=== PATIENT | female | born 1990 | race Two or more races ===

== ENCOUNTER 2018-10-18 18:36 | Emergency (ER) | payer OTHER ==
[~2018-10-18] VITALS: Ht 154.9 cm; Wt 113.4 kg
[~2018-10-18 18:36] MED LIST: ACEBUTCAFT PO; ALBU90OI INH; ALPR1; AMOX500 PO; ANTOXYBENA OT; AZIT250 PO; BCPS; BUPR1 PO; CLOM50A; CRUTCH4 USE; CYCL10 PO; DEPAKOTE; DILT120; DIPH50; ETOD500; HYDACE5; HYDACE5 PO; HYDHCL25 PO; HYDPAM50; IBUP600 PO; IBUP800 PO; IBUPROFEN PRN; LORA1; LORA1 PO; METPRE4DP PO; MIRENA; MULVITMINE PO; NAPR500EC PO; OXYACE5T PO; PENVK500 PO; PROM25 PO; PROP10; PSEU30 PO; QUET100; QUET25; RISP.5; RXLORA1 PO; RXPROM12.S PR; RXTRAM50 PO; SERT50; SULTRIDS PO; TOPI25; TRAZ100; TRAZ50; Veetids 500500 MG PO; ZOLP10; [UNRECOGNIZED DRUG - OTHER]; [UNRECOGNIZED DRUG - OTHER]
[2018-10-18 20:07] LABS: BASOPHILS ABSOLUTE AUTO 0.04 K/mm3 (0.00-0.23); BASOPHILS PERCENT AUTO 1 % (0-2); EOSINOPHILS ABSOLUTE AUTO 0.07 K/mm3 (0.00-0.68); EOSINOPHILS PERCENT AUTO 1 % (0-6); Hematocrit 49.1 % (33.0-51.0); Hemoglobin 16.9 g/dL (11.5-16.0); IMMATURE GRAN ABSOLUTE AUTO 0.01 K/mm3 (0.00-0.10); IMMATURE GRAN PERCENT AUTO 0 % (0-1); LYMPHOCYTES PERCENT AUTO 23 % (21-46); MONOCYTES PERCENT AUTO 7 % (4-13); Mean Corpuscular HGB 31.7 pg (26.0-34.0); Mean Corpuscular HGB Conc 34.4 g/dL (31.5-36.5); Mean Corpuscular Volume 92 fL (80-100); NEUTROPHILS ABSOLUTE AUTO 5.28 K/mm3 (1.96-9.15); NEUTROPHILS PERCENT AUTO 69 % (41-73); Platelet Count 286 K/mm3 (150-400); RDW Coefficient Variation 12.2 % (11.7-14.2); RDW Standard Deviation 41.7 fL (35.1-46.3); Red Blood Cell Count 5.33 M/mm3 (3.80-5.20)
[2018-10-18 20:30] LABS: Alanine Aminotransfer (ALT/SGP 146 U/L (12-78); Albumin, Blood 4.2 g/dL (3.4-5.0); Albumin/Globulin Ratio 0.9 (0.8-1.8); Alk Phos 64 U/L (50-136); Anion Gap 10 mmol/L (6-16); Aspartate Aminotrans (AST/SGOT 119 U/L (12-37); Bilirubin, Total 0.5 mg/dL (0.1-1.0); Blood Urea Nitrogen 5 mg/dL (8-24); Bun/Creatinine Ratio 8.1 (12.0-20.0); CO2, Blood 24 mmol/L (21-32); Chloride, Blood 103 mmol/L (98-108); Creatinine, Blood 0.62 mg/dL (0.40-1.00); Globulin, Blood 4.5 g/dL (2.2-4.0); Glomerular Filtration Rate >60 (60-); Glucose, Blood 98 mg/dL (70-99); Potassium, Blood 3.7 mmol/L (3.5-5.5); Sodium, Blood 137 mmol/L (136-145); Total Protein, Blood 8.7 g/dL (6.4-8.2)
[2018-10-18] MEDS ORDERED: Protonix40 MG PO (21:39)
[2018-10-18] MEDS ORDERED: ONDA4ODT MM (21:39)
[2018-10-18 21:58] LABS: Source, Urine Clean Catch
[2018-10-18 21:59] LABS: Appearance, Urine Cloudy (Clear); Bilirubin, Urine Neg (Neg); Blood, Urine 5+ (Neg); Color, Urine Yellow (P-Yellow); Glucose Qualitative, Urine Neg (Neg); Ketones, Urine Neg (Neg); Leukocyte Esterase, Urine 2+ (Neg); Nitrite, Urine Neg (Neg); Protein, Urine Neg (Neg); Urobilinogen, Urine NORM (Normal)
[2018-10-18 22:17] LABS: Bacteria Many /hpf; Squamous Epithelial Cells Few /hpf (Few)
== END 2018-10-18 22:31 | disposition home or self-care (01) ==
LOC: ER 18:36
PROVIDERS: Emergency Medicine
DX: R10.12 Left upper quadrant pain (principal); Z88.8 Allergy status to other drugs, medicaments and biological substances; Z79.899 Other long term (current) drug therapy; Z79.52 Long term (current) use of systemic steroids; Z72.0 Tobacco use
CPT/HCPCS: 36415; 74177; 80053; 81001; 81025; 83690; 84703; 85025; 87077; 87086; 87186; 96361; 96374; 96375; 99284-25; J2405; J7030; Q9967

== ENCOUNTER 2019-09-12 14:55 | Emergency (ER) | payer OTHER ==
[~2019-09-12] VITALS: Ht 160 cm; Wt 104.3 kg
[~2019-09-12 14:55] MED LIST changes: +ONDA4ODT MM; +Protonix40 MG PO
[2019-09-12 15:32] LABS: BASOPHILS ABSOLUTE AUTO 0.04 K/mm3 (0.00-0.23); BASOPHILS PERCENT AUTO 0 % (0-2); EOSINOPHILS ABSOLUTE AUTO 0.03 K/mm3 (0.00-0.68); EOSINOPHILS PERCENT AUTO 0 % (0-6); Hematocrit 47.4 % (33.0-51.0); Hemoglobin 16.3 g/dL (11.5-16.0); IMMATURE GRAN ABSOLUTE AUTO 0.02 K/mm3 (0.00-0.10); IMMATURE GRAN PERCENT AUTO 0 % (0-1); LYMPHOCYTES ABSOLUTE AUTO 2.29 K/mm3 (0.84-5.20); LYMPHOCYTES PERCENT AUTO 26 % (21-46); MONOCYTES PERCENT AUTO 9 % (4-13); Mean Corpuscular HGB 31.7 pg (26.0-34.0); Mean Corpuscular HGB Conc 34.4 g/dL (31.5-36.5); Mean Corpuscular Volume 92 fL (80-100); Mean Platelet Volume 9.2 fL (9.1-12.4); NEUTROPHILS ABSOLUTE AUTO 5.77 K/mm3 (1.96-9.15); NEUTROPHILS PERCENT AUTO 65 % (41-73); Platelet Count 224 K/mm3 (150-400); RDW Coefficient Variation 12.1 % (11.7-14.2); RDW Standard Deviation 41.3 fL (35.1-46.3); Red Blood Cell Count 5.14 M/mm3 (3.80-5.20); White Blood Cell Count 8.95 K/mm3 (4.00-11.30)
[2019-09-12 15:46] LABS: Alanine Aminotransfer (ALT/SGP 311 U/L (12-78); Albumin, Blood 4.4 g/dL (3.4-5.0); Alk Phos 69 U/L (50-136); Anion Gap 11 mmol/L (6-16); Aspartate Aminotrans (AST/SGOT 263 U/L (12-37); Bilirubin, Total 0.8 mg/dL (0.1-1.0); Blood Urea Nitrogen 7 mg/dL (8-24); Bun/Creatinine Ratio 11.6 (12.0-20.0); CO2, Blood 25 mmol/L (21-32); Calcium, Blood 9.7 mg/dL (8.5-10.1); Chloride, Blood 102 mmol/L (98-108); Creatinine, Blood 0.61 mg/dL (0.40-1.00); Globulin, Blood 4.6 g/dL (2.2-4.0); Glomerular Filtration Rate >60 (60-); Glucose, Blood 131 mg/dL (70-99); Potassium, Blood 3.9 mmol/L (3.5-5.5); Sodium, Blood 138 mmol/L (136-145)
[2019-09-12 16:05] LABS: Source, Urine Clean Catch
[2019-09-12 16:22] LABS: Bilirubin, Urine Neg (Neg); Blood, Urine 4+ (Neg); Color, Urine Yellow (P-Yellow); Glucose Qualitative, Urine Neg (Neg); Ketones, Urine Neg (Neg); Leukocyte Esterase, Urine 1+ (Neg); Nitrite, Urine Neg (Neg); Protein, Urine 1+ (Neg); Specific Gravity, Urine 1.005 (1.003-1.022); Urobilinogen, Urine NORM (Normal)
[2019-09-12 16:37] LABS: Appearance, Urine Hazy (Clear)
[2019-09-12 16:39] LABS: Bacteria Mod /hpf; Red Blood Cells, Urine 0-2 /hpf (0-2); Squamous Epithelial Cells Mod /hpf (Few)
[2019-09-12] MEDS ORDERED: IBUP400 (17:00)
[2019-09-12] MEDS ORDERED: SUBUTEX (17:01)
[2019-09-12] MEDS ORDERED: Protonix40 MG PO (17:29)
[2019-09-12] MEDS ORDERED: Carafate1 GM/10 ML PO (17:29)
[2019-09-12] MEDS ORDERED: ONDA4ODT MM (17:29)
== END 2019-09-12 17:42 | disposition home or self-care (01) ==
LOC: ER 14:55
PROVIDERS: Physician Assistant
DX: K29.71 Gastritis, unspecified, with bleeding (principal); F17.200 Nicotine dependence, unspecified, uncomplicated; Z88.8 Allergy status to other drugs, medicaments and biological substances; Z79.899 Other long term (current) drug therapy
CPT/HCPCS: 36415; 80053; 81001; 83690; 84703; 85025; 86850; 86900; 86901; 99283

== ENCOUNTER 2020-10-16 18:40 | Emergency (ER) | payer OTHER ==
[~2020-10-16] VITALS: Ht 154.9 cm; Wt 133.6 kg
[~2020-10-16 18:40] MED LIST changes: +Carafate1 GM/10 ML PO; +IBUP400; +SUBUTEX
[2020-10-16 20:08] LABS: BASOPHILS ABSOLUTE AUTO 0.09 K/mm3 (0.00-0.23); BASOPHILS PERCENT AUTO 1 % (0-2); EOSINOPHILS ABSOLUTE AUTO 0.03 K/mm3 (0.00-0.68); EOSINOPHILS PERCENT AUTO 0 % (0-6); Hematocrit 39.5 % (33.0-51.0); Hemoglobin 13.9 g/dL (11.5-16.0); IMMATURE GRAN ABSOLUTE AUTO 0.07 K/mm3 (0.00-0.10); IMMATURE GRAN PERCENT AUTO 1 % (0-1); LYMPHOCYTES ABSOLUTE AUTO 2.31 K/mm3 (0.84-5.20); LYMPHOCYTES PERCENT AUTO 19 % (21-46); MONOCYTES ABSOLUTE AUTO 0.87 K/mm3 (0.16-1.47); MONOCYTES PERCENT AUTO 7 % (4-13); Mean Corpuscular HGB 35.9 pg (26.0-34.0); Mean Corpuscular HGB Conc 35.2 g/dL (31.5-36.5); Mean Corpuscular Volume 102 fL (80-100); Mean Platelet Volume 9.5 fL (9.1-12.4); NEUTROPHILS PERCENT AUTO 72 % (41-73); Platelet Count 264 K/mm3 (150-400); RDW Coefficient Variation 16.8 % (11.7-14.2); RDW Standard Deviation 62.9 fL (35.1-46.3); Red Blood Cell Count 3.87 M/mm3 (3.80-5.20); White Blood Cell Count 11.97 K/mm3 (4.00-11.30)
[2020-10-16 20:31] LABS: Alanine Aminotransfer (ALT/SGP 113 U/L (12-78); Albumin, Blood 2.7 g/dL (3.4-5.0); Albumin/Globulin Ratio 0.6 (0.8-1.8); Alk Phos 182 U/L (50-136); Anion Gap 13 mmol/L (6-16); Aspartate Aminotrans (AST/SGOT 354 U/L (12-37); Bilirubin, Total 12.4 mg/dL (0.1-1.0); Blood Urea Nitrogen 5 mg/dL (8-24); Bun/Creatinine Ratio 12.7 (12.0-20.0); CO2, Blood 24 mmol/L (21-32); Calcium, Blood 8.5 mg/dL (8.5-10.1); Chloride, Blood 92 mmol/L (98-108); Globulin, Blood 4.7 g/dL (2.2-4.0); Glomerular Filtration Rate >60 (60-); Glucose, Blood 135 mg/dL (70-99); Sodium, Blood 129 mmol/L (136-145); Total Protein, Blood 7.4 g/dL (6.4-8.2)
[2020-10-16] MEDS ORDERED: BUPRENORPHINE HC2 M1 SL (20:40)
[2020-10-16] MEDS ORDERED: Phenergan25 M1 PO (20:40)
[2020-10-16 21:07] LABS: Beta HCG, Quantitative, Serum <1 mIU/mL (0-3); Troponin I <0.015 ng/mL (0.000-0.040)
[2020-10-16] MEDS ORDERED: K-Dur10 MEQ PO (22:36)
[2020-10-18 09:09] LABS: HBSAG SCREEN Negative (Negative); HEP A AB, IGM Negative (Negative); HEP B CORE AB, IGM Negative (Negative); HEP C VIRUS AB <0.1 (0.0-0.9)
== END 2020-10-16 22:56 | disposition home or self-care (01) ==
LOC: ER 18:40
PROVIDERS: Emergency Medicine; Physician Assistant
DX: B17.9 Acute viral hepatitis, unspecified (principal); F17.200 Nicotine dependence, unspecified, uncomplicated; Z88.8 Allergy status to other drugs, medicaments and biological substances; Z79.899 Other long term (current) drug therapy
CPT/HCPCS: 36415; 71045; 74176; 80053; 80074; 82140; 83690; 83880; 84484; 84702; 85025; 93005; 93010; 96374; 99284-25; A9270; J2405; J7120

== ENCOUNTER 2020-11-06 15:40 | Inpatient (IN) | payer OTHER ==
[~2020-11-06] VITALS: Ht 154.9 cm; Wt 132.5 kg
[~2020-11-06 15:40] MED LIST changes: +BUPRENORPHINE HC2 M1 SL; +K-Dur10 MEQ PO; +Phenergan25 M1 PO
[2020-11-06 16:32] LABS: BASOPHILS ABSOLUTE AUTO 0.03 K/mm3 (0.00-0.23); BASOPHILS PERCENT AUTO 0 % (0-2); EOSINOPHILS PERCENT AUTO 0 % (0-6); IMMATURE GRAN ABSOLUTE AUTO 0.13 K/mm3 (0.00-0.10); IMMATURE GRAN PERCENT AUTO 1 % (0-1); LYMPHOCYTES ABSOLUTE AUTO 1.58 K/mm3 (0.84-5.20); LYMPHOCYTES PERCENT AUTO 9 % (21-46); MONOCYTES ABSOLUTE AUTO 0.66 K/mm3 (0.16-1.47); MONOCYTES PERCENT AUTO 4 % (4-13); Mean Corpuscular HGB 36.1 pg (26.0-34.0); Mean Corpuscular HGB Conc 34.5 g/dL (31.5-36.5); Mean Corpuscular Volume 105 fL (80-100); NEUTROPHILS PERCENT AUTO 87 % (41-73); Platelet Count 265 K/mm3 (150-400); RDW Coefficient Variation 16.9 % (11.7-14.2); RDW Standard Deviation 64.9 fL (35.1-46.3); Red Blood Cell Count 2.77 M/mm3 (3.80-5.20)
[2020-11-06 16:47] LABS: International Normalized Ratio 1.33
[2020-11-06 16:54] LABS: Albumin, Blood 2.1 g/dL (3.4-5.0); Albumin/Globulin Ratio 0.5 (0.8-1.8); Bun/Creatinine Ratio 16.7 (12.0-20.0); Calcium, Blood 8.7 mg/dL (8.5-10.1); Creatinine, Blood 1.2 mg/dL (0.40-1.00); Globulin, Blood 4.3 g/dL (2.2-4.0); Total Protein, Blood 6.4 g/dL (6.4-8.2)
[2020-11-06 16:57] LABS: Bilirubin, Total 22.7 mg/dL (0.1-1.0)
[2020-11-06 18:48] LABS: Ethanol (Alcohol), Blood, Med 9 mg/dL; Magnesium, Blood 1.9 mg/dL (1.6-2.4); Troponin I <0.015 ng/mL (0.000-0.040)
[2020-11-06] MEDS ORDERED: BUPRENORPHINE HC8 MG SL (21:11)
[2020-11-06] MEDS ORDERED: BUPRENORPHINE HC2 M1 SL (21:12)
[2020-11-06 21:58] LABS: Hematocrit 27.4 % (33.0-51.0); Hemoglobin 9.6 g/dL (11.5-16.0)
[2020-11-07 04:35] LABS: BASOPHILS ABSOLUTE AUTO 0.02 K/mm3 (0.00-0.23); BASOPHILS PERCENT AUTO 0 % (0-2); EOSINOPHILS ABSOLUTE AUTO 0.02 K/mm3 (0.00-0.68); EOSINOPHILS PERCENT AUTO 0 % (0-6); Hematocrit 24.3 % (33.0-51.0); Hemoglobin 8.3 g/dL (11.5-16.0); IMMATURE GRAN ABSOLUTE AUTO 0.13 K/mm3 (0.00-0.10); IMMATURE GRAN PERCENT AUTO 1 % (0-1); LYMPHOCYTES ABSOLUTE AUTO 2.29 K/mm3 (0.84-5.20); LYMPHOCYTES PERCENT AUTO 14 % (21-46); MONOCYTES PERCENT AUTO 5 % (4-13); Mean Corpuscular HGB 36.6 pg (26.0-34.0); Mean Corpuscular HGB Conc 34.2 g/dL (31.5-36.5); Mean Corpuscular Volume 107 fL (80-100); Mean Platelet Volume 9.7 fL (9.1-12.4); NEUTROPHILS ABSOLUTE AUTO 13.22 K/mm3 (1.96-9.15); NEUTROPHILS PERCENT AUTO 80 % (41-73); Platelet Count 227 K/mm3 (150-400); RDW Coefficient Variation 17.4 % (11.7-14.2); RDW Standard Deviation 67.8 fL (35.1-46.3); Red Blood Cell Count 2.27 M/mm3 (3.80-5.20); White Blood Cell Count 16.58 K/mm3 (4.00-11.30)
[2020-11-07 05:02] LABS: Albumin, Blood 2.2 g/dL (3.4-5.0); Albumin/Globulin Ratio 0.6 (0.8-1.8); Bilirubin, Total 24.5 mg/dL (0.1-1.0); Bun/Creatinine Ratio 12.1 (12.0-20.0); Creatinine, Blood 2.07 mg/dL (0.40-1.00); Globulin, Blood 3.4 g/dL (2.2-4.0); Total Protein, Blood 5.6 g/dL (6.4-8.2)
[2020-11-07 10:46] LABS: Hematocrit 23.9 % (33.0-51.0); Hemoglobin 8.1 g/dL (11.5-16.0)
[2020-11-07 14:48] LABS: Source, Urine Clean Catch
[2020-11-07 15:11] LABS: Appearance, Urine Cloudy (Clear); Blood, Urine 5+ (Neg); Color, Urine Brown (P-Yellow); Glucose Qualitative, Urine Neg (Neg); Ketones, Urine 1+ (Neg); Leukocyte Esterase, Urine 2+ (Neg); Nitrite, Urine Pos (Neg); Protein, Urine 2+ (Neg); Specific Gravity, Urine 1.015 (1.003-1.022); Urobilinogen, Urine 3+ (Normal)
--- NOTE | 2020-11-07 15:25 | NUR ---
PT ARRIVED IN THE UNIT VIA STRETCHER FROM [facility], REPORT RECEIVED FROM MIR COREY. PT WAS TRANSFERRED TO BED VIA SLIDER SHEET, PT IS LETHARGIC FALLS ASLEEP EASILY BUT IS ABLE TO STATE NAME , KNOWS WHERE SHE'S AT, MILDLY CONFUSED. VERY JAUNDICED IN APPEARANCE, FATHER AT BEDSIDE WAS ABLE TO HELP ANSWER QUESTIONS ABOUT PT'S HX. PT NO IV INFUSING UPON ARRIVAL WAS RESTARTED ON OCREOTIDE AND PROTONIX GTT, GI CONSULT NOTIFIED, FOLLOW UP H&H LABS PENDING. PT IS CURRENTLY NPO AT THIS TIME. [place] CATHETER ORDERED AND INSERTED PT RETAINING >400MLS OF URINE PER BLADDER SCAN, URINE SAMPLE SENT TO LAB. VITALS HRR ST 120'S, BP SYSTOLIC 130'S, SATS ABOVE 93% ON RA, AFEBRILE. PT ON CONTINUOUS CAMERA MONITORING DUE TO HIGH FALL RISK, BED ALARM ON FOR SAFETY. CIWA PER PROTOCOL. PT CURRENTLY IN BED RESTING, CALL LIGHTS IN REACH, WILL MONITOR UNTIL END OF SHIFT
[2020-11-07 15:37] LABS: Bilirubin, Urine 3+ (Neg)
[2020-11-07 15:40] LABS: Amorphous Light (0-Heavy); Bacteria Many /hpf; Squamous Epithelial Cells Rare /hpf (Few)
[2020-11-07 15:51] LABS: Hematocrit 25.9 % (33.0-51.0); Hemoglobin 8.8 g/dL (11.5-16.0)
--- NOTE | 2020-11-07 18:52 | NUR ---
PT SUMMARY: SEE PREVIOUS NOTE. NO OTHER ISSUES ENCOUNTERED SINCE TRANSFER, PT HAS BEEN SLEEPING FOR THE REST OF THE SHIFT, WILL RESPOND TO VERBAL STIMULI BUT FALLS BACK TO SLEEP QUICK, KEEPS ASKING FOR ICE CHIPS, MOUTH SWABS AND MOISTURIZER OFFERED, AWAITING FOR DR DANIELS TO SEE PT, PT REMAINS NPO AT THIS TIME. NS RESTARTED AT 75MLS/HR. CIWA AT 4 PT IS NOT ATTEMPTING TO GET OUT OF BED AT THIS TIME REMAINS ON CAMERA MONITORING, BED ALARM ON FOR SAFETY. OCREOTIDE AND PROTONIX GTT INFUSING WELL. WILL MONITOR UNTIL END OF SHIFT
[2020-11-08 04:46] LABS: Albumin/Globulin Ratio 0.6 (0.8-1.8); Bilirubin, Total 25.4 mg/dL (0.1-1.0); Bun/Creatinine Ratio 12.1 (12.0-20.0); Calcium, Blood 8.1 mg/dL (8.5-10.1); Creatinine, Blood 3.31 mg/dL (0.40-1.00); Globulin, Blood 3.4 g/dL (2.2-4.0); Potassium, Blood 3.7 mmol/L (3.5-5.5); Total Protein, Blood 5.4 g/dL (6.4-8.2)
--- NOTE | 2020-11-08 06:00 | NUR ---
SHIFT SUMMARY PT HAS BEEN LETHARGIC AND MUMBLES IN LOW VOICE, SHE IS ORIENTED TO SELF, MONTH AND PLACE. FOLLOWS DIRECTIONS. PT FALLS ASLEEP EASILY. CIWA FROM 4-8. ATIVAN GIVEN ONCE COVID TEST COMPLETE. VERY JAUNDICED. CATHETER IN PLACE WITH DARK BROWN URINE WITH LOW OUTPUT. NA LOW, CREAT AND GFR ARE HIGH, TOTAL BILI IS HIGH OF 25.4, PHOS HIGH, AST HIGH, H/H LOW. HAS BEEN SINUS TACHY. 4 IV ATTEMPTS WITH ULTRASOUND THAT WE UNSUCCESSFUL. CAMERA FOR MONITORING DUE TO HIGH FALL RISK, BED ALARM ON FOR SAFETY. PT BEDREST AND DID NOT ATTEMPT TO GET UP.
[2020-11-08 06:59] LABS: Influenza A, PCR NEGATIVE (NEGATIVE); Influenza B, PCR NEGATIVE (NEGATIVE); Resp Syncytial Virus, PCR NEGATIVE (NEGATIVE)
[2020-11-08 07:37] LABS: SARS-Cov-2 (COVID-19) PCR, MMC POSITIVE (NEGATIVE)
[2020-11-08 09:08] LABS: Hematocrit 25.6 % (33.0-51.0); Hemoglobin 8.5 g/dL (11.5-16.0)
--- NOTE | 2020-11-08 18:09 | NUR ---
PT SUMMARY: PT COVID TEST CAME BACK POSITIVE, ISO PRECAUTION INITIATED, PT ALSO STARTED ON 2L OF O2 PT SATS THIS AM RANGING 87-89% ON RA, PT IS NOW AT 95% ON 2L. VITALS HRR SR/ST 90-100'S, BP SYSTOLIC 120'S, AFEBRILE. BROTHER AND FAMILY MADE AWARE ABOUT VISITING POLICY FOR COVID PT AND UPDATE ABOUT PT'S CONDITION. NO INTERVENTION FOR NOW PER DR DANIELS HGB STABLE ABOVE 8, PT REMAINS ON PROTONIX AND OCREOTIDE GTT, TO MONITOR FOR ANY SIGNS OF BLEEDING. 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 DR BEVERLY CONSULTED WELL DUE TO RENAL FAILURE ONE TIME DOSE 20MG LASIX GIVEN NS DECREASED TO 50MLS/HR, ALBUMIN ORDERED WELL, PT ONLY HAD 150MLS OUTPUT FOR THE SHIFT URINE TEA COLORED. CIWA HAS BEEN 8-9 PT WITH MILD CONFUSION AND HALLUCINATION ATIVAN GIVEN X2 FOR THE SHIFT. PT REMAINS IN BED ALL THROUGHOUT THE SHIFT ON CAMERA MONITORING, BED ALARM ON FOR SAFETY, CALL LIGHTS IN REACH. PT SAT ON THE SIDE OF THE BED ONCE AND IS SUPERVISED. NO OTHER ISSUES ENCOUNTERED, WILL MONITOR UNTIL END OF SHIFT
[2020-11-08 18:29] LABS: Potassium, Blood 3.5 mmol/L (3.5-5.5)
--- NOTE | 2020-11-08 19:15 | NUR ---
ASSUMED CARE RECEIVED REPORT FROM KRISTINARN; PT LETHARGIC AND SLEEPING CURRENTLY; CAMERA ON FOR SAFETY; VSS; SINUS TACH ON TELE; O2 SATS >93 ON 2L NC; CALL LIGHT IN REACH; BED IN LOWEST POSITION.
[2020-11-08 20:47] LABS: Potassium, Blood 3.6 mmol/L (3.5-5.5)
--- NOTE | 2020-11-08 22:00 | NUR ---
UPDATE CALLED TO NOTIFY OF SODIUM AND LOW URINE OUTPUT; NEW ORDER GIVEN FOR BUMEX AND TO CALL FAMILY; FAMILY NOTIFIED AND MOTHER CALLED TO DISCUSS POTENTIAL DIALYSIS; MOTHER AND FATHER CONSENT AND AGREE W/'S RECOMMENDATIONS; CALL LIGHT IN REACH; BED IN LOWEST POSITION.
[2020-11-09 05:12] LABS: Hemoglobin 7.6 g/dL (11.5-16.0)
--- NOTE | 2020-11-09 06:01 | NUR ---
SHIFT SUMMARY PT A&O X 2-3; VSS; DENIES CHEST PAIN; O2 SATS >93 ON 2L NC; SPOKE TO FAMILY COUPLE X THIS SHIFT; ON CASE; PROTONIX GTT, OCTREOTIDE GTT, INFUSING; NS @ 50 ML/HR; ATIVAN & LIBRIUM ADMINISTERED PER EMAR FOR CIWA PROTOCOL; [place] PATENT & DRAINING DK TEA COLORED URINE, LOW OUTPUT NOTED; BLE 3+ PITTING EDEMA; CONFIRMED W/ MONITORING OF CAMERA ON IN ROOM; BED ALARM ON FOR SAFETY; PT DOES USE CALL LIGHT APPROPRIATELY; CALL LIGHT IN REACH; BED IN LOWEST POSITION; WILL CONITNUE TO MONITOR CLOSELY UNTIL HAND OFF TO DAY SHIFT RN.
[2020-11-09 06:06] LABS: Albumin, Blood 2.6 g/dL (3.4-5.0); Anion Gap 13 mmol/L (6-16); Blood Urea Nitrogen 47 mg/dL (8-24); Bun/Creatinine Ratio 11.6 (12.0-20.0); CO2, Blood 24 mmol/L (21-32); Chloride, Blood 87 mmol/L (98-108); Creatinine, Blood 4.06 mg/dL (0.40-1.00); Glomerular Filtration Rate 14 (60-); Glucose, Blood 94 mg/dL (70-99); Magnesium, Blood 2.6 mg/dL (1.6-2.4); Phosphorus, Blood 3.4 mg/dL (2.5-4.9); Potassium, Blood 3.4 mmol/L (3.5-5.5); Sodium, Blood 124 mmol/L (136-145); Thyroid Stimulating Hormone 0.142 uIU/mL (0.360-4.800); Uric Acid, Blood 8.6 mg/dL (2.6-6.0)
--- NOTE | 2020-11-09 07:35 | NUR ---
DR. BEVERLY AT BEDSIDE. DISCUSSED POC. ORDERS RECEIVED FOR PROVIDER CONSULT - DR. GEORGE TO PLACE PERMACATH FOR DIALYSIS.
[2020-11-09 08:19] LABS: Osmolality, Serum 281 mos/KG (275-300)
[2020-11-09 09:29] LABS: International Normalized Ratio 1.34; Prothrombin Time Results 14.1 Sec (9.7-11.5)
[2020-11-09 10:02] LABS: Albumin, Blood 2.4 g/dL (3.4-5.0); Albumin/Globulin Ratio 0.8 (0.8-1.8); Bilirubin, Direct 23.5 mg/dL (0.0-0.3); Bilirubin, Indirect 2.6 mg/dL (0.1-0.7); Bilirubin, Total 26.1 mg/dL (0.1-1.0); Globulin, Blood 3.2 g/dL (2.2-4.0); Total Protein, Blood 5.6 g/dL (6.4-8.2)
--- NOTE | 2020-11-09 11:20 | NUR ---
ZEYAD TAY FROM DR. MASTERS'S OFFICE HERE TO DISCUSS PERMACATH PLACEMENT WITH PATIENT. THIS RN WENT INTO PATIENT'S ROOM AND HAD MAGGI CALL IN TO ROOM TO DISCUSS PLAN WITH PATIENT. PATIENT DROWSY AND SLOW TO RESPOND, DISORIENTED TO MONTH, UNABLE TO CONSENT FOR HERSELF. MAGGI CALLED PATIENT'S MOTHER WITH ASHLIE VELASQUEZ RN AND RECEIVED CONSENT FOR PROCEDURE. MAGIG AWARE PATIENT ATE BREAKFAST. PLAN IS FOR NPO UNTIL PROCEDURE THIS AFTERNOON.
--- NOTE | 2020-11-09 12:50 | NUR ---
SPOKE WITH DR. ESCOBAR AND DR. DANIELS REGARDING PATIENT AND POC. NOTIFIED THEM PLAN IS FOR PERMACATH PLACEMENT THIS AFTERNOON. DR. DANIELS STATED HE WAS GOING TO PUT IN ORDERS TO DC ALBUMIN.
--- NOTE | 2020-11-09 18:25 | NUR ---
FAVIOLA RICH STATES THAT VIANEY MUSA SHOWED XRAY TO DR. GEORGE WHO REVIEWED IT AND SAID CATHETER WAS OK TO USE, DANIKA AUGUSTIN RN AND FAVIOLA RICH RN HEARD THIS ORDER AND STATED CATHETER WAS OK TO USE. WILL CALL BRANDI HOBSON RN.
--- NOTE | 2020-11-09 18:30 | NUR ---
CALLED [facility] LIAISON AND NOTIFIED HER THAT PATIENT HAD TEMPORARY DIALYSIS CATHETER PLACED. SHE STATED SHE WOULD CALL DR. BEVERLY. PLAN IS FOR DIALYSIS THIS EVENING.
--- NOTE | 2020-11-09 19:25 | NUR ---
ASSUMED CARE RECEIVED REPORT FROM MAURIRN; PT LETHARGIC; VSS; NSR NOTED ON TELE; O2 SATS >93 ON 2L NC; SPOKE W/ SEAN AND PT IS TO RECEIVE DIALYSIS TONIGHT; PROTONIX, OCTREOTIDE, AND ACETYLCYSTEINE INFUSING; [place] PATENT & DRAINING; SCD'S IN PLACE; CALL LIGHT IN REACH; BED IN LOWEST POSITION; BED ALARM AND CAMERA ON FOR SAFETY; REMOTE BIOX OUTSIDE ROOM; CALL LIGHT IN REACH; BED IN LOWEST POSITION.
--- NOTE | 2020-11-09 19:44 | NUR ---
SHIFT SUMMARY: PATIENT A/OX2, DISORIENTED TO MONTH/YEAR. CIWA RANGED FROM 3-7. LIBRIUM GIVEN X1. HAS DENIED PAIN. ON 2L O2 VIA NC. SPO2 DOES DROP TO 87% WHEN ON ROOM AIR. TEMPORARY DIALYSIS CATHETER PLACED TO R NECK BY [facility], ME TO USE PER DR. GEORGE, FIRE EQUIPMENT INSPECTOR HELPER NOTIFIED, POSSIBLE DIALYSIS THIS EVENING. ALLEVYN DRESSING PLACED TO PATIENT'S COCCYX. REPORT GIVEN TO ONCOMING RN.
--- NOTE | 2020-11-09 23:00 | NUR ---
UPDATE DIALYSIS COMPLETE; 2.5 L REMOVED; PT ALERT ASKING FOR A DRINK; ICE WATER AND ICE CHIPS BROUGHT TO PT; PT UNABLE TO DRINK HERSELF, ASSISTANCE PROVIDED W/ PO FLUIDS AND ICE CHIPS; SHOWED PT PERSONAL BELONGINGS DROPPED OFF BY HER MOTHER AND READ HER CARD TO HER, PT FELL ASLEEP MIDWAY; PT SLOW TO RESPOND AND ROM IS QUITE DELAYED; VSS; 200 ML FROM [place] DRAINED; CALL LIGHT IN REACH; BED IN LOWEST POSITION
[2020-11-10 06:28] LABS: Hematocrit 22.6 % (33.0-51.0); Hemoglobin 7.5 g/dL (11.5-16.0)
[2020-11-10 06:44] LABS: Albumin, Blood 2.5 g/dL (3.4-5.0); Anion Gap 15 mmol/L (6-16); Blood Urea Nitrogen 36 mg/dL (8-24); Bun/Creatinine Ratio 10.7 (12.0-20.0); CO2, Blood 24 mmol/L (21-32); Calcium, Blood 8.2 mg/dL (8.5-10.1); Chloride, Blood 90 mmol/L (98-108); Creatinine, Blood 3.37 mg/dL (0.40-1.00); Glomerular Filtration Rate 17 (60-); Glucose, Blood 178 mg/dL (70-99); Magnesium, Blood 2.3 mg/dL (1.6-2.4); Phosphorus, Blood 3.1 mg/dL (2.5-4.9); Potassium, Blood 3.6 mmol/L (3.5-5.5); Sodium, Blood 129 mmol/L (136-145); Thyroxine (T4) 6.6 ug/dL (4.8-13.9)
--- NOTE | 2020-11-10 06:48 | NUR ---
SHIFT SUMMARY PT LETHARGIC AT TIMES THIS SHIFT; ABLE TO ANSWER SOME QUESTIONS, HOWEVER VERY SLOW TO RESPOND; PT ASKS FREQUENTLY ABOUT HER BROTHER COMING TO SEE HER, AND HAS STARTED ASKING ABOUT MEDICATIONS AND SHOWING INTEREST IN HER CARE; ATIVAN ADMINISTERED 1 X THIS SHIFT BEFORE DIALYSIS TO SETTLE PT; NO LIBRIUM THIS SHIFT; VSS; DENIES CHEST PAIN; O2 SATS >93 ON 2L NC, NO DESATURATIONS NOTED THIS SHIFT; TOLERATED DIALYSIS WELL; [place] PATENT & DRAINING TEA COLORED URINE; GIANCARLO POWERGLIDE DRAWS WELL; PROTONIX, OCTREOTIDE AND ACETYLCYSTEINE CONTINUE TO INFUSE; PT THIRSTY, REQUESTS ICE WATER AND ICE CHIPS FREQUENTLY; ASSISTANCE NEEDED TO GET PO FLUIDS TO MOUTH; CALL LIGHT IN REACH; BED IN LOWEST POSITION; BED ALARM ON; WILL CONTINUE TO MONITOR CLOSELY UNTIL HAND OFF TO DAY SHIFT RN.
--- NOTE | 2020-11-10 06:57 | NUR ---
UPDATE MAKING ROUNDS THIS AM AND ASSESS PT
[2020-11-10 08:09] LABS: HBSAG SCREEN Negative (Negative); HEP A AB, IGM Negative (Negative); HEP B CORE AB, IGM Negative (Negative); HEP C VIRUS AB <0.1 (0.0-0.9)
--- NOTE | 2020-11-10 18:37 | NUR ---
SHIFT SUMMARY: PT ALERT TO SELF, PLACE, FAMILY AND SITUATION. UNABLE TO STATE DATE. LETHARGIC AND SLEEPY THROUGHOUT THE SHIFT. ABLE TO ANSWER CARE QUESTIONS AND HAVE CONVERSATION. SLOW TO RESPOND AND SOME GARBLED SPEECH. ON 2 L O2 SATING ABOVE 92%. TELE SHOWING NSR WITH HR 80-90'S. DENIES ANY CHEST PAIN. SOME BACK PAIN RELIVED WITH REPOSITIONING. CIWA SCORES RANGED FROM 4-6. NO SIGNS OF ETOH WITHDRAWL. SKIN AND SCLERA JAUNDICED THROUGHOUT. CURRENTLY RECIEVING DIALYSIS IN ROOM. PT ABLE TO SIT UP IN BED AND EAT WITH ASSISTANCE. NOT USING CALL LIGHT. PT EDUCATED LIFT TRUCK MECHANIC LIGHT AND FALL PREVENTION. EDEMA BILATERAL LOWER EXTREMITIES. [place] CATH IN PLACE DRAINING DARK MEGAN URINE TO GRAVITY. IV'S SALINE LOCKED AND FLUSHING WELL. VITAL SIGNS STABLE. NO ACUTE CHANGES. WILL CONTINUE TO MONITOR AND REPORT OFF.
--- NOTE | 2020-11-11 04:48 | NUR ---
SHIFT SUMMARY NO ACUTE CHANGES THIS SHIFT. VSS. LETHARGIC BUT HAVING APPROPRIATE BUT SLOW CONVERSATIONS. PT REMAINS VERY JAUNDICED, STAINING SHEETS. URINE DARK IN [place]. PT IN SR. 2-3LNC, SPO2 >94% WHEN PT KEPS NC IN, BUT OFTEN PT TAKES IT OUT AND SITS AROUND 88-90%. EDEMA REMAINS GENERALIZED AND ORBITAL. PT FINISHED DIALYSIS WITH TECH AT AROUNF 2000, 2L OFF PER TECH. PERMACATH INTACT AND SECURE. CIWAS REMAIN NEGATIVE. REMAINS IN ISOLATION FOR COVID. FL DIET. CAMERA ON FOR SAFETY. BED ALARM IN PLACE. WILL CONTINUE TO MONITOR UNTIL SHIUFT CHANGE.
[2020-11-11 13:09] LABS: CMV QUANT DNA PCR (PLASMA) Negative (Negative)
--- NOTE | 2020-11-11 17:55 | NUR ---
SHIFT SUMMARY: PT ALERT TO SELF, FAMILY, SITUATION AND STAFF. UNABLE TO TELLING ME EXACTLY WHATS HAPPENING AND DATE/TIME. ON 1 L 02 SATING ABOVE 92%. TELE SHOWING SINUS RHYTHM WITH HR 80-90'S. DENIES CHEST PAIN. VITAL SIGNS STABLE. NO ACUTE CHANGES. DIALYSIS THIS AM WITH 2.5 L OFF. CIWA 5-6. IV'S SALINE LOCKED AND FLUSHING WELL. PT LETHARGIC AND SLEEPING MOST OF THE DAY. ASSISTING WITH MEALS PAITNET GETS SLEEPY. ORAL CARE AND HYGEINE CARES THROUGHOUT THE DAY. PT STATES SHE "FEELS ALOT BETTER". [place] CATH IN PLACE DRAINING DARK MEGAN URINE TO GRAVITY. SKIN AND EYE SCLERA JAUNDICED. ABLE TO HOLD CONVERSATION BUT QUITE SLEEPY. SCD'S IN PLACE. CALL LIGHT IN REACH AND BED REMAINIED IN LOW LOCKED POSITION. WILL CONTINUE TO MONITOR AND REPORT OFF.
[2020-11-11 21:09] LABS: HCV LOG10 2.398 (.); HEPATITIS C QUANTITATION 250 IU/mL (.)
[2020-11-12 04:54] LABS: Hematocrit 23.7 % (33.0-51.0); Hemoglobin 7.8 g/dL (11.5-16.0)
[2020-11-12 05:13] LABS: Albumin, Blood 2.4 g/dL (3.4-5.0); Anion Gap 10 mmol/L (6-16); Blood Urea Nitrogen 32 mg/dL (8-24); Bun/Creatinine Ratio 9.4 (12.0-20.0); CO2, Blood 28 mmol/L (21-32); Calcium, Blood 8.8 mg/dL (8.5-10.1); Chloride, Blood 99 mmol/L (98-108); Glomerular Filtration Rate 17 (60-); Glucose, Blood 119 mg/dL (70-99); Magnesium, Blood 2.3 mg/dL (1.6-2.4); Phosphorus, Blood 2.7 mg/dL (2.5-4.9); Potassium, Blood 3.8 mmol/L (3.5-5.5); Sodium, Blood 137 mmol/L (136-145)
--- NOTE | 2020-11-12 05:18 | NUR ---
SHIFT SUMMARY NO ACUTE CHANGES THIS SHIFT. VSS. PT REMAINS AXO, ON 1-2LNC, LETHARGIC BUT INCREASINGLY ALERT. IN SR WITH STABLE BP. PT REMAINS VERY JAUNDICED. EDEMA NOTED TO BE QUITE A BIT LESS THAN PREVIOUS SHIFTS. PT ROLLING IN BED WITH SOME ASSISTANCE. PT HAD ONE INSTANCE OF NAUSEA, RELIEVED BY ZOFRAN. POWERGLIDE REMAINS PATENT, DRAWS BLOOD. CAMERA REMAINS ON FOR SAFETY WHILE IN ISOLATION AND LETHARGIC. NO INSTANCES OF IMPULSIVITY THIS SHIFT. WILL CONTINUE TO MONITOR UNTIL SHIFT CHANGE.
[2020-11-12 08:08] LABS: HBV IU/ML HBV DNA not detected IU/mL (.)
--- NOTE | 2020-11-12 12:14 | NUR ---
UPDATE: PT VERY SLEEPY. DID NOT WANT TO EAT BREAKFAST. ABLE TO EAT A FEW BITES OF LUNCH AND HALF A ENSURE. PT FALLING ASLEEP WHILE EATING WITH ASSISTANCE FROM GREASE WORKER. PT STATES "NOTHING TASTE GOOD". WILL CONTINUE TO MONITOR AND OFFER FOOD/DRINKS.
--- NOTE | 2020-11-12 18:04 | NUR ---
SHIFT SUMMARY: PT ALERT AND ORIENTED TO SELF, FAMILY, PLACE AND SITAUTION. ABLE TO TELL ME ABOUT HERSELF, AND HER FAMILY. ASKING ABOUT DIALYSIS AND HER MEDICATIONS. ON 0-1 L 02 SATING ABOVE 92%. AT TIMES WHEN SLEEPING WILL FALL DOWN TO 88-89% WHEN 02 IS OFF. TELE SHOWING SR/ST WITH HR 90-110'S. DENIES CHEST PAIN. SOME BACK PAIN RELIEVED WITH REPOSITIONING AND PILLOW PLACEMENT. SOME NAUSEA THIS AM RELIEVED WITH ZOFRAN. NOT EATING BUT A FEW BITES WITH MEALS. DRINKING WATER AND ASKING FOR ICE CHIPS OFTEN. PT STATES "NOTHING TASTES OR SOUNDS GOOD TO EAT". SKIN AND SCLERA JAUNDICED. PATIENT ONLY ABLE TO TOLERATE SCD'S EVERY OTHER HOUR. ABLE TO TURN SELF TO SIDE IN BED AND ASSISTING WITH BOOSTS. PT SLOW TO MOVE AND SLOW TO VERBALLY RESPOND. VITAL SIGNS STABLE. NO ACUTE CHANGES. NO DIALYSIS TODAY, PLAN FOR TOMORROW. BED ALARM AND CAMERA ON FOR SAFETY. PT EDUCATED ON SAFETY. BED REMAINED IN LOW LOCKED POSITION. CALL LIGHT IN REACH. POWERGLIDE DRESSING CHANGED PER PROTOCOL. WILL CONTINUE TO MONITOR AND REPORT OFF.
[2020-11-13 04:21] LABS: Hematocrit 25.5 % (33.0-51.0); Hemoglobin 8.4 g/dL (11.5-16.0)
[2020-11-13 04:39] LABS: Albumin, Blood 2.5 g/dL (3.4-5.0); Anion Gap 10 mmol/L (6-16); Blood Urea Nitrogen 51 mg/dL (8-24); CO2, Blood 25 mmol/L (21-32); Calcium, Blood 9.2 mg/dL (8.5-10.1); Chloride, Blood 99 mmol/L (98-108); Creatinine, Blood 4.62 mg/dL (0.40-1.00); Glomerular Filtration Rate 12 (60-); Glucose, Blood 96 mg/dL (70-99); Magnesium, Blood 2.4 mg/dL (1.6-2.4); Phosphorus, Blood 3.3 mg/dL (2.5-4.9); Potassium, Blood 3.5 mmol/L (3.5-5.5); Sodium, Blood 134 mmol/L (136-145)
--- NOTE | 2020-11-13 05:21 | NUR ---
HD PORT SELF REMOVAL BED ALARM SOUNDING W/ PT FOUND SITTING UP AT EDGE OF BED W/ BLOOD NOTED ON GOWN & BED. R IJ HD PORT NOTED TO BE ON THE FLOOR ACROSS THE RM. PRESSURE HELD TO SITE W/ NO FURTHER BLEEDING. SUPERVISOR SCOURING PADS NOTIFIED & CAME TO TO ASSESS PT. HD PORT NOTED TO BE COMPLETELY IN TACT OUT OF PT. SITE CLEANSED & REDRESSED. PT DOES NOT VERBALIZE WHY PORT WAS SELF REMOVED. EXPLAINED TO PT THE SEVERITY OF PORT REMOVAL. RE ADDRESSED PT CODE STATUS & TREATMENT PLAN W/ PT & PT REPORTS STILL WANTING DIALYSIS & FULL CODE STATUS.
--- NOTE | 2020-11-13 06:47 | NUR ---
SHIFT SUMMARY PT DROWSY, WAKES TO VERBAL STIMULI. VSS. SPO2 > 92% ON RA-2L NC THIS SHIFT. PT REMOVING NC INTERMITTENTLY T/O SHIFT, TOLERATING RA. MONITOR SHOWS SR-ST, HR 90's-110's. PT JAUNDICED T/O W/ EYES NOTED TO BE YELLOW WELL. PT W/ R IJ HD CATH IN WHICH PT SELF REMOVED THIS SHIFT, SEE PREVIOUS NOTES. PT STATES "I DON'T KNOW" WHEN ASKED WHY SHE REMOVED DIALYSIS CATH. PT BED ALARM ON & PT BEING MONITORED BY CENTRAL MONITORING STAFF WELL. WILL CONTINUE TO MONITOR & PROVIDE CARE UNTIL REPORT OFF TO DAY SHIFT RN.
--- NOTE | 2020-11-13 10:06 | NUR ---
ASSUMED CARE FROM NOC RN, MORNING UPDATE NOC SHIFT REPORTED THAT PT PULLED OUT HER HEMODIALYSIS PORT THIS MORNING AND DR. GEORGE HAS BEEN CONSULTED TO PUT IN A REPLACEMENT. PT IS ON ISO FOR COVID AND HAS BEEN BORDERLINE CONFUSED SHE CONTINUES TO GET OUT OF BED AND SHE IS WEAK AND LETHARGIC AND SOB; SHE NOW HAS A 1:1 SITTER WITH HER, A FISCAL OFFICER. PT WAS VERY SLEEPY THIS MORNING WHILE TAKING MORNING MEDICATIONS; SHE WAS ABLE TO SAFELY TAKE EVERYTHING EXCEPT FOR THE ZINC WHICH SHE WOULD NOT STAY AWAKE LONG ENOUGH TO FINISH. PT IS NOW RESTING IN BED
--- NOTE | 2020-11-13 18:31 | NUR ---
SHIFT SUMMARY PT HAS BEEN SLEEPING MOST OF THE DAY. PT WAS CONFUSED AT THE BEGINNING OF SHIFT AND CONTINUED TO TRY TO GET UP OUT OF BED AFTER SELF REMOVING HER HEMODYALSIS PORT THIS MORNING; PT WAS SETTING THE BED ALARM OFF APPROXIMATELY EVERY 10-15 MINUTES; SHE WAS THEN GIVEN A 1:1 SITTER TO ENSURE HER SAFETY. PT HAS CONTINUED TO REST. PT HAS DENIED ALL MEALS TODAY
[2020-11-14 05:10] LABS: HSV-1 DNA Negative (Negative); HSV-2 DNA Negative (Negative)
--- NOTE | 2020-11-14 05:23 | NUR ---
SHIFT SUMMARY PATIENT RESPONDS TO VERBAL STIMULI BUT IS LETHARGIC. ANSWERS QUESTIONS SOMETIMES, ORIENTED TO PERSON, PLACE, SELF. REPOSITIONS SELF IN BED, 1 PERSON ASSIST WITH FWW TO CHAIR. PATIENT WAKES UP AND STARTS PULLING AT IV LINES AND CORDS, WHEN ASKED TO STOP PATIENT SAYS "IM NOT PULLING ON IT" SHE PULLS. SITTER IN ROOM, PATIENT ON CAMERA. VSS, NO ACUTE CHANGES. 02 SATS >95% ON 1L VIA NC. CALL LIGHT IN REACH.
[2020-11-14 05:34] LABS: Hematocrit 27.3 % (33.0-51.0); Hemoglobin 8.8 g/dL (11.5-16.0); Mean Corpuscular HGB 36.7 pg (26.0-34.0); Mean Corpuscular HGB Conc 32.2 g/dL (31.5-36.5); Mean Corpuscular Volume 114 fL (80-100); Mean Platelet Volume 9.1 fL (9.1-12.4); NRBC ABSOLUTE 0.15 K/mm3 (0.00-0.02); NRBC Auto 0.8 /100 WBC (0.0-0.2); Platelet Count 292 K/mm3 (150-400); RDW Coefficient Variation 18.6 % (11.7-14.2); RDW Standard Deviation 76.5 fL (35.1-46.3); White Blood Cell Count 18.56 K/mm3 (4.00-11.30)
[2020-11-14 06:01] LABS: Albumin, Blood 2.3 g/dL (3.4-5.0); Albumin/Globulin Ratio 0.7 (0.8-1.8); Bilirubin, Total 24.6 mg/dL (0.1-1.0); Bun/Creatinine Ratio 12.4 (12.0-20.0); Calcium, Blood 8.9 mg/dL (8.5-10.1); Creatinine, Blood 5.73 mg/dL (0.40-1.00); Globulin, Blood 3.3 g/dL (2.2-4.0); Magnesium, Blood 2.4 mg/dL (1.6-2.4); Phosphorus, Blood 5.4 mg/dL (2.5-4.9); Total Protein, Blood 5.6 g/dL (6.4-8.2)
--- NOTE | 2020-11-14 10:50 | NUR ---
ASSUMED CARE FROM NOC RN, MORNING UPDATE PT WAS SLEEPING DURING SHIFT REPORT. PT WOKE FOR MORNING MEDICATIONS AND TO AMBULATE TO THE BATHROOM. PT MAINTAINED SATURATION ABOVE 94% ON RA SO THE O2 THERAPY WAS PUT ON STANDBY SHE WAS ONLY ON 1L NC. PT DID HAVE AN ELEVATED HR WHILE UP WITH ACTIVITY, 120s BUT SOON RECOVERED TO 90s-100s WITH REST. PT STILL HAS SLURRED SPEECH AND IS WEAK. PT IS STILL CONFUSED AND LETHARGIC. PT HAS A 1:1 SITTING TO ENSURE HER SAFETY. PT IS SCHEDULED TO HAVE A NEW HD PORT PLACED TODAY WITH DR. GEORGE AND IS NPO AT THIS TIME
--- NOTE | 2020-11-14 13:20 | NUR ---
Not allowewd to go in , offered prayers for pt. from the door
--- NOTE | 2020-11-14 18:48 | NUR ---
SHIFT SUMMARY PT HAS BEEN RESTING MOST OF THE DAY, WITH A 1:1 SITTER TO ENSURE HER SAFETY SHE PREVIOUSLY PULLED HER HD PORT OUT. PT HAD BILATERAL SOFT WRIST RESTRAINTS PLACED THIS AFTERNOON SHE HAD A NEW TEMPORARY HD PORT PLACED BY DR. GEORGE THIS EVENING. PT HAS TOLERATED RESTRAINTS WELL, CAMERA IS ON AND WATCHING THE PT WELL. PT HAD ASSISTANCE WITH DINNER AND PO FLUIDS AND RESTRAINT CHARTING HAS BEEN COMPLETED PER PROTOCOL. VS STABLE, PT ON RA.
--- NOTE | 2020-11-14 20:00 | NUR ---
ASSUMED CARE OF PATIENT AT APPROXIMATELY 1910 FROM LULÚ Chirinos RN. PATIENT SLEEPING DURING BEDSIDE REPORT; BILATERAL WRIST RESTRAINTS IN PLACE. PATIENT CONFUSED; OPENS EYES TO VERBAL STIMULUS; CONFUSED; REPORTEDLY PULLS AT LINES/TUBES. CAMERA ON FOR MONITORING. SR/ST ON TELE; OXYGEN SATURATION ABOVE 90% ON ROOM AIR. ROSA PARKER.
--- NOTE | 2020-11-14 20:20 | NUR ---
PATIENT HAD DRIED BLOOD ON GOWN, SHEET AND PILLOW. COATER CARBON PAPER REPORTS DAYSHIFT UNABLE TO CHANGE BEDDING AFTER DOCTOR PUT NEW PORT IN ROOM. NO SIGNS OF ACTIVE BLEEDING NOTED.
--- NOTE | 2020-11-14 20:30 | NUR ---
PCT WALKER WALKS UP TO THIS RN AND REPORTS THE MONITOR ROOM CALLED AND REPORTED SHE WAS PULLING ON HER PORT; THIS RN GOES INTO ROOM AND PATIENT HAD ALMOST GOTTEN OUT OF RIGHT WRIST RESTRAINT AND SLID DOWN IN BED; COTTON WEIGHER GENESIS NOTIIFED THAT STAFF HAVE TO BEEN GOING INTO THE ROOM CONSTANTLY AND MAY NEED 1:1 SITTER BACK; NO SITTERS AVAILABLE.
--- NOTE | 2020-11-14 21:10 | NUR ---
CALLED MOTOR SCOOTER MECHANIC SHOSHANA TO REPORT PATIENT MOVING AROUND IN BED; STAFF MEMBER IN ROOM EVERY FEW MINTUES DUE TO PATIENT SLIDING DOWN IN BED AND ATTEMPTING TO PULL AT NEW PERMCATH; PATIENT CONFUSED. PATIENT IN SOFT BILATERAL WRIST RESTRAINTS. MOTOR SCOOTER MECHANIC WALKING IN UNIT AND SEEN PATIENT THRASHING AROUND IN BED; ORDERS FOR IV 2MG ATIVA NOW.
--- NOTE | 2020-11-15 00:22 | NUR ---
PATIENT MOVING AROUND AGAIN IN BED; MONITOR ROOM CALLED REGISTERED NURSE BEHAVIORAL HEALTH TO REPORT THAT PATIENT WAS PULLING ON TUBE AGAIN. PATIENT REPOSISTION; THIS RN STAYING IN ROOM WITH PATIENT LAYS ON RIGHT SIDE W/O RESTRAINTS. PATIENT HAS ALREADY ATTEMPTED TO PULL AT [facility] SITE 3 TIMES IN LAST 20 MINUTES.
--- NOTE | 2020-11-15 01:15 | NUR ---
PATIENT BECOMING MORE AGITATED AGAIN; MOVING AROUND IN BED; PULLING ON RESTRAINTS; MONITOR ROOM CALLED TO REPORT THAT PATIENT WAS PULLING ON LINES AGAIN. PATIENT IN DROPLET ISOLATION FOR COVID; CALLED DR. WARE; ORDERS RECIEVED FOR PRN ATIVAN.
--- NOTE | 2020-11-15 03:15 | NUR ---
PATIENT MORE AGITATED; PULLING ON LEFT WRIST RESTRAINT AND ALMOST PULLED ARM LOOSE BEFORE STAFF COULD GOWN UP AND ENTER ROOM. PATIENT'S RESTAINTS REMOVED TO BOOST IN BED AND PATIENT WAS ATTEMPTING TO GET OUT OF BED; CONFUSED; VERY UNSTEADY; FALL RISK; ABLE TO REDIRECT BACK INTO BED AND MEDICATED PER EMAR FOR AGITATED. VSS.
[2020-11-15 03:36] LABS: Hematocrit 26.5 % (33.0-51.0); Hemoglobin 8.8 g/dL (11.5-16.0)
[2020-11-15 03:56] LABS: Albumin, Blood 2.2 g/dL (3.4-5.0); Anion Gap 15 mmol/L (6-16); Blood Urea Nitrogen 90 mg/dL (8-24); Bun/Creatinine Ratio 14.2 (12.0-20.0); CO2, Blood 24 mmol/L (21-32); Calcium, Blood 8.3 mg/dL (8.5-10.1); Chloride, Blood 97 mmol/L (98-108); Creatinine, Blood 6.36 mg/dL (0.40-1.00); Glomerular Filtration Rate 8 (60-); Glucose, Blood 108 mg/dL (70-99); Magnesium, Blood 2.4 mg/dL (1.6-2.4); Phosphorus, Blood 6.1 mg/dL (2.5-4.9); Potassium, Blood 3.7 mmol/L (3.5-5.5); Sodium, Blood 136 mmol/L (136-145)
--- NOTE | 2020-11-15 06:20 | NUR ---
PATIENT SLEPT ABOUT SIX HOURS OFF AND ON. PATIENT CONFUSED ALL NIGHT. SLOW TO RESPOND. IMPULSIVE AT TIMES. VSS. ON ROOM AIR ALL NIGHT.
--- NOTE | 2020-11-15 18:02 | NUR ---
SHIFT SUMMARY; ASSUMED CARE AT 0700, A/A/OX3 DURING SHIFT. REMAINS IN SOFT RESTRAINTS DUE TO PULLING AT LINES AND UNABLE TO REDIRECT. LINEN CHANGE TODAY WITH PERICARE AND GOWN CHANGE. MINIMAL CONVERSATION, FOLLOWS DIRECTION, SLOW TO RESPOND. VSS, NO ACUTE MEDICAL CHANGES DURING SHIFT. WILL CONTINUE TO MONITOR AND TREAT UNTIL CHANE OF SHIFT.
[2020-11-16 03:25] LABS: Hematocrit 27.1 % (33.0-51.0); Hemoglobin 8.9 g/dL (11.5-16.0)
[2020-11-16 03:39] LABS: Albumin, Blood 2.2 g/dL (3.4-5.0); Anion Gap 14 mmol/L (6-16); Blood Urea Nitrogen 66 mg/dL (8-24); Bun/Creatinine Ratio 12.6 (12.0-20.0); CO2, Blood 26 mmol/L (21-32); Calcium, Blood 8.4 mg/dL (8.5-10.1); Chloride, Blood 98 mmol/L (98-108); Creatinine, Blood 5.23 mg/dL (0.40-1.00); Glomerular Filtration Rate 10 (60-); Glucose, Blood 95 mg/dL (70-99); Magnesium, Blood 2.3 mg/dL (1.6-2.4); Potassium, Blood 3.6 mmol/L (3.5-5.5); Sodium, Blood 138 mmol/L (136-145)
--- NOTE | 2020-11-16 05:38 | NUR ---
SHIFT SUMMARY PT RESTELSS THROUGHOUT NIGHT. ALERT AND ORIENTED X1-2. PT DISORIENTED AND NOT ABLE TO COMMUNICATE NEEDS. SATS >90% ON ROOM AIR. TELE - NSR/SINUS TACH. NO BM. [place] IN PLACE - DRAINED 300ML, DARK YELLOWISH URINE. AM LABS NOT GREAT, BUT IMPROVED FROM DAY BEFORE. RESTRAINTS IN PLACE ALL NIGHT - SEE RESTRAINT DOCS FLOWCHART. PT ATTEMPTING TO GET OUT OF WRIST RESTRAINTS OFTEN - REDIRECTION GIVEN NEEDED. PT STILL VERY JAUNDICED. ATIVAN X1 PATIENT SEEMED TO BE AGITATED EARLY THIS MORNING. VSS. CALL LIGHT WITHIN REACH, BED IN LOWEST POSITION. BED ALARM ON. CAMERAS WATCHING PATIENT. WILL CONTINUE TO MONITOR.
--- NOTE | 2020-11-16 18:23 | NUR ---
SHIFT SUMMARY; ASSUMED CARE AT 0700. A/A/OX3 WITH INTERMITANT CONFUSION AND FORGETFULNESS. REMAINS IN BILATERAL WRIST RESTRAINTS TO PROTECT LINES. MEDICATED THROUGHOUT SHIFT FOR AGITATION NEEDED. REPOSITIONED Q2 HOURS. MEPILEX TO COCCYX FOR PREVENTATIVE. [place] IN PLACE DRAINING MEGAN URINE. PLAN FOR DIAYLISIS TOMORROW, WILL CONTINUE TO MONITOR AND TREAT UNTIL CHANGE OF SHIFT.
--- NOTE | 2020-11-16 19:50 | NUR ---
ASSUMED CARE PT WAS SLEEPING. BROTHER IN ROOM. V/S STABLE, SPO2 >92%. [place] CATHETER IS IN PLACE AND DRAINING. WILL CONTINUE TO MONITOR.
[2020-11-17 04:09] LABS: Hematocrit 25.1 % (33.0-51.0); Hemoglobin 8.1 g/dL (11.5-16.0)
[2020-11-17 04:26] LABS: Anion Gap 13 mmol/L (6-16); Blood Urea Nitrogen 83 mg/dL (8-24); Bun/Creatinine Ratio 13.2 (12.0-20.0); CO2, Blood 26 mmol/L (21-32); Calcium, Blood 8.4 mg/dL (8.5-10.1); Chloride, Blood 99 mmol/L (98-108); Creatinine, Blood 6.28 mg/dL (0.40-1.00); Glomerular Filtration Rate 8 (60-); Glucose, Blood 89 mg/dL (70-99); Magnesium, Blood 2.4 mg/dL (1.6-2.4); Phosphorus, Blood 5.8 mg/dL (2.5-4.9); Potassium, Blood 3.5 mmol/L (3.5-5.5); Sodium, Blood 138 mmol/L (136-145)
--- NOTE | 2020-11-17 06:34 | NUR ---
SHIFT SUMMARY PATIENT HAS BEEN CONDUSED AND WITHDRAWN IN ROOM. HAS BEEN PULLING ON RESTRAINTS. VITALS SIGNS HAVE BEEN STABLE WITH O2 OF >92%. CATHETER IS IN PLACE AND DRAINING. TELE IN PLACE WITH READINGS OF SINUS TACH IN 110'S. SHE IS A MODERATE ASSIST BUT CAN REPOSITION SELF. MEPILEX PLACED ON HEELS DUE TO REDNESS. NO ACUTE CHANGES FOR PT.
--- NOTE | 2020-11-17 17:23 | NUR ---
SHIFT SUMMARY PT ALERT AND ORIENTED TO SELF. MOANS OR NODS HEAD IN RESPONSE TO QUESTIONS. SOFT WR IN PLACE. SEE DOCUMENTATION. PT ABLE TO ASSIST IN TURNS NEEDED. MEPLEX ON L HEEL FOR PROTECTION. HR STABLE. BP STABLE. OXYGEN SATURATION MAINTAINED ABOVE 92% ON RA. PT HAD HEMODIALYSIS IN ROOM TODAY AT 1300. MEDS HELD PER ORDERS, SEE EMAR. WILL CONTINUE TO MONITOR UNTIL REPORT GIVEN TO NIGHTSHIFT RN.
--- NOTE | 2020-11-18 04:29 | NUR ---
SHIFT SUMMARY PATIENT IS LETHARGIC AND WOULD NOT ANSWER MY QUESTIONS AT THE BEGINNING OF THE SHIFT. PATIENT EVENTUALLY BECAME MORE ALERT KICKING HER BLANKETS OFF AND PULLING AT HER WRIST RESTRAINTS. PATIENT WOULD ANSWER QUESTIONS VERBALLY AND TOLD ME ABOUT HER FAMILY. MEDICATED PATIENT ONCE FOR AGITATION, SEE EMAR. PROVIDED BRIEF BREAKS FROM WRIST RESTRAINTS THROUGHOUT THE NIGHT, OFFERED WATER AND ICE CHIPS, AND REPOSITIONED PATIENT. WHEN OUT OF RESTRAINTS PATIENT WOULD START PULLING AT CORDS. 02 SATS >90% ON RA. VSS, NO ACUTE CHANGES. CALL LIGHT IN REACH, PATIENT ON CAMERA, BED IN LOW POSITION, BED ALARM ON.
[2020-11-18 05:38] LABS: Hematocrit 26.4 % (33.0-51.0); Hemoglobin 8.7 g/dL (11.5-16.0)
[2020-11-18 06:04] LABS: Anion Gap 12 mmol/L (6-16); Blood Urea Nitrogen 57 mg/dL (8-24); Bun/Creatinine Ratio 11.2 (12.0-20.0); CO2, Blood 28 mmol/L (21-32); Calcium, Blood 8.5 mg/dL (8.5-10.1); Chloride, Blood 98 mmol/L (98-108); Creatinine, Blood 5.07 mg/dL (0.40-1.00); Glomerular Filtration Rate 11 (60-); Glucose, Blood 96 mg/dL (70-99); Magnesium, Blood 2.1 mg/dL (1.6-2.4); Phosphorus, Blood 4.4 mg/dL (2.5-4.9); Potassium, Blood 3.7 mmol/L (3.5-5.5); Sodium, Blood 138 mmol/L (136-145)
--- NOTE | 2020-11-18 08:30 | NUR ---
RESTRAINT ORDER PHYSICIAN ORDERED TO D/C RESTRAINTS AT THIS TIME. WILL CONTINUE TO MONITOR. BED ALARM IN PLACE AND PT ON CAMERA. PT VERBALIZED SHE WILL NOT PULL AT PERMACATH.
--- NOTE | 2020-11-18 14:27 | NUR ---
PHYSICIAN CALLED PHYSICIAN NOTIFIED OF [facility]. PHYSICIAN INSTRUCTED TO PUT IN NEW SOFT WRIST RESTRAINT ORDER. PHYSICIAN ALSO INFORMED THAT PT HAS NOT HAD A BM SINCE 11/09. ORDERS FOR BOWEL PREP PUT IN. WILL GIVE MIRILAX ONCE VERIFIED BY PHARMACY.
--- NOTE | 2020-11-18 17:48 | NUR ---
SHIFT SUMMARY PT ALERT AND ORIENTED TO SELF, LOCATION AND FAMILY. CONFUSED AT TIMES. LETHARGIC. RESTRAINTS REMOVED PER PHYSICIAN AT 0800. AT 1400 PT BEGAN TO PULL AT DRESSING FOR PERMACATH. PHYSICIAN NOTIFIED AND RESTRAINT ORDER RESUMED PER PHYSICIAN. PT'S MOM AT BEDSIDE WITH PT T/O SHIFT. PT TURNED T/O SHIFT. PT ABLE TO TURN SELF AND PULL SELF UP IN BED. HR STABLE. BP STABLE. OXYGEN SATURATION MAINTAINED ABOVE 93% ON RA. NO CP OR PRESSURE REPORTED. WILL CONTINUE TO MONITOR UNTIL REPORT GIVEN TO NIGHTSHIFT RN.
--- NOTE | 2020-11-18 21:05 | NUR ---
CARE ASSUMPTION UPON ASSUMING CARE THE PT WAS GIVEN A BREAK FROM THE RESTRAINTS FOR APPR 15 MIN TO DO ROM AND TO BOOST IN BED. PT DID ATTEMPT TO REACH FOR THE PERMACATH AND WAS REDIRECTED. PT WAS AGAIN PLACE IN RESTRAINTS AND I EXPLAINED WHY THEY WERE BEING USED SO THAT SHE DID NOT PULL OUT THE PERMACATH, PT NODDED THOUGH SHE UNDERSTOOD. I HELD 2100 MEDS PT IS TOO LETHARGIC TO SWALLOW SAFELY. HUMZA PARKER.
[2020-11-19 04:28] LABS: Hematocrit 27.3 % (33.0-51.0); Hemoglobin 8.8 g/dL (11.5-16.0)
--- NOTE | 2020-11-19 04:35 | NUR ---
CASE CHECKER SUMMARY THE PT HAS BEEN LETHARGIC ALL SHIFT WAKING ONLY BREIFLY WHEN GIVEN BREAKS FROM THE RESTRAINTS. THE PT ATTEMPTED TO GRAB HER PERMACATH SEVERAL TIMES WHILE OUT OF THE RESTRAINT AND WAS REDIRECTED TO NOT TOUCH IT. PT WAS TURNED Q2H AND HEEL BORDERS APPLIED SHE WOULD NOT KEEP A PILLOW UNDER HER LEGS. O2 SATS HAVE REMAINED >92% ON RM AIR. VSS, WCTM.
[2020-11-19 04:44] LABS: Anion Gap 12 mmol/L (6-16); Blood Urea Nitrogen 71 mg/dL (8-24); Bun/Creatinine Ratio 11.5 (12.0-20.0); CO2, Blood 27 mmol/L (21-32); Calcium, Blood 8.7 mg/dL (8.5-10.1); Chloride, Blood 97 mmol/L (98-108); Creatinine, Blood 6.17 mg/dL (0.40-1.00); Glomerular Filtration Rate 9 (60-); Glucose, Blood 95 mg/dL (70-99); Magnesium, Blood 2.3 mg/dL (1.6-2.4); Phosphorus, Blood 5.2 mg/dL (2.5-4.9); Potassium, Blood 3.6 mmol/L (3.5-5.5); Sodium, Blood 136 mmol/L (136-145)
--- NOTE | 2020-11-19 16:31 | NUR ---
PHYSICIAN NOTIFIED PHYSICIAN NOTIFIED PT HAS NOT HAD A BM SINCE . MEDICATION ORDERED AND WILL BE GIVEN PER EMAR. PHYSICAN ALSO NOTIFIED OF SWELLING/RASH AT PERMACATH INSERTION SITE. RASH GOES DOWN INTO NECK AND UP TO EAR. WAS NOTICED BY DIALYSIS NURSE DURING DIALYSIS. PT HAS NEW SORE FROM DIALYSIS TUBING. PHYSICIAN TO SEE PT THIS AFTERNOON. PERMACATH DRESSED IN GAUZE AND SURGICAL TAPE AT THIS TIME.
--- NOTE | 2020-11-19 17:33 | NUR ---
UPDATE PHYSICIAN EXAMINED PT'S PERMACATH. PICTURES TAKEN. INSTRUCTED TO MONITOR FOR NOW. PHYSICIAN INFORMED OF PT'S AMMONIA LEVEL AND THAT PT HAS HAD POOR ORAL INTAKE FOR 2 DAYS. NO ORDERS AT THIS TIME.
--- NOTE | 2020-11-19 17:41 | NUR ---
SHIFT SUMMARY PT ALERT TO SELF, FAMILY AND LOCATION AT TIMES. SLOW TO RESPOND AND LETHARGIC. PO MEDICATIONS HELD D/T LETHARGY, PHYSICIAN INFORMED. PHYSICIAN INFORMED OF POOR ORAL INTAKE. HR STABLE. BP STABLE. OXYGEN SATURATION MAINTAINED ABOVE 95% ON RA. PT HAD DIALYSIS TODAY THIS AFTERNOON. SEE NOTES REGARDING [facility]ACAT SITE. PICTURES IN CHART. PT RECIEVED SUPPOSITORY FOR NO BM SINCE 11/09. PT ABLE TO ASSIST IN REPOSITIONS T/O SHIFT. DE [place] VEGA PATENT TO GRAVITY DRAIN. WRIST RESTRAINTS IN PLACE. WILL CONTINUE TO MONITOR UNTIL REPORT GIVEN TO NIGHTSHIFT RN.
--- NOTE | 2020-11-20 04:20 | NUR ---
PEDICURIST SUMMARY PT WAS ABLE TO PULLS HER HANDS FREE FROM THE SOFT WRIST RESTRAINTS MULTIPLE TIMES SO AN ORDER FOR TAT RESTRAINTS WAS OBTAINED AND APPLIED. THE PT ATTEMPT TO PULL AT PERMACATH WHEN GIVEN BREAKS FROM THE RESTRAINTS DESPITE CONTINUOUS REDIRECTING. O2 SATS REMAIN >94% ON RM AIR. THE PT IS VERY LETHARGIC AND REPORTS FEELING VERY TIRED THROUGHOUT THE SHIFT. THE PT HAS BEEN ABLE TO USE THE CALL LIGHT APPROPRIATELY THROUGH OUT THE SHIFT TO MAKE HER NEEDS KNOWN. VSS, WCTM UNTIL REPORT GIVEN TO DAYSHIFT RN.
[2020-11-20 04:57] LABS: Albumin/Globulin Ratio 0.6 (0.8-1.8); Bilirubin, Direct 22.3 mg/dL (0.0-0.3); Bilirubin, Indirect 2.7 mg/dL (0.1-0.7); Globulin, Blood 3.4 g/dL (2.2-4.0); Total Protein, Blood 5.4 g/dL (6.4-8.2)
--- NOTE | 2020-11-20 14:09 | NUR ---
No visit ,door closed, prayed for the pt.
--- NOTE | 2020-11-20 17:51 | NUR ---
SHIFT SUMMARY; ASSUMED CARE AT 0700. AWAKES TO VERBAL STIMULI THROUGHOUT DAY BUT REMAINS SOMMULENT. MOVES ALL FOUR EXTREMETIES AND ASSISTS WITH CARE WHEN PROMPTED. BILATERAL WRIST RESTRAINTS REMAIN IN PLACE DUE TO INTERMITANT CONFUSION AND PULLING AT LINES. Q2 TURNS THROUGHOUT SIFT AND ORAL CARE Q4. EVALUATED BY SPEECH TODAY, CHANGED TO NPO WITH ICE CHIPS OR WATER WITH A SPOON. CT COMPLETED TODAY DUE TO CONTINUED LETHRAGY. PO MEDS HELD PER PROVIDER, POSSIBLE NG TO BE ORDERED. REVAL TOMORROW BY SPEECH. VSS, NO ACUTE MEDICAL CHANGES. WILL CONTINUE MONITOR AND TREAT UNTIL CHANGE OF SHIFT.
[2020-11-21 04:33] LABS: Hematocrit 28.2 % (33.0-51.0); Mean Corpuscular HGB 36.3 pg (26.0-34.0); Mean Corpuscular HGB Conc 31.9 g/dL (31.5-36.5); Mean Corpuscular Volume 114 fL (80-100); Mean Platelet Volume 9.2 fL (9.1-12.4); Platelet Count 281 K/mm3 (150-400); RDW Coefficient Variation 18.2 % (11.7-14.2); RDW Standard Deviation 75.6 fL (35.1-46.3); Red Blood Cell Count 2.48 M/mm3 (3.80-5.20); White Blood Cell Count 16.22 K/mm3 (4.00-11.30)
[2020-11-21 04:47] LABS: International Normalized Ratio 1.49; Prothrombin Time Results 15.6 Sec (9.7-11.5)
[2020-11-21 04:56] LABS: Anion Gap 12 mmol/L (6-16); Blood Urea Nitrogen 63 mg/dL (8-24); Bun/Creatinine Ratio 10.1 (12.0-20.0); CO2, Blood 27 mmol/L (21-32); Calcium, Blood 8.6 mg/dL (8.5-10.1); Chloride, Blood 104 mmol/L (98-108); Creatinine, Blood 6.21 mg/dL (0.40-1.00); Glomerular Filtration Rate 8 (60-); Glucose, Blood 102 mg/dL (70-99); Magnesium, Blood 2.3 mg/dL (1.6-2.4); Phosphorus, Blood 4.7 mg/dL (2.5-4.9); Potassium, Blood 3.6 mmol/L (3.5-5.5); Sodium, Blood 143 mmol/L (136-145)
--- NOTE | 2020-11-21 05:32 | NUR ---
BAKER HEAD SUMMARY THE PT HAS REMAINED LETHARGIC THIS SHIFT AND APPEARS LESS ACTICE PHYSICALLY THAN PREVIOUS NIGHT. THE PT IS AXO X1. ORAL CARE PROVIDED Q4H AND ICE CHIPS AND WATER VIA SPOON OFFERED WITH BREAKS FROM RESTRAINTS Q2H. O2 SATS >94% ON RM AIR. GAVE PT ZOFRAN FOR NAUSEA ONCE THIS SHIFT. LOW URINE OUTPUT THIS SHIFT, URINE STILL VERY DARK MEGAN. VSS, WCTM.
--- NOTE | 2020-11-21 14:50 | NUR ---
PT BACK FROM PROCEDURE, UNABLE TO COMPLETED LUMBAR PUNCTURE; NOTIFIED DR KURTZ. WILL CONTINUE TO MONITOR.
--- NOTE | 2020-11-21 18:11 | NUR ---
SHIFT SUMMARY PT ALERT, ORIENTED TO SELF. AT TIMES USES 1-3 WORD SENTENCES, GARBLED SPEECH. OTHERWISE CONFUSED. PT IN BILATERAL WRIST RESTRAINTS, PT PULLING AT RESTRAINTS AND WHEN GIVEN BREAKS OFF THE RESTRAINTS PT PULLING AT GOWN, LINES AND CATHETER. PT DENIES PAIN, CHEST PAIN, SOB, NAUSEA AND DIZZINESS. PT WAS UNABLE TO HAVE LUMBAR PUNCTURE THIS AFTERNOONS, PT UNABLE TO TOLERATE PRONE FOR PROCEDURE. VSS. NO OTHER ACUTE CHANGES NOTED DURING SHIFT. WILL CONTINUE TO MONITOR UNITL REPORT GIVEN TO ONCOMING RN.
[2020-11-22 06:01] LABS: Anion Gap 11 mmol/L (6-16); Blood Urea Nitrogen 44 mg/dL (8-24); Bun/Creatinine Ratio 8.6 (12.0-20.0); CO2, Blood 29 mmol/L (21-32); Calcium, Blood 8.6 mg/dL (8.5-10.1); Chloride, Blood 103 mmol/L (98-108); Creatinine, Blood 5.14 mg/dL (0.40-1.00); Glomerular Filtration Rate 11 (60-); Glucose, Blood 93 mg/dL (70-99); Magnesium, Blood 2.1 mg/dL (1.6-2.4); Phosphorus, Blood 4.1 mg/dL (2.5-4.9); Potassium, Blood 3.6 mmol/L (3.5-5.5); Sodium, Blood 143 mmol/L (136-145)
[2020-11-22 06:02] LABS: Hematocrit 27.9 % (33.0-51.0); Hemoglobin 8.7 g/dL (11.5-16.0)
--- NOTE | 2020-11-22 06:15 | NUR ---
SHIFT SUMMARY PT WAS LETHARGIC AND SLOW TO RESPOND T/O THE NIGHT. SHE WAS ORIENTED TO SELF AND SURROUNDINGS, ABLE TO IDENTIFY SHE WAS AT THE HOSPITAL. PT WAS STILL MOSTLY CONFUSED, TRYING TO PULL AT LINES AND GET OUT OF BED TO GO HOME. PT WAS IN WRIST RESTRAINTS T/O THE NIGHT WITH BREAKS WHEN NURSE IN THE ROOM TO OBSERVE PT. PT ABLE TO DRINK SMALL AMOUNT OF PO FLUIDS. PT HAD 75ML URINE OUTPUT T/O THE SHIFT, DARK YELLOW. VITALS STABLE 120-130'S SYSTOLIC. HR TACHY IN THE LOW 100'S. O2 SATS >90% ON ROOM AIR.
--- NOTE | 2020-11-22 12:47 | NUR ---
HD PORT WAS REDRESSED THIS AFTERNOON. IT WAS CLEANED WITH SALINE AND CHLORIHEXADINE AND ADHESIVE REMOVER WAS USED ON THE OLD TEGADERM. A NEW TEGADERM WAS PUT INTO PLACE OVER THE PORT. POWERGLIDE WAS ALSO REDRESSED. THE OLD TEGADERM WAS REMOVED WITH SALINE, ADHESIVE REMOVER. THE SITE WAS CLEANED WITH CHG AND REDRESSED WITH A NEW TEGADERM AND STAT LOCK. THE LINE WAS FLUSHED WITH 10ML AND WAS RN NICOLE WAS ABLE TO ASPIRATE BLOOD BACK INTO THE SYRINGE
--- NOTE | 2020-11-22 14:30 | NUR ---
RECEIVED REPORT FROM SABA ESCOBEDO RN PCU. PT ADMITTED FOR JAUNDICE, WEAKNESS, HEMETEMESIS, AND ETOH. PT IS POSITIVE FOR COVID ON 11/08- NO RESPIRATORY SYMPTOMS AT THIS TIME AND ON RA. DENIES SOB. PT IS VERY JAUNDICE RIGHT NOW AND VERY LETHARGIC. ACCORDING TO RN, THIS PT PULLED A PORT FOR DIALYSIS LAST WEEK, THEREFORE THIS PT IS NOW ON TOUGH CUFF LOCKED RESTRAINTS ON 2X UPPER EXTREMETIES. PT IS ALSO ON CAMERA AND BED ALARM. PT HAS A POWERGLIDE ON MARGARETTE AND R IJ PORT FOR HEMODIALYSIS. PT IS 1P ASSIST FWW. PT HAS DE [place] VE[place] AND VERY MINIMA OUTPUT; DARK URINE COLOR. PT WILL RESPOND TO VERBAL STIMULI. PT ETOH IMPROVED AND PASSESED WITHDRAWAL PER GREGG COREY. PT NOT A CANDIDATE FOR REMDESIVIR DUE TO RENAL PROBLEMS. VSS. BED IS IN THE LOWEST POSITION AND RESTRAINT MANAGEMENT PER POLICY. REORIENTED THE PT IN THE ROOM AND CALL LIGHT WITHIN REACH. TRIED TO CALL THE FAMILY/BROTHER; BUT NO ONE ANSWERED THE PHONE. PT HAS MEPELEX IN THE BUTTOCKS FOR PROTECTION.
--- NOTE | 2020-11-22 14:42 | NUR ---
TRANSFER PT TRANSFERRED TO MEDICAL FLOOR AT APPROXIMATELY 1355. VS STABLE, PT ON RA. MORNING CARE HAD BEEN COMPLETED PRIOR TO HER LEAVING. PT WAS ABLE TO AMBULATE TO THE BATHROOM FOR A BM PRIOR TO LEAVING FOR MEDICAL FLOOR. PARLIAMENTARY LIBRARIAN GAVE REPORT TO MEDICAL FLOOR RN. PROPERTY APPRAISER MOVED PT TO MEDICAL FLOOR VIA WHEELCHAIR WITH ALL PERSONAL BELONGINGS.
[2020-11-23 05:35] LABS: Hematocrit 26.5 % (33.0-51.0); Hemoglobin 8.4 g/dL (11.5-16.0)
--- NOTE | 2020-11-23 05:45 | NUR ---
PT IS CONFUSED IN WRIST RESTRAINTS DUE TO PULLING OF LINES PREVIOUSLY, JAUNDICED AND EDEMETOUS HEMODIALYSIS ACCESS IN RIGHT NECK. DE LA VEGA CATH WITH DARK BROWN URINE. HX OF ETOH, ESBL AND MRSA; COVID POSITIVE AT THIS TIME. PT PULLS OFF COVERS OFTEN.
[2020-11-23 06:14] LABS: Albumin, Blood 1.8 g/dL (3.4-5.0); Anion Gap 14 mmol/L (6-16); Blood Urea Nitrogen 59 mg/dL (8-24); CO2, Blood 25 mmol/L (21-32); Calcium, Blood 8.7 mg/dL (8.5-10.1); Chloride, Blood 102 mmol/L (98-108); Creatinine, Blood 6.54 mg/dL (0.40-1.00); Glomerular Filtration Rate 8 (60-); Glucose, Blood 87 mg/dL (70-99); Magnesium, Blood 2.2 mg/dL (1.6-2.4); Phosphorus, Blood 5.1 mg/dL (2.5-4.9); Potassium, Blood 3.8 mmol/L (3.5-5.5); Sodium, Blood 141 mmol/L (136-145)
[2020-11-23 08:10] LABS: HEPATITIS C QUANTITATION HCV Not Detected IU/mL (.)
--- NOTE | 2020-11-23 11:49 | NUR ---
PT IS NOW HAVING A CT SCAN. CALLED DR ALEGRE AND RECEIVED AN ORDER FOR MORPHIN 2MG. EDUCATED THE PT ABOUT NOT TO PULL ON HER LINES DURIN HER CT SCAN
--- NOTE | 2020-11-23 13:11 | NUR ---
PT IS IN THE ROOM RECEIVING DIALYSIS
--- NOTE | 2020-11-23 16:29 | NUR ---
CALLED DR KURTZ ABOUT THE WOUND CLOSER TO THE DIALYSIS PORT. ACCORDING TO THE OPERATIONS TEAM LEADER, IT LOOKS WORSE THAT HOW IT LOOKS LIKE ON THE 7TH- SEE PIC ON THE CHART. PORT IS COVERED WITH GAUZE AND TAPE.
--- NOTE | 2020-11-23 16:51 | NUR ---
SHIFT SUMMARY PT CONFUSED, WEAK AND VERY SLOW TO RESPOND. PT IS NOW ON FULL LIQUID DIET AND TOLERATED FOR LUNCH. PT HAD A CT SCAN OF ABD THIS AM; MEDICATED WITH MORPHINE ONE TIME ORDER; AND PT HAD DIALYSIS WELL. PT IS STILL ON RESTRAINTS DUE TO PULLING THE PORT. PT HAS A WOUND CLOSER TO HER DIALYSIS PORT ON HER RIGHT NECK . SEE PIC ON CHART AND DISCUSSED WITH DR KURTZ TODAY. RESTRAINT MANAGEMENT PER POLICY AND CALL LIGHT WITHIN REACH
--- NOTE | 2020-11-23 21:08 | NUR ---
11/23/202049 CONTINOUS VIDEO CONSTRUCTION AND MAINTENANCE INSPECTOR CALL THAT PT WAS PULLING AT DE [place] VEGA CATH. RN AND TREE TRIMMER HELPER CAME IN ROOM AND REMINDED HER NOT TO TOUCH CATH. PT DENIES DOING IT. ORIENTED TO SELF ONLY THIS EVENING. GETACHEW. WRIST RESTRAINTS ON AND SECURE. REPOSITIONED IN BED. MEPILEX DRESSING INTACT TO COCCYX. BACK RUBBED. ANKLES UP ON PILLOW BUT PT PUSHED THEM OFF. DECLINED LAYING ON SIDE FOR NOW. SIPS OF WATER GIVEN AND PT WATCHING TV. NO COMPLAINTS OF PAIN OR S/S. DE [place] VEGA IN PLACE WITH DARK BRWON URINE.
--- NOTE | 2020-11-24 02:44 | NUR ---
11/24/20 0215 REQUESTED TO USE BSC FOR "POOP". ASSISTED UP WITH 2 STAFF TO BSC BUT NO FLATUS OR BM. PRIOR USE EARLIER JUST HAD FLATUS. BACK TO BED AND GETACHEW.WRIST RESTRAINTS REAPPLIED. BED ALARM ON AND CONT. VIDEO MONITORING IN PROCESS. DE [place] VEGA PATENT .
[2020-11-24 06:08] LABS: Hematocrit 26.6 % (33.0-51.0); Hemoglobin 8.5 g/dL (11.5-16.0); Mean Corpuscular HGB 36.2 pg (26.0-34.0); Mean Corpuscular Volume 113 fL (80-100); Mean Platelet Volume 9.6 fL (9.1-12.4); Platelet Count 265 K/mm3 (150-400); RDW Coefficient Variation 17.9 % (11.7-14.2); RDW Standard Deviation 73.9 fL (35.1-46.3); Red Blood Cell Count 2.35 M/mm3 (3.80-5.20); White Blood Cell Count 18.64 K/mm3 (4.00-11.30)
--- NOTE | 2020-11-24 06:29 | NUR ---
11/24/20 0615 AWAKE NOW. SHE ONLY SLEPT ABOUT 2 HOURS THIS SHIFT. VITALS STABLE. DENIES ANY DISCOMFORT. STAFF X 2 HELPED HER TO BSC THREE TIMES THIS SHIFT WITH ONLY FLATUS EXPELLED DE LA VEGA WITH ONLY 80 ML THIS SHIFT. ALERT TO SELF ONLY. MOVES SLOWLY IN BED AND TO BSC WITH WALKER. PT STILL REQUIRES WRIST RESTRAINTS SHE WILL PULL ON CATH AND TAPE ON IV/PERMACATH.
[2020-11-24 06:32] LABS: Percent Saturation 66.1 % (15.0-50.0)
[2020-11-24 06:38] LABS: Albumin, Blood 2.1 g/dL (3.4-5.0); Albumin/Globulin Ratio 0.6 (0.8-1.8); Bun/Creatinine Ratio 7.4 (12.0-20.0); Calcium, Blood 8.5 mg/dL (8.5-10.1); Creatinine, Blood 5.28 mg/dL (0.40-1.00); Globulin, Blood 3.3 g/dL (2.2-4.0); Potassium, Blood 3.9 mmol/L (3.5-5.5); Total Protein, Blood 5.4 g/dL (6.4-8.2)
--- NOTE | 2020-11-24 13:00 | NUR ---
PT QUIET, WITHDRAWN, CONCRETE. DENIES PAIN AT THIS TIME. ABLE TO TELL ME YEAR AND THOUGHT WAS DECEMBER. ABLE TO TELL ME , AGE, 1 10 YR OLD SON, HERE R/T "DUMB DECISION", KNOWS IN HOSP, AND WHY. DISCUSSED RESTRAINTS. SHE STATES WOULD LIKE THEM OFF. UNDERSTANDS REASON FOR BEING RESTRAINED TO PROTECT HER FROM PULLING IJ LINE RECENTLY. SHE AGREES NOT TO PULL IJ, IV, AND F/CATH LINES. DISCUSSED WITH DR KURTZ. OKAYED WE D/C. IS ON BED ALARM AND VIDEO MONITOR. CALLED MONITOR AND THEY TO CALL ME DINORA IF PT APPEARS TO TOUCH LINES. H/R REG, NO MURMER NOTED. NO TELE. LUNGS CLEAR, RESP EASY, UNLABORED. ON R.A. BT HYPO LAST BM NOT KNOWN BY PT. ABD GALLERY DIRECTOR. SCANT DARK BROWN FLUID DRAINING IN F/CATH BAG. IJ/PERMACATH IN RT NECK TAPED IN PLACE. CDI. PT HAS NOTICABLY JAUNDICED SKIN AND EYES. RESTRAINTS D/C'D. BED IN LOW POSITION, CALLL LITE IN REACH, BED ALARM ON FOR SAFETY. CAMERA MONITOR ON AND NOTIFIED OF SITUATION.
--- NOTE | 2020-11-24 14:48 | NUR ---
PT RESTING, AWAKENS TO SPEACH. REMINDING TO KEEP HANDS AWAY FROM IV AND IJ/ PERMACATH. PT AFIRMS AND AGREES.
--- NOTE | 2020-11-24 15:32 | NUR ---
SPOKE TO PT AGAIN. STATES FEELS LIKE NEEDS TO URINATE. EXPLAINED F/CATH. WILL SPEAK TO DR WHEN SEE AND SEE IF CAN REMOVE.
--- NOTE | 2020-11-24 15:58 | NUR ---
PT STATES REALLY WANTS YOLETTE MORENO D.C. CALLED DR KURTZ. SHE OKAYED. DONE.
--- NOTE | 2020-11-24 17:12 | NUR ---
PT PLEASANT TODAY. TALKED ABOUT HER 10 Y/O SON, SHE IS HOPEFUL TO COME HOME TO SEE HIM. DISCUSSED HER NEED TO KEEP IJ/PERMACATH IN PLACE AND NOT PULL. SHE AGREES THIS IS IMPORTANT AND WILL KEEP FROM DOING SO. WITH THIS IMPROVEMENT IN CONGNITION AND COOPERATION, I WAS ABLE TO TAKE THE RESTRAINTS OFF TODAY, ALSO, FURTHER DISCUSSION AND STRENGTH TO USE THE COMMODE, WE WERE ABLE TO D/C DE LA VEGA. PT SEEMS MUCH MORE COMFORTABLE. EXPLAINED THE IMPORTANCE OF LEAVING IV INTACT. PT SEEMS TO APPRECIATE. PT EATING SOME FOR LUNCH. NO OTHER CONCERNS NOTED TODAY . BED IN LOW POSITION, CALL LITE IN REACH, BED ALARM ON FOR SAFETY. CAMERA MONITOR ON FOR SAFETY
--- NOTE | 2020-11-24 18:24 | NUR ---
PT AMBULATED SELF WITH FWW WITH 1 ASST TO BATHROOM. HAD SMALL SOFT BM. PT SHOWED NO SIGNS SOB OR DISTRESS. PT AMBULATED BACK TO BED WITH FWW. DID PRETTY WELL. BED IN LOW POSITION, CALL LITE IN REACH, BED ALARM ON FOR SAFETY. CAMERA ALSO
--- NOTE | 2020-11-25 05:41 | NUR ---
pATIENT AWAKE MOST OF NIGHT. iNITIALLY, GETTING TO SIDE OF BED THEN STANDING WITHOUT CALLING STAFF. PATIENT WAS VERY UNSTEADY ON FEET, AND CONTINUED TO DO SAME. OVER COARSE OF NIGHT, ANDRÉS VEST, THEN BILAT SOFT WRIST RESTRAINTS REAPPLIED (WHEN PATIENT STARTED PICKING AT IJ PERM CATH.) ARIADNA WAS TOLD REPEATEDLY TO USE CALL LIGHT,(DEMONSTRATED) AND THAT STAFF WAS ALL WORKING VERY HARD WITH HER TO GET HER STRONG AND SAFE SO THAT SHE COULD SEE HER SON SOON. PATIENT WOULD GET BREIF GLIMPSE OF RECOGNITION IN HER EYES, THEN SHE WOULD JUST FADE BACK INTO HERSELF AGAIN. UP SEVERAL TIMES TO URINATE (UNSUCCESSFULLY) SHE DID HAVE ONE MEDIUM SOFT STOOL IN THE COMMODE
[2020-11-25 06:52] LABS: BASOPHILS ABSOLUTE AUTO 0.06 K/mm3 (0.00-0.23); BASOPHILS PERCENT AUTO 0 % (0-2); EOSINOPHILS ABSOLUTE AUTO 0.18 K/mm3 (0.00-0.68); EOSINOPHILS PERCENT AUTO 1 % (0-6); Hematocrit 26.5 % (33.0-51.0); Hemoglobin 8.6 g/dL (11.5-16.0); IMMATURE GRAN ABSOLUTE AUTO 0.24 K/mm3 (0.00-0.10); IMMATURE GRAN PERCENT AUTO 1 % (0-1); LYMPHOCYTES ABSOLUTE AUTO 2.12 K/mm3 (0.84-5.20); LYMPHOCYTES PERCENT AUTO 13 % (21-46); MONOCYTES PERCENT AUTO 7 % (4-13); Mean Corpuscular HGB 36.8 pg (26.0-34.0); Mean Corpuscular HGB Conc 32.5 g/dL (31.5-36.5); Mean Corpuscular Volume 113 fL (80-100); Mean Platelet Volume 9.9 fL (9.1-12.4); NEUTROPHILS ABSOLUTE AUTO 13.03 K/mm3 (1.96-9.15); NEUTROPHILS PERCENT AUTO 77 % (41-73); NRBC ABSOLUTE 0.03 K/mm3 (0.00-0.02); NRBC Auto 0.2 /100 WBC (0.0-0.2); Platelet Count 277 K/mm3 (150-400); RDW Coefficient Variation 17.6 % (11.7-14.2); RDW Standard Deviation 72.6 fL (35.1-46.3); Red Blood Cell Count 2.34 M/mm3 (3.80-5.20); White Blood Cell Count 16.83 K/mm3 (4.00-11.30)
[2020-11-25 07:20] LABS: Albumin/Globulin Ratio 0.6 (0.8-1.8); Calcium, Blood 8.7 mg/dL (8.5-10.1); Creatinine, Blood 6.9 mg/dL (0.40-1.00); Globulin, Blood 3.1 g/dL (2.2-4.0); Magnesium, Blood 2.2 mg/dL (1.6-2.4); Phosphorus, Blood 3.9 mg/dL (2.5-4.9); Total Protein, Blood 5.1 g/dL (6.4-8.2)
[2020-11-25 07:28] LABS: Bilirubin, Total 25.3 mg/dL (0.1-1.0)
--- NOTE | 2020-11-25 16:59 | NUR ---
SHIFT SUMMARY- PT A/O TO PERSON AND PLACE, PT VERY FLAT AND WITHDRAWN. PT SLOW TO RESPOND AND SLOW MOVEMENTS NOTED. 1 ASSIST WITH FWW. PT REMAINS IN ANDRÉS AND SOFT WRIST RESTRAINTS. ATTEMPTED TO TAKE PT OUT OF WRIST RESTRAINTS AND SHE IMMEDIATELY BEGAN PICKING AT RIGHT IJ DRESSING. LS CLEAR, ON RA. PT TACHY IN THE 100-110'S. EDEMATOUS TO BUE AND BLE. JAUNDICED T/O AND TO EYES. PT WITH POOR ORAL INTAKE, NEEDS ENCOURAGEMENT TO EAT. VERY DRY FEET, LOTION APPLIED. OLIGIA, PT WITH HD TODAY. NO OTHER ACUTE CHANGES THIS SHIFT.
--- NOTE | 2020-11-26 04:39 | NUR ---
Patient was very active last night. Swinging feet over bed and twice removing soft wrist restraints. Shortly after midnight,the night hospitalist was called to request tough wrist restraints (locking)and renew aravind vest and 4 rail order. One 25mg dose of Seroquel was tried without success to help calm the patient, as well as 12.5 of IV Benedryl twice without much effect. Prior to placing patient in locked wrists, each time she would get out of the soft wrists, her hands would quickly gravitate to her neck. There didn't seem to be any comprehension when staff would try to talk with the patient. Patient has been anuric overnight, and has had 1 sm/med soft stool.
[2020-11-26 07:54] LABS: Hematocrit 28.6 % (33.0-51.0); Hemoglobin 9.1 g/dL (11.5-16.0)
[2020-11-26 08:05] LABS: Anion Gap 13 mmol/L (6-16); Blood Urea Nitrogen 37 mg/dL (8-24); Bun/Creatinine Ratio 6.7 (12.0-20.0); CO2, Blood 27 mmol/L (21-32); Calcium, Blood 8.7 mg/dL (8.5-10.1); Chloride, Blood 100 mmol/L (98-108); Creatinine, Blood 5.54 mg/dL (0.40-1.00); Glomerular Filtration Rate 10 (60-); Glucose, Blood 115 mg/dL (70-99); Magnesium, Blood 2.2 mg/dL (1.6-2.4); Phosphorus, Blood 3.5 mg/dL (2.5-4.9); Sodium, Blood 140 mmol/L (136-145)
--- NOTE | 2020-11-26 16:50 | NUR ---
SHIFT SUMMARY- PT A/O TO PERSON, PLACE AND THOUGHT IT WAS 2001. PT FLAT AND WITHDRAWN. PT SLOW TO RESOND, PT CAN ANSWER QUESTIONS APROPRIATELY AT TIMES, OTHER TIMES DOES NOT EVEN RESPOND TO QUESTIONS. PT DOES NOT FOLLOW DIRECTIONS APROPRIATELY, PT HAS BEEN UP TO RECLINDER WITH 2 ASSIST, PT ABLE TO WALK YESTERDAY TO BATHROOM WITH 1 ASSIST BUT TODAY PT IS PLACING HER FEET OUT IN FROM OF HER CAUSING HER TO SLIDE. PT IRRITABLE AT TIMES AND PULLING ON RESTRAINTS, ATTEMPTED TO REMOVE WRIST RESTRAINTS BUT PT IMMEDIATELY STARTS PICKING AT DRESSING TO PERMACATH, ATTEMPTED TO COVER SITE BUT PT CONTINUOUSLY GOES FOR IT. PT WAS TAKEN OUT OF TOUGH CUFFS AND PLACED IN SOFT WRIST RESTRAINTS. LS CLEAR, ON RA. PT JAUNDICED T/O. ABD TENDER. PT CONTINUES TO NOT TOLERATE MUCH OF THE FULL LIQUID DIET, PT WILL DRINK JUICES BUT STATES SHE DOESNT WANT THE REST, PT DID REPORT SHE ONLY LIKES STRAWBERRY ENSURE AND REPAIR DEPARTMENT MANAGER NOTIFIED TO SEND ON TRAYS. 3+ BLE EDEMA AND WITH GENERALIZED EDEMA. REDNESS TO ABD FOLDS WITH SMALL OPEN AREA TO LEFT AND RIGHT ABD. STARTED ON MEROPENEM FOR ESBL URINE. NO OTHER ACUTE CHANGES THIS SHIFT.
--- NOTE | 2020-11-27 05:08 | NUR ---
INFORMATION MANAGEMENT SPECIALIST SUMMARY Tea was awake all night again. Unable to recall frequent commands and information given to her, she would call every few minutes and ask to get oob to bathroom. As her weakness at night seems to be getting worse, We would offer bedpan which she would always refuse except one time when she had a small soft stool before midnight. Patient did manage to get out of soft wrist restraints several times. Each time, remote monitors would call right away, and each time, patient had her hands up near her right neck
[2020-11-27 05:15] LABS: Hematocrit 28.6 % (33.0-51.0); Hemoglobin 9.1 g/dL (11.5-16.0)
[2020-11-27 05:55] LABS: Albumin, Blood 1.9 g/dL (3.4-5.0); Anion Gap 14 mmol/L (6-16); Blood Urea Nitrogen 50 mg/dL (8-24); Bun/Creatinine Ratio 7.2 (12.0-20.0); CO2, Blood 25 mmol/L (21-32); Calcium, Blood 8.6 mg/dL (8.5-10.1); Chloride, Blood 98 mmol/L (98-108); Creatinine, Blood 6.92 mg/dL (0.40-1.00); Glomerular Filtration Rate 7 (60-); Glucose, Blood 106 mg/dL (70-99); Magnesium, Blood 2.3 mg/dL (1.6-2.4); Sodium, Blood 137 mmol/L (136-145)
--- NOTE | 2020-11-27 17:33 | NUR ---
HD Treatment slightly delayed due to pt was on the commode and due to small room size, we were not able to squeeze in, therefore waiting for the pt and TOOL LIAISON to be done.
--- NOTE | 2020-11-28 03:30 | NUR ---
FAMILY REUNIFICATION SPECIALIST SUMMARY A/O TO SELF AND SURROUNDINGS. USE OF WRIST RESTRAINTS TO PREVENT PT PULLING ON LINES. UP TO BSC SEVERAL TIMES WITH LOOSE WATERY STOOLS. DENIES PAIN OR SOB. CURRENTLY ON RA WITH SATS GREATER THAN 92. ENHANCED PRECAUTIONS MAINTAINED T/O SHIFT. NO ACUTE CHANGES AT THIS TIME. BED IN LOWEST POSITION WITH CALL LIGHT IN REACH. WILL CONTINUE TO MONITOR AND REPORT TO ONCOMING RN.
[2020-11-28 05:49] LABS: Hematocrit 29.1 % (33.0-51.0); Hemoglobin 9.1 g/dL (11.5-16.0)
[2020-11-28 06:04] LABS: Albumin, Blood 1.8 g/dL (3.4-5.0); Anion Gap 11 mmol/L (6-16); Blood Urea Nitrogen 37 mg/dL (8-24); CO2, Blood 29 mmol/L (21-32); Calcium, Blood 8.4 mg/dL (8.5-10.1); Chloride, Blood 99 mmol/L (98-108); Creatinine, Blood 5.31 mg/dL (0.40-1.00); Glomerular Filtration Rate 10 (60-); Glucose, Blood 110 mg/dL (70-99); Magnesium, Blood 2.2 mg/dL (1.6-2.4); Phosphorus, Blood 4.1 mg/dL (2.5-4.9); Sodium, Blood 139 mmol/L (136-145)
--- NOTE | 2020-11-29 03:44 | NUR ---
REPLANTING MACHINE CREW SUMMARY A/O TO SELF AND SURROUNDINGS. CONTINUES TO BE WITHDRAWN AND IMPULSIVE, ATTEMPTING TO GET OUT OF BED AND TAKE ANDRÉS RESTRAINT OFF. DIFFICULTY WITH FOLLOWING DIRECTIONS. UP TO BSC SEVERAL TIMES WITH LOOSE STOOLS. NPO SINCE MIDNIGHT FOR PERMACATH PLACEMENT TODAY. NO ACUTE CHANGES AT THIS TIME. BED IN LOWEST POSITION WITH CALL LIGHT IN REACH. WILL CONTINUE TO MONITOR AND REPORT TO ONCOMING RN.
[2020-11-29 06:04] LABS: Hematocrit 26.6 % (33.0-51.0); Hemoglobin 8.5 g/dL (11.5-16.0)
[2020-11-29 06:21] LABS: Albumin, Blood 1.6 g/dL (3.4-5.0); Anion Gap 13 mmol/L (6-16); Blood Urea Nitrogen 52 mg/dL (8-24); Bun/Creatinine Ratio 7.6 (12.0-20.0); CO2, Blood 25 mmol/L (21-32); Calcium, Blood 8.3 mg/dL (8.5-10.1); Chloride, Blood 97 mmol/L (98-108); Creatinine, Blood 6.85 mg/dL (0.40-1.00); Glomerular Filtration Rate 8 (60-); Glucose, Blood 102 mg/dL (70-99); Magnesium, Blood 2.2 mg/dL (1.6-2.4); Phosphorus, Blood 4.8 mg/dL (2.5-4.9); Potassium, Blood 4.1 mmol/L (3.5-5.5); Sodium, Blood 135 mmol/L (136-145)
--- NOTE | 2020-11-29 10:30 | NUR ---
PT OUT FOR PERMCATH PLACEMENT. LEFT ABOUT 4932.
--- NOTE | 2020-11-29 18:17 | NUR ---
SHIFT SUMMARY PT BACK FROM PERMCATH PLACEMENT THIS MORNING AND VS COMPLETED. WAS GROGGY AND SPEECH WASN'T CLEAR WHEN RETURNED AND KEPT ANDRÉS VEST ON TIL APPROX 1230 WHEN SPEECH WAS MORE CLEAR AND APPEARED MOST OF SEDATIVE CLEARED. DIALYSIS STARTED APPROX 1430 WITH HYPOTENSION. FLUID BOLUS GIVEN AFTER SPEAKING WITH MD. PT ATEMPTING TO CALL FAMILY DURING HYOPTENSIVE EPISODE. SLEPT THROUGH MOST OF DIALYSIS. REPORTING HEADACHE AND R CHEST PAIN DUE TO PERMCATH BEING PLACED. TYLENOL GIVEN.
--- NOTE | 2020-11-30 03:52 | NUR ---
ASSISTANT EDITOR SUMMARY A/O TO 2-3. INTERMITTENT CONFUSION NOTED. SLOW TO RESPOND. 1 ASSIST TO BATHROOM. CONTINUES TO HAVE FREQUENT LOOSE STOOLS. PERMCATH IN PLACE TO RCW. NO ACUTE CHANGES AT THIS TIME. BED IN LOWEST POSITION WITH CALL LIGHT IN REACH. WILL CONTINUE TO MONITOR AND REPORT TO ONCOMING RN.
[2020-11-30 05:09] LABS: Hematocrit 26.8 % (33.0-51.0); Hemoglobin 8.7 g/dL (11.5-16.0)
[2020-11-30 05:33] LABS: Albumin, Blood 1.6 g/dL (3.4-5.0); Anion Gap 10 mmol/L (6-16); Blood Urea Nitrogen 31 mg/dL (8-24); Bun/Creatinine Ratio 6.4 (12.0-20.0); CO2, Blood 28 mmol/L (21-32); Calcium, Blood 8.2 mg/dL (8.5-10.1); Chloride, Blood 95 mmol/L (98-108); Creatinine, Blood 4.87 mg/dL (0.40-1.00); Glomerular Filtration Rate 11 (60-); Glucose, Blood 116 mg/dL (70-99); Phosphorus, Blood 3.8 mg/dL (2.5-4.9); Sodium, Blood 133 mmol/L (136-145)
--- NOTE | 2020-11-30 18:02 | NUR ---
SHIFT SUMMARY PT UP IN CHAIR FOR LUNCH AND DINNER. AMBULATED IN HALLWAY WITH P.T. USING FWW. P.T. REPORTS SHE HAS A WALKER AT HOME TO USE. CALLED MOTHER THIS MORNING AND LEFT HER A MESSAGE STATING PT IS TRYING TO GET A HOLD OF HER. PTS SPEECH MORE CLEAR AND RESPONDING MORE QUICKLY THAN YESTERDAY. DOES REPORT FEELING DIZZY WHEN ASKED. ENCOURAGED TO USE CALL BUTTON FOR ASSISTANCE FREQUENTLY. OUTREACH MANAGER REPORTS LEAVING MESSAGES FOR SEVERAL FAMILY MEMBERS THAT PT IS READY TO BE DISCHARGED. PT UPSET NO ONE HAS CALLED BACK YET TODAY OR BEING ABLE TO LEAVE. REPORTS FEET ARE NUMB.
--- NOTE | 2020-11-30 21:35 | NUR ---
PROVIDER CONTACT NOTIFIED SOFTWARE DEVELOPER MID LEVEL PROVIDER OF RECENT HYPOTENSIVE EPISODES WITH C/O OF BEING LIGHTHEADED. NEW ORDER FOR 500ML BOLUS, WILL CONTINUE TO MONITOR
--- NOTE | 2020-12-01 03:49 | NUR ---
CENTER AISLE CASHIER SUMMARY A/O 2-3 T/O SHIFT. LETHARGIC AT TIMES AND SLOW TO RESPOND. SKIN AND SCLERA APPEAR JAUNDICED. HYPOTENSIVE DURING BEGINNING OF SHIFT, GIVEN 500ML BOLUS X2. PERMCATH IN PLACE TO RCW, DRESSING REMAINS C/D/I. UP TO BSC/BATHROOM WITH 1 ASSIST, SMALL LOOSE BM'S. MED SURG RN AWAITING CALL FROM FAMILY TO DISCUSS D/C. BED IN LOWEST POSITION, ALARM ON, CALL LIGHT IN REACH. WILL CONTINUE TO MONITOR AND REPROT TO ONCOMING RN.
[2020-12-01 06:38] LABS: Albumin, Blood 1.5 g/dL (3.4-5.0); Anion Gap 13 mmol/L (6-16); Blood Urea Nitrogen 45 mg/dL (8-24); CO2, Blood 24 mmol/L (21-32); Calcium, Blood 7.9 mg/dL (8.5-10.1); Chloride, Blood 94 mmol/L (98-108); Creatinine, Blood 6.39 mg/dL (0.40-1.00); Glomerular Filtration Rate 8 (60-); Glucose, Blood 109 mg/dL (70-99); Phosphorus, Blood 4.6 mg/dL (2.5-4.9); Potassium, Blood 3.7 mmol/L (3.5-5.5); Sodium, Blood 131 mmol/L (136-145)
--- NOTE | 2020-12-01 18:32 | NUR ---
PT WAS DISCHARGED VIA WHEELCHAIR TO FAMILY WAITING WITH CAR. PT BELONGINGS WERE AT HER SIDE ALONG WITH DISCHARGE PAPERWORK. PT AND FAM WERE EDUCATED ON FOLLOW UP APPOINTMENTS NEEDED WITH DR. BEVERLY AND HER LEAH APPOINTMENT ON MONDAY 12/04. PT WAS ABLE TO VERBALIZE AND TEACH BACK. IV LINE WAS DC'D AND WNL. PT COMPLAINS OF MILD DIZZINESS AND WAS RECEPTIVE TO EDUCATION ON SIT/STAND SLOWLY INSTRUCTIONS AND HYDRATION RECOMENDATIONS. AT PT WAS BEING WHEELED OUT THIS ELECTROMECHANICAL ASSEMBLER NOTICED THAT THE PT HAD A SEVERE CASE ON [facility]. UPON ARRIVING BACK TO THE UNIT THE THERMITE BOMB LOADER WAS NOTIFIED AND SWEAT BAND SEPARATOR WAS CALLED. THIS ELECTROMECHANICAL ASSEMBLER HAS ATTEMPTED TO CALL THE PT'S FAMILY WITH NO ANSWER. A MESSAGE WAS LEFT FOR THE DELPHI DEVELOPER [facility].
== END 2020-12-01 17:48 | disposition home health service (06) | DRG 432 ==
LOC: ER 15:40 → MEDS 21:13 → PCU 21:13 → ERHOLD 21:13 → PCU 11-07 13:16 → MEDS 11-22 14:20 → ENPENDDIS 12-01 13:56 → MEDS 12-01 17:48
PROVIDERS: Emergency Medicine; Internal Medicine; Internal Medicine Nephrology; Physician Assistant; Student in an Organized Health Care Education/Training Program; ADMIT Internal Medicine
PROC: 05HM33Z Insertion of Infusion Device into Right Internal Jugular Vein, Percutaneous Approach (ICD-10-PCS; principal; 2020-11-09)
PROC: 5A1D70Z Performance of Urinary Filtration, Intermittent, Less than 6 Hours Per Day (ICD-10-PCS; 2020-11-09)
PROC: 5A1D70Z Performance of Urinary Filtration, Intermittent, Less than 6 Hours Per Day (ICD-10-PCS; 2020-11-10)
PROC: 5A1D70Z Performance of Urinary Filtration, Intermittent, Less than 6 Hours Per Day (ICD-10-PCS; 2020-11-11)
PROC: 05HM33Z Insertion of Infusion Device into Right Internal Jugular Vein, Percutaneous Approach (ICD-10-PCS; 2020-11-14)
PROC: 5A1D70Z Performance of Urinary Filtration, Intermittent, Less than 6 Hours Per Day (ICD-10-PCS; 2020-11-15)
PROC: 5A1D70Z Performance of Urinary Filtration, Intermittent, Less than 6 Hours Per Day (ICD-10-PCS; 2020-11-17)
PROC: 5A1D70Z Performance of Urinary Filtration, Intermittent, Less than 6 Hours Per Day (ICD-10-PCS; 2020-11-19)
PROC: 5A1D70Z Performance of Urinary Filtration, Intermittent, Less than 6 Hours Per Day (ICD-10-PCS; 2020-11-21)
PROC: 5A1D70Z Performance of Urinary Filtration, Intermittent, Less than 6 Hours Per Day (ICD-10-PCS; 2020-11-23)
PROC: 5A1D70Z Performance of Urinary Filtration, Intermittent, Less than 6 Hours Per Day (ICD-10-PCS; 2020-11-25)
PROC: 5A1D70Z Performance of Urinary Filtration, Intermittent, Less than 6 Hours Per Day (ICD-10-PCS; 2020-11-29)
PROC: 0JH63XZ Insertion of Tunneled Vascular Access Device into Chest Subcutaneous Tissue and Fascia, Percutaneous Approach (ICD-10-PCS; 2020-11-29)
PROC: 5A1D70Z Performance of Urinary Filtration, Intermittent, Less than 6 Hours Per Day (ICD-10-PCS; 2020-12-01)
DX: K70.11 Alcoholic hepatitis with ascites (principal); U07.1 COVID-19; R65.11 Systemic inflammatory response syndrome (SIRS) of non-infectious origin with acute organ dysfunction; J96.01 Acute respiratory failure with hypoxia; N17.0 Acute kidney failure with tubular necrosis; J12.82 Pneumonia due to coronavirus disease 2019; G92 Toxic encephalopathy; K85.90 Acute pancreatitis without necrosis or infection, unspecified; N18.6 End stage renal disease; E87.1 Hypo-osmolality and hyponatremia; F10.239 Alcohol dependence with withdrawal, unspecified; Z68.43 Body mass index [BMI] 50.0-59.9, adult; D62 Acute posthemorrhagic anemia; N17.9 Acute kidney failure, unspecified; K92.0 Hematemesis; N39.0 Urinary tract infection, site not specified; G43.709 Chronic migraine without aura, not intractable, without status migrainosus; E87.70 Fluid overload, unspecified; F17.210 Nicotine dependence, cigarettes, uncomplicated; E87.6 Hypokalemia; E66.01 Morbid (severe) obesity due to excess calories; Y90.0 Blood alcohol level of less than 20 mg/100 ml; E83.39 Other disorders of phosphorus metabolism; B96.20 Unspecified Escherichia coli [E. coli] as the cause of diseases classified elsewhere; Z78.1 Physical restraint status; K72.90 Hepatic failure, unspecified without coma; Z99.2 Dependence on renal dialysis
CPT/HCPCS: 0241U; 36415; 36556; 36581; 51702; 70450; 71045; 71046; 71260; 74176; 74177; 76705; 76770; 76937; 80053; 80069; 80074; 80076; 81001; 82140; 82272; 82533; 82728; 82947; 83540; 83550; 83605; 83690; 83735; 83930; 84100; 84132; 84295; 84300; 84436; 84443; 84484; 84550; 85014; 85018; 85025; 85027; 85379; 85610; 85651; 85730; 86317; 87077; 87086; 87186; 87497; 87517; 87522; 87529; 87798; 92526; 92610; 94760; 94762; 96365-59; 96366; 96368; 96372; 96375; 96375-59; 96376; 97116; 97162; 97165; 97530; 97535; 99152; 99153; 99285-25; A9270; C1750; C1751; C1769; C9113; G0480; J0132; J0692; J0696; J0881; J1100; J1200; J1644; J1940; J2060; J2185; J2250; J2270; J2354; J2405; J3010; J3411; J3475; J3480; J7030; J7040; J7050; J7060; J7070; J7120; P9046; Q9967

== ENCOUNTER 2020-12-12 15:13 | Inpatient (IN) | payer OTHER ==
[~2020-12-12] VITALS: Ht 154.9 cm; Wt 127.5 kg
[~2020-12-12 15:13] MED LIST changes: +BUPRENORPHINE HC8 MG SL
[2020-12-12 16:23] LABS: BASOPHILS ABSOLUTE AUTO 0.17 K/mm3 (0.00-0.23); BASOPHILS PERCENT AUTO 1 % (0-2); EOSINOPHILS ABSOLUTE AUTO 0.34 K/mm3 (0.00-0.68); EOSINOPHILS PERCENT AUTO 1 % (0-6); Hematocrit 28.4 % (33.0-51.0); Hemoglobin 9.1 g/dL (11.5-16.0); Mean Corpuscular HGB 35.1 pg (26.0-34.0); Mean Corpuscular Volume 110 fL (80-100); Mean Platelet Volume 10.2 fL (9.1-12.4); Platelet Count 201 K/mm3 (150-400); RDW Coefficient Variation 15.6 % (11.7-14.2); RDW Standard Deviation 62.1 fL (35.1-46.3); Red Blood Cell Count 2.59 M/mm3 (3.80-5.20); White Blood Cell Count 30.43 K/mm3 (4.00-11.30)
[2020-12-12 16:26] LABS: IMMATURE GRAN ABSOLUTE AUTO 0.42 K/mm3 (0.00-0.10); IMMATURE GRAN PERCENT AUTO 1 % (0-1); LYMPHOCYTES ABSOLUTE AUTO 4.05 K/mm3 (0.84-5.20); LYMPHOCYTES PERCENT AUTO 13 % (21-46); MONOCYTES ABSOLUTE AUTO 2.41 K/mm3 (0.16-1.47); MONOCYTES PERCENT AUTO 8 % (4-13); NEUTROPHILS ABSOLUTE AUTO 23.04 K/mm3 (1.96-9.15); NEUTROPHILS PERCENT AUTO 76 % (41-73)
[2020-12-12 16:49] LABS: Albumin, Blood 1.5 g/dL (3.4-5.0); Albumin/Globulin Ratio 0.5 (0.8-1.8); Bilirubin, Total 21.2 mg/dL (0.1-1.0); Bun/Creatinine Ratio 4.7 (12.0-20.0); Creatinine, Blood 5.55 mg/dL (0.40-1.00); Potassium, Blood 3.3 mmol/L (3.5-5.5); Total Protein, Blood 4.5 g/dL (6.4-8.2)
[2020-12-12 16:58] LABS: BASOPHILS PERCENT MAN 1 % (0-2); EOSINOPHILS PERCENT MAN 0 % (0-6); LYMPHOCYTES ABSOLUTE MAN 3.04 K/mm3 (0.84-5.20); LYMPHOCYTES PERCENT MAN 10 % (21-46); MONOCYTES ABSOLUTE MAN 1.21 K/mm3 (0.16-1.47); MONOCYTES PERCENT MAN 4 % (4-13); NEUTROPHILS ABSOLUTE MAN 25.86 K/mm3 (1.96-9.15); SEG NEUTROPHILS PERCENT MAN 85 % (41-73); TOTAL CELLS COUNTED 100
--- NOTE | 2020-12-12 17:12 | NUR ---
Received referral from Dr. Yoder for this pt; a 30 year old female with alcoholism, fairly new to dialysis. She came in with her brother, stated Dialysis team asked pt to come to ED last evening. She did not come, instead waited and came in today instead at the insistence of the dialysis clinic. Pt's skin appears pale and lightly jauniced, with bright yellow sclera. She appears lethargic, and flat affect. Dr. Yoder requested I help find a better way to get to and from dialysis. However, upon speaking with pt and her brother, they idendify no deficit with her brother driving. They simply requeset "someone fix her swollen, aching tummy". Pt does not appear to understand her diagnosis is likely at end stage, neither does her brother at this time. ; If pt to get admitted, will continue to offer support as needed.
[2020-12-12] MEDS ORDERED: MIDO5 PO (18:13)
--- NOTE | 2020-12-12 20:53 | NUR ---
ADMIT ARRIVED TO 358 @2036 VIA STRETCHER. PT 1 ASSIST TO NEW BED. ORIENTED TO & CALL LIGHT SYSTEM. WILL MONITOR.
[2020-12-13 06:00] LABS: BASOPHILS ABSOLUTE AUTO 0.17 K/mm3 (0.00-0.23); BASOPHILS PERCENT AUTO 1 % (0-2); EOSINOPHILS ABSOLUTE AUTO 0.43 K/mm3 (0.00-0.68); EOSINOPHILS PERCENT AUTO 2 % (0-6); Hematocrit 27.6 % (33.0-51.0); Hemoglobin 8.7 g/dL (11.5-16.0); IMMATURE GRAN ABSOLUTE AUTO 0.25 K/mm3 (0.00-0.10); IMMATURE GRAN PERCENT AUTO 1 % (0-1); LYMPHOCYTES ABSOLUTE AUTO 3.86 K/mm3 (0.84-5.20); LYMPHOCYTES PERCENT AUTO 16 % (21-46); MONOCYTES ABSOLUTE AUTO 1.83 K/mm3 (0.16-1.47); MONOCYTES PERCENT AUTO 8 % (4-13); Mean Corpuscular HGB 34.7 pg (26.0-34.0); Mean Corpuscular HGB Conc 31.5 g/dL (31.5-36.5); Mean Corpuscular Volume 110 fL (80-100); Mean Platelet Volume 10.2 fL (9.1-12.4); NEUTROPHILS PERCENT AUTO 73 % (41-73); Platelet Count 200 K/mm3 (150-400); RDW Coefficient Variation 15.8 % (11.7-14.2); RDW Standard Deviation 63.4 fL (35.1-46.3); Red Blood Cell Count 2.51 M/mm3 (3.80-5.20); White Blood Cell Count 24.14 K/mm3 (4.00-11.30)
[2020-12-13 06:38] LABS: Albumin, Blood 1.3 g/dL (3.4-5.0); Albumin/Globulin Ratio 0.4 (0.8-1.8); Bilirubin, Total 19.2 mg/dL (0.1-1.0); Calcium, Blood 7.9 mg/dL (8.5-10.1); Creatinine, Blood 6.2 mg/dL (0.40-1.00); Potassium, Blood 3.5 mmol/L (3.5-5.5); Total Protein, Blood 4.3 g/dL (6.4-8.2)
--- NOTE | 2020-12-13 06:46 | NUR ---
SHIFT SUMMARY AOX4. ADMITTED FOR ABD PAIN. DROWSY, WEAK. FOLLOWS DIRECTIONS & ANSWERS QUESTIONS CORRECTLY. LA @4.9 IN ER NO IV FLUIDS GIVEN. REPEAT LA @4.4 CRITICAL, INFORMED DR WARE & HE ORDERED 1L NS @75ML/HR & REPEAT LA- @2.0. ABD MOD DISTENDED VERY TENDER TO PALPATION, PT REPORTS "NUMBNESS" TO LUQ ABD & ALLOVER 6/10 TIGHT PRESSURE, DENIES NEED FOR PAIN MEDICATION. REPORTS PASSING GAS, HAD SM SOFT BROWN YELLOWISH BM. CURRENTLY NPO. PLAN TO HAVE HIDA SCAN TODAY. HAS +3 PITTING EDEMA BLE. SKIN VERY JAUNDICED, INCLUDING SCLERA. DIALYSIS PT, CARMEL THOMAS. BP 75/56 THIS AM, RECHECKED c NEW CUFF & BP 81/34. PT REPORTING FEELING COLD, DIZZY & SOB. INFORMED DR GREEN & SHE ASKED FOR A MANUAL BP-IT WAS 86/32, THEREFORE SHE ORDERED A 250ML BOLUS NS. BP RECHECKED & @ 93/41, WILL INFORM ONCOMING NURSE. CALL LIGHT IN REACH.
--- NOTE | 2020-12-13 16:44 | NUR ---
PT IS A/OX3, COOPERATIVE, THE PT IS UP WITH MINIMAL ASSIST, THE PT APPEARS TO BE BREATHING EASILY ON RA AT THIS TIME, THE PT REPORTED SOME MILD LOWER ABD PAIN TODAY, PT WAS MEDICATED FOR NAUSEA X1 TODAY, PT WAS ABLE TO TOLERATE A REGULAR DIET WITHOUT EMISIS AND PAIN, PER DIALSIS RN THE PT WILL NOT HAVE DIALYSIS TODAY, CALL MACIE IN REACH WILL CONTINUE TO MONITOR AND ASSESS FOR CHANGES
--- NOTE | 2020-12-14 04:40 | NUR ---
SHIFT SUMMARY ASSUMED CARE OF PT AT 1900. PT IS A/OX4. HEART SOUNDS REGULAR. LUNG SOUNDS DIMINISHED. PT C/O DIARRHEA. WANS INCONTINENT OF URINE ONCE. PT IS VERY EDEMADOUS ALL OVER HER BODY. PT C/O PAIN IN HER LEGS AND L ARM DUE TO IV. MEDICATED PER EMAR. PT IS A 1P ASSIST TO BATHROOM. ABD IS VERY TENDER, AND DISTENDED, PT STATES THIS IS NOT NORMAL FOR HER. PT SKIN IS JAUNDICED, PT HAD STITCHES IN HER R NECK, AFTER SHOWER THEY HAD PUS LEAKING OUT, STICHES REMOVED AND TRIPLE ABX APPLIED. NO ACUTE EVENTS, CALL LIGHT IN REACH, BED IN LOWEST POSITION.
[2020-12-14 04:42] LABS: Hematocrit 24.8 % (33.0-51.0); Hemoglobin 7.8 g/dL (11.5-16.0); Mean Corpuscular HGB 33.9 pg (26.0-34.0); Mean Corpuscular HGB Conc 31.5 g/dL (31.5-36.5); Mean Corpuscular Volume 108 fL (80-100); Mean Platelet Volume 10.3 fL (9.1-12.4); Platelet Count 205 K/mm3 (150-400); RDW Coefficient Variation 15.8 % (11.7-14.2); White Blood Cell Count 23.71 K/mm3 (4.00-11.30)
[2020-12-14 05:16] LABS: Albumin, Blood 1.3 g/dL (3.4-5.0); Albumin/Globulin Ratio 0.4 (0.8-1.8); Bilirubin, Total 18.1 mg/dL (0.1-1.0); Bun/Creatinine Ratio 5.2 (12.0-20.0); Calcium, Blood 7.8 mg/dL (8.5-10.1); Creatinine, Blood 7.06 mg/dL (0.40-1.00); Globulin, Blood 2.9 g/dL (2.2-4.0); Phosphorus, Blood 4.1 mg/dL (2.5-4.9); Potassium, Blood 3.8 mmol/L (3.5-5.5); Total Protein, Blood 4.2 g/dL (6.4-8.2)
[2020-12-14 05:55] LABS: BAND PERCENT MAN 5 % (0-8); BASOPHILS PERCENT MAN 0 % (0-2); EOSINOPHILS PERCENT MAN 0 % (0-6); LYMPHOCYTES PERCENT MAN 19 % (21-46); MONOCYTES ABSOLUTE MAN 1.18 K/mm3 (0.16-1.47); MONOCYTES PERCENT MAN 5 % (4-13); NEUTROPHILS ABSOLUTE MAN 18.01 K/mm3 (1.96-9.15); SEG NEUTROPHILS PERCENT MAN 71 % (41-73); TOTAL CELLS COUNTED 100
--- NOTE | 2020-12-14 17:51 | NUR ---
SHIFT SUMMARY PT A&OX4, ABLE TO MAKE NEEDS KNOWN, PLEASANT AND COOPERATIVE TO CARE. PT RECEIVED DIALYSIS TX TODAY. NO C/O PAIN THIS SHIFT. PT MEDICATED FOR NAUSEA PER EMAR. NO C/O SOB, RESPS E/U IN RA. PT ON IV ABX, NO ASE NOTED. PT CALM AND RESTED IN BED AT THIS TIME. BED AT LOWEST POSITION. CALL LIGHT WITHIN REACH.
--- NOTE | 2020-12-14 18:25 | NUR ---
Visit made to pt today; she continued to lie flat for the visit, and did not attempt to turn her head toward me while we spoke. She stated she had 1 child, and said he's an 11 year old boy, but she did not volunteer more information. I asked open ended questions, but the visit was not productive today. She stated her abdomen remains tight and bothersome, but denied any need for pain medication or other medication at this time. She did state it would be ok if someone stopped to visit again tomorrow from palliative, and she states "it sure would".
[2020-12-15 04:00] LABS: Hematocrit 26.6 % (33.0-51.0); Hemoglobin 8.7 g/dL (11.5-16.0)
[2020-12-15 04:15] LABS: Albumin, Blood 1.4 g/dL (3.4-5.0); Anion Gap 9 mmol/L (6-16); Blood Urea Nitrogen 24 mg/dL (8-24); Bun/Creatinine Ratio 4.5 (12.0-20.0); CO2, Blood 27 mmol/L (21-32); Chloride, Blood 97 mmol/L (98-108); Creatinine, Blood 5.33 mg/dL (0.40-1.00); Glomerular Filtration Rate 10 (60-); Glucose, Blood 108 mg/dL (70-99); Phosphorus, Blood 3.4 mg/dL (2.5-4.9); Sodium, Blood 133 mmol/L (136-145)
--- NOTE | 2020-12-15 05:44 | NUR ---
ARIADNA HAD NO COMPLAINTS OF DISCOMFORT OVERNIGHT. SHE DID HAVE A MEDIUM GREEN STOOL AND MULTIPLE SMALL GREEN STOOLS. POWER GLIDE IV DRAWING WITHOUT DIFFICULTY..SHE STATES SHE THINKS SHE IS HAVING SMALL AMTS OF URINE EACH TIME, BUT IT DOES NOT APPEAR THAT SHE IS.
[2020-12-15 08:41] LABS: Hematocrit 26.9 % (33.0-51.0); Hemoglobin 8.5 g/dL (11.5-16.0); Mean Corpuscular HGB 34.6 pg (26.0-34.0); Mean Corpuscular HGB Conc 31.6 g/dL (31.5-36.5); Mean Corpuscular Volume 109 fL (80-100); Mean Platelet Volume 10.2 fL (9.1-12.4); Platelet Count 241 K/mm3 (150-400); RDW Coefficient Variation 15.6 % (11.7-14.2); RDW Standard Deviation 62.7 fL (35.1-46.3); Red Blood Cell Count 2.46 M/mm3 (3.80-5.20); White Blood Cell Count 25.04 K/mm3 (4.00-11.30)
[2020-12-15 09:02] LABS: BASOPHILS ABSOLUTE MAN 0.25 K/mm3 (0.00-0.23); BASOPHILS PERCENT MAN 1 % (0-2); EOSINOPHILS ABSOLUTE MAN 0.25 K/mm3 (0.00-0.68); EOSINOPHILS PERCENT MAN 1 % (0-6); LYMPHOCYTES PERCENT MAN 16 % (21-46); MONOCYTES PERCENT MAN 4 % (4-13); NEUTROPHILS ABSOLUTE MAN 19.53 K/mm3 (1.96-9.15); SEG NEUTROPHILS PERCENT MAN 78 % (41-73); TOTAL CELLS COUNTED 100
--- NOTE | 2020-12-15 19:21 | NUR ---
SHIFT SUMMARY PATIENT ALERT AND ORIENTED THIS SHIFT. PATIENT IS A SBA TO THE CHAIR AND BATHROOM. PATIENT UP IN THE CHAIR FOR MEALS. PATIENT DOWN TO DIALYSIS THIS AM. PATIENT RESTING IN BED THROUGHOUT MOST OF THIS SHIFT. PATIENT REMAINS ON IV ANTIBIOTICS. PATIENT MEDICATED FOR NAUSEA 2X THIS SHIFT. PATIENT CURRENTLY LAYING IN BED WATCHING TELEVISION.
--- NOTE | 2020-12-16 05:57 | NUR ---
SHIFT SUMMARY PATIENT ALERT AND ORIENTED. HAD NO COMPLAINTS OF PAIN OR SHORTNESS OF BREATH. PATIENT SLEPT WELL OVERNIGHT AND HAD MINIMAL NEEDS. POWERGLIDE PATENT AND FLUSHED. BED IN LOWEST POSITION WITH WHEELS LOCKED AND ALARM ON. CALL LIGHT WITHIN REACH. REPORT GIVEN TO ONCOMING RN.
--- NOTE | 2020-12-16 09:20 | NUR ---
TO DIALYSIS. ANTIBIOTIC HELD.
[2020-12-16 09:49] LABS: Hematocrit 22.9 % (33.0-51.0); Hemoglobin 7.4 g/dL (11.5-16.0)
[2020-12-16 10:05] LABS: Albumin, Blood 1.3 g/dL (3.4-5.0); Anion Gap 6 mmol/L (6-16); Blood Urea Nitrogen 19 mg/dL (8-24); CO2, Blood 31 mmol/L (21-32); Calcium, Blood 7.8 mg/dL (8.5-10.1); Chloride, Blood 97 mmol/L (98-108); Creatinine, Blood 4.77 mg/dL (0.40-1.00); Glomerular Filtration Rate 12 (60-); Glucose, Blood 114 mg/dL (70-99); Phosphorus, Blood 2.9 mg/dL (2.5-4.9); Potassium, Blood 3.4 mmol/L (3.5-5.5); Sodium, Blood 134 mmol/L (136-145)
[2020-12-16 10:57] LABS: BASOPHILS ABSOLUTE AUTO 0.15 K/mm3 (0.00-0.23); BASOPHILS PERCENT AUTO 1 % (0-2); EOSINOPHILS ABSOLUTE AUTO 0.52 K/mm3 (0.00-0.68); EOSINOPHILS PERCENT AUTO 3 % (0-6); Hemoglobin 7.4 g/dL (11.5-16.0); IMMATURE GRAN ABSOLUTE AUTO 0.23 K/mm3 (0.00-0.10); IMMATURE GRAN PERCENT AUTO 1 % (0-1); LYMPHOCYTES ABSOLUTE AUTO 3.56 K/mm3 (0.84-5.20); LYMPHOCYTES PERCENT AUTO 18 % (21-46); MONOCYTES ABSOLUTE AUTO 1.77 K/mm3 (0.16-1.47); MONOCYTES PERCENT AUTO 9 % (4-13); Mean Corpuscular HGB 34.9 pg (26.0-34.0); Mean Corpuscular HGB Conc 32.2 g/dL (31.5-36.5); Mean Corpuscular Volume 109 fL (80-100); NEUTROPHILS ABSOLUTE AUTO 13.43 K/mm3 (1.96-9.15); NEUTROPHILS PERCENT AUTO 68 % (41-73); Platelet Count 230 K/mm3 (150-400); RDW Coefficient Variation 15.6 % (11.7-14.2); RDW Standard Deviation 61.6 fL (35.1-46.3); Red Blood Cell Count 2.12 M/mm3 (3.80-5.20); White Blood Cell Count 19.66 K/mm3 (4.00-11.30)
--- NOTE | 2020-12-16 12:23 | NUR ---
BACK FROM DIALYSIS
[2020-12-16] MEDS ORDERED: ACET325 PO (16:13)
[2020-12-16] MEDS ORDERED: SENN187 PO (16:22)
--- NOTE | 2020-12-16 17:03 | NUR ---
REVIEWED D'C. AWARE HH WILL CONTINUE. AWARE IF WORSENING TO GO TO E.R. AWARE NEEDS TO TAKE IT EASY AT HOME HAS NOT BEEN AMBULATING MUCH WHILE HERE. TYLENOL AND STOOL SOFTENER AT PHARMACY.AWARE NEEDS TO CALL PCP ON FRIDAY AND MAKE F/U APPT FOR WITHIN ONE WEEK. ANSWER ALL QUESTIONS. VERBALIZES UNDERSTANDING OF D'C. IN W/C TO POV WITH SIGN HANGER IN ATTENDANCE.
== END 2020-12-16 16:56 | disposition home health service (06) | DRG 438 ==
LOC: ER 15:13 → MEDS 17:56
PROVIDERS: Internal Medicine; Internal Medicine Nephrology; Physician Assistant; ADMIT Internal Medicine
DX: K86.3 Pseudocyst of pancreas (principal); J96.91 Respiratory failure, unspecified with hypoxia; N18.6 End stage renal disease; N25.81 Secondary hyperparathyroidism of renal origin; E87.1 Hypo-osmolality and hyponatremia; E87.2 Acidosis; K86.1 Other chronic pancreatitis; F17.210 Nicotine dependence, cigarettes, uncomplicated; E88.09 Other disorders of plasma-protein metabolism, not elsewhere classified; G43.709 Chronic migraine without aura, not intractable, without status migrainosus; D63.1 Anemia in chronic kidney disease; K70.11 Alcoholic hepatitis with ascites; K72.10 Chronic hepatic failure without coma; Z86.14 Personal history of Methicillin resistant Staphylococcus aureus infection; Z98.891 History of uterine scar from previous surgery; Z88.8 Allergy status to other drugs, medicaments and biological substances; Z99.2 Dependence on renal dialysis; Z86.16 Personal history of COVID-19; Z87.440 Personal history of urinary (tract) infections
CPT/HCPCS: 36415; 71045; 74177; 76705; 80053; 80069; 83605; 83690; 83735; 83880; 84100; 85014; 85018; 85025; 87040; 94762; 96365-59; 99285-25; A9270; J0881; J2405; J2543; J7030; J7050; Q9967

== ENCOUNTER 2021-03-02 16:17 | Inpatient (IN) | payer OTHER ==
[~2021-03-02] VITALS: Ht 154.9 cm; Wt 94.4 kg
[~2021-03-02 16:17] MED LIST changes: +ACET325 PO; +MIDO5 PO; +SENN187 PO
[2021-03-02 17:24] LABS: BASOPHILS ABSOLUTE AUTO 0.06 K/mm3 (0.00-0.23); BASOPHILS PERCENT AUTO 0 % (0-2); Hematocrit 25.3 % (33.0-51.0); Hemoglobin 8.2 g/dL (11.5-16.0); Mean Corpuscular HGB 34.5 pg (26.0-34.0); Mean Corpuscular HGB Conc 32.4 g/dL (31.5-36.5); Mean Corpuscular Volume 106 fL (80-100); Mean Platelet Volume 10.1 fL (9.1-12.4); NRBC ABSOLUTE 0.07 K/mm3 (0.00-0.02); NRBC Auto 0.3 /100 WBC (0.0-0.2); Platelet Count 87 K/mm3 (150-400); RDW Coefficient Variation 20.7 % (11.7-14.2); RDW Standard Deviation 74.6 fL (35.1-46.3); Red Blood Cell Count 2.38 M/mm3 (3.80-5.20); White Blood Cell Count 20.91 K/mm3 (4.00-11.30)
[2021-03-02 17:25] LABS: EOSINOPHILS ABSOLUTE AUTO 0.07 K/mm3 (0.00-0.68); EOSINOPHILS PERCENT AUTO 0 % (0-6); IMMATURE GRAN PERCENT AUTO 1 % (0-1); LYMPHOCYTES ABSOLUTE AUTO 6.92 K/mm3 (0.84-5.20); LYMPHOCYTES PERCENT AUTO 33 % (21-46); MONOCYTES ABSOLUTE AUTO 1.28 K/mm3 (0.16-1.47); MONOCYTES PERCENT AUTO 6 % (4-13); NEUTROPHILS ABSOLUTE AUTO 12.28 K/mm3 (1.96-9.15); NEUTROPHILS PERCENT AUTO 59 % (41-73)
[2021-03-02 17:43] LABS: Magnesium, Blood 1.7 mg/dL (1.6-2.4)
[2021-03-02 17:44] LABS: Albumin, Blood 1.3 g/dL (3.4-5.0); Albumin/Globulin Ratio 0.3 (0.8-1.8); Bilirubin, Total 6.3 mg/dL (0.1-1.0); Bun/Creatinine Ratio 3.3 (12.0-20.0); Calcium, Blood 8.1 mg/dL (8.5-10.1); Creatinine, Blood 3.63 mg/dL (0.40-1.00); Globulin, Blood 4.3 g/dL (2.2-4.0); Phosphorus, Blood 2.7 mg/dL (2.5-4.9); Total Protein, Blood 5.6 g/dL (6.4-8.2)
[2021-03-02 17:47] LABS: Thyroid Stimulating Hormone 2.54 uIU/mL (0.360-4.800)
[2021-03-02 17:48] LABS: International Normalized Ratio 1.99; Prothrombin Time Results 20.7 Sec (9.7-11.5)
[2021-03-02 17:53] LABS: BAND PERCENT MAN 3 % (0-8); BASOPHILS PERCENT MAN 0 % (0-2); EOSINOPHILS PERCENT MAN 0 % (0-6); LYMPHOCYTES % ATYPICAL MANUAL 2 % (0-0); LYMPHOCYTES ABSOLUTE MAN 5.43 K/mm3 (0.84-5.20); LYMPHOCYTES PERCENT MAN 24 % (21-46); MONOCYTES ABSOLUTE MAN 0.62 K/mm3 (0.16-1.47); MONOCYTES PERCENT MAN 3 % (4-13); NEUTROPHILS ABSOLUTE MAN 14.84 K/mm3 (1.96-9.15); SEG NEUTROPHILS PERCENT MAN 68 % (41-73); TOTAL CELLS COUNTED 100
[2021-03-02] MEDS ORDERED: ONDA4ODT MM (18:32)
[2021-03-02] MEDS ORDERED: PROM25 PO (18:32)
[2021-03-02] MEDS ORDERED: SERT50 PO (18:33)
[2021-03-02] MEDS ORDERED: GABA100 PO (18:35)
[2021-03-02] MEDS ORDERED: HYDPAM50 PO (18:36)
[2021-03-02] MEDS ORDERED: BUPRENORPHIN-N1 EAC5 SL (23:00)
--- NOTE | 2021-03-02 23:00 | NUR ---
ADMISSION: PT ARRIVES AN ADMIT FROM THE ED. PER RN REPORT, PT HAD BEEN FEELING FEVERISH, LETHARGIC, & UNABLE TO WALK x1wk. TODAY WHEN SHE WAS LEAVING THE HOUSE FOR DIAYLSIS, SHE HAD A GLF W/ NO INJURY OR LOC. UPON ARRIVAL TO THE ED, IMAGING SHOWED A LLL PNEUMONIA. PT ADMITTED FOR SEPSIS PNEUMONIA. UPON ARRIVAL TO ICU, PT IS SOMNOLENT HOWEVER ABLE TO AWAKE & ANSWER ASSESSMENT QUESTIONS. PT IS NOTABLY JAUNICED W/ YELLOWED SCLERA. SEE INITIAL ASSESSMENT FOR FULL PT ASSESSMENT. JEANIE CALLED & UPDATED ON PT's DOWNWARD TRENDING MAPs, HE WILL COME TO ICU SHORTLY TO ASSESS PT's NEED FOR CENTRAL LINE.
[2021-03-02] MEDS ORDERED: BUPRENORPHN-NA1 EAC2 SL (23:01)
--- NOTE | 2021-03-02 23:19 | NUR ---
UPDATE: HYPOTENSION CALLED & SPOKE W/ DR BEVERLY RE: PT's PERSISTENT HYPOTENSION & PT's SOMNOLENT PRESENTATION. ORDERS GIVEN FOR PO MIDODRINE NOW & 60mcg SC ARANESP TO BE GIVEN EVERY OTHER WEEK. ORDERS PLACED.
[2021-03-02 23:42] LABS: Troponin I 0.103 ng/mL (0.000-0.040)
--- NOTE | 2021-03-03 00:15 | NUR ---
UPDATE: HYPOTENSION & LACTIC CALLED & SPOKE W/ JEANIE RE: PT's UPWARD TRENDING LACTIC & PERSISTENT HYPOTENSION DESPITE PO MIDODRINE. ORDERS RECEIVED FOR 250 NS BOLUS, LOW DOSE LEVOPHED TO BE GIVEN PERIPHERALLY, & IF REQUIREMENTS INCREASE, TO USE PT's DIALYSIS CATH FOR MEDS PENDING DR BEVERLY's OK. CUSTODIAL ENGINEER UPDATED & AT BEDSIDE FOR POWERGLIDE PLACEMENT.
[2021-03-03 01:24] LABS: Troponin I 0.101 ng/mL (0.000-0.040)
--- NOTE | 2021-03-03 05:40 | NUR ---
UPDATE: CENTRAL LINE PT CONTINUES TO BE HYPOTENSIVE W/ MAPs 50s-60. LEVOPHED GTT @ 10mcg/min. 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 JEANIE @ BEDSIDE FOR PT ASSESSMENT. PT IS VERY ANXIOUS, CONFUSED, & DIFFICULT TO CONSOLE DURING CENTRAL LINE PLACEMENT. ONCE PROCEDURE IS COMPLETE, PT IS ALLOWED TO SIT UP & TAKE SM SIPS OF WATER & SUBSEQUENTLY MUCH MORE CALM & COOPERATIVE. PT APOLOGIZES FOR "YELLING AND PANICKING" & AGREES TO NOT TOUCH THE CENTRAL LINE, VERBALIZES UNDERSTANDING ABOUT THE RISKS OF TUGGING/PULLING THE LINE. AWAITING IMAGING CONFIRMATION.
--- NOTE | 2021-03-03 06:57 | NUR ---
SHIFT SUMMARY: PT CONTINUES TO BE SOMNOLENT, CONFUSED @ TIMES W/ WHERE SHE IS. PAIN OUT OF PROPORTION, PT MOANS & CRIES OUT "OUCH!" W/ ANY TOUCH OR SHIFT IN THE LINENS. SLOW TO RESPOND BUT IS ABLE TO STATE SHE HURTS "EVERYWHERE". ABLE TO FOLLOW SOME COMMANDS. PT REMAINS TACHYPNEIC & TACHYCARDIC, HOWEVER PT DOES APPEAR MUCH MORE COMFORTABLE AFTER CENTRAL LINE PLACEMENT & ABLE TO REST. LEVOPHED @ 14mcg/min, & NS @ 75ml/hr. MAP 60. PLAN FOR ECHO TODAY. JEANIE TO DISCUSS DELAYING DIALYSIS ANOTHER DAY W/ DR BEVERLY. WILL CONTINUE TO MONITOR UNTIL REPORT OFF TO ONCOMING RN.
--- NOTE | 2021-03-03 08:09 | NUR ---
ASSESSMENT- PT WITH EYES CLOSED, AWAKENS EASILY TO NAME, ABLE TO ANSWER QUESTIONS BRIEFLY, ORIENTED, COOPERATIVE. MOANS WITH BREATHING. SINUS TACH, SBP 90'S WITH LEVOPHED AT 14 MCG/MIN-DECREASED TO 12 MCG/MIN. LIJ CENTRAL LINE DI. NS AT 75 CC/HR. RIGHT ARM POWER GLIDE WITH NS TKO INTACT. LEFT AC DI. RIGHT CHEST DIALYSIS CATH TAPED OFF, DI. LUNGS CLEAR BUT DIMINISHED THROUGHOUT. CONTINUOUS SATURATIONS MONITORED. NO N/V. DENIES HUNGER. NO URINE-END STAGE RENAL DISEASE-STATES DOES NOT URINATE. REPOSITIONED.
[2021-03-03 09:03] LABS: SARS-Cov-2 (COVID-19) PCR, MMC NEGATIVE (NEGATIVE)
[2021-03-03 09:15] LABS: Hematocrit 21.6 % (33.0-51.0); Hemoglobin 7.2 g/dL (11.5-16.0); Mean Corpuscular HGB 34.6 pg (26.0-34.0); Mean Corpuscular HGB Conc 33.3 g/dL (31.5-36.5); Mean Corpuscular Volume 104 fL (80-100); Mean Platelet Volume 10.5 fL (9.1-12.4); NRBC ABSOLUTE 0.04 K/mm3 (0.00-0.02); NRBC Auto 0.2 /100 WBC (0.0-0.2); Platelet Count 82 K/mm3 (150-400); RDW Coefficient Variation 20.8 % (11.7-14.2); RDW Standard Deviation 74.1 fL (35.1-46.3); Red Blood Cell Count 2.08 M/mm3 (3.80-5.20); White Blood Cell Count 22.03 K/mm3 (4.00-11.30)
[2021-03-03 09:33] LABS: Albumin, Blood 1.6 g/dL (3.4-5.0); Albumin/Globulin Ratio 0.4 (0.8-1.8); Bilirubin, Total 6.9 mg/dL (0.1-1.0); Bun/Creatinine Ratio 3.6 (12.0-20.0); Calcium, Blood 7.7 mg/dL (8.5-10.1); Creatinine, Blood 3.88 mg/dL (0.40-1.00); Globulin, Blood 3.8 g/dL (2.2-4.0); Potassium, Blood 3.9 mmol/L (3.5-5.5); Total Protein, Blood 5.4 g/dL (6.4-8.2)
[2021-03-03 09:39] LABS: BAND PERCENT MAN 1 % (0-8); BASOPHILS PERCENT MAN 0 % (0-2); EOSINOPHILS PERCENT MAN 0 % (0-6); LYMPHOCYTES ABSOLUTE MAN 9.03 K/mm3 (0.84-5.20); LYMPHOCYTES PERCENT MAN 41 % (21-46); MONOCYTES PERCENT MAN 5 % (4-13); NEUTROPHILS ABSOLUTE MAN 11.89 K/mm3 (1.96-9.15); SEG NEUTROPHILS PERCENT MAN 53 % (41-73); TOTAL CELLS COUNTED 100
--- NOTE | 2021-03-03 09:55 | NUR ---
BATH DONE. SLEEPING WHEN UNDISTURBED, ABLE TO FOLLOW SOME DIRECTIONS. TOOK SIPS WATER. DOES C/O ABDOMINAL DISCOMFORT WITH MOVEMENT, DENIES N/V. RX FOR PAIN
--- NOTE | 2021-03-03 11:47 | NUR ---
SLEEPING WHEN UNDISTURBED. AWAKENS EASILY, IRRITABLE. EXPLAINED PLAN OF CARE. REPOSITIONED. LESS MOANING AFTER PAIN RX. SBP 90'S WITH LEVOPHED AT 12 MCG/MIN, UNABLE TO DECREASE
--- NOTE | 2021-03-03 11:57 | NUR ---
echocardiogram complete
--- NOTE | 2021-03-03 12:41 | NUR ---
DR. QURESHI HERE-UPDATED WITH LABS, VS. OK FOR SIPS WATER.
[2021-03-03 13:47] LABS: Hematocrit 21.5 % (33.0-51.0); Hemoglobin 7.2 g/dL (11.5-16.0)
--- NOTE | 2021-03-03 14:21 | NUR ---
REPOSITIONED, ATTEMPT BEDPAN BUT NO VOID. SMEAR STOOL. REPOSITIONED TO LEFT SIDE. HYPOTENSIVE, INCREASING LEVOPHED
--- NOTE | 2021-03-03 16:10 | NUR ---
BP IMPROVED AFTER INCREASING LEVOPHED TO 20 MCG/MIN AND REPOSITIONING TO BACK INSTEAD OF LEFT SIDE. MORE AWAKE, FORGETFUL, MOANS WITH MOVEMENT. SINUS TACH.
[2021-03-03 16:54] LABS: Source, Urine Catheter
[2021-03-03 17:11] LABS: Appearance, Urine Turbid (Clear); Bilirubin, Urine Neg (Neg); Blood, Urine 5+ (Neg); Color, Urine Yellow (P-Yellow); Glucose Qualitative, Urine Neg (Neg); Ketones, Urine Neg (Neg); Leukocyte Esterase, Urine 3+ (Neg); Nitrite, Urine Pos (Neg); Protein, Urine 4+ (Neg); Specific Gravity, Urine 1.015 (1.003-1.022); Urobilinogen, Urine NORM (Normal)
[2021-03-03 17:19] LABS: White Blood Cells, Urine TNTC /hpf (0-5)
[2021-03-03 17:21] LABS: Bacteria Many /hpf; Squamous Epithelial Cells Mod /hpf (Few)
--- NOTE | 2021-03-03 17:36 | NUR ---
PT C/O NEED TO USE BATHROOM. IS MORE AWAKE, MOVES VERY WEAKLY BUT BETTER THAN THIS MORNING. TOO WEAK TO SIT UP IN BED. BEDPAN, NO RESULTS. BLADDER SCAN SHOWS FLUID-CATH PLACED BUT ONLY 5 CC CLOUDY THICK YELLOW URINE-SPECIMEN SENT AND CATH D/C-STATES DOES NOT VOID MUCH AT BASELINE-ESRD. BP REMAINS LOW-LEVOPHED AT 18 MCG/MIN. ABLE TO TAKE PO, CAN HOLD WATER NOW. PT'S BROTHER HERE VISITING
--- NOTE | 2021-03-03 19:45 | NUR ---
ASSUMING PT CARE: PT LAYING IN BED, RESTING W/ EYES CLOSED. AWAKES WHEN STAFF ENTER ROOM. ONCE AWAKE PT BEGINS TO MOAN & ASKS FOR HELP, PT UNABLE TO VERBALIZE HER NEEDS. APPEARS VERY EMOTIONAL & ANXIOUS. INITIALLY REFUSES TO REPOSITION. AFTER REPOSITION PT QUICKLY RETURNS TO SLEEP. TACHYPNEIC. SPO2 low 90s ON 3L/min NC. DISCUSSED VASOPRESSIN ADJUNCT D/T PERSISTENT HYPOTENSION. ORDER PLACED & AWAITING MED FROM PHARMACY. SEE INITIAL PT ASSESSMENT. WILL CONTINUE TO MONITOR & REPORT APPROPRIATE.
[2021-03-03 20:47] LABS: Hematocrit 20.4 % (33.0-51.0); Hemoglobin 6.7 g/dL (11.5-16.0)
--- NOTE | 2021-03-03 23:24 | NUR ---
PT ROUNDING: PT SLEEPS SOUNDLY WHEN UNDISTURBED. WHEN AWAKENED, PT BECOMES VERY ANXIOUS, TACHYPNEIC, MOANING, & CRIES OUT "OUCH!" WHEN TOUCHED. W/ REPOSITIONING PT BEGINS TO PANIC, GRASPING @ SHEETS & STS SHE HAS TO HAVE A BM & REFUSES TO REPOSITION. PT PLACED ON BEDPAN SEVERAL TIMES, NO BM. PT FREQUENTLY REPEATS HERSELF, STATING SHE WANTS TO "GET UP TO GO TO THE BATHROOM". AT THIS TIME PT IS UNABLE TO HOLD HER WATER CUP INDEPENDENTLY, SHE WAS REMINDED OF HER WEAK STATE & PT DID NOT APPEAR RECEPTIVE. WILL CONTINUE TO REINFORCE IMPORTANCE OF REPOSITIONING.
--- NOTE | 2021-03-04 03:00 | NUR ---
UPDATE: INCREASED CONFUSION PT CALLING FROM HER BED FOR HELP & MOANING LOUDLY. PT APPEARS FRANTIC, GRASPING @ VS EQUIPMENT & TUBING STATING "I FEEL LIKE I'M CHOKING & I NEED TO SIT UP". HOB RAISED TO APPROX 90 DEGREES & PT's ANXIETY & PAIN BEGAN TO WORSEN. SHE BECOMES MORE TACHYPNEIC & HYPOXIC THE MORE ANXIOUS SHE BECOMES. SHE IS UNABLE TO DESCRIBE HER NEEDS & CRIES OUT "IT HURTS" WHEN STAFF TOUCHES HER. PT ASSISTED ON TO BEDPAN & HAD A LIQUID SM BM. SUBSEQUENTLY PT WAS MUCH LESS ANXIOUS THOUGH STILL MOANING LOUDLY AND SHE ALLOWED RN & SENIOR SOUS CHEF TO REPOSITION HER & BOOST HER IN BED. SHE QUICKLY RETURNED TO SLEEPING. SATS & BP IMPROVING, LEVO GTT & O2 TITRATED DOWN TO 10mcg/min & 2L/min RESPECTIVELY.
[2021-03-04 03:53] LABS: BASOPHILS ABSOLUTE AUTO 0.03 K/mm3 (0.00-0.23); BASOPHILS PERCENT AUTO 0 % (0-2); EOSINOPHILS ABSOLUTE AUTO 0.16 K/mm3 (0.00-0.68); EOSINOPHILS PERCENT AUTO 1 % (0-6); Hematocrit 21.7 % (33.0-51.0); Hemoglobin 7.3 g/dL (11.5-16.0); Mean Corpuscular HGB 34.1 pg (26.0-34.0); Mean Corpuscular HGB Conc 33.6 g/dL (31.5-36.5); Mean Corpuscular Volume 101 fL (80-100); Mean Platelet Volume 10.7 fL (9.1-12.4); NRBC ABSOLUTE 0.07 K/mm3 (0.00-0.02); NRBC Auto 0.3 /100 WBC (0.0-0.2); Platelet Count 74 K/mm3 (150-400); RDW Coefficient Variation 21.2 % (11.7-14.2); RDW Standard Deviation 70.1 fL (35.1-46.3); Red Blood Cell Count 2.14 M/mm3 (3.80-5.20); White Blood Cell Count 24.06 K/mm3 (4.00-11.30)
[2021-03-04 04:01] LABS: IMMATURE GRAN ABSOLUTE AUTO 0.21 K/mm3 (0.00-0.10); IMMATURE GRAN PERCENT AUTO 1 % (0-1); LYMPHOCYTES ABSOLUTE AUTO 9.21 K/mm3 (0.84-5.20); LYMPHOCYTES PERCENT AUTO 38 % (21-46); MONOCYTES ABSOLUTE AUTO 3.55 K/mm3 (0.16-1.47); MONOCYTES PERCENT AUTO 15 % (4-13); NEUTROPHILS PERCENT AUTO 45 % (41-73)
[2021-03-04 04:06] LABS: International Normalized Ratio 2.41; Prothrombin Time Results 24.8 Sec (9.7-11.5)
[2021-03-04 04:13] LABS: Albumin, Blood 1.8 g/dL (3.4-5.0); Albumin/Globulin Ratio 0.5 (0.8-1.8); Bilirubin, Total 6.8 mg/dL (0.1-1.0); Bun/Creatinine Ratio 4.3 (12.0-20.0); Calcium, Blood 7.9 mg/dL (8.5-10.1); Creatinine, Blood 4.2 mg/dL (0.40-1.00); Globulin, Blood 3.7 g/dL (2.2-4.0); Phosphorus, Blood 2.6 mg/dL (2.5-4.9); Potassium, Blood 3.6 mmol/L (3.5-5.5); Total Protein, Blood 5.5 g/dL (6.4-8.2)
--- NOTE | 2021-03-04 05:17 | NUR ---
SHIFT SUMMARY: PT HAD A RESTLESS NIGHT. OFTEN AWAKING & CALLING OUT FOR HELP, BUT UNABLE TO DESCRIBE HER NEEDS. @ TIMES PT BECAME MORE CONFUSED & BEGAN TO TUG @ CENTRAL LINE DRESSING. LINES CONCEALED & PT REPEATEDLY EDUCATED ON THE IMPORTANCE OF NOT TOUCHING THE LINE. PT REMAINS VERY WEAK, UNABLE TO HOLD A WATER CUP TO HER MOUTH & OFTEN HOLDING THE WATER IN HER MOUTH FOR SEVERAL MOMENTS BEFORE SWALLOWING. NO COUGHING, CHOKING, OR ASPIRATION BEHAVIORS OBSERVED. BP IMPROVED T/O THE NIGHT. @ THIS TIME VASO IS @ 0.04u/min, LEVOPHED 8mcg/min. PT RECEIVED 1u PRBCs & IS NOW RESTING SOUNDLY. WILL CONTINUE TO MONITOR & REPORT APPROPRIATE.
--- NOTE | 2021-03-04 11:01 | NUR ---
PT IS VERBAL AND CAN RESPOND TO SOME QUESTIONS BUT UNSURE IF IT IS CONFUSION OR IGNORING THE QUESTIONS WHEN SPOKEN TO. PT IS QUITE UNWILLING TO MOVE AND WILL CALL OUT TO STOP OR QUIT. PT LEGS QUITE SWOLLEN ARE FEET WITH H.D. SCHEDULED TODAY. PT REMAINS ON LEVOPHED GTT, VASOPRESSIN GTT, CLINIMIX .
[2021-03-04 13:14] LABS: Hematocrit 23.2 % (33.0-51.0); Hemoglobin 7.8 g/dL (11.5-16.0)
--- NOTE | 2021-03-04 15:55 | NUR ---
PT HAS BEEN RESTING AND SOMEWHAT MORE AWAKE THIS AFTERNOON. H.D. STARTED AT AT 1435 AND LEVOPHED GTT REMAINS ON AT 4MCG FOR NOW WITH VASOPRESSIN AND WILL FOLLOW.
--- NOTE | 2021-03-04 18:22 | NUR ---
PT FAMILY MEMBER HAS BEEN IN TO SEE PT WHO HAS BEEN MORE VERBAL AND ALERT BUT LETHARGIC THIS PM. PT ONLY ATE SIPS OF SUPPER BUT TOOK PO WELL FOR MEDS. H.D. WENT WELL AND HAVE NOT TITRATED LEVPHED GTT FROM 4 MCG. PT HAS HAD SEVERAL SMALL SMEAR STOOLINGS BUT NO REAL VOLUME OF YET. VSS NOTED. I/O NOTED.
--- NOTE | 2021-03-04 22:02 | NUR ---
ASSUMING PT CARE: PT IS VERY SOMNOLENT. AROUSES TO VERBAL STIMULI HOWEVER PT HAS DIFFICULTY STAYING AWAKE. RESPONDS APPROPRIATELY BUT ONLY OCCASSIONALLY & IN ONE WORD SENTENCES. PT HAD DIFFICULTY TAKING PO MEDs D/T DYSPNEA. NO COUGHING OR CHOKING OBSERVED, REMAINING PO MEDS HELD @ THIS TIME. REPOSITIONING REFUSED. PT DENIES ANY NEEDS. WILL CONTINUE TO MONITOR & REPORT APPROPRIATE.
--- NOTE | 2021-03-05 01:00 | NUR ---
UPDATE: HYPOXIA & CPAP PT O2 SATURATIONS HAVE BEEN STEADILY DECLINING. O2 TITRATED UP TO 8L/min & PT CONTINUES TO BE HYPOXIC @ 75% & IS NOW VERY ANXIOUS & UNABLE TO FOLLOW DIRECTION IN BREATHING IN THROUGH THE NOSE & OUT THE MOUTH. RT CALLED TO BEDSIDE & PT PLACED ON CPAP @ 12 & 80%. PT IS TOLERATING CPAP WELL & SATS IMPROVING, NOW 93%. DESPITE IMPROVEMENTS PT CONTINUES TO BE SOMNOLENT & SLOW TO RESPOND. READY TO WEAR DEPARTMENT MANAGER AWARE. WILL CONTINUE MONITOR & REPORT APPROPRIATE.
[2021-03-05 03:37] LABS: BASOPHILS ABSOLUTE AUTO 0.04 K/mm3 (0.00-0.23); BASOPHILS PERCENT AUTO 0 % (0-2); Hematocrit 23.1 % (33.0-51.0); Hemoglobin 7.8 g/dL (11.5-16.0); Mean Corpuscular HGB 33.6 pg (26.0-34.0); Mean Corpuscular HGB Conc 33.8 g/dL (31.5-36.5); Mean Corpuscular Volume 100 fL (80-100); Mean Platelet Volume 10.4 fL (9.1-12.4); NRBC ABSOLUTE 0.06 K/mm3 (0.00-0.02); NRBC Auto 0.3 /100 WBC (0.0-0.2); Platelet Count 65 K/mm3 (150-400); RDW Coefficient Variation 22.6 % (11.7-14.2); RDW Standard Deviation 75.3 fL (35.1-46.3); Red Blood Cell Count 2.32 M/mm3 (3.80-5.20); White Blood Cell Count 22.14 K/mm3 (4.00-11.30)
[2021-03-05 03:44] LABS: EOSINOPHILS ABSOLUTE AUTO 0.06 K/mm3 (0.00-0.68); EOSINOPHILS PERCENT AUTO 0 % (0-6); IMMATURE GRAN ABSOLUTE AUTO 0.29 K/mm3 (0.00-0.10); IMMATURE GRAN PERCENT AUTO 1 % (0-1); LYMPHOCYTES ABSOLUTE AUTO 5.69 K/mm3 (0.84-5.20); LYMPHOCYTES PERCENT AUTO 26 % (21-46); MONOCYTES ABSOLUTE AUTO 1.54 K/mm3 (0.16-1.47); MONOCYTES PERCENT AUTO 7 % (4-13); NEUTROPHILS ABSOLUTE AUTO 14.52 K/mm3 (1.96-9.15); NEUTROPHILS PERCENT AUTO 66 % (41-73)
[2021-03-05 03:55] LABS: Albumin, Blood 2.1 g/dL (3.4-5.0); Albumin/Globulin Ratio 0.6 (0.8-1.8); Bilirubin, Total 7.5 mg/dL (0.1-1.0); Bun/Creatinine Ratio 4.9 (12.0-20.0); Calcium, Blood 8.3 mg/dL (8.5-10.1); Creatinine, Blood 3.26 mg/dL (0.40-1.00); Globulin, Blood 3.7 g/dL (2.2-4.0); Magnesium, Blood 1.9 mg/dL (1.6-2.4); Phosphorus, Blood 2.5 mg/dL (2.5-4.9); Potassium, Blood 3.6 mmol/L (3.5-5.5); Total Protein, Blood 5.8 g/dL (6.4-8.2)
--- NOTE | 2021-03-05 04:11 | NUR ---
UPDATE: CPAP TOLERANCE PT CONTINUES TO TOLERATE CPAP WELL WHEN RESTING. FiO2 TITRATED DOWN FROM 80% TO 60% & SATS ARE MAINTAINING >94%. HR NOW IN THE LOW 100s. WHEN DISTURBED PT AWAKES & BECOMES VERY ANXIOUS & ATTEMPTS TO PULL OFF MASK. W/ ORAL CARE PT's CONFUSION & ANXIETY BECAME VERY PRONOUNCED W/ PT GRABBING AT THE ORAL CARE TOOL & UNABLE TO PARTICIPATE OR FOLLOW DIRECTIONS. CPAP WAS OFF FOR APPROX 3mins & SATS DEC TO 80%. PT RECOVERED WELL AFTER MASK WAS REPLACED.
--- NOTE | 2021-03-05 05:52 | NUR ---
UPDATE: LABS & PT PROGRESSION JEANIE CALLED & UPDATED. DISCUSSED PT's DECOMPENSATING RESP STATUS LEADING TO CPAP, PT's PERSISTENT TACHYPNEA, AMS, & ELEVATED BNP. NEW ORDER GIVEN FOR 40mg IV LASIX NOW. DE [place] CATH WILL NOT BE PLACED @ THIS TIME PT DOES NOT PRODUCE URINE @ BASELINE. A [place] WAS PLACED EARLY IN HER ADMISSION BUT WAS SUBSEQUENTLY REMOVED FOR INFECTION PREVENTION. NAIL MAKING MACHINE TENDER AWARE. WILL FOLLOW CLOSELY & MONITOR FOR INCONTINENCE.
--- NOTE | 2021-03-05 08:50 | NUR ---
ASSUMED CARE OF PT, REPORT RCV'D FROM LEORA GARNETT. PT LAYING ON LEFT SIDE WEARING CPAP, 12/50%. PT OPENS EYES TO VERBAL STIMULATION, APPEARS VERY DROWSY, RESPONDS TO QUESTIONS OCCASIONALLY WITH SLOW MUMBLED RESPONSES. TOOK BIPAP OFF TO PERFORM ORAL CARE, PT TOLERATES POORLY. SATS DROP TO MID 80% BUT RECOVER QUICKLY. LEVOPHED @7 MCG/MIN TO MAINTAIN MAP>65. CLINIMIX INFUSING AT 75 ML/HR. WILL MAKE PT NPO UNTIL MENTATION IMPROVES AND PT IS ABLE TO SAFELY SWALLOW PILLS. SEE FULL SHIFT ASSESSMENT.
--- NOTE | 2021-03-05 16:01 | NUR ---
PT CONTINUES TO BE SOMULENT AND LETHARGIC. PT ON BIPAP 13/8, 35%. PT TOLERATES TAKING BIPAP OFF FOR ORAL CARE AND REPOSITIIONING. DR. BEVERLY AT BEDSIDE, ORDER FOR DIALYSIS AND ALBUMIN 25 X2. SPOKE WITH JAZLYN, DIALYSIS NURSE. WILL COME TO ICU 7 WHEN AVAILABLE FOR DIALYSIS.
--- NOTE | 2021-03-05 16:38 | NUR ---
PT VOMITED INTO BIPAP MASK. SMALL AMOUNT OF VOMIT NOTICED IN MASK ITSELF AND DOWN PTS CHIN ONTO GOWN. MOUTH CLEANED AND SUCTIONED. LUNG SOUNDS REMAIN UNCHANGED. RT NOTIFIED AND PT PLACED ON 6L NC TO MAINTAIN SATS>90%. PT THEN HAD VERY LARGE GREEN WATERY BOWEL MOVEMENT THAT FLOODED THE BED. PT CLEANED UP, BEDDING CHANGED AND RECTAL TUBE INSERTED. PT MOANING AND ASKING NURSING STAFF TO "STOP" IT "HURT" TO BE REPOSITIONED.
--- NOTE | 2021-03-05 17:37 | NUR ---
SHIFT SUMMARY PT REMAINS ON 6L NC WITH SATS>90%. PT SLIGHTLY MORE ALERT AND BETTER ABLE TO COMMUNICATE THIS AFTERNOON BUT CONTINUES TO BE LETHARGIC AND UNABLE TO ASSIST WITH CARE. LEVOPHED INFUSING AT 7 MCG/MIN. RECTAL TUBE DRAINING WATERY STOOL TO GRAVITY. PT REMAINS SINUS TACH. SEE PREVIOUS NOTES FROM THIS SHIFT.
--- NOTE | 2021-03-05 19:30 | NUR ---
ASSUMING PT CARE: PT LAYING IN BED. SOMNOLENT, DOES NOT OPEN EYES TO NAME. ABLE TO FOLLOW SIMPLE COMMANDS. IT IS UNCLEAR WHETHER PT IS TRULY SLOW TO RESPOND & VERY SOMNLOENT OR IF PT IS APATHETIC TO CARE. NONETHELESS, PT PRESENTATION IS CONSISTENT W/ HAS BEEN RECORDERED AND OBSERVED OVER THE PAST FEW DAYS. DIALYSIS IS @ BEDSIDE PREPARING TO BEGIN. VS STABLE. LEVOPHED gtt @a 7mcg/min, MAP >60. WILL CONTINUE TO MONITOR & REPORT APPROPRIATE.
--- NOTE | 2021-03-05 22:00 | NUR ---
UPDATE: DIALYSIS COMPLETE. DIALYSIS COMPLETE W/ 3L REMOVED. LEVOPHED REMAINED @ 7mcg/min T/O. MID WAY THROUGH HD, PT BECAME PROGRESSIVELY HYPOXIC @ 65% @ THE LOWEST. PT ALSO BECAME VERY CONFUSED, AGITATED & BEGAN TO PULL @ LINES & TUBES. RT CALLED & PT INITIALLY PLACED ON HIGHFLOW NC & IMPROVED ONLY FOR A SHORT TIME. BiPAP PLACED @ 13/8 70% & PT QUICKLY IMPROVED. SHE CONTINUES ON CPAP & REMAINS STABLE.
[2021-03-06 03:58] LABS: BASOPHILS ABSOLUTE AUTO 0.03 K/mm3 (0.00-0.23); BASOPHILS PERCENT AUTO 0 % (0-2); Hematocrit 20.8 % (33.0-51.0); Hemoglobin 6.9 g/dL (11.5-16.0); Mean Corpuscular HGB 33.5 pg (26.0-34.0); Mean Corpuscular HGB Conc 33.2 g/dL (31.5-36.5); Mean Corpuscular Volume 101 fL (80-100); Mean Platelet Volume 10.7 fL (9.1-12.4); NRBC ABSOLUTE 0.04 K/mm3 (0.00-0.02); NRBC Auto 0.2 /100 WBC (0.0-0.2); Platelet Count 51 K/mm3 (150-400); RDW Coefficient Variation 22.5 % (11.7-14.2); Red Blood Cell Count 2.06 M/mm3 (3.80-5.20); White Blood Cell Count 17.88 K/mm3 (4.00-11.30)
[2021-03-06 04:04] LABS: EOSINOPHILS ABSOLUTE AUTO 0.22 K/mm3 (0.00-0.68); EOSINOPHILS PERCENT AUTO 1 % (0-6); IMMATURE GRAN ABSOLUTE AUTO 0.27 K/mm3 (0.00-0.10); IMMATURE GRAN PERCENT AUTO 2 % (0-1); LYMPHOCYTES ABSOLUTE AUTO 4.21 K/mm3 (0.84-5.20); LYMPHOCYTES PERCENT AUTO 24 % (21-46); MONOCYTES ABSOLUTE AUTO 2.16 K/mm3 (0.16-1.47); MONOCYTES PERCENT AUTO 12 % (4-13); NEUTROPHILS ABSOLUTE AUTO 10.99 K/mm3 (1.96-9.15); NEUTROPHILS PERCENT AUTO 62 % (41-73)
[2021-03-06 04:22] LABS: Alanine Aminotransfer (ALT/SGP 39 U/L (12-78); Albumin, Blood 3.1 g/dL (3.4-5.0); Alk Phos 112 U/L (50-136); Anion Gap 10 mmol/L (6-16); Aspartate Aminotrans (AST/SGOT 87 U/L (12-37); Bilirubin, Total 7.4 mg/dL (0.1-1.0); Blood Urea Nitrogen 16 mg/dL (8-24); Bun/Creatinine Ratio 6.5 (12.0-20.0); CO2, Blood 27 mmol/L (21-32); Calcium, Blood 8.3 mg/dL (8.5-10.1); Chloride, Blood 93 mmol/L (98-108); Creatinine, Blood 2.45 mg/dL (0.40-1.00); Glomerular Filtration Rate 25 (60-); Glucose, Blood 117 mg/dL (70-99); Phosphorus, Blood 1.8 mg/dL (2.5-4.9); Potassium, Blood 3.3 mmol/L (3.5-5.5); Sodium, Blood 130 mmol/L (136-145); Total Protein, Blood 6.1 g/dL (6.4-8.2); Vancomycin, Random 20.5 ug/mL
--- NOTE | 2021-03-06 06:50 | NUR ---
SHIFT SUMMARY: PT HAD A VERY RESTFUL NIGHT. SHE REMAINED ON BiPAP ALL NIGHT, TOLERATING ONLY 2min BREAKS FOR ORAL CARE BEFORE SATS DEC TO LOW 80s. PT RECOVERED WELL & FiO2 WAS ABLE TO BE TITRATED DOWN T/O THE NIGHT. VS REMAINED STABLE & LEVOPHED REMAINS @ 7mcg/min. NO ACUTE NEG CHANGES THIS SHIFT.
--- NOTE | 2021-03-06 09:43 | NUR ---
ASSUMED CARE OF PT, REPORT RCV'D FROM LEORA GARNETT. PT ON BIPAP 27/04, 50% WITH SATS>90%. PT'S SATS DROP TO LOW 80'S WHEN BIPAP REMOVED. PLACE ON 6L NC WHILE PERFORMING ORAL CARE. PT CONTINUES TO BE LETHARGIC, SEEMS A SLIGHTLY MORE ALERT THIS MORNING. LEVOPHED INFUSING @ 7 MCG/MIN TO MAINTAIN MAP>65. RECTAL TUBE PATENT AND DRAINING WATERY BROWN STOOL. CLINIMIX @ 75 ML/HR. PLAN FOR DIALYSIS THIS AFTERNOON. SEE SHIFT ASSESSMENT.
[2021-03-06 10:34] LABS: PCO2 Arterial 37.9 mmHg (35-45); PO2 Arterial 64.3 mmHg (80-100); pH Blood Arterial 7.46 (7.35-7.45)
--- NOTE | 2021-03-06 12:21 | NUR ---
PT'S MENTATION LABILE. OCCASIONALLY MENTATION CLEAR AND PT ABLE TO EXPRESS NEEDS AND PARTICIPATE IN CARE. DURING CLARITY PT ASKS FOR SIPS OF WATER, WHILE BIPAP ON STANDBY PT PLACED ON 6-7 L NC. SATS INITIALLY DROP TO MID 80'S AND STABILIZE AROUND 90% ON NC. DR. MEJIA AT BEDSIDE. ORDER FOR CHEST XRAY TO RULE OUT ASPIRATION. DR. MEJIA REQUESTS TO SWITCH PT FROM SUBLINGUAL SUBOXONE TO EQUIVALENT IV MEDICATION. SPOKE WITH PHARMACIST VEENA WHO CALCULATE, CALLED DR. MEJIA TO CONFIRM DOSE AND ORDERED 7 MG MORPHINE Q6. PT CONTINUES TO BE TACHYPNEIC WITH RR IN THE 40'S. LEVOPHED @6 MCG/MIN.
--- NOTE | 2021-03-06 13:42 | NUR ---
Pt. is in bed breathing machine james guerrier pt.
[2021-03-06 17:30] LABS: Vancomycin, Random 18.7 ug/mL
--- NOTE | 2021-03-06 19:00 | NUR ---
ASSUMED CARE ASSUMED CARE OF PATIENT. ROUSES TO VERBAL STIMULI. MINIMAL VERBAL RESPONSE AND RESPONSE IS SLOW. REMAINS ON BIPAP 13/8, BUR 16, FIO2 45%. RR 45-50s. MONITOR SHOWS ST, RATE 100-105. LEVOPHED INFUSING AT 5MCG/MIN TO MAINTAIN BP. PT IS ANURIC. RECTAL TUBE IN PLACE- DRAINING LIQUID GREENISH-BROWN STOOL. CLINIMIX INFUSING AT 75CC/HR PER ORDER. LIPIDS INFUSING AT 25CC/HR PER ORDER. SEE SHIFT ASSESSMENT FOR FULL ASSESSMENT.
[2021-03-07 04:15] LABS: BASOPHILS ABSOLUTE AUTO 0.03 K/mm3 (0.00-0.23); BASOPHILS PERCENT AUTO 0 % (0-2); Hematocrit 20.3 % (33.0-51.0); Hemoglobin 6.8 g/dL (11.5-16.0); Mean Corpuscular HGB 34.2 pg (26.0-34.0); Mean Corpuscular HGB Conc 33.5 g/dL (31.5-36.5); Mean Corpuscular Volume 102 fL (80-100); Mean Platelet Volume 11.1 fL (9.1-12.4); NRBC ABSOLUTE 0.07 K/mm3 (0.00-0.02); NRBC Auto 0.4 /100 WBC (0.0-0.2); Platelet Count 65 K/mm3 (150-400); RDW Coefficient Variation 22.1 % (11.7-14.2); RDW Standard Deviation 74.3 fL (35.1-46.3); Red Blood Cell Count 1.99 M/mm3 (3.80-5.20); White Blood Cell Count 18.22 K/mm3 (4.00-11.30)
[2021-03-07 04:19] LABS: EOSINOPHILS PERCENT AUTO 2 % (0-6); IMMATURE GRAN ABSOLUTE AUTO 0.29 K/mm3 (0.00-0.10); IMMATURE GRAN PERCENT AUTO 2 % (0-1); LYMPHOCYTES ABSOLUTE AUTO 5.89 K/mm3 (0.84-5.20); LYMPHOCYTES PERCENT AUTO 32 % (21-46); MONOCYTES PERCENT AUTO 7 % (4-13); NEUTROPHILS ABSOLUTE AUTO 10.41 K/mm3 (1.96-9.15); NEUTROPHILS PERCENT AUTO 57 % (41-73)
[2021-03-07 04:31] LABS: Albumin, Blood 3.2 g/dL (3.4-5.0); Bilirubin, Total 7.7 mg/dL (0.1-1.0); Bun/Creatinine Ratio 7.5 (12.0-20.0); Calcium, Blood 8.5 mg/dL (8.5-10.1); Creatinine, Blood 3.19 mg/dL (0.40-1.00); Globulin, Blood 3.2 g/dL (2.2-4.0); Phosphorus, Blood 2.4 mg/dL (2.5-4.9); Total Protein, Blood 6.4 g/dL (6.4-8.2)
--- NOTE | 2021-03-07 06:11 | NUR ---
SHIFT SUMMARY NO ACUTE CHANGES. REMAINED ON BIPAP /, BUR 16, FIO2 45% T/O NOC. ONLY TOLERATED VERY SHORT BREAKS FOR ORAL CARE- APPROXIMATELY 30-45 SECONDS. RR CONTINUES TO BE MID-30s TO 50s. COUGHING NOTED AFTER ATTEMPTING TO DRINK WATER- NPO T/O REST OF NIGHT. ROUSES TO VERBAL STIMULI. OCCASIONALLY WILL CONVERSE WITH RN, BUT IS MOSTLY NONVERBAL. OCCASIONALLY MOANS. MEDICATED WITH MS PER ORDER. LEVOPHED INFUSED BETWEEN 4-5MCG/MIN TO MAINTAIN MAP >65. NOW INFUSING AT 4MCG/MIN. CLINIMIX AT 75CC/HR PER ORDER. PT IS ANURIC. RECTAL TUBE WITH 300 LIQUID STOOL. LIJ CL PATENT. DIALYSIS CATHETER NOTED TO RIGHT UPPER CHEST. WILL REPORT TO ONCOMING RN WHEN AVAILABLE.
--- NOTE | 2021-03-07 09:09 | NUR ---
PT RESTING ON BIPAP. MOANS AT TIMES. LETHARGIC. SHORT ANSWERS FOR VERBAL RESPONSES. PT IS TACHYPNEIC ON BIPAP. DESATS QUICKLY WHEN OFF BIPAP. WILL BE GETTING DIALYSIS TODAY AND PRBC'S WITH DIAYLYSIS. LEVOPHED GTT ON.
[2021-03-07 13:53] LABS: Hematocrit 25.8 % (33.0-51.0); Hemoglobin 8.8 g/dL (11.5-16.0); Mean Corpuscular HGB 33.2 pg (26.0-34.0); Mean Corpuscular HGB Conc 34.1 g/dL (31.5-36.5); NRBC ABSOLUTE 0.03 K/mm3 (0.00-0.02); NRBC Auto 0.2 /100 WBC (0.0-0.2); Platelet Count 62 K/mm3 (150-400); RDW Coefficient Variation 20.1 % (11.7-14.2); RDW Standard Deviation 62.1 fL (35.1-46.3); Red Blood Cell Count 2.65 M/mm3 (3.80-5.20); White Blood Cell Count 15.26 K/mm3 (4.00-11.30)
[2021-03-07 14:10] LABS: Mean Corpuscular Volume 97 fL (80-100)
[2021-03-07 16:36] LABS: SARS-Cov-2 (COVID-19) PCR, MMC POSITIVE (NEGATIVE)
--- NOTE | 2021-03-07 18:48 | NUR ---
SUMMARY PT HAS BEEN BIPAP DEPENDENT ALL DAY. GETS SOB WITH ANY EXERTION. A/O TO PERSON AND PLACE. DR. MYERS WAS CONSULTED AND INCREASED BIPAP TO 14/10. CT CHEST AND ABD COMPLETE. AFTER CT RESULTS DR. MYERS ORDERED ANOTHER COVID TEST THAT CAME BACK POSITIVE. DR. MYERS AND DR. MEJIA MADE AWARE OF RESULTS. PT UNABLE TO RECEIVE REMDESIVIR DUE TO DIALYSIS. PT GOT DIALYSIS TODAY WITH 2600ML TAKEN OFF. ALSO RECEIVED 2 UNITS PRBC'S WITH DIALYSIS. LEVOPHED WAS TITRATED OFF AND BP HAS BEEN STABLE. CLINIMIX STOPPED AND CPN STARTED. KEEPING PT NPO DUE TO INCREASED RESP RATE AND RISK OF ASPIRATION. FREQUENT PO CARE. PT WILL BE MOVING TO ICU ROOM 9 FOR NEGATIVE PRESSURE ROOM. REPORTING OFF TO NIGHT RN.
--- NOTE | 2021-03-07 20:51 | NUR ---
SHIFT ASSESSMENT ASSUMED CARE OF PT @ 1900. REPORT RECEIVED FROM LEORA RODAS. PT JUST MOVED TO ICU 9 FOR NEGATIVE PRESSURE ROOM DUE TO POSITIVE DIAGNOSIS OF COVID. PT ALERT AND ORIENTED, RESPONDS WITH 1-2 WORD PHRASES DUE TO DYSPNEA. CURRENTLY ON BIPAP-28/06 @65% c O2 SATS AROUND 89-91%, RR VARYING FROM 30-45 BPM. PT GIVEN SHORT BREAKS FROM BIPAP FOR ORAL CARE, DESATS QUICKLY TO THE MID TO LOW 80'S. PT IS ANURIC. RECTAL TUBE IN PLACE, DRAINING SMALL AMOUNT OF GREEN/BROWN LIQUID STOOL. TPN INFUSING @ 55MLS/HR. FAN PROVIDED FOR PT REQUEST, CALL LIGHT WITHIN REACH, WILL CONTINUE TO MONITOR.
[2021-03-08 04:17] LABS: BASOPHILS ABSOLUTE AUTO 0.02 K/mm3 (0.00-0.23); BASOPHILS PERCENT AUTO 0 % (0-2); Hematocrit 25.5 % (33.0-51.0); Hemoglobin 8.6 g/dL (11.5-16.0); LYMPHOCYTES ABSOLUTE AUTO 2.29 K/mm3 (0.84-5.20); LYMPHOCYTES PERCENT AUTO 17 % (21-46); MONOCYTES ABSOLUTE AUTO 0.59 K/mm3 (0.16-1.47); MONOCYTES PERCENT AUTO 5 % (4-13); Mean Corpuscular HGB 33.1 pg (26.0-34.0); Mean Corpuscular HGB Conc 33.7 g/dL (31.5-36.5); Mean Corpuscular Volume 98 fL (80-100); NRBC ABSOLUTE 0.08 K/mm3 (0.00-0.02); NRBC Auto 0.6 /100 WBC (0.0-0.2); Platelet Count 63 K/mm3 (150-400); RDW Coefficient Variation 21.5 % (11.7-14.2); RDW Standard Deviation 68.4 fL (35.1-46.3); White Blood Cell Count 13.18 K/mm3 (4.00-11.30)
[2021-03-08 04:21] LABS: EOSINOPHILS ABSOLUTE AUTO 0.01 K/mm3 (0.00-0.68); EOSINOPHILS PERCENT AUTO 0 % (0-6); IMMATURE GRAN PERCENT AUTO 2 % (0-1); NEUTROPHILS ABSOLUTE AUTO 9.97 K/mm3 (1.96-9.15); NEUTROPHILS PERCENT AUTO 76 % (41-73)
[2021-03-08 04:48] LABS: Albumin, Blood 2.7 g/dL (3.4-5.0); Albumin/Globulin Ratio 0.8 (0.8-1.8); Bilirubin, Total 8.3 mg/dL (0.1-1.0); Bun/Creatinine Ratio 9.4 (12.0-20.0); Creatinine, Blood 2.98 mg/dL (0.40-1.00); Globulin, Blood 3.6 g/dL (2.2-4.0); Magnesium, Blood 2.1 mg/dL (1.6-2.4); Potassium, Blood 4.2 mmol/L (3.5-5.5); Total Protein, Blood 6.3 g/dL (6.4-8.2)
--- NOTE | 2021-03-08 06:18 | NUR ---
SHIFT SUMMARY PT REMAINS ALERT AND ORIENTED, RESPONDING WITH ONE TO TWO WORDS DUE TO DYSPNEA. PT EXTREMELY WEAK, UNABLE TO ASSIST WITH TURNS. REMAINS ON BIPAP, FIO2 TITRATED UP TO 75% TO MAINTAIN O2 SATS >90%. ORAL CARE PROVIDED FREQUENTLY BUT PT DOES NOT TOLERATE BREAKS FROM BIPAP. ATTEMPTED TO USE FACE MASK WITH ORAL CARE OPENING, PTS O2 SATS QUICKLY DECREASED TO THE MID 80'S WITH RR INCREASING TO UPPER 40'S c O2 @ 15LPM. RECTAL TUBE REMAINS IN PLACE, HAD APPROXIMATELY 50ML THIS SHIFT. NO OTHER ACUTE CHANGES IN PT CONDITION, WILL CONTINUE TO MONITOR CLOSELY.
--- NOTE | 2021-03-08 06:24 | NUR ---
ASSUMPTION OF CARE/ SUMMARY PT ARRIVED TO ICU VIA GURNEY FROM THE ER. TRANSFERRED TO ICU BED VIA SLIDER SHEET. PT ALERT AND ORIENTED UPON ARRIVAL. PT SLOW TO RESPOND, BUT VERY HARD OF HEARING EVEN WITH HEARING AIDS IN BOTH EARS. PT DENIES ANY NAUSEA AT THIS TIME, MAINLY COMPLAINING OF MODERATE TO SEVERE PAIN IN BLL EXTREMITIES. UNNA BOOTS IN PLACE TO BOTH LOWER LEGS, REMOVED FOR WOUND ASSESSMENT-SEE PICS IN CHART. WOUNDS CLEANED AND DRESSED WITH NON-ADHERENT PADS AND KERLEX. MEDICATED WITH ONE DOSE OF PRN FENTANYL PRIOR TO DRESSING WOUNDS. PTS DAUGHTER (NUBIA) AT BEDSIDE DURING ASSESSMENT, STATED PT HAS BEEN RECEIVING TREATMENT AT THE MA FOR WOUNDS ON LEGS. INITIALLY PT ON 5LPM O2 VIA NC c O2 SATS OCCASIONALLY READING IN THE LOW 80'S-90'S, DR FREIRE NOTIFIED AND ORDERS PLACED FOR BIPAP/ CPAP AT NIGHT. PT NOW ON CPAP 10/60% c O2 SATS >95%, TOLERATING WELL. PT WITH CL PLATELETS, POSSIBLE DX OF TTP (SEE PROVIDER NOTE). AWAITING AM LAB RESULTS FOR POSSIBLE PLATELET REPLACEMENT. VSS AT THIS TIME. PT RESTING COMFORTABLY IN BED, NO COMPLAINTS AT THIS TIME, WILL CONTINUE TO MONITOR CLOSELY.
--- NOTE | 2021-03-08 08:00 | NUR ---
PT SOMULENT. AWAKENS TO VOICE AND IS ALERT AND ORIENTED X 4. PT VERY DECONDITIONED AND GENERALLY WEAK. PT NODS "NO" WHEN ASKED IF IN PAIN. PT VERY DYSPNEIC AND TACHYPNEIC-RR 32-46. LUNGS DIMINISHED THROUGH OUT. BIPAP 14/10-FIO2 75%. PT GIVEN VERY BRIEF BREAK FROM BIPAP FOR ORAL CARE AND PLACED ON 15 LITERS VIA POM MASK. SATS DROPPED TO 75%. REPLACED BIPAP AND TITRATED FIO2 UP TO 100% X 5 MINUTES UNTIL SATS>90% ONCE SATS RETURNED TO >90%-TITRATED FIO2 BACK DOWN TO 75%. PT NPO. PT ASKING FOR WATER. DISCUSSED WITH PT THE CONCERN FOR RESPIRATORY DISTRESS AND THE NEED FOR POSSIBLE INTUBATION SHOULD RESPIRATORY DISTRESS CONTINUE. PT NODS "YES" IN AGREEMENT THAT SHE UNDERSTANDS THE NEED TO REMAIN NPO AND AGREES TO BE INTUBATED IF NECESSARY. PT ABDOMEN IS DISTENDED-RECTAL TUBE WITH SMALL AMOUNT OF BROWN,LIQUID STOOL. PT HAS GENERALIZED EDEMA. SHE IS ANURIC. ANTICIPATE DIALYSIS TODAY. SCATTERED ECCHYMOSIS NOTED-SKIN AND ORAL MUCOSA VERY DRY. PT IS AFEBRILE. ECG SHOWS SR TO ST WITH RATE 90-110'S. SBP TRENDING 90-110'S.
--- NOTE | 2021-03-08 09:22 | NUR ---
DR. MYERS PRESENT. UPDATED REGARDING PT CURRENT VS AND STATUS. MD AWARE THAT PT IS BIPAP DEPENDENT AND CONTINUES TO LABOR TO BREATH. DR. MYERS TO CONTACT PT MOTHER AND DISCUSS POSSIBLE INTUBATION LATER THIS AM.
[2021-03-08 12:01] LABS: PCO2 Arterial 51.9 mmHg (35-45); PO2 Arterial 88.1 mmHg (80-100); pH Blood Arterial 7.35 (7.35-7.45)
--- NOTE | 2021-03-08 12:08 | NUR ---
SUMMARY OF RSI/BRONCH: SBP TRENDING 90'S. LEVOPHED DRIP INITIATED @2 MCG/MIN.PT MED WITH PROPOFOL 100 MG IVP X 1 @ [address] MYERS FOR RSI. RT AT BEDSIDE BAGGING PT. 1043- PT MED WITH NIMBEX 12 MG IVPX 1. 1045-PT MED WITH ADDITIONAL 100 MG PROPOF[address] IVP BY DR. MYERS-8.0 ETT PLACED/25 @ TEETH. PROPOFOL DRIP INITIATED @ 25 MCG/KG/MIN @ 1048. PT DIFFICULT TO VENTILATE-PROPOFOL TITRATED UP TO 35 MCG/KG/MIN @ 1051. [address] MYERS. BAL SPECIMEN WITH GREEN BILIOUS APPEARANCE-SPECIMEN SENT TO LAB. ETT TO VENT POST BRONCH:VC+ RATE 20, TV 300, I TIME 0.75, PEEP 10, FIO2 100%. PT MAINTAINS SATS>90% ORAL CARE PRODUCTIVE OF LARGE AMOUNT OF BLOODY SECRETIONS. IT APPEARS THAT PT BIT HER BOTTOM LIP. LUNGS VERY COARSE TO UPPER LOBES AND DIMINISHED IN THE BASES. ETT SUCTION PRODUCTIVE OF MODERATE AMOUNG OF THICK, WHITE/GREEN TINGED SECRETIONS. OGT PLACED TO LIS-PRODUTIVE OF 300 CC GREEN BILIOUS LIQUID DRAINAGE. 1100 PROPOFOL DRIP TITRATED UP TO 50 MCG/KG/MIN. 1118 SOFT WRIST RESTRAINTS PLACED TO PREVENT ACCIDENTAL EXTUBATION/PULLING ON LINES AND TUBES.
--- NOTE | 2021-03-08 13:00 | NUR ---
PT RESTING QUIETLY ON VENT WITH PROPOFOL @ 50 MCG/KG/MIN. HEMODIALYSIS IN PROGRESS.
--- NOTE | 2021-03-08 16:00 | NUR ---
PT REMAINS INTUBATED, SEDATED, AND RESTRAINED. RESTS QUIETLY ON VENT WITH PROPOFOL @ 40 MCG/KG/MIN. HEMODIALYSIS COMPLETE. OVER 3 LITERS REMOVED-SEE I&O. SBP TRENDING 90'S ON LEVOPHED @ 2MCG/MIN. LUNGS DIMINISHED IN THE BASES. FIO2 TITRATED DOWN TO 70% AND PT MAINTAINS SATS>90% MINIMAL ETT SECRETIONS, BUT STILL LARGE AMOUNT OF BLOODY ORAL SECRETIONS. OGT CONTINUES TO PUT OUT MODERATE AMOUNT OF BRIGHT GREEN LIQUID DRAINAGE. PT GIVEN BED BATH, SHAMPOO DONE, AND LINEN CHANGE COMPLETED-TOLERATED WELL. POSITIONED TO COMFORT ON RIGHT SIDE.
--- NOTE | 2021-03-08 17:00 | NUR ---
CODEY RN @ BEDSIDE ATTEMPTING TO PLACE PICC LINE PER DR. MYERS REQUEST.
--- NOTE | 2021-03-08 18:00 | NUR ---
PT RESTING QUIETLY ON VENT WITH PROPOFOL @ 40MCG/KG/MIN. SBP TRENDING 90-100'S WITH LEVOPHED @ 2 MCG/MIN. MAINTAINS SATS>90% ON FIO2 50% NO OTHER VENT CHANGES. NO NOTED DISTRESS AT THIS TIME.
--- NOTE | 2021-03-08 18:28 | NUR ---
MULTIPLE ATTEMPTS AT PICC LINE INSERTION TO [facility]. ABLE TO ACCESS BRACHIAL VEIN, CEPHALIC VEIN, AND BASILIC VEIN WITH NEEDLE, HOWEVER UNABLE TO THREAD GUIDEWIRE TO ANY OF THEM.
--- NOTE | 2021-03-08 21:28 | NUR ---
SHIFT ASSESSMENT ASSUMED CARE OF PT @ 1900. REPORT RECEIVED FROM LEORA MUÑOZ. PT INTUBATED AND SEDATED, RESTING QUIETLY. VENT SETTINGS-20/300/50%/PEEP 10 c O2 SATS >89%. PROPOFOL GTT INFUSING @ 55MCG/KG/MIN. NOREPINEPHRINE GTT @ 2MCG/MIN. PT RECEIVING PRN ATIVAN WELL FOR SEDATION. OG TUBE TO LIS BETWEEN MEDICATION ADMIN, WILL ATTEMPT TO TRANSTION TO TF TOMORROW. OG SUCTION STILL PRODUCING MODERATE AMOUNTS OF BILE. RECTAL TUBE IN PLACE, DRAINING MINISCULE AMOUNTS OF LOOSE/ GREEN STOOL. BL SOFT WRIST RESTRAINTS IN PLACE TO PROTECT LINES/ CORDS/ ET TUBE. WILL CONTINUE TO MONITOR CLOSELY.
--- NOTE | 2021-03-09 02:41 | NUR ---
UPDATE PTS O2 SATURATIONS DECREASING ALONG WITH PT STACKING BREATHS. FIO2 TITRATED UP AND PT MEDICATED MULTIPLE TIMES WITH ATIVAN c LITTLE TO NO RESPONSE. PT STARTED ON PRECEDEX @ 0.2MCG/KG/HR. RT NOTIFIED, IN ROOM ADJUSTING VENTILATOR SETTINGS. WILL CONTINUE TO MONITOR CLOSELY.
[2021-03-09 04:01] LABS: Hematocrit 26.8 % (33.0-51.0); Mean Corpuscular HGB 32.8 pg (26.0-34.0); Mean Corpuscular HGB Conc 33.6 g/dL (31.5-36.5); Mean Corpuscular Volume 98 fL (80-100); Mean Platelet Volume 10.8 fL (9.1-12.4); NRBC ABSOLUTE 0.18 K/mm3 (0.00-0.02); NRBC Auto 1.2 /100 WBC (0.0-0.2); Platelet Count 86 K/mm3 (150-400); RDW Coefficient Variation 21.5 % (11.7-14.2); RDW Standard Deviation 69.2 fL (35.1-46.3); Red Blood Cell Count 2.74 M/mm3 (3.80-5.20); White Blood Cell Count 15.32 K/mm3 (4.00-11.30)
[2021-03-09 04:25] LABS: Albumin, Blood 2.8 g/dL (3.4-5.0); Albumin/Globulin Ratio 0.7 (0.8-1.8); Bilirubin, Direct 5.9 mg/dL (0.0-0.3); Bilirubin, Indirect 1.7 mg/dL (0.1-0.7); Bilirubin, Total 7.6 mg/dL (0.1-1.0); Bun/Creatinine Ratio 12.8 (12.0-20.0); Calcium, Blood 8.7 mg/dL (8.5-10.1); Creatinine, Blood 2.65 mg/dL (0.40-1.00); Phosphorus, Blood 2.3 mg/dL (2.5-4.9); Potassium, Blood 3.7 mmol/L (3.5-5.5); Total Protein, Blood 6.8 g/dL (6.4-8.2)
[2021-03-09 04:39] LABS: BAND PERCENT MAN 6 % (0-8); BASOPHILS PERCENT MAN 0 % (0-2); EOSINOPHILS PERCENT MAN 0 % (0-6); LYMPHOCYTES ABSOLUTE MAN 1.53 K/mm3 (0.84-5.20); LYMPHOCYTES PERCENT MAN 10 % (21-46); METAMYELOCYTE PERCENT MAN 2 % (0-0); MONOCYTES ABSOLUTE MAN 1.37 K/mm3 (0.16-1.47); MONOCYTES PERCENT MAN 9 % (4-13); SEG NEUTROPHILS PERCENT MAN 73 % (41-73); TOTAL CELLS COUNTED 100
[2021-03-09 05:14] LABS: pH Blood Arterial 7.39 (7.35-7.45)
[2021-03-09 05:15] LABS: PCO2 Arterial 49.2 mmHg (35-45); PO2 Arterial 60.1 mmHg (80-100)
--- NOTE | 2021-03-09 06:09 | NUR ---
SHIFT SUMMARY PT REMAINS INTUBATED AND SEDATED. VENT SETTINGS CURRENTLY-AC/VC-20/300/65%/PEEP-10 c O2 SATS >90%. SMALL AMOUNTS OF GREENISH FLUID SUCTIONED VIA ET TUBE. PT GIVEN ONE HOUR SEDATION VACATION, PROPOFOL AND PRECEDEX ON SB DURING THAT TIME. PT OPENS EYES, WEAKLY SQUEEZES HANDS. PROPOFOL RESTARTED AT 40MCG/KG/MIN, PRECEDEX CONTINUES TO BE ON SB. LEVOPHED GTT @ 4MCG/MIN. AM LABS SHOWING LOW PHOSPORUS, SODIUM PHOSPORUS INFUSING AT THIS TIME. RECTAL TUBE REMAINS IN PLACE, DRAINING SMALL AMOUNT OF LIQUID STOOL. OG ON LIS c GREEN DRAINAGE. PT RESTING QUIETLY, WILL CONTINUE TO MONITOR CLOSELY.
--- NOTE | 2021-03-09 09:00 | NUR ---
DESATURATION O2 SATS DECREASED TO 80%. PT DOUBLE STACKING c INCREASED WOB. MEDICATED c ATIVAN 2 MG IVP AND PRECEDEX RESTARTED AT 0.2 MCG/KG/HR. WILL HOLD SEDATION VACATION AT THIS TIME UNTIL DEPUTY EDITOR IN CHIEF ROUNDS. PT COMPLIANT c VENT AFTER MEDS. VENT SETTINGS CHANGED TO 20/300/10/80%. O2 SATS MID 90'S.
--- NOTE | 2021-03-09 17:09 | NUR ---
SHIFT SUMMARY PT REMAINS INTUBATED AND SEDATED. VENT SETTINGS AC 20/300/14/60%. PROPOFOL AND PRECEDEX GTT FOR SEDATION. PT OCCASIONALLY DOUBLE STACKS ON VENT. LUNGS CLEAR c OCCASIONAL EXP WHEEZE ON RIGHT SIDE. SMALL AMOUNT OF THIN YELLOW SECRETIONS THROUGH ETT. CONTINUES TO HAVE BLOODY ORAL SECRETIONS. COUGH/GAG/SWALLOW REFLEX PRESENT. DIALYSIS COMPLETE THIS SHIFT, 3 L OFF. LEVOPHED INCREASED DURING DIALYSIS, CURRENTLY INFUSING AT 5 MCG/MIN. HR ALSO INCREASED TO 110'S p DIALYSIS. TPN D/C'D THIS SHIFT, TUBE FEEDS STARTED AT 10 ML/HR c 30 ML FLUSHES q4 HR. SCANT AMOUNT OUT THROUGH RECTAL TUBE. WILL CONTINUE TO MONITOR UNTIL REPORT TO ONCOMING NURSE.
[2021-03-10 04:54] LABS: Hematocrit 25.2 % (33.0-51.0); Hemoglobin 8.4 g/dL (11.5-16.0); Mean Corpuscular HGB 32.8 pg (26.0-34.0); Mean Corpuscular HGB Conc 33.3 g/dL (31.5-36.5); Mean Corpuscular Volume 98 fL (80-100); NRBC Auto 1.3 /100 WBC (0.0-0.2); Platelet Count 91 K/mm3 (150-400); RDW Coefficient Variation 21.1 % (11.7-14.2); RDW Standard Deviation 66.7 fL (35.1-46.3); Red Blood Cell Count 2.56 M/mm3 (3.80-5.20); White Blood Cell Count 15.26 K/mm3 (4.00-11.30)
[2021-03-10 05:14] LABS: Albumin, Blood 2.7 g/dL (3.4-5.0); Albumin/Globulin Ratio 0.7 (0.8-1.8); Bilirubin, Direct 5.4 mg/dL (0.0-0.3); Bilirubin, Indirect 1.3 mg/dL (0.1-0.7); Bilirubin, Total 6.7 mg/dL (0.1-1.0); Bun/Creatinine Ratio 14.1 (12.0-20.0); Calcium, Blood 8.5 mg/dL (8.5-10.1); Creatinine, Blood 2.63 mg/dL (0.40-1.00); Globulin, Blood 4.1 g/dL (2.2-4.0); Magnesium, Blood 2.2 mg/dL (1.6-2.4); Phosphorus, Blood 3.7 mg/dL (2.5-4.9); Potassium, Blood 3.6 mmol/L (3.5-5.5); Total Protein, Blood 6.8 g/dL (6.4-8.2)
[2021-03-10 05:28] LABS: BAND PERCENT MAN 5 % (0-8); BASOPHILS PERCENT MAN 0 % (0-2); EOSINOPHILS PERCENT MAN 0 % (0-6); LYMPHOCYTES ABSOLUTE MAN 1.67 K/mm3 (0.84-5.20); LYMPHOCYTES PERCENT MAN 11 % (21-46); MONOCYTES ABSOLUTE MAN 1.37 K/mm3 (0.16-1.47); MONOCYTES PERCENT MAN 9 % (4-13); SEG NEUTROPHILS PERCENT MAN 75 % (41-73); TOTAL CELLS COUNTED 100
--- NOTE | 2021-03-10 05:40 | NUR ---
SHIFT SUMMARY PATIENT SLEPT WELL THRU NIGHT. THIS AM ATTEMPTED SEDATION VACATION, TURNING PROPOFOL DOWN TO 10 MCG/KG/MIN, MAINTAINED PRECEDEX DRIP @ 0.7 MCG/KG/HR. PT WAS NOT FOLLOWING DIRECTIONS, HOWEVER DID COUGH AROUND VENTILATOR, DOUBLE-STACKING BREATHS, TURNED PROPOFOL BACK UP TO 30 MCG WHERE IT REMAINS. MINIMAL DESATURATION, LOW OF 87% OBSERVED. THE NIGHT HAS PROGRESSED HAVE BEEN ABLE TO TURN FIO2 DOWN TO CURRENT SETTING OF 30%, MAINTAINING SPO2 > 97%, LEVOPHED TURNED DOWN TO CURRENT SETTING OF 1 MCG/MIN. ATTEMPTED TURNING LEVOPHED OFF, HOWEVER BLOOD PRESSURES LOWERED QUICKLY, LOW MAP OBSERVED OF 69, DECIDED TO TURN BACK ON LOW DOSE. CONTINUES TO BE ANURIC. ASSESSMENT IS CHARTED. VSS. WILL CONTINUE TO MONITOR.
--- NOTE | 2021-03-10 07:50 | NUR ---
ASSUMED CARE REPORT FROM YANI COREY. PT INTUBATED AND SEDATED. VENT SETTINGS AT SHIFT CHANGE AC 20/300/14/35%, WILL DISCUSS TITRATE OF PEEP c RT. PROPOFOL AND PRECEDEX FOR SEDATION. PLACED PROPOFOL ON STANDBY FOR SEDATION VACATION. PT c NO COUGH/GAG/SWALLOW REFLEX. SLIGHT GRIMACE c ORAL CARE. LUNGS DIMINISHED IN BASES. SMALL AMOUNT OF THIN CLEAR SECRETIONS FROM ETT. BLOODY ORAL SECRETIONS. ABD DISTENDED. HYPOACTIVE BT. TUBE FEEDS AT GOAL OF 25 ML/HR, RESIDUALS 90 ML THIS AM. ANASARCA, 3+ EDEMA IN EXTREMITIES. RECTAL TUBE BAG CHANGED TO ASSESS OUTPUT. CVC TO LIJ, DRESSING C/D/I, PERICATH TO RIGHT CHEST WALL, POWERGLIDE TO RUE. LEVO GTT FOR MAP>65, INFUSING AT 1 MCG/MIN. WILL CONTINUE TO MONITOR.
--- NOTE | 2021-03-10 17:21 | NUR ---
SHIFT SUMMARY PT REMAINS INTUBATED AND SEDATED. PROPOFOL PLACED ON STANDBY THIS AM, PRECEDEX DECREASED TO 0.3 MCG/KG/MIN. PT GRIMACES c CARE, EYES CLOSE TO TOUCH. DOES NOT FOLLOW DIRECTIONS. NO COUGH/GAG/SWALLOW REFLEX. SMALL AMOUNT OF SECRETIONS THROUGH ETT. LUNGS DIM IN BASES. ABD DISTENDED, HYPOACTIVE BT. TUBE FEEDS CONTINUE AT GOAL, 25 ML/HR. MODERATE RESIDUALS THIS SHIFT, 90-180 ML. RECTAL TUBE LEFT IN PLACE, SMALL IMMEASUREABLE AMOUNT IN BAG. ANASCARSA. VSS, LEVO GTT ON STANDBY MOST OF SHIFT, ON FOR SHORT PERIOD OF TIME DURING DIALYSIS. 3L OFF DURING DIALYSIS. WILL CONTINUE TO MONITOR UNTIL REPORT TO ONCOMING NURSE.
--- NOTE | 2021-03-10 19:09 | NUR ---
ASSUMPTION OF CARE RECEIVED REPORT FROM [place] COREY AT 1850. ASSUMED CARE OF PATIENT. PATIENT SEDATED ON 0.3MCG/KG/HR OF PRECEDEX. INTUBATED WITH VENT SETTINGS AC20/300/10/30% WITH 02 SATS OF 96%. BP STABLE WITH MAP ABOVE 65 OFF LEVOPHED. PATIENT DOES NOT RESPOND TO VERBAL OR PHYSICAL STIMULI. NO SPONTANOUES OR PURPOSEFUL MOVEMENTS. TF INFUSING VIA OG AT 25ML/HR. RECTAL TUBE WITH SCANT DARK GREEN LIQUID DRAINAGE. EDEMATOUS T/O WITH 4+ PITTING EDEMA TO BLE, SCLERAL EDEMA NOTED WELL. WILL REVIEW ORDERS AND TREAT PRESCRIBED.
[2021-03-11 04:28] LABS: Hematocrit 23.7 % (33.0-51.0); Hemoglobin 8.1 g/dL (11.5-16.0); Mean Corpuscular HGB 33.8 pg (26.0-34.0); Mean Corpuscular HGB Conc 34.2 g/dL (31.5-36.5); Mean Corpuscular Volume 99 fL (80-100); Mean Platelet Volume 10.4 fL (9.1-12.4); NRBC ABSOLUTE 0.31 K/mm3 (0.00-0.02); NRBC Auto 2.2 /100 WBC (0.0-0.2); Platelet Count 82 K/mm3 (150-400); RDW Coefficient Variation 21.2 % (11.7-14.2); White Blood Cell Count 13.91 K/mm3 (4.00-11.30)
[2021-03-11 04:54] LABS: Albumin, Blood 2.6 g/dL (3.4-5.0); Anion Gap 9 mmol/L (6-16); Blood Urea Nitrogen 47 mg/dL (8-24); Bun/Creatinine Ratio 17.7 (12.0-20.0); CO2, Blood 29 mmol/L (21-32); Calcium, Blood 8.6 mg/dL (8.5-10.1); Chloride, Blood 101 mmol/L (98-108); Creatinine, Blood 2.66 mg/dL (0.40-1.00); Glomerular Filtration Rate 23 (60-); Glucose, Blood 176 mg/dL (70-99); Magnesium, Blood 2.2 mg/dL (1.6-2.4); Potassium, Blood 3.2 mmol/L (3.5-5.5); Sodium, Blood 139 mmol/L (136-145)
[2021-03-11 05:12] LABS: BAND PERCENT MAN 8 % (0-8); BASOPHILS PERCENT MAN 0 % (0-2); EOSINOPHILS PERCENT MAN 0 % (0-6); LYMPHOCYTES ABSOLUTE MAN 1.66 K/mm3 (0.84-5.20); LYMPHOCYTES PERCENT MAN 12 % (21-46); MONOCYTES ABSOLUTE MAN 0.83 K/mm3 (0.16-1.47); MONOCYTES PERCENT MAN 6 % (4-13); MYELOCYTE ABSOLUTE MAN 0.41 K/mm3 (0.00-0.00); MYELOCYTE PERCENT MAN 3 % (0-0); NEUTROPHILS ABSOLUTE MAN 10.98 K/mm3 (1.96-9.15); SEG NEUTROPHILS PERCENT MAN 71 % (41-73); TOTAL CELLS COUNTED 100
--- NOTE | 2021-03-11 06:53 | NUR ---
SHIFT SUMMARY PATIENT INTUBATED AND SEDATED ON 0.3MCG/KG OF PRECEDEX TITRATED TO 0.2MCG/KG CHARTED. PATIENT REMAINS WITH NO PURPOSEFUL MOVEMENTS, NO GAG OR COUGH. SUCTIONED SCANT, RED SECRETIONS ORALLY. VENT SETTINGS REMAIN AC 20/300/10/30% WITH SATS ABOVE 95%. OG WITH TF AT 25ML/HR WITH RESIDUALS CHARTED. RECTAL TUBE WITH DARK BROWN, LIQUID OUTPUT. DR. BEVERLY ORDERED POTASSIUM REPLACEMENT FOR THIS AM. REPORT TO ONCOMING RN.
--- NOTE | 2021-03-11 08:03 | NUR ---
ASSUMED CARE REPORT FROM ESTVEAN COREY AT 0700. PT INTUBATED AND SEDATED. VENT SETTINGS AC 20/300/10/30%. LUNGS CLEAR. SCANT THIN SECRETIONS THROUGH ETT. WEAK COUGH REFLEX. NO GAG/SWALLOW. BLOODY ORAL SECRETIONS. PRECEDEX GTT 0.2 MCG/KG/MIN. PT UNRESPONSIVE TO PAINFUL STIMULI. OCCASIONALLY GRIMACES. CLOSES EYES TO PRESSURE. JAUNDICE SCLERA, EDEMA. ABD ROUND, DISTENDED. HYPOACTIVE BT. TUBE FEEDS AT GOAL OF 25 ML/HR. RESIDUALS 180 ML THIS AM. RECTAL TUBE IN PLACE. YELLOW/BROWN LIQUID STOOL OUT. ANASCARCA. 4+ EDEMA TO BLE, 2+ BUE. VSS. POWERGLIDE TO RUE, PICC PLACED TO RUE, PENDING XRAY. CVC TO BE REMOVED THIS SHIFT. PLAN FOR DIALYSIS TODAY. WILL CONTINUE TO MONITOR.
--- NOTE | 2021-03-11 17:25 | NUR ---
SHIFT SUMMARY PT REMAINS INTUBATED AND SEDATED. VENT SETTINGS UNCHANGED, AC 20/300/10/30%. PRECEDEX GTT INFUSING AT 0.5 MCG/KG/HR. PT WOKE DURING SEDATION VACATION, SQUEEZED HANDS BILATERALLY AND WIGGLED TOES. LUNGS DIM IN BASES. SCANT SECRETIONS THROUGH ETT. COUGH/GAG/SWALLOW REFLEX. ABD DISTENDED, BT X 4. RECTAL TUBE IN PLACE, LIQUID BROWN STOOL OUT. LEAKING INTERMITTANTLY, REPOSITIONED. DIALYSIS COMPLETE THIS SHIFT, 3L OFF. LEVOPHED GTT DURING DIALYSIS. PICC PLACED THIS SHIFT, PRESSURE DRESSING D/T BLEEDING. POWERGLIDE AND CVC REMOVED. WILL CONTINUE TO MONITOR UNTIL REPORT TO ONCOMING NURSE.
--- NOTE | 2021-03-11 19:14 | NUR ---
ASSUMPTION OF CARE RECEIVED REPORT AT 1850 FROM MON[place] COREY, ASSUMED CARE OF PATIEN. PATIENT INTUBATED AND SEDATED WITH PRECEDEX AT 0.5MCG/KG/HR, AWAKENS TO VOICE AND FOLLOWS COMMANDS. WEAKNESS NOTED. TOLERATING VENT SETTINGS CURRENTLY AC20/300/10/30% WITH SATS 99%. LUNGS CLEAR WITH SCANT CLEAR SECRETIONS SUCTIONED. OG WITH CONTINUOUS FEEDS AT 25ML/HR ORDERED. RECTAL TUBE WITH DARK BROWN, LIQUID OUTPUT. VITALS STABLE. WILL REVIEW ORDERS AND TREAT PRESCRIBED.
[2021-03-12 04:22] LABS: Hematocrit 25.1 % (33.0-51.0); Hemoglobin 8.4 g/dL (11.5-16.0); Mean Corpuscular HGB 32.9 pg (26.0-34.0); Mean Corpuscular HGB Conc 33.5 g/dL (31.5-36.5); Mean Corpuscular Volume 98 fL (80-100); Mean Platelet Volume 10.7 fL (9.1-12.4); NRBC ABSOLUTE 0.53 K/mm3 (0.00-0.02); NRBC Auto 2.6 /100 WBC (0.0-0.2); Platelet Count 109 K/mm3 (150-400); RDW Coefficient Variation 21.1 % (11.7-14.2); RDW Standard Deviation 64.3 fL (35.1-46.3); Red Blood Cell Count 2.55 M/mm3 (3.80-5.20); White Blood Cell Count 20.06 K/mm3 (4.00-11.30)
[2021-03-12 04:36] LABS: International Normalized Ratio 1.28; Prothrombin Time Results 13.6 Sec (9.7-11.5)
[2021-03-12 04:42] LABS: BAND PERCENT MAN 6 % (0-8); BASOPHILS PERCENT MAN 0 % (0-2); EOSINOPHILS PERCENT MAN 0 % (0-6); LYMPHOCYTES PERCENT MAN 15 % (21-46); METAMYELOCYTE PERCENT MAN 1 % (0-0); MONOCYTES PERCENT MAN 6 % (4-13); MYELOCYTE PERCENT MAN 1 % (0-0); NEUTROPHILS ABSOLUTE MAN 15.44 K/mm3 (1.96-9.15); SEG NEUTROPHILS PERCENT MAN 71 % (41-73); TOTAL CELLS COUNTED 100
[2021-03-12 04:55] LABS: Albumin, Blood 2.6 g/dL (3.4-5.0); Albumin/Globulin Ratio 0.7 (0.8-1.8); Bilirubin, Total 5.8 mg/dL (0.1-1.0); Bun/Creatinine Ratio 22.3 (12.0-20.0); Calcium, Blood 8.6 mg/dL (8.5-10.1); Creatinine, Blood 2.2 mg/dL (0.40-1.00); Globulin, Blood 3.8 g/dL (2.2-4.0); Magnesium, Blood 2.3 mg/dL (1.6-2.4); Phosphorus, Blood 2.7 mg/dL (2.5-4.9); Potassium, Blood 3.9 mmol/L (3.5-5.5); Total Protein, Blood 6.4 g/dL (6.4-8.2)
--- NOTE | 2021-03-12 06:21 | NUR ---
SHIFT SUMMARY PATIENT STABLE THROUGH SHIFT. VENT SETTINGS UNCHANGED FROM START OF SHIFT WITH STABLE VITALS. PRECEDEX REMAINS AT 0.5MCG/KG/HR, PATIENT OPENS EYES AND COUGHS OCCASIONALY AGAINST ETT. RECTAL TUBE WITH DARK LIQUID OUTPUT. TF REMAIN AT GOAL WITH RESIDUALS CHARTED. DR. BEVERLY TO ROOM THIS AM, LABS REVIEWED. WILL REPORT TO ONCOMING RN.
--- NOTE | 2021-03-12 08:00 | NUR ---
INITIAL ASSESSMENT PATIENT INTUBATED AND ON PRECEDEX AT 0.5 MCG/ KG/ HOUR. PATIENT DOES NOT WAKE TO VERBAL STIMULI. PATIENT WITHDRAWING MOVEMENTS FROM NOXIOUS STIMULI. PATIENT AFEBRILE. NO SIGNS OF PAIN NOTED. VENT SETTINGS OF AC 20, TV 300, PEEP 10, 30% FIO2. LOWER LOBES DIMINISHED. EXPIRATORY WHEEZES NOTED IN RUL, MIRA, RLL. SCANT AMOUNT OF THICK, DARK YELLOW SPUTUM NOTED WITH SUCTIONING. PATIENT IN SR, HR IN THE 90S. SBP IN THE LOW 100S. ABDOMEN MILDLY DISTENDED, SOFT, WITH HYPOACTIVE BOWEL SOUNDS NOTED. RECTAL TUBE IN PLACE DRAINING BROWN, LIQUID STOOL. PATIENT RECEIVING SCHEDULED LACTULOSE. OG IN PLACE. PIVOT 1.5 TF INFUSING AT GOAL RATE OF 25 MLS/ HOUR WITH 30 ML WATER FLUSH Q4H. RESIDUAL OF 180 MLS OBTAINED AND REINSTILLED THIS AM. PATIENT ANURIC. ABCESS NOTED TO L GROIN. ABRASION NOTED TO L HIP. SCATTERED BRUISES T/O BODY. BRUISES AND OOZING NOTED TO ABDOMEN FROM HEPARIN SHOTS. PERMACATH NOTED TO R CHEST WALL. ANASARCA NOTED. NS INFUSING TKO. BED LOW, CALL LIGHT IN REACH. WILL CONTINUE TO MONITOR PATIENT FREQUENTLY THROUGHOUT SHIFT.
--- NOTE | 2021-03-12 09:00 | NUR ---
DR. GALLOWAY UPDATED ON PATIENT STATUS. INFORMED OF INCREASING WBCS OF 20.06 THIS AM. NO ORDERS RECEIVED.
--- NOTE | 2021-03-12 12:00 | NUR ---
PATIENT AFEBRILE. NO SIGNS OF PAIN NOTED. DR. GALLOWAY STATED THAT PATIENT DOES NOT NEED WEAN OR SEDATION VACATION TODAY. PATIENT SATTING 90% AND GREATER ON AC 20, TV 300, PEEP 7 AND 30% FIO2. NO SPUTUM NOTED WITH SUCTIONING. LUNGS CLEAR THROUGHOUT. HR IN THE 90S. SBP LOW 100S TO 1-TEENS. TF INCREASED TO NEW GOAL OF 40 MLS/ HOUR. RESIDUAL OF 40 MLS OBTAINED AND REINSTILLED. BLOOD SUGAR OF 156. NO OTHER ACUTE CHANGES TO NOTE ON AT THIS TIME. WILL CONTINUE TO MONITOR.
--- NOTE | 2021-03-12 13:43 | NUR ---
Met pt. in bed and her nurse in the room attending to her needs offered prayers for thept.and blessed pt.
--- NOTE | 2021-03-12 17:00 | NUR ---
PATIENT HAS TEMP OF 99.4. NO SIGNS OF PAIN NOTED. PATIENT SATTING 90% AND GREATER ON AC 20, TV 300, PEEP 5 AND 30% FIO2. MIDODRINE HELD SBP 130S TO 140S. HR IN THE 90S. RESIDUAL OF 200 MLS OBTAINED AND REINSTILLED. NO OTHER ACUTE CHANGES TO NOTE ON AT THIS TIME. WILL CONTINUE TO MONITOR.
--- NOTE | 2021-03-12 18:49 | NUR ---
SHIFT SUMMARY PATIENT REMAINED RESPONDING TO EITHER VERBAL OR PAINFUL STIMULI. PATIENT WOULD WITHDRAW, VERY WEAKLY, FROM NOXIOUS STIMULI. PATIENT HAD TMAX OF 99.4 DEGREES FAHRENHEIT. PATIENT PEEP DECREASED FROM 10 TO 5 TODAY; ALL OTHER SETTINGS HAVE REMAINED: AC 20, TV 300, 30% FIO2. PATIENT HAS REMAINED SR TO ST, HR 90S TO LOW 100S. SBP LOW 100S TO 140S. PATIENT RECEIVING SCHEDULED LACTULOSE. 650 MLS OF BROWN, LIQUID STOOL OUT FROM RECTAL TUBE. TF INCREASED TO NEW GOAL OF 40 MLS/ HOUR. RESIDUALS 40 MLS TO 200 MLS THIS SHIFT. PATIENT REMAINED ANURIC. NO CHANGE TO SKIN. PATIENT REPOSITIONED Q2H DURING SHIFT. PRECEDEX HAS REMAINED AT 0.5 MCG/ KG/ HOUR. NO DIALYSIS TODAY. PATIENT APPEARS COMFORTABLE AT THIS TIME. BED LOW, CALL LIGHT IN REACH. REPORT WILL BE GIVEN TO ONCOMING TRACK MANAGER NURSE SHORTLY.
--- NOTE | 2021-03-12 19:15 | NUR ---
ASSUMPTION OF CARE RECEIVED REPORT FROM DEANGELO COREY. ASSUMED CARE OF PATIENT. PATIENT INTUBATED VENT SETTINGS AC20/300/5/30% WITH SATS ABOVE 95%. SEDATED WITH PRECEDEX AT 0.5MCG/KG. OPENS EYES TO VOICE, ATTEMPTS TO SQUEEZE HAND WEAKLY. OG WITH CONTINUOUS FEEDS AT GOAL OF 40ML/HR. RECTAL TUBE WITH DARK LIQUID DRAINAGE. VITALS STABLE. WILL REVIEW ORDERS AND TREAT PRESCRIBED.
[2021-03-13 04:21] LABS: Hematocrit 25.1 % (33.0-51.0); Hemoglobin 8.4 g/dL (11.5-16.0); Mean Corpuscular HGB 32.9 pg (26.0-34.0); Mean Corpuscular HGB Conc 33.5 g/dL (31.5-36.5); Mean Corpuscular Volume 98 fL (80-100); Mean Platelet Volume 10.3 fL (9.1-12.4); NRBC ABSOLUTE 0.36 K/mm3 (0.00-0.02); NRBC Auto 1.5 /100 WBC (0.0-0.2); Platelet Count 154 K/mm3 (150-400); RDW Coefficient Variation 21.8 % (11.7-14.2); Red Blood Cell Count 2.55 M/mm3 (3.80-5.20); White Blood Cell Count 23.64 K/mm3 (4.00-11.30)
[2021-03-13 04:44] LABS: Albumin, Blood 2.5 g/dL (3.4-5.0); Albumin/Globulin Ratio 0.6 (0.8-1.8); Bilirubin, Direct 4.6 mg/dL (0.0-0.3); Bilirubin, Indirect 0.7 mg/dL (0.1-0.7); Bilirubin, Total 5.3 mg/dL (0.1-1.0); Bun/Creatinine Ratio 25.5 (12.0-20.0); C-REACTIVE PROTEIN, EXT RANGE 3.34 mg/dL (0.000-0.300); Calcium, Blood 8.1 mg/dL (8.5-10.1); Creatinine, Blood 3.18 mg/dL (0.40-1.00); Globulin, Blood 3.9 g/dL (2.2-4.0); Magnesium, Blood 2.3 mg/dL (1.6-2.4); Phosphorus, Blood 3.5 mg/dL (2.5-4.9); Potassium, Blood 4.2 mmol/L (3.5-5.5); Total Protein, Blood 6.4 g/dL (6.4-8.2)
[2021-03-13 05:02] LABS: BAND PERCENT MAN 8 % (0-8); BASOPHILS PERCENT MAN 0 % (0-2); EOSINOPHILS PERCENT MAN 0 % (0-6); LYMPHOCYTES % ATYPICAL MANUAL 1 % (0-0); LYMPHOCYTES PERCENT MAN 10 % (21-46); MONOCYTES PERCENT MAN 11 % (4-13); MYELOCYTE ABSOLUTE MAN 0.23 K/mm3 (0.00-0.00); MYELOCYTE PERCENT MAN 1 % (0-0); SEG NEUTROPHILS PERCENT MAN 69 % (41-73); TOTAL CELLS COUNTED 100
--- NOTE | 2021-03-13 06:36 | NUR ---
SHIFT SUMMARY PATIENT INTUBATED AND SEDATED, PRECEDEX REMAINS AT 0.5MCG/KG FOR SEDATION. PATIENT AWAKENS, OPENS EYES, FOLLOWS COMMANDS. WILL CONTINUE TO REST WHEN NOT STIMULATED. VENT SETTINGS AC 20/300/5/30%. SUCTIONED SCANT, CLEAR SECRETIONS VIA ETT. PATIENT WITH STRONG COUGH AND GAG. RECTAL TUBE WITH DARK LIQUID STOOL, LACTULOSE GIVEN SCHEDULED. VITALS STABLE. LABS REVIEWED. WILL CONTINUE TO MONITOR AND REPORT TO ONCOMING RN.
--- NOTE | 2021-03-13 08:00 | NUR ---
PT REMAINS INTUBATED, SEDATED, AND RESTRAINED. PRECEDEX @ 0.5 MCG/KG/MIN-PT OPENS EYES TO VERBAL, BUT CURRENTLY NOT FOLLOWING COMMANDS. GENERALLY WEAK AND DECONDITIONED. ECG SHOWS SR WITH RATE 80-90'S. SBP 120'S-130'S. ANTICIPATE DIALYSIS LATER THIS AM. THEREFORE, MIDIDRINE DOSE GIVEN-SEE EMAR. GENERALIZED EDEMA CONTINUES. LUNGS WITH SCATTERED INSPIRATORY WHEEZES. ETT 8.0/21 @ TEETH. VENT ON PS 8, FIO2 35% AND MAINTAINING SATS>90%. RR 22-34. ETT SUCTION PRODUCTIVE OF SCANT AMOUNT OF CLEAR SECRETIONS.ABDOMEN OBESE, WITH SCATTERED BRUISING, SOFT WITH HYPERACTIVE BT'S. OGTF WITH 70 CC RESIDUAL-REFED. PIVOT 1.5 @ GOAL 40 CC/HR. RECTAL TUBE WITH LARGE AMOUNT OF BROWN, LIQUID STOOL. LEFT OUTER THIGH WITH SKIN TEAR AND ECCHYMOSIS NOTED. CLEANSED WITH WOUND CLEANSER, PATTED DRY, AND SMALL FOAM DRESSING PLACED.
--- NOTE | 2021-03-13 08:49 | NUR ---
HEMODIALYSIS IN PROGRESS. RESPIRATORY RATE 30'S, PT STACKING BREATHES-RT JOSHUA PLACED PT BACK ON AC 20, TV 300, PEEP 5, FIO2 35%-SATS>90%
--- NOTE | 2021-03-13 09:30 | NUR ---
PT HYPOTENSIVE WITH DIALYSIS. MAP TRENDING 50'S-LEVOPHED DRIP INITIATED AND TITRATED UP TO 15 MCG/MIN TO MAINTAIN MAP 60-65.
--- NOTE | 2021-03-13 12:00 | NUR ---
HEMODIALYSIS COMPLETE-NET 3.5 LITERS PER SATISH-GRIZZLY WORKER. PRECEDEX DRIP OFF PER DR. GALLOWAY AND PROPOFOL DRIP @ 20 MCG/KG/MIN FOR SEDATION. MIDODRINE GIVEN EARLY-SEE EMAR. LEVOPHED DRIP TITRATED OFF. OGTF WITH 25 CC RESIDUAL-REFED. RATE DECREASED TO 25 CC/HR PER DIETARY. ANTICIPATE CXR LATER THIS AFTERNOON-PER DR. GALLOWAY ORDER.
--- NOTE | 2021-03-13 14:30 | NUR ---
Met pt. lying in bed and in vent offered prayers for the pt.
--- NOTE | 2021-03-13 16:00 | NUR ---
PT RESTING QUIELTY ON VENT WITH PROPOFOL @ 20 MCG/MIN. PT OPENS HER EYES TO VERBAL AND NOXIOUS STIMULI-GROSS MOVEMENT OF UPPER EXTREMITIES WHEN PT UNRESTRAINED. PT MOVES ARMS TOWARDS ETT WHEN ORAL CARE/SUCTIONING DONE AND PT NOT RESTRAINED. MAP 60-65 WITH LEVOPHED DRIP @ 2 MCG/MIN. NO VENT CHANGES. CXR COMPLETED. MAINTAINS SATS>90% ON FIO2 30%. FEW THICK, WHITE ETT SECRETIONS. PT TOLERATING OGTF WELL. CONTINUES TO HAVE LARGE AMOUNT OF LIQUID, BROWN STOOL-SPECIMEN SENT FOR C-DIFF.
--- NOTE | 2021-03-13 18:00 | NUR ---
LINEN CHANGE AND RECTAL TUBE CARE COMPLETED.PT EYES OPEN, GRIMACING AND REACHING TOWARDS ETT WHILE NOT RESTRAINED. TITRATED PROPOFOL UP TO 30 MCG/KG/MIN. REPOSITIONED TO COMFORT ON LEFT SIDE.
--- NOTE | 2021-03-13 19:30 | NUR ---
ASSUMPTION OF CARE RECEIVED REPORT FROM TONI COREY. ASSUMED CARE OF PATIENT. PATIENT INTUBATED AND SEDATED ON PROPOFOL. OPENS EYES, GROSS MOVEMENT TO BUE NOTED. TF AT GOAL OF 25 WITH HIGH RESIDUALS OF 435ML, REFED AND TUBE FEEDS PLACED ON STANDBY. LEVOPHED AT 2MCG, WITH STABLE BP. VENT SETTINGS AC 20/300/5/30 WITH SATS ABOVE 95%. RECTAL TUBE DARK LIQUID OUTPUT. WILL REVIEW ORDERS AND TREAT PRESCRIBED.
[2021-03-13 21:17] LABS: C DIFFICILE DNA NEGATIVE (Negative)
[2021-03-14 04:29] LABS: BASOPHILS ABSOLUTE AUTO 0.05 K/mm3 (0.00-0.23); BASOPHILS PERCENT AUTO 0 % (0-2); EOSINOPHILS PERCENT AUTO 0 % (0-6); Hematocrit 24.4 % (33.0-51.0); IMMATURE GRAN ABSOLUTE AUTO 1.13 K/mm3 (0.00-0.10); IMMATURE GRAN PERCENT AUTO 4 % (0-1); LYMPHOCYTES ABSOLUTE AUTO 4.11 K/mm3 (0.84-5.20); LYMPHOCYTES PERCENT AUTO 15 % (21-46); MONOCYTES ABSOLUTE AUTO 2.11 K/mm3 (0.16-1.47); MONOCYTES PERCENT AUTO 8 % (4-13); Mean Corpuscular HGB 32.8 pg (26.0-34.0); Mean Corpuscular HGB Conc 32.8 g/dL (31.5-36.5); Mean Corpuscular Volume 100 fL (80-100); Mean Platelet Volume 10.3 fL (9.1-12.4); NEUTROPHILS ABSOLUTE AUTO 19.22 K/mm3 (1.96-9.15); NEUTROPHILS PERCENT AUTO 72 % (41-73); NRBC Auto 0.8 /100 WBC (0.0-0.2); Platelet Count 159 K/mm3 (150-400); RDW Coefficient Variation 22.7 % (11.7-14.2); RDW Standard Deviation 72.6 fL (35.1-46.3); Red Blood Cell Count 2.44 M/mm3 (3.80-5.20); White Blood Cell Count 26.62 K/mm3 (4.00-11.30)
[2021-03-14 04:57] LABS: Albumin, Blood 2.5 g/dL (3.4-5.0); Albumin/Globulin Ratio 0.7 (0.8-1.8); Bilirubin, Direct 4.3 mg/dL (0.0-0.3); Bilirubin, Indirect 0.8 mg/dL (0.1-0.7); Bilirubin, Total 5.1 mg/dL (0.1-1.0); Bun/Creatinine Ratio 25.4 (12.0-20.0); C-REACTIVE PROTEIN, EXT RANGE 2.27 mg/dL (0.000-0.300); Creatinine, Blood 2.8 mg/dL (0.40-1.00); Globulin, Blood 3.7 g/dL (2.2-4.0); Magnesium, Blood 2.4 mg/dL (1.6-2.4); Phosphorus, Blood 3.3 mg/dL (2.5-4.9); Potassium, Blood 3.5 mmol/L (3.5-5.5); Total Protein, Blood 6.2 g/dL (6.4-8.2)
--- NOTE | 2021-03-14 06:03 | NUR ---
SHIFT SUMMARY PATIENT SEDATED AND INTUBATED. STARTED SHIFT WITH PROPOFOAL AT 30MCG/KG, TITRATED THROUGH SHIFT DOWN TO 10MCG/KG. PATIENT OPENS EYES SPONTANEOUSLY. GROSS MOVEMENT TO BUE. DOES NOT REMAIN AWAKE WHEN NOT STIMULATED. VENT SETTINGS UNCHANGED FROM AC20/300/5/30, MINIMAL WHITE SECRETIONS SUCTIONED FROM ETT. HIGH RESIDUALS FROM TF INFUSING VIA OG AT 25ML/HR. PLACED ON HOLD FOR 4 HOURS AND RESTARTED AT 0000, CONTINUING TO INFUSE AT 25ML/HR. RECTAL TUBE WITH 400CC BROWN OUTPUT, THICKENING IN CONSISTENCY. VITALS STABLE, LEVOPHED TURNED OFF AT 0000 AND MAPS REMAINED ABOVE 65. SPOKE WITH RT THIS AM REGARDING POSSIBLY WEANING PATIENT. RT STATED DR. GALLOWAY WANTS TO WAIT ON THE WEAN UNTIL HE IS AT BEDSIDE. WILL KEEP SEDATION AT A LOW RATE TO SLOWLY WAKE UP PATIENT IN ANTICIPATION FOR WEAN. CONTINUING TO MONITOR AND WILL REPORT TO ONCOMING RN.
--- NOTE | 2021-03-14 08:00 | NUR ---
PT REMAINS INTUBATED, SEDATED, AND RESTRAINED. PT WIDE AWAKE, GRIMACING, COUGHING, AND PULLING ON RESTRAINTS WITH PROPOFOL @ 10 MCG/KG/MIN. PT NODS "YES" WHEN ASKED IF IN PAIN. PT NODS "YES" WHEN ASKED IF THE PAIN IS IN HER ABDOMEN. TITRATED PROPOFOL UP TO 20 MCG/KG/MIN. ECG CONTINUES SR WITH RATE 80-90'S. AFEBRILE. SBP TRENDING 90-110'S. ANASARCA CONTINUES. ETT TO VENT: AC 20, RR 28-36, TV 300, FIO2 30%, PEEP 5-SATS>90% ETT SUCTION PRODUCTIVE OF A LARGE AMOUNT OF THICK, WHITE SECRETIONS. LUNGS DIMINISHED IN THE BASES L>R. OGTF WITH 60 CC RESIDUAL-REFED. TF PIVOT 1.5 @ GOAL OF 25 CC/HR. RECTAL TUBE WITH LARGE AMOUNT OF LEAKAGE AROUND THE TUBE-AIDAN AND RECTAL TUBE CARE DONE AND DRY FLOW PADS CHANGED. ABDOMEN CONTINUES WITH SCATTERED BRUISES FROM SQ HEPARIN INJECTIONS-SCATTERED OOZING WELL. PT REMAINS ANURIC-NO DIALYSIS SCHEDULED YET FOR TODAY.
--- NOTE | 2021-03-14 11:00 | NUR ---
DR. GALLOWAY UPDATED TO PT CURRENT VS, LABS, AND STATUS. MD AWARE OF PT ABDOMINAL PAIN, INCREASED AGITATION, AND HIGH RESIDUALS FROM TF OVERNIGHT. ORDER PLACED FOR CT SCAN. ALSO, TF DISCONTINUED AND OGT PLACED TO LIS-IMMEDIATELY, 500 CC BROWN LIQUID OUT.
--- NOTE | 2021-03-14 12:20 | NUR ---
[id number]: PT TO CT SCAN OF CHEST AND ABDOMEN WITH CONTRAST. TOLERATED WELL WITH PROPOFOL @ 40 MCG/KG/MIN. DR. GALLOWAY CONTACTED TO SEE WHETHER OR NOT PT WILL REQUIRED DIALYSIS TODAY TO REMOVE CONTRAST-NO DIALYSIS REQUIRED.
[2021-03-14 14:03] LABS: Vancomycin, Random 23.3 ug/mL
--- NOTE | 2021-03-14 16:45 | NUR ---
PT GRIMACING AND NODDING "YES" TO ABDOMINAL PAIN-MED WITH DILAUDID 1 MG IVP X 1-SEE EMAR. OGT WITH 900 OUT THIS SHIFT. MAP TRENDING 60-65 WITH LEVOPHED @ 3 MCG/KG/MIN. MAINTAINS SATS>90% -STILL ON FIO2 30%. MODERATE AMOUNT OF THICK, WHITE SECRETIONS.
--- NOTE | 2021-03-14 18:52 | NUR ---
PT RESTING QUIETLY ON VENT. NOT ACUTE DISTRESS NOTED AT THIS TIME.
--- NOTE | 2021-03-15 01:30 | NUR ---
ASSUMED CARE OF PATIENT FROM LEORA BARRETO. PT HAS BEEN TURNED Q2 AND ORAL CARE DONE Q4H. PT IS ON THE VENT AC/PC 20/300/5/30%. PROPOFOL @ 40MCG/KG/HR, LEVO @ 2MCG/MIN, NS @ TKO, RECTAL TUBE TO GRAVITY DRAINAGE WITH GREEN RETURN. LUNGS CLEAR, BOWEL TONES HYPOACTIVE, PULSES GOOD ALL EXTREMITIES, GENERALIZED EDEMA PRESENT, PT OPENS EYES TO VOICE AND WILL NOD HER HEAD TO QUESTIONS.
[2021-03-15 04:36] LABS: BASOPHILS ABSOLUTE AUTO 0.07 K/mm3 (0.00-0.23); BASOPHILS PERCENT AUTO 0 % (0-2); Mean Corpuscular HGB 33.3 pg (26.0-34.0); Mean Corpuscular HGB Conc 33.3 g/dL (31.5-36.5); Mean Corpuscular Volume 100 fL (80-100); Mean Platelet Volume 9.9 fL (9.1-12.4); NRBC ABSOLUTE 0.21 K/mm3 (0.00-0.02); NRBC Auto 0.6 /100 WBC (0.0-0.2); Platelet Count 207 K/mm3 (150-400); RDW Coefficient Variation 22.9 % (11.7-14.2); RDW Standard Deviation 72.8 fL (35.1-46.3); White Blood Cell Count 32.59 K/mm3 (4.00-11.30)
[2021-03-15 04:37] LABS: EOSINOPHILS ABSOLUTE AUTO 0.03 K/mm3 (0.00-0.68); EOSINOPHILS PERCENT AUTO 0 % (0-6); IMMATURE GRAN PERCENT AUTO 5 % (0-1); LYMPHOCYTES ABSOLUTE AUTO 4.64 K/mm3 (0.84-5.20); LYMPHOCYTES PERCENT AUTO 14 % (21-46); MONOCYTES ABSOLUTE AUTO 2.34 K/mm3 (0.16-1.47); MONOCYTES PERCENT AUTO 7 % (4-13); NEUTROPHILS ABSOLUTE AUTO 23.91 K/mm3 (1.96-9.15); NEUTROPHILS PERCENT AUTO 73 % (41-73)
[2021-03-15 04:52] LABS: Albumin, Blood 2.6 g/dL (3.4-5.0); Anion Gap 11 mmol/L (6-16); Blood Urea Nitrogen 86 mg/dL (8-24); Bun/Creatinine Ratio 23.6 (12.0-20.0); CO2, Blood 27 mmol/L (21-32); Calcium, Blood 8.5 mg/dL (8.5-10.1); Chloride, Blood 103 mmol/L (98-108); Creatinine, Blood 3.65 mg/dL (0.40-1.00); Glomerular Filtration Rate 16 (60-); Glucose, Blood 117 mg/dL (70-99); Magnesium, Blood 2.4 mg/dL (1.6-2.4); Phosphorus, Blood 5.3 mg/dL (2.5-4.9); Potassium, Blood 3.3 mmol/L (3.5-5.5); Sodium, Blood 141 mmol/L (136-145)
--- NOTE | 2021-03-15 05:49 | NUR ---
ARIADNA HAS BEEN RESTING WELL FOR THE MAJORITY OF THE SHIFT, SHE CONTINUES ON AC/VC 20/300/5/30%. SATS MAINTAINING >95%. TOLERATING THE VENT WELL. SUCTION RETURNS THICK YELLOW/CREAM RETURN. ABDOMEN SOFT, NON-TENDER, QUIET BOWEL TONES, RECTAL TUBE TO GRAVITY DRAINAGE WITH GREENISH RETURN. PT CONTINUES ON PROPOFOL @ 40MCG/KG, LEVOPHED @ 2MCG, NS @ 10. NO CHANGES T/O THE NOC.
--- NOTE | 2021-03-15 09:04 | NUR ---
ASSUMED CARE OF PT, REPORT RCV'D FROM LEORA VEGA. PT ALERT TO VERBAL STIMULATION. OPENS EYES SPONTANEOUSLY AND TRACKS MOVEMENT. PT FAILS TO FOLLOW COMMANDS AT THIS TIME, WITHDRAWS FROM PAIN, GROSS MOVEMENT TO ALL EXTREMETIES. PT INTUBATED AND SEDATED. PROPOFOL @ 35 MCG/KG/MIN. VENT SETTINGS AC 20/300/5/30% WITH SATS>95%. PT HAS SMALL AMOUNT OF THICK WHITE SPUTUM FROM ETT. OGT TO LIS, BILE OUTPUT NOTED. RECTAL TUBE PATENT AND DRAINING TO GRAVITY. LEVOPHED @ 2 MCG/MIN TO MAINTAIN MAP>65. DR. BEVERLY AT BEDSIDE, ORDER TO RESTART TPN, HOTEL OR MOTEL RECEPTIONIST TO CALL FOR ELECTROLYTE ORDERS. SEE FULL SHIFT ASSESSMENT.
--- NOTE | 2021-03-15 18:34 | NUR ---
SHIFT SUMMARY NO ACUTE CHANGES THIS SHIFT. PT REMAINS INTUBATED AND SEDATED. VENT SETTINGS REMAIN THE SAME AC 20/300/5/305 WITH SATS 95%. PROPOFOL @ 35 MCG/KG/MIN, PT OPENS EYES TO VERBAL STIMULATION. LEVOPHED INCREASED FROM 2 MCG/MIN TO 6 MCG/MIN DURING DIALYSIS TO MAINTAIN MAP>65. PT HAD 500 ML GREEN WATERY STOOL FROM RECTAL TUBE. 500 ML BILIARY OUTPUT FROM OGT. WILL REPORT TO ONCOMING NURSE.
[2021-03-15 19:05] LABS: Vancomycin, Random 7.1 ug/mL
--- NOTE | 2021-03-15 20:56 | NUR ---
SHIFT ASSESSMENT ASSUMED CARE OF PT @ 1900, REPORT RECEIVED FROM LEORA NIELSEN. PT INTUBATED AND SEDATED, OPENS EYES SPONTANEOUSLY, SHAKES HEAD YES/NO WHEN ASKED ABOUT PAIN. WEAKLY WITHDRAWS ARMS WHEN PAINFUL. PROPOFOL GTT @ 35MCG/KG/MIN, LEVOPHED GTT INITIALLY @ 6MCG, TITRATED TO 4MCG, WILL ATTEMPT TO TITRATE DOWN T/O THE NIGHT. VENT SETTINGS: AC-20/300/5/30% c O2 SATS >95%. OGT TO LIS, ON SB AFTER PO MEDICATION ADMIN. TF ALSO ON SB, AWAITING PROCEDURE IN THE AM. RECTAL TUBE IN PLACE, DRAINING THIN, GREENISH/BROWN STOOL. WILL CONTINUE TO MONITOR CLOSELY.
[2021-03-16 04:38] LABS: Hematocrit 22.7 % (33.0-51.0); Hemoglobin 7.5 g/dL (11.5-16.0); Mean Corpuscular HGB 32.8 pg (26.0-34.0); Mean Corpuscular Volume 99 fL (80-100); Mean Platelet Volume 10.2 fL (9.1-12.4); NRBC ABSOLUTE 0.26 K/mm3 (0.00-0.02); NRBC Auto 0.9 /100 WBC (0.0-0.2); Platelet Count 238 K/mm3 (150-400); RDW Coefficient Variation 23.2 % (11.7-14.2); RDW Standard Deviation 73.8 fL (35.1-46.3); Red Blood Cell Count 2.29 M/mm3 (3.80-5.20); White Blood Cell Count 29.17 K/mm3 (4.00-11.30)
[2021-03-16 05:01] LABS: Alanine Aminotransfer (ALT/SGP 166 U/L (12-78); Albumin, Blood 2.5 g/dL (3.4-5.0); Albumin/Globulin Ratio 0.8 (0.8-1.8); Alk Phos 124 U/L (50-136); Anion Gap 12 mmol/L (6-16); Aspartate Aminotrans (AST/SGOT 103 U/L (12-37); Bilirubin, Total 3.7 mg/dL (0.1-1.0); Blood Urea Nitrogen 52 mg/dL (8-24); CO2, Blood 27 mmol/L (21-32); Chloride, Blood 98 mmol/L (98-108); Creatinine, Blood 2.73 mg/dL (0.40-1.00); Globulin, Blood 3.3 g/dL (2.2-4.0); Glomerular Filtration Rate 22 (60-); Glucose, Blood 95 mg/dL (70-99); Magnesium, Blood 2.1 mg/dL (1.6-2.4); Phosphorus, Blood 4.8 mg/dL (2.5-4.9); Potassium, Blood 3.7 mmol/L (3.5-5.5); Sodium, Blood 137 mmol/L (136-145); Total Protein, Blood 5.8 g/dL (6.4-8.2)
[2021-03-16 06:24] LABS: BAND PERCENT MAN 3 % (0-8); BASOPHILS PERCENT MAN 0 % (0-2); EOSINOPHILS PERCENT MAN 0 % (0-6); LYMPHOCYTES ABSOLUTE MAN 3.79 K/mm3 (0.84-5.20); LYMPHOCYTES PERCENT MAN 13 % (21-46); METAMYELOCYTE ABSOLUTE MAN 0.58 K/mm3 (0.00-0.00); METAMYELOCYTE PERCENT MAN 2 % (0-0); MONOCYTES ABSOLUTE MAN 2.04 K/mm3 (0.16-1.47); MONOCYTES PERCENT MAN 7 % (4-13); MYELOCYTE ABSOLUTE MAN 0.58 K/mm3 (0.00-0.00); MYELOCYTE PERCENT MAN 2 % (0-0); NEUTROPHILS ABSOLUTE MAN 22.16 K/mm3 (1.96-9.15); SEG NEUTROPHILS PERCENT MAN 73 % (41-73); TOTAL CELLS COUNTED 100
--- NOTE | 2021-03-16 06:43 | NUR ---
SHIFT SUMMARY PT REMAINS INTUBATED AND SEDATED. NO CHANGES IN VENT SETTINGS c O2 SATS MAINTAING >95%. PT CONTINUES TO OPEN EYES SPONTANEOUSLY, MOVING ALL EXTREMITIES. LEVOPHED GTT TITRATED TO 2MCG/MIN c MAP >60. MINIMAL OUTPUT FROM RECTAL TUBE, REMAINS IN PLACE. NO OTHER ACUTE CHANGES IN PT CONDITION DURING THE NIGHT. WILL CONTINUE TO MONITOR, REPORT TO ONCOMING NURSE.
--- NOTE | 2021-03-16 09:32 | NUR ---
ASSUMED CARE OF PT, REPORT RCV'D FROM LEORA GARCIA. PT INTUBATED AND LIGHTLY SEDATED. VENT SETTINGS AC 20/300/5/30%. PROPOFOL @35 MCG/KG/MIN. PT OPENS EYES TO VERBAL STIMULUS, NODS HEAD YES/NO IN RESPONSE TO QUESTIONS, FAILS TO FOLLOW COMMAND TO SQUEEZE HANDS. PT TENSE AND WITHDRAWS FROM PAIN WITH ABDOMINAL PALPATION. PT APPEARS MORE TENDER ON RIGHT SIDE VS LEFT SIDE. LEVOPHED INCREASED TO 5 MCG/MIN TO MAINTAIN MAP>65. OGT CLAMPED FOLLOWING MEDICATION ADMINISTRATION. RECTAL TUBE PATENT, SMALL AMOUNT OF LIQUID GREEN STOOL IN TUBE. SEE FULL SHIFT ASSESSMENT.
--- NOTE | 2021-03-16 12:31 | NUR ---
SPOKE WITH DR. GEORGE REGARDING PLANS TO PLACE PANCREATIC DRAIN. DR. TRUJILLO SPOKE WITH DR. OLIVARES AND DECIDED TO CANCEL PLANS FOR PANCREATIC DRAIN AND CONTINUE TO MONITOR. DR. GEORGE UPDATED. WILL RESTART TRICKLE TUBE FEEDING.
--- NOTE | 2021-03-16 13:26 | NUR ---
review of pt with nursing and physician. Wiil follow up once plan is confirmed with interventional radiology. Will see if pt has outpt support with [facility] [place] and review prognsosis and confirm her decision maker.
[2021-03-16 14:56] LABS: Vancomycin, Random 37.1 ug/mL
--- NOTE | 2021-03-16 15:03 | NUR ---
PIVOT 1.5 STARTED AT 10 ML/HR WITH 30 ML Q4 FLUSH. 400 ML BILE FROM OGT.
--- NOTE | 2021-03-16 16:17 | NUR ---
CALLED PT'S MOTHER TO UPDATE ON PT'S STATUS AND PLAN OF CARE. NO ANSWER ON HOME PHONE NUMBER ([phone]) OR CELL PHONE ([phone]), VOICEMAIL NOT AVAILABLE.
--- NOTE | 2021-03-16 17:31 | NUR ---
SHIFT SUMMARY PT REMAINS INTUBATED AND SEDATED. NO CHANGES TO VENT SETTINGS OR SEDATION. PT MEDICATED FOR PAIN NEEDED PER EMAR PT DISPLAYED FACIAL GRIMACING AND WOULD SHAKE LEFT LEG WITH REPOSITIONING AND ABDOMINAL PALPATION . PT ABLE TO APPROPRIATELY NOD HEAD YES/NO TO QUESTIONS, STILL FAILS TO FOLLOW COMMAND TO SQUEEZE HAND. TRACKS MOVEMENT, OPENS EYES SPONTANEOUSLY AND TO VERBAL STIMULATION. LEVOPHED DOSAGE INCREASED FROM 2 MCG/MIN TO 11 MCG/MIN TO MAINTAIN MAP>65. PT CONTINUES TO RECEIVE MIDODRINE PT TID. MINIMAL OUTPUT FROM RECTAL TUBE, LACTULOSE PT GIVEN PER EMAR-PT HAD 500 ML OUT OF OGT PRIOR TO START OF TUBE FEED. PIVOT 1.5 STARTED AT 1500 AT TRICKLE FEED RATE 10 ML/HR WITH 30 ML Q4 FLUSH. SEE PREVIOUS NOTES FROM THIS SHIFT. WILL REPORT TO ONCOMING NURSE.
--- NOTE | 2021-03-16 21:10 | NUR ---
SHIFT ASSESSMENT ASSUMED CARE OF PT @ 1900. REPORT RECEIVED FROM LEORA NIELSEN. PT INTUBATED AND LIGHTLY SEDATED. VENT SETTINGS AC 20/300/30%/5 c O2 SATS >95%. PROPOFOL GTT @ 35MCG/KG/MIN. LEVOPHED GTT @ 11MCG/MIN c MAP >60. ALERT IN ROOM UPON INITIAL ASSESSMENT PT APPEARS PAINFUL, SHAKING LEGS, GRIMACING. WHEN ASKED ABOUT PAIN, SHAKES HEAD YES. ABDOMEN PAINFUL TO TOUCH FROM HEPARIN INJECTIONS. PT MEDICATED c PRN DILAUDID. PROPOFOL TITRATED UP TO 40MCG/KG/MIN. ABLE TO TITRATE LEVOPHED DOWN TO 9MCG/MIN c MAP >60. TF AT TRICKLE. SCANT AMOUNT OF LIQUID STOOL IN RECTAL TUBE. WILL CONTINUE TO MONITOR CLOSELY.
[2021-03-17 04:13] LABS: BASOPHILS ABSOLUTE AUTO 0.04 K/mm3 (0.00-0.23); BASOPHILS PERCENT AUTO 0 % (0-2); Hemoglobin 7.1 g/dL (11.5-16.0); LYMPHOCYTES ABSOLUTE AUTO 4.68 K/mm3 (0.84-5.20); LYMPHOCYTES PERCENT AUTO 15 % (21-46); MONOCYTES ABSOLUTE AUTO 1.93 K/mm3 (0.16-1.47); MONOCYTES PERCENT AUTO 6 % (4-13); Mean Corpuscular HGB 33.5 pg (26.0-34.0); Mean Corpuscular HGB Conc 33.8 g/dL (31.5-36.5); Mean Corpuscular Volume 99 fL (80-100); Mean Platelet Volume 9.8 fL (9.1-12.4); NRBC ABSOLUTE 0.29 K/mm3 (0.00-0.02); NRBC Auto 0.9 /100 WBC (0.0-0.2); Platelet Count 291 K/mm3 (150-400); RDW Coefficient Variation 22.9 % (11.7-14.2); RDW Standard Deviation 70.1 fL (35.1-46.3); Red Blood Cell Count 2.12 M/mm3 (3.80-5.20); White Blood Cell Count 30.65 K/mm3 (4.00-11.30)
[2021-03-17 04:16] LABS: EOSINOPHILS ABSOLUTE AUTO 0.03 K/mm3 (0.00-0.68); EOSINOPHILS PERCENT AUTO 0 % (0-6); IMMATURE GRAN ABSOLUTE AUTO 1.48 K/mm3 (0.00-0.10); IMMATURE GRAN PERCENT AUTO 5 % (0-1); NEUTROPHILS ABSOLUTE AUTO 22.49 K/mm3 (1.96-9.15); NEUTROPHILS PERCENT AUTO 73 % (41-73)
[2021-03-17 04:35] LABS: Albumin, Blood 3.7 g/dL (3.4-5.0); Anion Gap 16 mmol/L (6-16); Blood Urea Nitrogen 60 mg/dL (8-24); Bun/Creatinine Ratio 17.2 (12.0-20.0); CO2, Blood 23 mmol/L (21-32); Calcium, Blood 8.1 mg/dL (8.5-10.1); Chloride, Blood 93 mmol/L (98-108); Creatinine, Blood 3.49 mg/dL (0.40-1.00); Glomerular Filtration Rate 16 (60-); Glucose, Blood 116 mg/dL (70-99); Magnesium, Blood 2.1 mg/dL (1.6-2.4); Potassium, Blood 3.9 mmol/L (3.5-5.5); Sodium, Blood 132 mmol/L (136-145)
[2021-03-17 05:57] LABS: BAND PERCENT MAN 1 % (0-8); BASOPHILS PERCENT MAN 0 % (0-2); EOSINOPHILS PERCENT MAN 0 % (0-6); LYMPHOCYTES ABSOLUTE MAN 3.06 K/mm3 (0.84-5.20); LYMPHOCYTES PERCENT MAN 10 % (21-46); METAMYELOCYTE PERCENT MAN 1 % (0-0); MONOCYTES ABSOLUTE MAN 0.61 K/mm3 (0.16-1.47); MONOCYTES PERCENT MAN 2 % (4-13); MYELOCYTE PERCENT MAN 1 % (0-0); NEUTROPHILS ABSOLUTE MAN 26.35 K/mm3 (1.96-9.15); SEG NEUTROPHILS PERCENT MAN 85 % (41-73); TOTAL CELLS COUNTED 100
--- NOTE | 2021-03-17 06:45 | NUR ---
SHIFT SUMMARY PT REMAINS INTUBATED AND SEDATED ON PROPOFOL. NO CHANGES IN VENT SETTINGS. OPENING EYES SPONTANEOUSLY, SHAKES HEAD YES/NO. TF CONTINUES AT TRICKLE, TOLERATING AT THIS TIME. RECTAL TUBE WITH SCANT AMOUNT OF LOOSE STOOL. NO SIGNIFICANT CHANGES IN PT CONDITION DURING THE NIGHT. WILL CONTINUE TO MONITOR CLOSELY, REPORT TO ONCOMING NURSE.
--- NOTE | 2021-03-17 07:09 | NUR ---
ASSUMED CARE: PT REMAINS INTUBATED WITH SETTINGS AC 20/300/5/30%. PROPOFOL GTT AT 35 MCG/KG, LEVOPHED AT 9 MCG. TF AT TRICKLE RATE. POSSIBLE PLANS FOR DIALYSIS TODAY PER DR BEVERLY. RT AT BEDSIDE. NO ACUTE NEEDS AT THIS TIME.
--- NOTE | 2021-03-17 13:53 | NUR ---
ATTEMPTED BLOOD DRAW FROM PICC LINE. UNABLE TO GET MORE THAN 5CC OUT OF [place]. LAB DRAWING PERIPHERALLY. DISCUSSED WITH PICC NURSE WHO IS PLANNING TO EVALUATE LINE.
--- NOTE | 2021-03-17 17:54 | NUR ---
SHIFT SUMMARY: PT REMAINS INTUBATED WITH SETTINGS AC 20/300/5/35%. PROPOFOL AT 35 MCG/KG. LEVOPHED AT 5MCG/KG. HAD TO RESTART LEVOPHED DURING DIALYSIS. PT CONTINUES TO HAVE TUBE FEEDS AND RECTAL TUBE IN PLACE. PLAN IS FOR EXTUBATION WHEN PT IS MORE ALERT AND NOT REQUIRING PRESSORS. DIALYSIS NURSE AT BEDSIDE AT THIS TIME. NO FURTHER NEEDS OR CONCERNS.
[2021-03-17 18:52] LABS: Vancomycin, Random 18.8 ug/mL
--- NOTE | 2021-03-17 21:31 | NUR ---
SHIFT ASSESSMENT ASSUMED CARE OF PT @ 1900, REPORT RECEIVED FROM LEORA THOMAS. PT INTUBATED AND SEDATED c PROPOFOL. OPENING EYES SPONTANEOUSLY. NODS HEAD YES/NO TO QUESTIONS. GRIMACES WITH MOVEMENT AND ORAL CARE. MEDICATING c PRN PAIN MEDS. VENT SETTINGS: AC-300/20/35%/5 c O2 SATS >90%. LEVOPHED GTT @ 4MCG/MIN, TITRATING DOWN. RECEIVED DIALYSIS TODAY. TF @ TRICKLE. RECTAL TUBE OUTPUT INCREASING, LOOSE, GREENISH/BROWN STOOL. WILL CONTINUE TO MONITOR CLOSELY.
--- NOTE | 2021-03-17 23:45 | NUR ---
UPDATE PT HAD A RUN OF V-TACH DURING BEDBATH. SEEMS TO CORRELATE WITH TURNING ON THE LEFT SIDE, RYTHM CHANGED BACK TO SINUS/SINUS TACH WHEN TURNED TO BACK. PT ALSO HAD SOME COUPLETS SHORTLY AFTER WHEN SHE WAS TURNED TO HER RIGHT. DIALYSIS TODAY, K+, MG, AND P ORDERED AND SENT TO LAB. AWAITING RESULTS AT THIS TIME.
[2021-03-18 00:03] LABS: Magnesium, Blood 2.1 mg/dL (1.6-2.4); Phosphorus, Blood 4.4 mg/dL (2.5-4.9); Potassium, Blood 3.2 mmol/L (3.5-5.5)
[2021-03-18 03:46] LABS: Hematocrit 23.6 % (33.0-51.0)
[2021-03-18 04:03] LABS: Anion Gap 11 mmol/L (6-16); Blood Urea Nitrogen 36 mg/dL (8-24); Bun/Creatinine Ratio 14.7 (12.0-20.0); CO2, Blood 27 mmol/L (21-32); Calcium, Blood 8.6 mg/dL (8.5-10.1); Chloride, Blood 98 mmol/L (98-108); Creatinine, Blood 2.45 mg/dL (0.40-1.00); Glomerular Filtration Rate 25 (60-); Glucose, Blood 133 mg/dL (70-99); Magnesium, Blood 2.1 mg/dL (1.6-2.4); Phosphorus, Blood 4.4 mg/dL (2.5-4.9); Potassium, Blood 3.5 mmol/L (3.5-5.5); Sodium, Blood 136 mmol/L (136-145)
--- NOTE | 2021-03-18 06:34 | NUR ---
SHIFT SUMARY PT REMAINS INTUBATED AND SEDATED. NO CHANGES IN VENT SETTINGS. PROPOFOL CONTINUES @ 35MCG'S. LEVOPHED PLACED ON SB, SEE FLOWSHEET, MAP REMAINS >60. PT c FREQUENT ECTOPY, REPLACING K+. TF CONTINUES AT TRICKLE. RECTAL TUBE c LARGE AMOUNTS OF WATERY, GREEN STOOL. NO OTHER SIGNIFICANT CHANGES IN PT CONDITION, WILL CONTINUE TO MONITOR CLOSELY.
--- NOTE | 2021-03-18 08:00 | NUR ---
Received report from Malik COREY. She is intubated and sedated. She has 8.0 ET and is 20 cm at teeth with vent setting AC 20, TV 300, FiO2 30% and PEEP 5.0 with sats >90%. She is a dialysis patient and is olguric. She has rectal tube in place and has green lactulose stool. She opens eye to verbal stimuli but [id number] minimal commands. She has PICC line to MARGARETTE and dressing intact and site WNL's and is infusing Propofol at 35 mcg/kg/min and NS TKO, Levophed is on standby but systolics soft and may need to restart. She has OG in p[lace and has Pivot 1.5 at 10 ml/hr and 30 mlwater flushes q4. She has bilateral soft wrist restraints in place.
--- NOTE | 2021-03-18 10:00 | NUR ---
Dr damon was in room while repositioning and patient opened eye with minimal response. No changes to vent and or gtt's. Systolics still remain soft and will restart levophed low dose.
--- NOTE | 2021-03-18 11:30 | NUR ---
No significant changes with vent or gtt's. Repositioned and suctioned moderat amounts of oral and ET secretions. She continues to open eyes and withdrawl from pain. Levophed continues at 3 mcg/min and systolics 100's and MAP's >65.
--- NOTE | 2021-03-18 13:30 | NUR ---
Patient continues to rest on sedation, Vent setting continue at AC 20, TV 300, FiO2 30%, PEEP 5.0 and sats 96%. Propofol at 35 mcg/kg/min, Levophed at 3 mcg/min, NS TKO. Rectal tube continue to have liquid green output. No other changes with patient neuros.
--- NOTE | 2021-03-18 17:30 | NUR ---
Patient resting on Propofol at 35 mcg/kg/min, opens eye to painful and verbal stimuli. She follow simple commands. PICC line MARGARETTE and infusing Levophed at 3 mcg/min, Propofol, NS TKO. Rectal tube 500 ml's dark green liquid stool. patient repositioned and linen changed.
--- NOTE | 2021-03-18 20:30 | NUR ---
SHIFT ASSESSMENT ASSUMED CARE OF PT @ 1900. REPORT RECEIVED FROM LEORA JORGENSEN. PT INTUBATED AND SEDATED. OPENING EYES SPONTANEOUSLY, TRACKS NURSE, SHAKES HEAD YES/NO. VENT SETTINGS: AC-20/300/35%/5 c O2 SATS >95%. PROPOFOL GTT @ 35MCG'S, LEVOPHED BEING TITRATED TO MAINTAIN MAP >60, CURRENTLY @ 3MCG/MIN. TF @ TRICKLE. RECTAL TUBE DRAINING LOOSE, GREEN STOOL. PT ANURIC. BL SOFT WRIST RESTRAINT IN PLACE. WILL CONTINUE TO MONITOR CLOSELY.
[2021-03-19 04:13] LABS: BASOPHILS ABSOLUTE AUTO 0.06 K/mm3 (0.00-0.23); BASOPHILS PERCENT AUTO 0 % (0-2); Hematocrit 23.6 % (33.0-51.0); Hemoglobin 7.9 g/dL (11.5-16.0); Mean Corpuscular HGB 32.9 pg (26.0-34.0); Mean Corpuscular HGB Conc 33.5 g/dL (31.5-36.5); Mean Corpuscular Volume 98 fL (80-100); Mean Platelet Volume 9.6 fL (9.1-12.4); NRBC ABSOLUTE 0.26 K/mm3 (0.00-0.02); NRBC Auto 0.7 /100 WBC (0.0-0.2); Platelet Count 279 K/mm3 (150-400); RDW Coefficient Variation 22.9 % (11.7-14.2); RDW Standard Deviation 66.1 fL (35.1-46.3); White Blood Cell Count 34.99 K/mm3 (4.00-11.30)
[2021-03-19 04:22] LABS: EOSINOPHILS ABSOLUTE AUTO 0.23 K/mm3 (0.00-0.68); EOSINOPHILS PERCENT AUTO 1 % (0-6); IMMATURE GRAN PERCENT AUTO 4 % (0-1); LYMPHOCYTES ABSOLUTE AUTO 5.74 K/mm3 (0.84-5.20); LYMPHOCYTES PERCENT AUTO 16 % (21-46); MONOCYTES PERCENT AUTO 6 % (4-13); NEUTROPHILS ABSOLUTE AUTO 25.46 K/mm3 (1.96-9.15); NEUTROPHILS PERCENT AUTO 73 % (41-73)
[2021-03-19 04:32] LABS: Albumin, Blood 3.6 g/dL (3.4-5.0); Anion Gap 13 mmol/L (6-16); Blood Urea Nitrogen 44 mg/dL (8-24); Bun/Creatinine Ratio 13.6 (12.0-20.0); CO2, Blood 24 mmol/L (21-32); Chloride, Blood 98 mmol/L (98-108); Creatinine, Blood 3.23 mg/dL (0.40-1.00); Glomerular Filtration Rate 18 (60-); Glucose, Blood 99 mg/dL (70-99); Phosphorus, Blood 4.9 mg/dL (2.5-4.9); Potassium, Blood 3.3 mmol/L (3.5-5.5); Sodium, Blood 135 mmol/L (136-145)
[2021-03-19 05:24] LABS: BAND PERCENT MAN 2 % (0-8); BASOPHILS PERCENT MAN 0 % (0-2); EOSINOPHILS ABSOLUTE MAN 0.34 K/mm3 (0.00-0.68); EOSINOPHILS PERCENT MAN 1 % (0-6); LYMPHOCYTES ABSOLUTE MAN 6.64 K/mm3 (0.84-5.20); LYMPHOCYTES PERCENT MAN 19 % (21-46); MONOCYTES ABSOLUTE MAN 1.04 K/mm3 (0.16-1.47); MONOCYTES PERCENT MAN 3 % (4-13); MYELOCYTE ABSOLUTE MAN 0.34 K/mm3 (0.00-0.00); MYELOCYTE PERCENT MAN 1 % (0-0); NEUTROPHILS ABSOLUTE MAN 26.59 K/mm3 (1.96-9.15); SEG NEUTROPHILS PERCENT MAN 74 % (41-73); TOTAL CELLS COUNTED 100
--- NOTE | 2021-03-19 06:22 | NUR ---
SHIFT SUMMARY PT REMAINS INTUBATED AND SEDATED. PROPOFOL CONTINUES @ 35MCG'S. FIO2 TITRATED FROM 35% TO 30% c O2 SATS MAINTAINING >90%. PT BECAME MORE HYPOTENSIVE THIS FRONT DESK HOST, LEVOPHED TITRATED TO 6MCG/MIN, SEE FLOWSHEET. TF CONTINUES AT TRICKLE. RECTAL TUBE WITH 500ML OF LIQUID STOOL OUT. K+ CURRENTLY BEING REPLACED. NO OTHER SIGNIFICANT CHANGES, WILL CONTINUE TO MONITOR CLOSELY.
--- NOTE | 2021-03-19 08:00 | NUR ---
ASSUMED PT CARE REPORT AND ROUNDS WITH CLAIR COREY AT 0700. ASSUMED PT CARE. PT INTUBATED AND SEDATED. VENT SETTINGS VCA 20/300/5/30, PT TOLERATING WELL. SATS >90%. LUNG SOUNDS COARSE. ORAL CARE COMPLETE, MODERATE ORAL SECRETIONS AND SMALL AMOUNT OF ETT SECRETIONS SUCTIONED. PT ABD SOFT, DISTENEDED, TENDER TO PALPATION. BS HYPOACTIVE. SKIN BRUISED FROM HEPARIN INJECTIONS. OG TUBE TO MOUTH, SECURED, TRICKLE FEED INF WITHOUT ISSUE. RESIDUAL 225 THIS AM. WRIST RESTRAINTS SECURE. PICC LINE TO MARGARETTE WITH LEVOPHED INF AT 6MCG, NS AT KVO AND PROPOFOL AT 30MCG/KG. PERMACATH TO RIGHT CHEST, SITE WNL. SEE FULL SHIFT ASSESSMENT.
--- NOTE | 2021-03-19 10:45 | NUR ---
DR GALLOWAY TO ROOM FOR EVAL AND ASSESSMENT. DIALYSIS CONTINUES. PLAN FOR POSSIBLE REPEAT CT SCAN.
[2021-03-19 11:53] LABS: Vancomycin, Random 18.1 ug/mL
--- NOTE | 2021-03-19 13:59 | NUR ---
Pt.lying in bed and on vent offered prayers and blessings for the p[t.
--- NOTE | 2021-03-19 14:01 | NUR ---
Pt. is lying in bed and on vent offered prayers and blessing the pt.
--- NOTE | 2021-03-19 18:16 | NUR ---
SHIFT SUMMARY NO SIGNIFICANT CHANGES DURING SHIFT. PT REMAINS INTUBATED AND SEDATED. VENT SETTINGS VCA20/300/5/30, SATS >90%, LUNG SOUNDS THIS EVENING CLEAR. PT HAS OG WITH PIVOT 1.5 INFUSING AT 10ML/HR (GOAL TRICKLE FEED). ABD SOFT, DISTENDED AND TENDER TO PALPATION. PERMACATH TO RIGHT CHEST WALL. SITE WNL. TL PICC TO MARGARETTE, SITE WNL, DRESSING C/D/I. PT HAS NS INF AT KVO, LEVOPHED INF AT 5MCG, PROPOFOL INF AT 30MCG. PT AFEBRILE. SBP WNL, NSR ON MONITOR. SKIN INTACT. RECTAL TUBE TO GRAVITY, LIQUID BROWN STOOL TO BAG. CT TO BE COMPLETED ON HUMAN RESOURCES OFFICE ASSISTANT DUE TO AVAILABILITY OF STAFF, DR GALLOWAY AWARE AND OK WITH THIS. PT RESPONSIVE AND ABLE TO NOD YES/NO TO QUESTIONS. REQUIRED PAIN MEDICATIONS TWICE THIS SHIFT. WILL REPORT TO ONCOMING SHIFT.
--- NOTE | 2021-03-19 20:35 | NUR ---
ASSUMED CARE AT 1900 PT LAYING IN BED INTUBATED WITH VENT SETTINGS AC 20, TV 300, PEEP 5, FIO2 30%; NO SECREATIONS SUCTIONED FROM ETT. PT IS RESPONSIVE TO VERBAL STIMULI, MINIMALLY ANSWERS YES/NO QUESTIONS WITH EHAD NODS; PROPOFOL INFUSING AT 30MCG/KG/MIN. AFEBRILE. HR 80-90'S. SBP 120'S; MAP >65; LEVOPHED INFUSING AT 5MCG/MIN. PIVOT INFUSING VIA OG AT 10ML/HR WITH 30ML WATER FLUSHES Q4HR; 240ML OF BROWN RESIDUALS NOTED. RECTAL TUBE PATENT AND DRAINING TO GRAVITY. PICC TO MARGARETTE DRESSING C/D/I; RT CHEST PERMACATH DRESSING C/D/I. PLAN TO TAKE PT TO CT LATER TONIGHT. SEE SHIFT ASSESSMENT FOR FULL ASSESSMENT.
--- NOTE | 2021-03-19 23:38 | NUR ---
CT-SCAN PT TRANSFERED TO CT WITH THIS RN, PCT, AND RT AT 2235. PT TOLERATED TRANSFER AND CT SCAN WELL. NO ACUTE EVENTS.
[2021-03-20 04:53] LABS: BASOPHILS ABSOLUTE AUTO 0.05 K/mm3 (0.00-0.23); BASOPHILS PERCENT AUTO 0 % (0-2); Hematocrit 24.3 % (33.0-51.0); LYMPHOCYTES ABSOLUTE AUTO 3.79 K/mm3 (0.84-5.20); LYMPHOCYTES PERCENT AUTO 13 % (21-46); MONOCYTES PERCENT AUTO 7 % (4-13); Mean Corpuscular HGB 32.5 pg (26.0-34.0); Mean Corpuscular HGB Conc 32.9 g/dL (31.5-36.5); Mean Corpuscular Volume 99 fL (80-100); Mean Platelet Volume 9.5 fL (9.1-12.4); NRBC ABSOLUTE 0.18 K/mm3 (0.00-0.02); NRBC Auto 0.6 /100 WBC (0.0-0.2); Platelet Count 275 K/mm3 (150-400); RDW Coefficient Variation 23.5 % (11.7-14.2); RDW Standard Deviation 68.3 fL (35.1-46.3); Red Blood Cell Count 2.46 M/mm3 (3.80-5.20); White Blood Cell Count 30.07 K/mm3 (4.00-11.30)
[2021-03-20 05:00] LABS: EOSINOPHILS PERCENT AUTO 0 % (0-6); IMMATURE GRAN ABSOLUTE AUTO 1.21 K/mm3 (0.00-0.10); IMMATURE GRAN PERCENT AUTO 4 % (0-1); NEUTROPHILS ABSOLUTE AUTO 22.92 K/mm3 (1.96-9.15); NEUTROPHILS PERCENT AUTO 76 % (41-73)
[2021-03-20 05:12] LABS: Albumin, Blood 3.2 g/dL (3.4-5.0); Bilirubin, Indirect 0.8 mg/dL (0.1-0.7); Bilirubin, Total 3.8 mg/dL (0.1-1.0); Bun/Creatinine Ratio 11.8 (12.0-20.0); Calcium, Blood 8.5 mg/dL (8.5-10.1); Creatinine, Blood 2.63 mg/dL (0.40-1.00); Globulin, Blood 3.2 g/dL (2.2-4.0); Potassium, Blood 3.1 mmol/L (3.5-5.5); Total Protein, Blood 6.4 g/dL (6.4-8.2)
--- NOTE | 2021-03-20 05:53 | NUR ---
UPDATE DR BEVERLY CALLED ASKING ABOUT PT POTASSIUM LAB THIS AM WHICH WAS 3.1. NEW ORDERS PROVIDED FOR 30MEQ OF KCL.
--- NOTE | 2021-03-20 06:08 | NUR ---
END OF SHIFT SUMMARY NO ACUTE EVENTS OVER NIGHT. PT CONT TO BE INTUBATED WITH VENT SETTINGS AC 20, TV 300, PEEP 5, FIO2 30%; NO SECREATIONS FROM ETT. PT IS REACTIVE TO VERBAL STIMULI AND MINIMALLY RESPONSIVE TO YES/NO QUESTIONS WITH HEAD NOD; PROPOFOL INFUSING AT 30MCG/KG/MIN. AFEBRILE. HR 80-90'S. SBP 130-140'S; MAP >65; TITRATED LEVOPHED DOWN TO SB AT THIS TIME. RECTAL TUBE IN PLACE AND DRAINING TO GRAVITY. PICC TO MARGARETTE PATENT AND DRAWS; DRESSING C/D/I. PERMACATH TO RT CHEST DRESSING C/D/I. WILL REPORT TO AM RN WHEN AVAILABLE.
--- NOTE | 2021-03-20 10:27 | NUR ---
ASSUMPTION OF CARE PT INTUBATED AND SEDATED, VENT SET TO AC 18/300 PEEP 5 FIO2 30%, PT AROUSES TO VERBAL STIMULI, FOLLOWS SOME COMMANDS, VERY WEAK THROUGHOUT, PROPOFOL INFUSING @30mcg/kg/min. MONITOR SHOWS SINUS RHYTHM WITH HR 100-120'S, BP SOFT BUT STABLE WITH MAPS> 60, LEVO GTT ON STANDBY. SKIN VERY FRAGILE, REDDENED AREAS WITH SOME PEELING NOTED THROUGHOUT, REDDENED AREA TO COCCYX- MEPILEX SOILED, REMOVED AND LEFT OPEN TO AIR. REDDNESS NOTED TO AIDAN AREA, NEW ORDER FOR NYSTATIN, BREAKDOWN NOTED AROUND RECTAL TUBE, PLACE TO DC THIS SHIFT, PT CONTINUES TO HAVE SMALL AMOUNT OF LIQUID GREEN STOOL. PT REMAINS ANURIC, DIALYSIS CATH TO R SUBCLAVIAN, MANAGED BY DIALYSIS TEAM. PICC TO MARGARETTE IN PLACE, INFUSING, FLUSHES WELL.
--- NOTE | 2021-03-20 13:46 | NUR ---
Pt. still on vent and no family member in the room prayed for the pt.
--- NOTE | 2021-03-20 19:14 | NUR ---
SHIFT SUMMARY/SKIN ASSESSMENT PT REMAINS INTUBATED, PROPOFOL TITRATED OFF THIS SHIFT, PRECEDEX ORDERED FOR VENT TOLERANCE IF NECESSARY. PT OPENS EYES SPONTANEOUSLY, ANSWERS SOME YES NO QUESTIONS, VERY SLOW TO RESPOND, FOLLOWS SOME COMMANDS. SBT ATTEMPTED THIS SHIFT, FAILED R/T INCREASED RESP RATE AND LOW TIDAL VOLUMES, SEE RT ASSESSMENT. MONITOR SHOWS SINUS RHYTHM, HR 80'S, INCREASES WITH NURSING CARE. BP STABLE, LEVO OFF. OG REMAINS IN PLACE, HIGH RESIDUALS BUT OVERALL DECREASING. RECTAL TUBE DC'D THIS SHIFT, R/T SKIN BREAK DOWN IN THE AIDAN ANAL AREA, ZINC OINTMENT APPLIED FOR SKIN PROTECTION. PT COTNINUES TO HAVE LIQUID GREEN STOOL, ATTENDS CHANGED FREQUENTLY, ABD PADS PLACED FOR ADDITIONAL ABSORPTION. PT PROFOUNDLY WEAK AND UNABLE TO MAKE ANY SIGNIFICANT MOVEMENTS/REPOSTIONING INDEPENDENTLY. SKIN PT WITH INCREASED SKIN ISSUES THIS SHIFT, AIDAN AREA AND BILAT ARMPIT AREAS WITH REDNESS AND EXCORIATIONS, DISCUSSED WITH DR GALLOWAY, NYSTATIN CREAM ORDERED. PT HAS EXTENSIVE BRUISING TO ABDOMINAL AREA AND BILAT BREASTS, SKIN DRY AND FLAKING IN SOME AREAS WITH ADDITIONAL SCATTERED ABRASIONS TO UPPER CHEST AND NECK. SACRAL/COCCYX AREA INTACT, MEPILEX IN PLACE FOR PROTECTION/PREVENTION. DIALYSIS CATHETER PROXIMAL TO INSERTION SITE NOTED TO HAVE SKIN BREAKDOWN, PHOTO TAKEN AND IN CHART, DIALYSIS TEAM NOTIFIED AND TO ROOM TO ASSESS. DR GALLOWAY NOTIFIED AND MESSAGE LEFT WITH DR GEORGE.
[2021-03-21 04:50] LABS: BASOPHILS ABSOLUTE AUTO 0.03 K/mm3 (0.00-0.23); BASOPHILS PERCENT AUTO 0 % (0-2); EOSINOPHILS ABSOLUTE AUTO 0.01 K/mm3 (0.00-0.68); EOSINOPHILS PERCENT AUTO 0 % (0-6); Hematocrit 24.5 % (33.0-51.0); IMMATURE GRAN ABSOLUTE AUTO 0.72 K/mm3 (0.00-0.10); IMMATURE GRAN PERCENT AUTO 3 % (0-1); LYMPHOCYTES PERCENT AUTO 9 % (21-46); MONOCYTES ABSOLUTE AUTO 1.33 K/mm3 (0.16-1.47); MONOCYTES PERCENT AUTO 6 % (4-13); Mean Corpuscular HGB 32.7 pg (26.0-34.0); Mean Corpuscular HGB Conc 32.7 g/dL (31.5-36.5); Mean Corpuscular Volume 100 fL (80-100); Mean Platelet Volume 9.4 fL (9.1-12.4); NEUTROPHILS ABSOLUTE AUTO 17.02 K/mm3 (1.96-9.15); NEUTROPHILS PERCENT AUTO 81 % (41-73); NRBC ABSOLUTE 0.08 K/mm3 (0.00-0.02); NRBC Auto 0.4 /100 WBC (0.0-0.2); Platelet Count 262 K/mm3 (150-400); RDW Coefficient Variation 23.6 % (11.7-14.2); RDW Standard Deviation 76.4 fL (35.1-46.3); Red Blood Cell Count 2.45 M/mm3 (3.80-5.20); White Blood Cell Count 21.01 K/mm3 (4.00-11.30)
[2021-03-21 05:10] LABS: Albumin, Blood 3.2 g/dL (3.4-5.0); Anion Gap 13 mmol/L (6-16); Blood Urea Nitrogen 48 mg/dL (8-24); Bun/Creatinine Ratio 14.4 (12.0-20.0); CO2, Blood 24 mmol/L (21-32); Calcium, Blood 8.5 mg/dL (8.5-10.1); Chloride, Blood 104 mmol/L (98-108); Creatinine, Blood 3.33 mg/dL (0.40-1.00); Glomerular Filtration Rate 17 (60-); Glucose, Blood 111 mg/dL (70-99); Magnesium, Blood 2.2 mg/dL (1.6-2.4); Phosphorus, Blood 5.6 mg/dL (2.5-4.9); Potassium, Blood 3.1 mmol/L (3.5-5.5); Sodium, Blood 141 mmol/L (136-145)
--- NOTE | 2021-03-21 05:15 | NUR ---
SHIFT SUMMARY PATIENT HAS SLEPT WELL THRU NIGHT. NEUROLOGICALLY, PT HAS BEEN EASY TO WAKE TO VERBAL STIMULI, FOLLOWS SOME DIRECTIONS (SQUEEZING FINGERS AND WIGGLING TOES,) BUT DOESN'T ALWAYS SHAKE/NOD HEAD TO YES/NO QUESTIONS. HAD DENIED OR NOT RESPONDED WHEN ASKED IF IN PAIN, DID GIVE DILAUDID ONCE EARLY IN SHIFT TO HELP TOLERATE REPOSITIONING AND CLEAN UP, WAS NOT NECESSARY REST OF NIGHT. INSERTED NEW RECTAL TUBE, EACH TIME (8, 10, 12) TURNS PT HAD SOILED SELF, WAS STOOLING CONTINUOUSLY. TOLERATED INSERTION WELL. MINIMAL OUTPUT, HOWEVER HAVE BEEN ABLE TO KEEP BUTTOCKS CLEAN AND SLATHERED WITH ZINC CREAM. STILL SUCTIONING MODERATE ORAL AND ETT SECRETIONS, THIN WHITE THRU NIGHT. ASSESSMENT IS CHARTED. VSS. WILL CONTINUE TO MONITOR.
--- NOTE | 2021-03-21 07:45 | NUR ---
DR. TRUJILLO UPDATED ON PATIENT STATUS. INFORMED THAT POTASSIUM 3.1 THIS AM AND PATIENT RECEIVING 40 MEQ KCL. INFORMED THAT KIDNEY LABS INCREASING THIS AM. NO ORDER RECEIVED AT THIS TIME.
--- NOTE | 2021-03-21 07:57 | NUR ---
MESSAGE LEFT FOR DR. GEORGE THAT DIALYSIS CATH NEEDS REPLACED COMING UP UNDER SKIN.
--- NOTE | 2021-03-21 08:05 | NUR ---
INITIAL ASSESSMENT PATIENT INTUBATED. PATIENT NOT ON SEDATION. PATIENT OPENS EYES TO VERBAL STIMULI. PATIENT WITHDRAWS FROM NOXIOUS STIMULI IN ALL EXTREMITIES. PATIENT NOT FOLLOWING ANY COMMANDS AT THIS TIME. PATIENT HAS NO SIGNS OF PAIN NOTED AT THIS TIME. PATIENT HAS TEMP OF 95.5 DEGREES FAHRENHEIT. PATIENT ON VENT SETTINGS AC 20, TV 300, PEEP 5 AND 30% FIO2. DR. GALLOWAY DID PLACE PATIENT ON SPONTANEOUS PRESSURE SUPPORT THIS AM AND TOLERATING FOR A WHILE BEFORE APNEA ALARMING AND BACKUP RATE SET IN. PATIENT CHANGED BACK TO AC SETTINGS. LUNGS CLEAR IN UPPER LOBES AND DIMINISHED IN LOWER LOBES. SMALL AMOUNT OF THIN, CLEAR SPUTUM BEING SUCTIONED FROM ETT. PATIENT IN SR, HR IN THE 80S. SBP 1-TEENS TO 120S. PATIENT ON SCHEDULED MIDODRINE. PATIENT HAS PITTING EDEMA TO ABD, THIGHS, BLES. TRACE EDEMA TO BUES. MODERATE DISTENTION NOTED TO ABD. ABD. SOFT WITH HYPOACTIVE BS NOTED. PATIENT RECEIVING SCHEDULED ENULOSE. PATIENT HAVING LIQUID STOOLS PER DRY CELL ASSEMBLY SUPERVISOR REPORT. PATIENT RECEIVING PIVOT 1.5 TF AT GOAL RATE OF 10 MLS/ HOUR WITH 30 ML WATER FLUSH Q4H. RESIDUAL OF 20 MLS REINSTILLED THIS AM. PATIENT ANURIC. PATIENT HAS MUCH BRUISING. ABDOMEN IS ONE LARGE BRUISE. COCCYX REDDENED- MEPILEX IN PLACE. GROIN AND AIDAN AREA REDDENED. PERMACATH TO R CHEST; VISIBLE UNDER SKIN. MESSAGE LEFT FOR DR. GEORGE ABOUT POSSIBLY NEEDING TO REPLACE. NS TKO. PATIENT RECEIVING 40 MEQ KCL FOR POTASSIUM OF 3.1 THIS AM. BED LOW, CALL LIGHT IN REACH. WILL CONTINUE TO MONITOR PATIENT FREQUENTLY THROUGHOUT SHIFT.
--- NOTE | 2021-03-21 10:09 | NUR ---
DR. GALLOWAY ASKED IF HE HAD SEEN PATIENT'S ABDOMEN AND THE LARGE AMOUNT OF BRUISING. DR. GALLOWAY STATED HE ASSESSED THIS AM. NO ORDER RECEIVED.
--- NOTE | 2021-03-21 12:45 | NUR ---
PATIENT AFEBRILE. PATIENT REMAINS SATTING 90% AND GREATER ON SAME VENT SETTINGS. PATIENT SR TO ST, HR 90S TO LOW 100S. SBP 1-TEENS TO 120S. TF RESIDUAL OF 55 MLS REINSTILLED. TF INCREASED TO NEW GOAL RATE OF 25 MLS/ HOUR. NO OTHER ACUTE CHANGES TO NOTE ON AT THIS TIME. WILL CONTINUE TO MONITOR.
--- NOTE | 2021-03-21 15:37 | NUR ---
DR. GEORGE IN TO ASSESS PATIENT'S DIALYSIS CATH. STATED THAT DIALYSIS CATHETER OKAY FOR NOW UNTIL PATIENT MORE STABLE AND THEN COULD BE REASSESSED AT THAT TIME FOR REPLACEMENT. SKIN PULLED TOGETHER OVER CATH VISUALIZED UNDER SKIN AND HELD IN PLACE WITH OPSITE PER DR. GEORGE INSTRUCTION.
--- NOTE | 2021-03-21 16:00 | NUR ---
PATIENT AFEBRILE. PATIENT REMAINS SATTING 90% AND GREATER ON SAME SETTINGS. HR IN THE 70S. SBP 1-TEENS TO 120S. TF RESIDUAL OF 5 MLS OBTAINED AND REINSTILLED. PICC DRESSING CHANGED. NO OTHER ACUTE CHANGES TO NOTE ON AT THIS TIME. WILL CONTINUE TO MONITOR.
--- NOTE | 2021-03-21 18:47 | NUR ---
SHIFT SUMMARY PATIENT REMAINED INTUBATED. PATIENT CONTINUED TO RESPOND TO VERBAL STIMULI AND MOVED EXTREMITIES TO NOXIOUS STIMULI. PATIENT DID APPEAR TO NOD "YES" ONE TIME WHEN ASKED IF IN PAIN. PATIENT GIVEN PRN DILAUDID THAT ONE TIME. PATIENT REMAINED AFEBRILE. PATIENT REMAINED SATTING 90% AND GREATER ON AC 20, TV 300, PEEP 5 AND 30% FIO2. SMALL AMOUNT OF THIN, CLEAR SECRETIONS BEING SUCTIONED FROM ETT DURING SHIFT. PATIENT LUNGS MOSTLY CLEAR. PATIENT REMAINED IN SR/ ST, HR 70S TO LOW 100S. PATIENT REMAINED EDEMATOUS. PATIENT HAD OUT 1100 MLS OF BROWN, LIQUID STOOL FROM RECTAL TUBE. TF INCREASED TO NEW GOAL RATE OF 25 MLS/ HOUR. RESIDUALS 5 TO 55 MLS. PATIENT REMAINED ANURIC. NO CHANGE TO SKIN. PATIENT REPOSITIONED THROUGHOUT SHIFT. SKIN CARE PERFORMED T/O SHIFT. PATIENT HAD PARTIAL BATH. PATIENT RECEIVED 40 MEQ KCL FOR POTASSIUM OF 3.1. DIALYSIS PERFORMED THIS SHIFT AND TOOK [address] GEORGE ASSESSED DIALYSIS CATH THIS SHIFT. PATIENT APPEARS COMFORTABLE AT THIS TIME. BED LOW, CALL LIGHT IN REACH. REPORT WILL BE GIVEN TO ASSUMING UNDRAPED ARTIST MODEL NURSE SHORTLY.
--- NOTE | 2021-03-21 19:00 | NUR ---
ASSUMED CARE ASSUMED CARE OF PATIENT. REMAINS INTUBATED- AC 20, VC 300, PEEP 5, FIO2 30%. RR 25. OPENS EYES SPONTANEOUSLY. MINIMAL SPONTANEOUS MOVEMENT NOTED. MONITOR SHOWS NSR, RATE 80s. BP STABLE. PIVOT 1.5 AT GOAL RATE OF 25CC/HR. REMAINS IN DROPLET/AIRBORNE ISOLATION FOR COVID-19. SEE SHIFT ASSESSMENT FOR FULL ASSESSMENT.
[2021-03-22 04:49] LABS: BASOPHILS ABSOLUTE AUTO 0.03 K/mm3 (0.00-0.23); BASOPHILS PERCENT AUTO 0 % (0-2); EOSINOPHILS ABSOLUTE AUTO 0.33 K/mm3 (0.00-0.68); EOSINOPHILS PERCENT AUTO 2 % (0-6); Hematocrit 23.5 % (33.0-51.0); Hemoglobin 7.7 g/dL (11.5-16.0); Mean Corpuscular HGB 32.9 pg (26.0-34.0); Mean Corpuscular HGB Conc 32.8 g/dL (31.5-36.5); Mean Corpuscular Volume 100 fL (80-100); Mean Platelet Volume 9.4 fL (9.1-12.4); NRBC ABSOLUTE 0.12 K/mm3 (0.00-0.02); NRBC Auto 0.7 /100 WBC (0.0-0.2); Platelet Count 214 K/mm3 (150-400); RDW Coefficient Variation 23.9 % (11.7-14.2); RDW Standard Deviation 78.3 fL (35.1-46.3); Red Blood Cell Count 2.34 M/mm3 (3.80-5.20); White Blood Cell Count 18.05 K/mm3 (4.00-11.30)
[2021-03-22 04:54] LABS: IMMATURE GRAN ABSOLUTE AUTO 0.41 K/mm3 (0.00-0.10); IMMATURE GRAN PERCENT AUTO 2 % (0-1); LYMPHOCYTES PERCENT AUTO 23 % (21-46); MONOCYTES ABSOLUTE AUTO 1.03 K/mm3 (0.16-1.47); MONOCYTES PERCENT AUTO 6 % (4-13); NEUTROPHILS ABSOLUTE AUTO 12.05 K/mm3 (1.96-9.15); NEUTROPHILS PERCENT AUTO 67 % (41-73)
[2021-03-22 05:05] LABS: Calcium, Blood 8.2 mg/dL (8.5-10.1); Creatinine, Blood 2.58 mg/dL (0.40-1.00)
[2021-03-22 05:23] LABS: BASOPHILS PERCENT MAN 0 % (0-2); EOSINOPHILS ABSOLUTE MAN 0.54 K/mm3 (0.00-0.68); EOSINOPHILS PERCENT MAN 3 % (0-6); TOTAL CELLS COUNTED 100
[2021-03-22 05:25] LABS: LYMPHOCYTES ABSOLUTE MAN 3.97 K/mm3 (0.84-5.20); LYMPHOCYTES PERCENT MAN 22 % (21-46); MONOCYTES ABSOLUTE MAN 0.54 K/mm3 (0.16-1.47); MONOCYTES PERCENT MAN 3 % (4-13); MYELOCYTE ABSOLUTE MAN 0.36 K/mm3 (0.00-0.00); MYELOCYTE PERCENT MAN 2 % (0-0); NEUTROPHILS ABSOLUTE MAN 12.63 K/mm3 (1.96-9.15); SEG NEUTROPHILS PERCENT MAN 70 % (41-73)
--- NOTE | 2021-03-22 06:30 | NUR ---
SHIFT SUMMARY REMAINS INTUBATED- VENT SETTINGS UNCHANGED. PT ROUSES TO VERBAL STIMULI. MAKES EYE CONTACT. OCCASIONALLY FOLLOWS SOME SIMPLE COMMANDS TO WIGGLE TOES, BLINK EYES, ETC. MEDICATED WITH DILAUDID 1MG IV X 2 DOSES FOR COMFORT AND VENT TOLERANCE. LEVOPHED STARTED THIS AM TO MAINTAIN MAP >65. MONITOR SHOWS NSR, RATE 80s-90s. AFEBRILE. OG WITH PIVOT 1.5 AT GOAL RATE OF 25CC/HR. MODERATE RESIDUALS AT TIMES- 150-200CC. RECTAL TUBE WITH APPROXIMATELY 500CC LIQUID BROWN STOOL. NO URINE OUTPUT. MARGARETTE PICC AND RIJ DIALYSIS CATH NOTED. KCL 40mEq ORDERED THIS AM FOR POTASSIUM REPLACEMENT. WILL REPORT TO ONCOMING RN WHEN AVAILABLE.
--- NOTE | 2021-03-22 08:15 | NUR ---
INITIAL ASSESSMENT PATIENT INTUBATED. PATIENT RESPONDING TO VERBAL STIMULI. PATIENT FOLLOWING SOME SIMPLE COMMANDS SUCH WIGGLING FINGERS/ TOES AND NODDING/ SHAKING HEAD WHEN ASKED. PATIENT NODDED THAT SHE WAS IN PAIN THIS AM. PRN DILAUDID GIVEN. PATIENT APPEARED MORE COMFORTABLE SHORT TIME AFTER. PATIENT AFEBRILE. PATIENT SATTING 90% AND GREATER ON AC 20, TV 300, PEEP 5 AND 30% FIO2. LUNGS CLEAR IN UPPER LOBES AND DIMINISHED IN LOWER LOBES. SMALL AMOUNT OF THIN, CLEAR/ WHITE SECRETIONS BEING SUCTIONED FROM ETT. PATIENT IN SR, HR 80S TO 90S. SBP 90S TO LOW 100S. LEVOPHED INFUSING AT 2 MCG/ MINUTE. PATIENT RECEIVING SCHEDULED MIDODRINE. PATIENT EDEMATOUS. ABDOMEN MODERATELY DISTENDED WITH TYMPANIC BOWEL SOUNDS NOTED. TF INFUSING AT GOAL RATE OF 25 MLS/ HOUR WITH 30 ML FLUSH Q4H. OG RESIDUAL 200 MLS OF BROWN DRAINAGE THIS AM; REINSTILLED. RECTAL TUBE IN PLACE DRAINING GREEN/ BROWN, LIQUID STOOL. PATIENT ANURIC. PATIENT HAS MACERATIONS/ EXCORATIONS IN AIDAN AREA; NYSTATIN BEING APPLIED TO REDDENED AREAS. NS TKO. PATIENT RECEIVING 40 MEQ KCL THIS AM FOR POTASSIUM OF 3.0. BED LOW, CALL LIGHT IN REACH. WILL CONTINUE TO MONITOR PATIENT FREQUENTLY THROUGHOUT SHIFT.
--- NOTE | 2021-03-22 12:00 | NUR ---
PATIENT AFEBRILE. PATIENT ON SPONTANEOUS PRESSURE SUPPORT 15/5, 30% FIO2. HR 90S TO LOW 100S. SBP LOW 100S TO 120S. LEVOPHED AT 3 MCG/ MINUTE. TF RESIDUAL OF 120 MLS OBTAINED AND REINSTILLED. NO OTHER ACUTE CHANGES TO NOTE ON AT THIS TIME. WILL CONTINUE TO MONITOR.
--- NOTE | 2021-03-22 16:44 | NUR ---
PATIENT AFEBRILE. PATIENT REMAINS SATTING 90% AND GREATER ON SPONTANEOUS PRESSURE SUPPORT 15/5 AT 30% FIO2. RR IS INCREASED INTO THE 30S. HR IN THE 90S. SBP IN THE LOW 100S. LEVOPHED AT 4 MCG/ MINUTE. TF RESIDUAL OF 310 MLS. TF PLACED ON HOLD AND 250 MLS OF RESIDUAL REINSTILLED. NO OTHER ACUTE CHANGES TO NOTE ON AT THIS TIME. WILL CONTINUE TO MONITOR.
--- NOTE | 2021-03-22 18:28 | NUR ---
SHIFT SUMMARY PATIENT REMAINED INTUBATED. PATIENT REMAINED AFEBRILE. PATIENT GIVEN PRN DILAUDID X 2 FOR PAIN. PATIENT CONTINUED TO RESPOND TO VERBAL STIMULI AND FOLLOWING SIMPLE COMMANDS OFF AND ON. PATIENT VERY WEAK. PATIENT ON AC 20, TV 300, PEEP 5 AND 30% FIO2 THIS AM. PATIENT HAS BEEN ON SPONTANEOUS PRESSURE SUPPORT 15/5 AND 30% FIO2 FOR AT LEAST HALF OF THE DAY AND HAS BEEN TOLERATING WELL, ALTHOUGH RR HAS INCREASED TO 30S. LUNGS REMAINED CLEAR IN UPPER LOBES AND DIMINISHED IN LOWER LOBES. SMALL AMOUNT OF THIN, CLEAR/ WHITE SPUTUM FROM ETT. PATIENT REMAINED SR TO ST, HR 80S TO LOW 100S. SBP 90S TO 120S. LEVOPHED RANGED FROM 2 TO 4 MCG/ MINUTE AND CURRENTLY AT 3 MCG/ MINUTE. PATIENT HAD HIGH TF RESIDUALS THIS SHIFT. TF HAS BEEN ON HOLD LAST COUPLE OF HOURS. RECTAL TUBE DRAINED 100 MLS OF BROWN/ GREEN, LIQUID STOOL. PATIENT REMAINED ANURIC. NO CHANGE TO SKIN. PATIENT REPOSITIONED Q2H. PATIENT RECEIVED 40 MEQ KCL THIS AM FOR POTASSIUM OF 3.0. PATIENT HAD COMPLETE BEDBATH. PATIENT APPEARS COMFORTABLE AT THIS TIME. BED LOW, CALL LIGHT IN REACH. REPORT WILL BE GIVEN TO ASSUMING GIFT SHOP MANAGER NURSE SHORTLY.
--- NOTE | 2021-03-22 19:45 | NUR ---
ASSUMED CARE ASSUMED CARE OF PATIENT AT 1900. REMAINS INTUBATED- SPONTANEOUS PS 15, PEEP 5, FIO2 30%. RR 29-30. OPENS EYES TO VERBAL STIMULI. MOVES ALL EXTREMITES WEAKLY. FOLLOWS SOME SIMPLE COMMANDS. NODS HEAD YES/NO SEEMINGLY APPROPRIATELY. MONITOR SHOWS NSR, RATE 90s. MAP >60-65 WITH LEVOPHED AT 4MCG/MIN. AFEBRILE. OG CLAMPED AT THIS TIME- RESIDUALS STILL 300cc. RECTAL TUBE WITH LIQUID BROWNISH-GREEN STOOL. PT IS ANURIC. RIJ HD CATHETER NOTED- LINE IS VISIBLE UNDER THE SKIN, BUT MD IS AWARE. MARGARETTE PICC LINE PATENT WITH DRSG C/D/I. SCATTERED ECCHYMOSES AND EXCORIATIONS NOTED. SEE SHIFT ASSESSMENT FOR FULL ASSESSMENT.
[2021-03-23 04:19] LABS: BASOPHILS ABSOLUTE AUTO 0.03 K/mm3 (0.00-0.23); BASOPHILS PERCENT AUTO 0 % (0-2); EOSINOPHILS ABSOLUTE AUTO 0.49 K/mm3 (0.00-0.68); EOSINOPHILS PERCENT AUTO 2 % (0-6); Hematocrit 24.1 % (33.0-51.0); Hemoglobin 7.9 g/dL (11.5-16.0); IMMATURE GRAN ABSOLUTE AUTO 0.36 K/mm3 (0.00-0.10); IMMATURE GRAN PERCENT AUTO 2 % (0-1); LYMPHOCYTES ABSOLUTE AUTO 4.48 K/mm3 (0.84-5.20); LYMPHOCYTES PERCENT AUTO 21 % (21-46); MONOCYTES ABSOLUTE AUTO 1.16 K/mm3 (0.16-1.47); MONOCYTES PERCENT AUTO 5 % (4-13); Mean Corpuscular HGB 33.2 pg (26.0-34.0); Mean Corpuscular HGB Conc 32.8 g/dL (31.5-36.5); Mean Corpuscular Volume 101 fL (80-100); Mean Platelet Volume 9.6 fL (9.1-12.4); NEUTROPHILS ABSOLUTE AUTO 15.19 K/mm3 (1.96-9.15); NEUTROPHILS PERCENT AUTO 70 % (41-73); NRBC ABSOLUTE 0.07 K/mm3 (0.00-0.02); NRBC Auto 0.3 /100 WBC (0.0-0.2); Platelet Count 222 K/mm3 (150-400); RDW Coefficient Variation 23.7 % (11.7-14.2); RDW Standard Deviation 82.2 fL (35.1-46.3); Red Blood Cell Count 2.38 M/mm3 (3.80-5.20); White Blood Cell Count 21.71 K/mm3 (4.00-11.30)
[2021-03-23 04:38] LABS: Albumin, Blood 2.9 g/dL (3.4-5.0); Albumin/Globulin Ratio 0.9 (0.8-1.8); Bilirubin, Total 4.1 mg/dL (0.1-1.0); Bun/Creatinine Ratio 12.5 (12.0-20.0); Calcium, Blood 8.8 mg/dL (8.5-10.1); Creatinine, Blood 3.51 mg/dL (0.40-1.00); Globulin, Blood 3.4 g/dL (2.2-4.0); Potassium, Blood 3.3 mmol/L (3.5-5.5); Total Protein, Blood 6.3 g/dL (6.4-8.2)
--- NOTE | 2021-03-23 06:36 | NUR ---
SHIFT SUMMARY NO ACUTE CHANGES. REMAINS INTUBATED AND ON PS VENTILATION T/O NOC. RR MID-20s TO 30. MEDICATED WITH DILAUDID 1MG IV X 2 DOSES AND ATIVAN 1MG IV X 1 DOSE FOR COMFORT AND VENT TOLERANCE WITH GOOD RESULTS. LEVOPHED INFUSED BETWEEN 3-4MCG/MIN TO MAINTAIN MAP >65. NOW INFUSING AT 4MCG/MIN. KCL IVPB STARTED PER MD. MONITOR SHOWS NSR, RATE 80s. AFEBRILE. OPENS EYES SPONTANEOUSLY AND TO COMMAND. OCCASIONALLY FOLLOWS SIMPLE COMMANDS. NODS HEAD APPROPRIATELY AT TIMES. OG CLAMPED D/I CONTINUED HIGH RESIDUALS >300. PT IS ANURIC. WILL REPORT TO ONCOMING RN WHEN AVAILABLE.
--- NOTE | 2021-03-23 11:29 | NUR ---
AM NOTE... ASSUMED CARE OF PT AT 0700. PT IS INTUBATED AND SEDATED ON AC:20/300/5/30%, PT IS NOT ON ANY SEDATION AT THIS TIME. PT WAKES TO VERBAL STIMULI AND IS ABLE TO NOD HER HEAD PT WAS ABLE TO NOD HER HEAD TO "YES AND NO" QUESTIONS BUT WHEN SHE WAS ASKED IF WE WERE CURRENTLY IN THE STATE OF [place] THE PT NODDED HER HEAD YES. PT WAS ABLE TO WEAKLY SQUEEZE MY HAND WHEN ASKED. L/S DIM T/O PT HAS A SMALL TO MODERATE AMOUNT OF THICK WHITE/CLEAR SECRETIONS WHEN SUCTIONED. PT HAS MODERATE AMOUNT OF STRINGY CLEAR ORAL SECRETIONS WITH ORAL CARE. BT PRESENT AND VERY HYPOACTIVE, ABD HAS MODERATE DISTENTION AND IS FIRM AND PAINFUL TO PALP. PT HAS 2+ EDEMA TO HER BLE AND GENERALIZED TO HER BUE AND TORSO. PT HAS SMALL AREAS OF BLEEDING TO HER LOWER ABD D/T THE FREQUENT SUB Q HEPARIN INJECTIONS. PT'S RECTAL TUBE IS PATENT AND DRAINING DARK BROWN LIQUID STOOLS TO GRAVITY. PT'S OG TUBE IS PATENT, 200MLS OF CLEAR DARK BROWN GASTRIC FLUID WAS REMOVED AND REINSTILLED PER DR. MYERS. PT'S TUBE FEEDS WERE RESTARTED PER DR. MYERS AT 25MLS/HR WITH 30MLS FLUSHES Q4 OF WATER. PT WAS CHANGED FROM AC TO PRESSURE SUPPORT OF 15/5/30%, PT'S O2 SATS >95% ON THESE NEW SETTINGS. AT APROX 1100 DR. MYERS WAS IN THE ROOM AND CHAGNED THE PT'S PRESSURE SUPPORT FROM 15 TO 10, PT WAS ABLE TO KEEP HER TITAL VOLUMES >200 FOR APROX 10 MINS THEN THEY DROPPED DOWN TO 170'S-190'S, PT WAS ABLE TO BRING THEM BACK UP ABOVE 200 BUT WITHIN A FEW MINS THEY WOULD DROP BACK DOWN, AFTER APROX 15MINS THE PRESSURE SUPPORT WAS INCREASED BACK UP TO 15 AND THE PT'S TV CONTINUE TO BE >200. WILL CONTINUE TO MONITOR.
--- NOTE | 2021-03-23 18:42 | NUR ---
SHIFT SUMMARY.... NO ACUTE NEGATIVE CHANGES NOTED THIS SHIFT. PT WAS TITRATED OFF OF LEVOPHED THIS AM WITH MAPS >65, HOWEVER AFTER THE PT HAD DIALYSIS HER MAPS STARTED TO DROP BELOW 65, AT 1630 LEVOPHED WAS STARTED AGAIN AT 5MCG THIS KEPT THE PT'S MAPS >65, THIS WAS TITRATED BACK OFF AT 1830 TO STAND BY. PT HAS BEEN ON SP W/PRESSURE SUPPORT OF 15/5 SINCE APROX 1000 THIS AM, PT HAS TOLERATED THIS WELL T/O THE SHIFT. PT CONTINUES TO HAVE LIQUID STOOLS, RECTAL TUBE IS IN PLACE, DRESSING CHANGE WAS DONE TO THE MEPILEX ON THE PT'S COCCYX. PT'S TUBE FEEDS WERE RESTARTED THIS AM WELL, THE FORMULA WAS CHANGED TO NEPRO THIS AFTERNOON WITH A NEW RATE OF 30MLS/HR AND A NEW VTBI GOAL OF 720MLS. A NEW ORDER FOR REGALIN IV WAS OBTAINED FOR RESIDUALS >200MLS. CALL LIGHT IN REACH WILL CONTINUE TO MONITOR UNTIL REPORT IS GIVEN TO ONCOMING RN.
--- NOTE | 2021-03-23 22:04 | NUR ---
ASSUMED CARE AT 1900 PT LAYING IN BED INTUBATED WITH VENT SETTINGS SPONT 15/5, FIO2 30%, TV 300-350; MODERATE AMOUNT OF ORAL SECREATIONS SUCTIONED. PT IS REACTIVE TO VERBAL STIMULI AND MINIMALLY ANSWERS Y/N QUESTIONS WITH HEAD NODS; OCCATIONALLY FOLLOWS DIRECTIONS; TRACTS VERBAL STIMULI. AFEBRILE. HR 90-100'S. SBP 100-115; MAP >65; LEVOPHED ON SB. NEPRO INFUSING VIA OG AT 25ML/HR WITH 30ML WATER FLUSHES Q4HR; 80ML RESIDUALS NOTED. RECTAL TUBE IN PLACE AND DRAINING TO GRAVITY. PERMACATH TO RT CHEST DRESSING C/D/I. PICC TO MARGARETTE PATENT. SEE SHIFT ASSESSMENT FOR FULL ASSESSMENT.
[2021-03-24 05:28] LABS: BASOPHILS ABSOLUTE AUTO 0.04 K/mm3 (0.00-0.23); BASOPHILS PERCENT AUTO 0 % (0-2); EOSINOPHILS ABSOLUTE AUTO 0.21 K/mm3 (0.00-0.68); EOSINOPHILS PERCENT AUTO 1 % (0-6); Hematocrit 24.5 % (33.0-51.0); Hemoglobin 7.9 g/dL (11.5-16.0); IMMATURE GRAN ABSOLUTE AUTO 0.31 K/mm3 (0.00-0.10); IMMATURE GRAN PERCENT AUTO 1 % (0-1); LYMPHOCYTES ABSOLUTE AUTO 4.18 K/mm3 (0.84-5.20); LYMPHOCYTES PERCENT AUTO 19 % (21-46); MONOCYTES ABSOLUTE AUTO 1.28 K/mm3 (0.16-1.47); MONOCYTES PERCENT AUTO 6 % (4-13); Mean Corpuscular HGB 32.9 pg (26.0-34.0); Mean Corpuscular HGB Conc 32.2 g/dL (31.5-36.5); Mean Corpuscular Volume 102 fL (80-100); Mean Platelet Volume 9.8 fL (9.1-12.4); NEUTROPHILS ABSOLUTE AUTO 15.77 K/mm3 (1.96-9.15); NEUTROPHILS PERCENT AUTO 72 % (41-73); NRBC ABSOLUTE 0.04 K/mm3 (0.00-0.02); NRBC Auto 0.2 /100 WBC (0.0-0.2); Platelet Count 207 K/mm3 (150-400); RDW Coefficient Variation 24.4 % (11.7-14.2); RDW Standard Deviation 86.2 fL (35.1-46.3); White Blood Cell Count 21.79 K/mm3 (4.00-11.30)
[2021-03-24 05:46] LABS: Bun/Creatinine Ratio 10.8 (12.0-20.0); Creatinine, Blood 2.69 mg/dL (0.40-1.00); Potassium, Blood 3.3 mmol/L (3.5-5.5)
--- NOTE | 2021-03-24 06:43 | NUR ---
END OF SHIFT SUMMARY NO ACUTE EVENTS OVER NIGHT. PT CONT TO BE INTUBATED WITH VENT SETTINGS AC 20, TV 300, PEEP 5, FIO2 30%; SWITCHED FROM SPONT TO AC AROUND 0000 DUE TO LOW TV; LARGE AMOUNT OF ORAL SECREATIONS NOTED, SMALL AMOUNT OF ETT SECREATIONS. PT RESPONSIVE TO VERBAL STIMULI; MINIMALLY ANSWERS Y/N QUESTIONS. AFEBRILE. HR 90-100. SBP 100-120; LEVOPHED ON SB. RECTAL TUBE IN PLACE AND DRAINING TO GRAVITY. NEPRO INFUSING VIA OG AT 30ML/HR (GOAL) WITH 30ML WATER FLUSHES Q4HR; RESIDUALS <100ML. PERMACATH TO RT CHEST DRESSING C/D/I. PICC TO MARGARETTE PATENT AND DRAWING. REPORT GIVEN TO GIA COREY.
--- NOTE | 2021-03-24 09:23 | NUR ---
ASSUMED CARE OF PT, REPORT RCV'D FROM LEORA BARRETO. PT ALERT TO VERBAL STIMULI. PT OPENS EYES AND TRACKS MOVEMENT AND SOUND WITH EYES. FAILS TO FOLLOW COMMANDS TO SQUEEZE HANDS. PT REMAINS INTUBATED AC 20/300/5/30% WITH SATS>95%. PT NOT SEDATED AND THIS TIME, PRN ATIVAN AND DILAUDID. PT HYPOTENSIVE AT START OF SHIFT WITH MAP IN THE 50'S. RESTARTED LEVOPHED AT 0900, RATE OF 5 MCG/MIN. RECTAL TUBE PATENT AND DRAINING GREEN STOOL. PT HAS EXCORIATIONS TO GLUTEAL CLEFT AND LOWER BUTTOCKS (SEE PICTS IN CHART). BARRIER CREAM APPLIED AND MEPILEX REPLACED. SEE FULL SHIFT ASSESSMENT.
--- NOTE | 2021-03-24 11:00 | NUR ---
PT SWITCHED TO SPONTANEOUS 25/01, 30%. SATS 100% AT THIS TIME WITH NO APPARENT DISTRESS.
--- NOTE | 2021-03-24 13:25 | NUR ---
PT SWITCHED BACK TO AC, PREVIOUS SETTINGS D/T LOW TIDAL VOLUMES AND INCREASED RR.
--- NOTE | 2021-03-24 17:30 | NUR ---
SHIFT SUMMARY PT REMAINS INTUBATED, CURRENT VENT SETTINGS UNCHANGED THIS SHIFT. LEVOPHED AT 2 MCG/MIN TO MAINTAIN MAP>65. PT CONTINUES TO TRACK MOVEMENT, FAILS TO FOLLOW COMMANDS, DOES NOT REACH FOR THE TUBE WHEN UNRESTRAINED. PT DISPLAYS FACIAL GRIMACING WITH REPOSITIONING AND RECTAL TUBE CARE. PT'S HAS EXCORIATIONS TO BUTTOCK AREA, MEPILEX CHANGED AND BARRIER CREAM APPLIED. PT REPOSITIONED WITH PILLOWS TO ALLEVIATE PRESSURE ON RECTAL TUBE AND BUTTOCKS. 500 ML WATERY BROWN STOOL FROM RECTAL TUBE. OGT RESIDUALS 90-120. SEE PREVIOUS NOTES FROM THIS SHIFT. WILL REPORT TO ONCOMING NURSE.
--- NOTE | 2021-03-24 21:08 | NUR ---
ASSUMED CARE AT 1900 PT LAYING IN BED INTUBATED WITH VENT SETTINGS AC 20, TV 300, PEEP 5, FIO2 30%; SCANT AMOUNT OF SECREATIONS NOTED. PT ABLE TO MINIMALLY FOLLOW DIRECTIONS AND ANSWER Y/N QUESTIONS WITH HEAD NODS; TRACKS VERBAL STIMULI. AFEBRILE. HR 80'S. SBP 110-120; MAP >65; LEVOPHED NOW ON SB. NEPRO INFUSING AT 30ML/HR (GOAL) WITH 30ML WATER FLUSHES Q4HR; 20ML RESIDUALS NOTED. RECTAL TUBE IN PLACE AND DRAINING TO GRAVITY. PERMACATH TO RT CHEST AND PICC TO MARGARETTE DRESSINGS ARE C/D/I. SEE SHIFT ASSESSMENT FOR FULL ASSESSMENT.
--- NOTE | 2021-03-25 01:29 | NUR ---
UPDATE PT HAD 4 BEAT RUN OF VT THAT WAS SELF RESOLVING; DURING THIS TIME PT ALSO HAVING COUGHING EPISODE, LARGE AMOUNT OF ORAL AND ETT SECREATIONS SUCTIONED ALSO. PRN FENTANYL GIVEN AND NOT HELPFUL. PT REPOSITIONED ONTO HER LEFT SIDE FROM RIGHT SIDE AND HAS NOT HAD ANY COUGHING ISSUES SINCE.
[2021-03-25 04:59] LABS: BASOPHILS ABSOLUTE AUTO 0.03 K/mm3 (0.00-0.23); BASOPHILS PERCENT AUTO 0 % (0-2); EOSINOPHILS ABSOLUTE AUTO 0.54 K/mm3 (0.00-0.68); EOSINOPHILS PERCENT AUTO 3 % (0-6); Hematocrit 23.4 % (33.0-51.0); Hemoglobin 7.6 g/dL (11.5-16.0); IMMATURE GRAN PERCENT AUTO 1 % (0-1); LYMPHOCYTES ABSOLUTE AUTO 3.87 K/mm3 (0.84-5.20); LYMPHOCYTES PERCENT AUTO 22 % (21-46); MONOCYTES ABSOLUTE AUTO 1.58 K/mm3 (0.16-1.47); MONOCYTES PERCENT AUTO 9 % (4-13); Mean Corpuscular HGB 33.2 pg (26.0-34.0); Mean Corpuscular HGB Conc 32.5 g/dL (31.5-36.5); Mean Corpuscular Volume 102 fL (80-100); Mean Platelet Volume 9.9 fL (9.1-12.4); NEUTROPHILS ABSOLUTE AUTO 11.61 K/mm3 (1.96-9.15); NEUTROPHILS PERCENT AUTO 65 % (41-73); NRBC ABSOLUTE 0.02 K/mm3 (0.00-0.02); NRBC Auto 0.1 /100 WBC (0.0-0.2); Platelet Count 181 K/mm3 (150-400); RDW Standard Deviation 84.4 fL (35.1-46.3); Red Blood Cell Count 2.29 M/mm3 (3.80-5.20); White Blood Cell Count 17.83 K/mm3 (4.00-11.30)
[2021-03-25 05:22] LABS: Albumin, Blood 2.8 g/dL (3.4-5.0); Anion Gap 11 mmol/L (6-16); Blood Urea Nitrogen 37 mg/dL (8-24); Bun/Creatinine Ratio 10.4 (12.0-20.0); CO2, Blood 25 mmol/L (21-32); Calcium, Blood 9.1 mg/dL (8.5-10.1); Chloride, Blood 104 mmol/L (98-108); Creatinine, Blood 3.55 mg/dL (0.40-1.00); Glomerular Filtration Rate 15 (60-); Glucose, Blood 116 mg/dL (70-99); Phosphorus, Blood 2.9 mg/dL (2.5-4.9); Potassium, Blood 3.4 mmol/L (3.5-5.5); Sodium, Blood 140 mmol/L (136-145)
--- NOTE | 2021-03-25 06:19 | NUR ---
END OF SHIFT SUMMARY PT CONT TO BE INTUBATED WITH VENT SETTINGS AC 20, TV 300, PEEP 5, FIO2 30%; COPIOUS AMOUNT OF THICK/CLEAR ETT AND ORAL SECREATIONS SUCTIONED. PT MORE REACTIVE TO VERBAL STIMULI; MINIMALLY FOLLOWS DIRECTIONS, ANSWERS Y/N QUESTIONS WITH HEAD NODS, AND IS MINIMALLY MOVING EXTREMITIES MORE OFTEN; PRN FENTANYL GIVEN SEVERAL TIMES FOR PAIN, SEE EMAR. AFEBRILE. HR 80-100. SBP 100-120; LEVOPHED NOW AT 2MCG/MIN; WAS ON SB FOR 6HRS EARLIER. NEPRO INFUSING AT 30ML/HR (GOAL) WITH 30ML WATER FLUSHES Q4HR; RESIDUALS <50ML. RECTAL TUBE PATENT AND DRAINING TO GRAVITY. PICC TO MARGARETTE AND PERMACATH TO RT CHEST DRESSING C/D/I. WILL REPORT TO AM RN WHEN AVAILABLE.
--- NOTE | 2021-03-25 08:58 | NUR ---
ASSUMED CARE OF PT, REPORT RCV'D FROM LEORA BARRETO. PT INTUBATED VENT SETTINGS AC 20/300/5/30%, SWITCHED TO SPONTANEOUS AT 0845 SETTINGS 15/5, 30%. PT'S SATS 98% ON SPONTANEOUS, TOLERATING WELL. LUNG SOUNDS CLEAR, COPIOUS AMOUNTS OF THIN CLEAR ORAL AND ETT SECRETIONS. PT MUCH MORE AWAKE THIS MORNING, CONTINUES TO TRACK MOVEMENT AND FOLLOWS COMMANDS TO SQUEEZE HANDS. MOVES ALL EXTREMETIES WEAKLY. NEPRO TUBE FEEDING RUNNING AT GOAL RATE OF 30 MLS/HR, LOW RESIDUALS NOTED. RECTAL TUBE PATENT AND DRAINING WATERY BROWN STOOL TO GRAVITY. LEVOPHED @ 2 MCG/MIN TO MAINTAIN MAP>65. SEE FULL SHIFT ASSESSMENT.
--- NOTE | 2021-03-25 12:00 | NUR ---
PT CHANGED TO PS 08/19, TOLERATING WELL
--- NOTE | 2021-03-25 18:03 | NUR ---
SHIFT SUMMARY PT REMAINS INTUBATED AND ON SPONTANEOUS FOR MAJORITY OF THE DAY. PT SWITCHED BACK TO AC @1800 D/T LOW TIDAL VOLUMES. LEVOPHED ON STANDBY SINCE 1000 WITH MAP MAINTAINED>65. MODERATE AMOUNT OF THIN CLEAR SECRETIONS FROM ETT. PT REMAINS ALERT AND ABLE TO ANSWER QUESTIONS BY NODDING HEAD YES/NO. 500 ML WATERY BROWN OUTPUT FROM RECTAL TUBE. PT'S FATHER AT BEDSIDE. PT'S MOTHER UPDATED BY DR. MYERS WITH PLAN TO TRACH. DR. MELCHOR CONSULTED. WILL REPORT TO ONCOMING NURSE.
--- NOTE | 2021-03-25 21:18 | NUR ---
ASSUMED CARE AT 1900 PT LAYING IN BED INTUBATED WITH VENT SETTINGS AC 20, TV 200, PEEP 5, FIO2 30%; SMALL-MODERATE AMOUNT OF ORAL AND ETT SECREATIONS SUCTIONED. PT IS MORE ALERT AND MOVES EXTREMITIES MORE FREELY; ANSWERS Y/N QUESTIONS WITH HEAD NOD; TRACKS STIMULI; OCCATIONALLY FOLLOWS DIRECTIONS. AFEBRILE. HR 100-110. SBP 115-120; LEVOPHED OFF. NEPRO INFUSING VIA OG AT 30ML/HR (GOAL) WITH 30ML WATER FLUSHES Q4HR; <50ML RESIDUALS. RECTAL TUBE IN PLACE AND DRAINING TO GRAVIY. PICC TO MARGARETTE AND PERMACATH TO RT CHEST DRESSINGS C/D/I. SEE SHIFT ASSESSMENT FOR FULL ASSESSMENT.
[2021-03-26 04:06] LABS: BASOPHILS ABSOLUTE AUTO 0.05 K/mm3 (0.00-0.23); BASOPHILS PERCENT AUTO 0 % (0-2); EOSINOPHILS ABSOLUTE AUTO 0.39 K/mm3 (0.00-0.68); EOSINOPHILS PERCENT AUTO 2 % (0-6); Hematocrit 23.3 % (33.0-51.0); Hemoglobin 7.5 g/dL (11.5-16.0); IMMATURE GRAN ABSOLUTE AUTO 0.19 K/mm3 (0.00-0.10); IMMATURE GRAN PERCENT AUTO 1 % (0-1); LYMPHOCYTES ABSOLUTE AUTO 4.21 K/mm3 (0.84-5.20); LYMPHOCYTES PERCENT AUTO 26 % (21-46); MONOCYTES ABSOLUTE AUTO 1.73 K/mm3 (0.16-1.47); MONOCYTES PERCENT AUTO 11 % (4-13); Mean Corpuscular HGB 32.8 pg (26.0-34.0); Mean Corpuscular HGB Conc 32.2 g/dL (31.5-36.5); Mean Corpuscular Volume 102 fL (80-100); Mean Platelet Volume 9.5 fL (9.1-12.4); NEUTROPHILS ABSOLUTE AUTO 9.65 K/mm3 (1.96-9.15); NEUTROPHILS PERCENT AUTO 59 % (41-73); NRBC ABSOLUTE 0.03 K/mm3 (0.00-0.02); NRBC Auto 0.2 /100 WBC (0.0-0.2); Platelet Count 175 K/mm3 (150-400); RDW Coefficient Variation 24.6 % (11.7-14.2); RDW Standard Deviation 83.7 fL (35.1-46.3); Red Blood Cell Count 2.29 M/mm3 (3.80-5.20); White Blood Cell Count 16.22 K/mm3 (4.00-11.30)
[2021-03-26 04:27] LABS: Albumin, Blood 2.9 g/dL (3.4-5.0); Anion Gap 9 mmol/L (6-16); Blood Urea Nitrogen 25 mg/dL (8-24); Bun/Creatinine Ratio 9.5 (12.0-20.0); CO2, Blood 28 mmol/L (21-32); Calcium, Blood 9.4 mg/dL (8.5-10.1); Chloride, Blood 105 mmol/L (98-108); Creatinine, Blood 2.62 mg/dL (0.40-1.00); Glomerular Filtration Rate 22 (60-); Glucose, Blood 115 mg/dL (70-99); Magnesium, Blood 2.2 mg/dL (1.6-2.4); Potassium, Blood 3.4 mmol/L (3.5-5.5); Sodium, Blood 142 mmol/L (136-145)
--- NOTE | 2021-03-26 04:47 | NUR ---
UPDATE NOTIFIED DR MYERS REGARDING THIS AM LAB OF PHOS AT 2.0. NEW ORDERS PROVIDED FOR 10MM OF SODIUM PHOS IV PB.
--- NOTE | 2021-03-26 06:07 | NUR ---
END OF SHIFT SUMMARY NO ACUTE EVENTS OVERNIGHT. PT CONT TO BE INTUBATED WITH VENT SETTINGS AC 20, TV 300, PEEP 5, FIO2 30%; SMALL-SCANT AMOUNT OF ORAL AND ETT SECREATIONS. PT MORE ALERT AT THE BEGINING OF SHIFT ALONG WITH INCREASED RESTLESSNESS AND COUGHING EPISODES; PRN ATIVAN GIVEN FOR RESTLESSNESS AND HELPFUL; PT NODDED YES TO PAIN; PRN FENTANYL AVAILABLE, GIVEN, AND HELPFUL; PT MORE SOMNULANT THE REST OF THE SHIFT BUT STILL STIMULATED BY VERBAL STIMULI. AFEBRILE. HR 90-115. SBP 110-130; LEVOPHED OFF ALL SHIFT. NEPRO INGUSING VIA OG AT 30ML/HR (GOAL) WITH 30ML WATER FLUSHES Q4HR; MINIMAL RESIDUALS. RECTAL TUBE PATENT AND DRAINING TO GRAVITY. PERMACATH TO RT CHEST AND PICC TO MARGARETTE DRESSINGS C/D/I. SODIUM PHOS INFUSING; NEW ORDER FOR KCL TO BE GIVEN, ORDERED BY DR BEVERLY. WILL REPORT TO AM RN WHEN AVAILABLE.
--- NOTE | 2021-03-26 08:48 | NUR ---
CARE ASSUMED OF PT AT 0700. PT SLEEPING ON MECH VENT. FENT AND ATIVAN GIVEN LAST NIGHT FOR SEDATION. PT DOES MOVE SPONT AND OPEN EYES SPONT TO NOXIOUS STIMULI BUT DOES NOT FOLLOW COMMANDS THIS AM. PT ONLY OPENS EYES FOR SECONDS BEFORE CLOSING THEM AGAIN. LUNGS SLIGHTLY COURSE TO UPPER LOBES, CLEAR AND DIM TO LOWER LOBES. SATS 98% ON 30% FIO2. 10CC RESIDUAL, DIVYA TUBE FEEDING WELL. LIQUID STOOL TO RECTAL TUBE. 800CC OUTPUT FROM RECTAL TUBE LAST NIGHT. BUTTOCKS EXCORIATED FROM STOOLING, LACTULOSE ORDERED BID, LAST AMMONIA LEVEL<10. DR MELCHOR IN THIS AM TO EXAM PT'S NECK FOR POSSIBLE PERC TRACH AT BEDSIDE TODAY. HEPARIN HELD FOR PROCEDURE PER DR MELCHOR. K+ AND NAPHOS COMPLETED.
--- NOTE | 2021-03-26 10:16 | NUR ---
PER DR MELCHOR, RESUME HEPARIN PT WILL HAVE TO BE SCHEDULED IN OR FOR TRACH PLACEMENT.
--- NOTE | 2021-03-26 10:59 | NUR ---
DR BOLTON IN TO SEE PT. PT PLACED ON PS 16/5. PT TV <300. PT PLACED BACK ON PREVIOUS SETTINGS AFTER JUST 5MIN.
--- NOTE | 2021-03-26 14:39 | NUR ---
Met pt. still on vent, james lopez.
--- NOTE | 2021-03-26 21:05 | NUR ---
PATIENT REMAINS INTUBATED NO CONTINUOUS SEDATION, OPENS EYES SLIGHTLY TO STIMULI FOLLOWING SIMPLE DIRECTIONS BUT NOT CONSISTENT. VENT AC 20, TV 300, PEEP 5, FIO2 30%. OG IN PLACE WITH NEPRO AT GOAL RATE OF 30 CC/HR. RECTAL TUBE DRAINING LIQUID BROWN STOOL.
--- NOTE | 2021-03-27 01:44 | NUR ---
PATIENT AWAKE AND RESTLESS, COUGHING AND REACHING FOR ETT. ATIVAN GIVEN TO HELP HER RELAX.
[2021-03-27 04:46] LABS: BASOPHILS ABSOLUTE AUTO 0.06 K/mm3 (0.00-0.23); BASOPHILS PERCENT AUTO 1 % (0-2); EOSINOPHILS ABSOLUTE AUTO 0.43 K/mm3 (0.00-0.68); EOSINOPHILS PERCENT AUTO 3 % (0-6); Hematocrit 23.8 % (33.0-51.0); Hemoglobin 7.7 g/dL (11.5-16.0); IMMATURE GRAN ABSOLUTE AUTO 0.08 K/mm3 (0.00-0.10); IMMATURE GRAN PERCENT AUTO 1 % (0-1); LYMPHOCYTES PERCENT AUTO 21 % (21-46); MONOCYTES ABSOLUTE AUTO 1.17 K/mm3 (0.16-1.47); MONOCYTES PERCENT AUTO 9 % (4-13); Mean Corpuscular HGB Conc 32.4 g/dL (31.5-36.5); Mean Corpuscular Volume 102 fL (80-100); Mean Platelet Volume 9.4 fL (9.1-12.4); NEUTROPHILS ABSOLUTE AUTO 8.76 K/mm3 (1.96-9.15); NEUTROPHILS PERCENT AUTO 66 % (41-73); Platelet Count 148 K/mm3 (150-400); RDW Coefficient Variation 24.4 % (11.7-14.2); RDW Standard Deviation 85.8 fL (35.1-46.3); Red Blood Cell Count 2.33 M/mm3 (3.80-5.20)
[2021-03-27 05:08] LABS: Albumin, Blood 2.8 g/dL (3.4-5.0); Albumin/Globulin Ratio 0.7 (0.8-1.8); Bilirubin, Total 4.4 mg/dL (0.1-1.0); Bun/Creatinine Ratio 10.6 (12.0-20.0); Calcium, Blood 9.2 mg/dL (8.5-10.1); Creatinine, Blood 3.6 mg/dL (0.40-1.00); Globulin, Blood 3.9 g/dL (2.2-4.0); Potassium, Blood 3.3 mmol/L (3.5-5.5); Total Protein, Blood 6.7 g/dL (6.4-8.2)
--- NOTE | 2021-03-27 06:39 | NUR ---
PATIENT REMAINS INTUBATED, ATIVAN IV GIVEN ONCE DURING THE NIGHT. PATIENT AWAKENS TO VERBAL STIMULI, NODDING YES AND NO TO QUESTIONS. ATTEMPTS TO ASSIST WITH REPOSITIONING, BUT IS EXTREMELY WEAK. VENT REMAINS AC 20, TV 300, PEEP 5, FIO2 30% SUCTIONING SMALL AMT OF CLEAR SPUTUM. OG REMAINS IN PLACE WITH NEPRO AT GOAL RATE OF 30 CC/HR WITH MINIMAL RESIDUALS. RECTAL TUBE DRAINING LIQUID BROWN STOOL.
--- NOTE | 2021-03-27 10:55 | NUR ---
CARE ASSUMED AT 0700. PT REMAINS INTUBATED WITHOUT SEDATION GTT. ATIVAN WAS GIVEN ONCE LAST NIGHT W GOOD EFFECT PER NIGHT RN. PT AWAKENS TO LIGHT TOUCH AND VOICE THIS AM. PT SLIGHTLY MORE AWAKE TODAY COMPARED TO YESTERDAY. PT OCC NODS HEAD YES TO QUESTION BUT NOT CONSISTANTLY. PT DOES NOT FOLLOW OTHER COMMANDS. PT PROFOUNDLY WEAK. HD STARTED TODAY AROUND 0800. OR DOES NOT HAVE PT ON SCHEDULE FOR TRACH OF YET.
--- NOTE | 2021-03-27 12:04 | NUR ---
HD COMPLETE, 2900 REMOVED. LOOSE STOOL CLEANED AROUND RECTAL TUBE. PICTURES TAKEN OF OPEN EXCORIATED SKIN TO BILAT GROIN, INNER THIGHS, PERIANAL AREA, AND COCCYX. NO CHANGE FROM YESTERDAY AM ASSESSMENT. NYSTATIN CREAM CHANGED TO POWER AREA IS TOO WET. PILLOW CASES PLACED TO FOLDS. PT GRIMACED AND RESISTED CARE WHEN CLEANING EXCORIATED SKIN, THEN QUCIKLY FELL BACK TO SLEEP AFTER PT REPOSITIONED. LACTULOSE DC'D PER DR BOLTON, AMMONIA LEVEL <10. STOOL SLIGHTLY THICKER THAN YESTERDAY BUT STILL LIQUID.
--- NOTE | 2021-03-27 14:01 | NUR ---
Pt. in vent and and no visit, prayed for pt. from the door
--- NOTE | 2021-03-27 14:14 | NUR ---
PT PLACED UP IN CHAIR USING LIFT W RT, COAGULATING BATH MIXER, AND PRIMARY RN. PT TOLERATED BEING PLACED IN CHAIR WELL.
--- NOTE | 2021-03-27 14:49 | NUR ---
ISOLATION DC'D PER DR BOLTON WITH [facility] RECOMMENDATIONS. PT IS AFEBRILE AND REMAINS ON VENT DUE TO BEING ENCEPHALOPATHIC, FIO2 AT 30%. INFECTION CONTROL NOTIFIED. WOUND PICTURES SHOWN TO DR BOLTON. WILL KEEP AREA DRY AND CONTINUE TO PLACE CLOTH IN FOLDS.
--- NOTE | 2021-03-27 17:56 | NUR ---
PT TRANSFERED BACK TO BED W 3 ASSIST INCLUDING RT. PT DIVYA WELL. NO LEAKAGE TO RECTAL TUBE WHILE IN CHAIR, BOTH HIPS WHERE ELEVATED ON PILLOWS. AREAS AROUND RECTAL TUBE AND GROIN REMAIN DRY.
--- NOTE | 2021-03-27 21:07 | NUR ---
PATIENT REMAINS INTUBATED, AWAKE FOLLOWING SIMPLE DIRECTIONS. GENERALIZED WEAKNESS, ABLE TO ASSIST SLIGHTLY WITH REPOSITIONING. ATIVAN AND FENTANYL NEEDED. VENT AC 20, TV 300, PEEP 5, FIO2 30% SUCTIONING SMALL AMT OF CLEAR SECRETIONS VIA ETT. OG REMAINS IN PLACE WITH NEPRO AT GOAL RATE OF 30 CC/HR
[2021-03-28 04:54] LABS: Hematocrit 23.6 % (33.0-51.0); Hemoglobin 7.7 g/dL (11.5-16.0)
[2021-03-28 05:17] LABS: Albumin, Blood 2.7 g/dL (3.4-5.0); Anion Gap 9 mmol/L (6-16); Blood Urea Nitrogen 28 mg/dL (8-24); Bun/Creatinine Ratio 10.3 (12.0-20.0); CO2, Blood 29 mmol/L (21-32); Calcium, Blood 9.4 mg/dL (8.5-10.1); Chloride, Blood 101 mmol/L (98-108); Creatinine, Blood 2.72 mg/dL (0.40-1.00); Glomerular Filtration Rate 21 (60-); Glucose, Blood 106 mg/dL (70-99); Phosphorus, Blood 2.2 mg/dL (2.5-4.9); Potassium, Blood 3.6 mmol/L (3.5-5.5); Sodium, Blood 139 mmol/L (136-145)
--- NOTE | 2021-03-28 06:43 | NUR ---
SUMMARY PATIENT REMAINS INTUBATED MEDICATED ONCE DURING THE NIGHT WITH ATIVAN TO HELP HER SLEEP DURING THE NIGHT. PATIENT AWAKENS EASILY FOLLOWING SIMPLE DIRECTIONS, REMAINING CALM T/O NIGHT. VENT AC 20, TV 300, PEEP 5, FIO2 30% SUCTIONING MOD AMT OF CLEAR TO WHITE SECRETIONS VIA ETT. NEPRO CONTINUES AT GOAL RATE OF 30 CC/HR. RECTAL TUBE REMAINS IN PLACE DRAINING LIQUID BROWN STOOL.
--- NOTE | 2021-03-28 08:55 | NUR ---
ASSUMED CARE OF PT, REPORT RCV'D FROM LEORA GANDHI. PT ALERT TO VERBAL STIMULATION, TRACKS MOVEMENT, SQUEEZES HANDS WEAKLY BILATERALLY. MOVES ALL EXTREMETIES WEAKLY. VENT SETTINGS AC 20/300/5/30%. ALL VSS AT THIS TIME. RECTAL TUBE PATENT AND DRAINING. PT REPOSITIONED Q2H TO MAINTAIN SKIN INTEGRITY. SKIN CARE NEEDED. SEE FULL SHIFT ASSESSMENT.
--- NOTE | 2021-03-28 11:37 | NUR ---
SPOKE WITH DR. DANIELS REGARDING PEG TUBE PLACEMENT. PER DOCTOR, INTERVENTIONAL RADIOLOGIST DR. GEORGE TO BE CONSULTED D/T PT'S BMI. DR. GEORGE UNAVAILABLE UNTIL 04/10/21, PHYSICIAN AWARE. NURSE NOTIFY TO CALL IN CONSULT WHEN DR. GEORGE AVAILABLE.
--- NOTE | 2021-03-28 17:43 | NUR ---
NO ACUTE CHANGES THIS SHIFT. PT REMAINS INTUBATED, VENT SETTINGS UNCHANGED. PT ON SPONTANEOUS FROM 1100 TO 1400 WHEN SHE WAS SWITCHED BACK TO AC D/T LOW TIDAL VOLUMES AND INCREASED RR. PT UP TO CHAIR, TOLERATING WELL. VSS T/O SHIFT. LITTLE TO NO RESIDUAL FROM OGT. 100 ML WATERY BROWN STOOL FROM RECTAL TUBE. PT'S MOTHER UPDATED BY DR. MELCHOR REGARDING PLAN FOR TRACHEOSTOMY ON FRIDAY AT 0730, VERBAL CONSENT OBTAINED. WILL REPORT TO ONCOMING NURSE.
--- NOTE | 2021-03-28 22:25 | NUR ---
ASSUMED CARE AT 1900 PT IN RECLINER INTUBATED WITH VENT SETTINGS AC 20, TV 300, PEEP 5, FIO2 30%; MODERATE AMOUNT OF SECREATIONS NOTED. PT REACTIVE TO VERBAL STIMULI; OCCATIONALLY ANSWERS Y/N QUESTIONS WITH HEAD NODS; EYES TRACK. AFEBRILE. HR 100-110. SBP 110-120, MAP >65. NEPRO INFUSING VIA OG AT 30ML/HR (GOAL) WITH 30ML WATER FLUSHES Q4HR; MINIMAL RESIDUALS. NEW RECTAL TUBE PLACED AFTER RETURING PT TO BED AND DURING BED BATH; AIDAN AREA AND BUTTOCKS RED AND EXCORIATED; AREAS CLEANED AND MEPILEX APPLIED. PICC TO MARGARETTE AND PERMACATH TO RT CHEST DRESSING C/D/I. SEE SHIFT ASSESSMENT FOR FULL ASSESSMENT.
[2021-03-29 04:42] LABS: Hematocrit 22.6 % (33.0-51.0); Hemoglobin 7.3 g/dL (11.5-16.0)
[2021-03-29 05:12] LABS: Albumin, Blood 2.7 g/dL (3.4-5.0); Anion Gap 9 mmol/L (6-16); Blood Urea Nitrogen 40 mg/dL (8-24); Bun/Creatinine Ratio 10.3 (12.0-20.0); CO2, Blood 27 mmol/L (21-32); Calcium, Blood 9.2 mg/dL (8.5-10.1); Chloride, Blood 99 mmol/L (98-108); Creatinine, Blood 3.88 mg/dL (0.40-1.00); Glomerular Filtration Rate 14 (60-); Glucose, Blood 112 mg/dL (70-99); Magnesium, Blood 1.8 mg/dL (1.6-2.4); Phosphorus, Blood 3.4 mg/dL (2.5-4.9); Potassium, Blood 3.4 mmol/L (3.5-5.5); Sodium, Blood 135 mmol/L (136-145)
--- NOTE | 2021-03-29 06:02 | NUR ---
END OF SHIFT SUMMARY NO ACUTE EVENTS OVERNIGHT. PT CONT TO BE INTUBATED WITH VENT SETTINGS AC 20, TV 300, PEEP 5, FIO2 30%; SMALL AMOUNT OF SECREATIONS NOTED. PT RESPONSIVE TO VERBAL STIMULI AND OCCATIONALLY ANSWERS Y/N QUESTIONS WITH HEAD NODS; PROFOUND WEAKNESS NOTED. AFEBRILE. HR 100-110. SBP 120. NEPRO INFUSING VIA OG AT 30ML/HR (GOAL) WITH 30ML WATER FLUSHES Q4HR; MINIMAL RESIDUALS. RECTAL TUBE PATENT AND DRAINING TO GRAVITY. DRESSING CHANGED TO MARGARETTE PICC, PERMACATH TO RT CHEST DRESSING C/D/I. NEW ORDERS PROVIDED BY DR BEVERLY FOR 20 MEQ OF KCL; NOW INFUSING. WILL REPORT TO AM RN WHEN AVAILABLE.
--- NOTE | 2021-03-29 09:12 | NUR ---
ASSUMED CARE OF PT, REPORT RCV'D FROM LEORA BARRETO. PT ALERT TO VERBAL STIMULI, OPENS EYES SPONTANEOUSLY AND TRACKS MOVEMENT. PT INCONSISTENT WITH RESPONSES TO QUESTIONS AND FOLLOWING COMMANDS. PT OCCASIONALLY NODS YES/NO, AND WILL OCCASIONALLY SQUEEZE HANDS. PT MOVES ALL EXTREMETIES VERY WEAKLY. REGULAR ROM PERFORMED. LUNG SOUNDS CLEAR T/O, VENT SETTINGS AC 20/300/5/30% WITH SATS>90%. ATTEMPTED TO PLACE PT ON PS 15/5, PT BECAME TACHYPNEIC WITH LOW TIDAL VOLUMES, RESPIRATORY CARE SWITCHED PT BACK TO A/C. RECTAL TUBE PATENT AND DRAINING WATERY BROWN STOOL. BARRIER CREAM APPLIED TO PT'S AIDAN/RECTAL AREA FOR EXCORIATIONS. SEE FULL SHIFT ASSESSMENT.
--- NOTE | 2021-03-29 11:53 | NUR ---
PT PLACED ON SPONTANEOUS 26/01, 30%. PT FOLLOWING COMMANDS AND ABLE TO LIFT HEAD OFF OF CHAIR ON DEMAND. SATS>90% AND TV WITHIN ACCEPTABLE RANGE AT THIS TIME.
--- NOTE | 2021-03-29 18:29 | NUR ---
SHIFT SUMMARY PT REMAINS INTUBATED ON PS 12/5, 30% WITH SAT>90%. PT CALM AND COOPERATIVE FOLLOWING COMMANDS. PT GETTING DIALYSIS AT THIS TIME. PLAN FOR TRACH PLACEMENT AT 0730 TOMORROW. NURSE NOTIFY TO HOLD NOC AND MORNING DOSE OF HEPARIN. SEE PREVIOUS NOTES FROM THIS SHIFT.
--- NOTE | 2021-03-29 21:15 | NUR ---
ASSUMED CARE AT 1900 PT FINISHING DIALYSIS AT THE BEGINING OF SHIFT; 2600ML OFF FROM DIALYSIS. PT UP IN CHAIR INTUBATED WITH VENT SETTINGS SPONT 12/5, FIO2 30%, TV 300-400; MODERATE AMOUNT OF ORAL AND ETT SECREATIONS NOTED. PT MORE ALERT AND MOVING EXTREMITIES MORE FREQUENTLY THAN YESTERDAY; OCCATIONALLY ANSWERS Y/N QUESTIONS WITH HEAD NODS. AFEBRILE. HR 110-115. SBP 120-130. NEPRO INFUSING AT 30ML/HR (GOAL) WITH 30ML WATER FLUSHES Q4HR; MINIMAL RESIDUALS NOTED. RECTAL TUBE PATENT AND DRAINING TO GRAVITY. PICC TO MARGARETTE AND PERMACATH TO RT CHEST DRESSING C/D/I. PLAN TO STOP TF AND HOLD NEXT DOSE OF HEPARIN AT 0000 D/T SURGERY IN THE AM. SEE SHIFT ASSESSMENT FOR FULL ASSESSMENT.
--- NOTE | 2021-03-30 00:07 | NUR ---
UPDATE 0000 HEPARIN HELD AND TF TURNED OFF DUE TO TRACH PLACEMENT IN THE AM.
[2021-03-30 04:20] LABS: BASOPHILS ABSOLUTE AUTO 0.04 K/mm3 (0.00-0.23); BASOPHILS PERCENT AUTO 0 % (0-2); Hematocrit 22.1 % (33.0-51.0); Hemoglobin 7.2 g/dL (11.5-16.0); LYMPHOCYTES ABSOLUTE AUTO 2.38 K/mm3 (0.84-5.20); LYMPHOCYTES PERCENT AUTO 19 % (21-46); MONOCYTES ABSOLUTE AUTO 1.42 K/mm3 (0.16-1.47); MONOCYTES PERCENT AUTO 11 % (4-13); Mean Corpuscular HGB 32.4 pg (26.0-34.0); Mean Corpuscular HGB Conc 32.6 g/dL (31.5-36.5); Mean Corpuscular Volume 100 fL (80-100); Mean Platelet Volume 9.8 fL (9.1-12.4); Platelet Count 137 K/mm3 (150-400); RDW Coefficient Variation 22.7 % (11.7-14.2); RDW Standard Deviation 80.1 fL (35.1-46.3); Red Blood Cell Count 2.22 M/mm3 (3.80-5.20); White Blood Cell Count 12.63 K/mm3 (4.00-11.30)
[2021-03-30 04:24] LABS: EOSINOPHILS PERCENT AUTO 2 % (0-6); IMMATURE GRAN ABSOLUTE AUTO 0.06 K/mm3 (0.00-0.10); IMMATURE GRAN PERCENT AUTO 1 % (0-1); NEUTROPHILS ABSOLUTE AUTO 8.53 K/mm3 (1.96-9.15); NEUTROPHILS PERCENT AUTO 68 % (41-73)
[2021-03-30 04:36] LABS: International Normalized Ratio 1.26; Prothrombin Time Results 13.4 Sec (9.7-11.5)
[2021-03-30 04:39] LABS: Bun/Creatinine Ratio 8.9 (12.0-20.0); Calcium, Blood 9.1 mg/dL (8.5-10.1); Creatinine, Blood 2.71 mg/dL (0.40-1.00); Potassium, Blood 3.6 mmol/L (3.5-5.5)
--- NOTE | 2021-03-30 05:53 | NUR ---
END OF SHIFT SUMMARY NO ACUTE EVENTS OVER NIGHT. PT CONT TO BE INTUBATED WITH VENT SETTINGS SPONT 12/5, FIO2 30%, TV 300-400; MODERATE AMOUNT OF ETT SECREATIONS. PT MORE ALERT WHEN STIMULATED AND OCCATIONALLY FOLLOWS DIRECTIONS AND ANSWERS Y/N QUESTIONS WITH HEAD NODS. AFEBRILE. HR 110-115. BP STABLE. OG CLAMPED D/T TRACH PLACEMENT THIS AM. RECTAL TUBE IN PLACE AND DRAINING TO GRAVITY. BARRIER CREAM APPLIED TO AIDAN AREA AND NEW MEPILEX APPLIED TO COCCYX WITH BED BATH. PICC TO MARGARETTE AND PERMACATH TO RT CHEST DRESSING C/D/I. WILL REPORT TO AM RN WHEN AVAILABLE.
--- NOTE | 2021-03-30 08:00 | NUR ---
INITIAL ASSESSMENT PATIENT INTUBATED; NOT ON SEDATION. PATIENT OPENS EYES TO VOICE AND TRACKS NURSE. PATIENT NOT FOLLOWING COMMANDS AT THIS TIME. PATIENT AFEBRILE. NO SIGNS OF PAIN NOTED AT THIS TIME. LUNGS COARSE IN UPPER LOBES AND CLEAR IN LOWER LOBES. PATIENT ON SPONTANEOUS PRESSURE SUPPORT 12/5, 30% FIO2. PATIENT IN ST, HR LOW 100S TO 1-TEENS. SBP LOW 100S TO 1-TEENS. ABDOMEN MODERATELY DISTENDED, SOFT, WITH HYPOACTIVE BS NOTED. RECTAL TUBE IN PLACE DRAINING BROWN, LIQUID STOOL. OG IN PLACE. TF ON HOLD FOR TRACH PLACEMENT THIS AM. PATIENT ANURIC; DIALYSIS PATIENT. COCCYX REDDENED. SCATTERED BRUISES NOTED. GROIN/ AIDAN AREA REDDENED, WITH MACERATIONS AND EXCORIATIONS. NS INFUSING TKO INTO PICC. BED LOW, CALL LIGHT IN REACH. WILL CONTINUE TO MONITOR PATIENT FREQUENTLY THROUGHOUT SHIFT.
--- NOTE | 2021-03-30 08:08 | NUR ---
PATIENT TAKEN BY OR TEAM FOR TRACH PLACEMENT.
--- NOTE | 2021-03-30 09:51 | NUR ---
03/30/21 0[address] SIZE 8 DCT PAULINE TRACHEOSTOMY TUBE CUFFED USED AND OBTURATOR SENT WITH PATIENT AND TAPED TO HEAD OF BED AND REPORTED OFF TO SCANNING CLERK DEANGELO Roca AND RT.
--- NOTE | 2021-03-30 09:52 | NUR ---
DR. GALLOWAY UPDATED ON PATIENT STATUS. INFORMED OF HEMOGLOBIN OF 7.2. INFORMED THAT TRACH PLACEMENT COMPLETE. ORDER TO PLACE DOBHOFF.
--- NOTE | 2021-03-30 10:30 | NUR ---
DR. GALLOWAY CONFIRMED DOOFF PLACEMENT AND OKAY'D TO START USING.
--- NOTE | 2021-03-30 12:20 | NUR ---
PATIENT AFEBRILE. NO SIGN OF PAIN. PATIENT BEING VENTILATED THROUGH 8.0 DCT SHILEY CUFFED TRACH. PATIENT ON AC 20, TV 300, PEEP 5 AND 30% FIO2. HR 90S TO LOW 100S. SBP 120S TO 130S. DOBHOFF IN PLACE. TF INFUSING AT GOAL. WILL CONTINUE TO MONITOR.
--- NOTE | 2021-03-30 16:15 | NUR ---
PATIENT AFEBRILE. PATIENT REMAINS SATTING 90% AND GREATER ON SAME VENT SETTINGS. HR 90S TO LOW 100S. SBP 1 -TEENS TO 120S. PRN PAIN MEDICATION GIVEN FOR SIGNS OF PAIN. NO OTHER ACUTE CHANGES TO NOTE ON AT THIS TIME. WILL CONTINUE TO MONITOR.
--- NOTE | 2021-03-30 18:34 | NUR ---
SHIFT SUMMARY PATIENT REMAINED ON VENTILATOR. PATIENT DID NOT FOLLOW ANY COMMANDS THIS SHIFT. PATIENT DID TRACK NURSE. PATIENT REMAINED AFEBRILE. PATIENT GIVEN PRN FENTANYL OT FOR SIGNS OF PAIN. PATIENT HAD 8.0 CUFFED TRACH PLACED THIS AM. PATIENT ON AC SETTINGS WHEN CAME BACK STILL HAD A LITTLE PARALYZING AGENT ON BOARD. PATIENT PLACED BACK ON SPONTANEOUS PS 12/5, 30% FIO2 AFTER FULLY AWAKE. PATIENT REMAINED SR TO ST, HR 90S TO 1-TEENS. SBP LOW 100S TO 130S. NO OUTPUT FROM RECTAL TUBE BUT DID HAVE SOME LEAKING FROM AROUND TUBE. UNABLE TO QUANTIFY AMOUNT. DOBHOFF PLACED THIS SHIFT. TF RESTARTED. PATIENT REMAINED ANURIC. NO CHANGE TO SKIN. PATIENT REPOSITIONED THROUGHOUT SHIFT. NS TKO. FATHER IN ROOM AT BEDSIDE. PATIENT APPEARS COMFORTABLE AT THIS TIME. BED LOW, CALL LIGHT IN REACH. REPORT WILL BE GIVEN TO ASSUMING SOLE ROUNDER NURSE SHORTLY.
--- NOTE | 2021-03-30 21:49 | NUR ---
PT RECEIVED FROM LEORA BRIGHT. LYING ON HER SIDE, MAKING EYE CONTACT, TRYING TO MOUTH WORDS, TRACH SITE CLEANED UP, ON PS 12, PEEP 5, 30% FIO2. SUCTIONING RETURNS THICK WHITE. MARGARETTE WITH PICC NS @ 10ML/HR, RECTAL TUBE IN PLACE. TF @ 30 ML/HR VIA DOBBHOFF, MEDS THROUGH WELL. BUTTOCKS, GROIN AND BETWEEN THIGHS RED, RAW, CLEANED AND POWDERED. WRISTS RESTRAINED FOR PROTECTION OF TRACH.
--- NOTE | 2021-03-31 03:30 | NUR ---
ARIADNA HAS BEEN AWAKE OFTEN T/O THE NIGHT. SHE HAS BEEN ABLE TO EXPRESS HER DESIRE FOR PAIN MEDICATION, CHANNEL CHANGES ON THE TV AND VOLUME CONTROL. SHE HAS BEEN COUGHING WITH GOOD PRODUCTION OF PHLEGM, WHITE RETURN. HER TRACH SEEMS TO BE THE MOST UNCOMFORTABLE FOR HER. SHE TOLERATES BEING TURNED AND REPOSITIONED VERY WELL, OCC. GRIMACE. RECTAL TUBE REMAINS IN PLACE, ORAL CARE TOLERATED WELL. NS @ TKO IN MARGARETTE. VENT SETTINGS REMAIN UNCHANGED.
[2021-03-31 04:47] LABS: Hematocrit 21.8 % (33.0-51.0); Hemoglobin 7.1 g/dL (11.5-16.0); Mean Corpuscular HGB Conc 32.6 g/dL (31.5-36.5); Mean Corpuscular Volume 101 fL (80-100); Mean Platelet Volume 10.1 fL (9.1-12.4); Platelet Count 148 K/mm3 (150-400); RDW Coefficient Variation 22.5 % (11.7-14.2); RDW Standard Deviation 80.4 fL (35.1-46.3); Red Blood Cell Count 2.15 M/mm3 (3.80-5.20); White Blood Cell Count 11.37 K/mm3 (4.00-11.30)
[2021-03-31 05:10] LABS: Albumin, Blood 2.6 g/dL (3.4-5.0); Anion Gap 10 mmol/L (6-16); Blood Urea Nitrogen 35 mg/dL (8-24); Bun/Creatinine Ratio 9.5 (12.0-20.0); CO2, Blood 26 mmol/L (21-32); Calcium, Blood 9.2 mg/dL (8.5-10.1); Chloride, Blood 95 mmol/L (98-108); Creatinine, Blood 3.69 mg/dL (0.40-1.00); Glomerular Filtration Rate 15 (60-); Glucose, Blood 121 mg/dL (70-99); Magnesium, Blood 1.9 mg/dL (1.6-2.4); Phosphorus, Blood 3.7 mg/dL (2.5-4.9); Potassium, Blood 3.5 mmol/L (3.5-5.5); Sodium, Blood 131 mmol/L (136-145)
[2021-03-31 05:30] LABS: BAND PERCENT MAN 7 % (0-8); BASOPHILS PERCENT MAN 0 % (0-2); EOSINOPHILS ABSOLUTE MAN 0.11 K/mm3 (0.00-0.68); EOSINOPHILS PERCENT MAN 1 % (0-6); LYMPHOCYTES ABSOLUTE MAN 2.61 K/mm3 (0.84-5.20); LYMPHOCYTES PERCENT MAN 23 % (21-46); MONOCYTES ABSOLUTE MAN 1.02 K/mm3 (0.16-1.47); MONOCYTES PERCENT MAN 9 % (4-13); NEUTROPHILS ABSOLUTE MAN 7.61 K/mm3 (1.96-9.15); SEG NEUTROPHILS PERCENT MAN 60 % (41-73); TOTAL CELLS COUNTED 100
--- NOTE | 2021-03-31 06:12 | NUR ---
ARIADNA HAS BEEN INCREASINGLY ANXIOUS AND RESTLESS THE LAST COUPLE OF HOURS. SHE HAS BEEN MEDICATED WITH FENTANYL AND ATIVAN WITH LITTLE EFFECT. SHE HAS COUGHED SO HARD TWO SEPARATE TIMES THAT SHE DISCONNECTED HER CIRCUIT. SHE WAS ENCOURAGED TO CALM DOWN AND SLOW HER BREATHING. SHE IS FINALLY SETTLED DOWN FOR RIGHT NOW. TF CONTINUES VIA DOBBHOFF, NO MEASURABLE OUTPUT FROM RECTAL TUBE, NS CONTINUES AT 10ML/HR TO MARGARETTE. VENT SETTINGS UNCHANGED.
--- NOTE | 2021-03-31 08:30 | NUR ---
INITIAL ASSESSMENT PATIENT VENTILATED THROUGH 8.0 CUFFED TRACH. PATIENT RESPONDING TO VERBAL STIMULI. PATIENT TRACKING NURSE. PATIENT OCCASIONALLY AND INFREQUENTLY FOLLOWING SOME SIMPLE COMMANDS SUCH ANSWERING QUESTIONS WITH NODDING/ SHAKING OF HEAD AND SQUEEZING HANDS. PATIENT VERY WEAK. PATIENT ANXIOUS AT TIMES, ESPECIALLY WITH NURSING CARE. PATIENT AFEBRILE. LUNGS COARSE THROUGHOUT. VENT SETTINGS- SPONTANEOUS PS 12/5, 30% FIO2. SCANT AMOUNT OF THIN, CLEAR SECRETIONS SUCTIONED FROM TRACH. INCREASED RR WITH NURSING CARE, INCLUDING ORAL CARE AND AIDAN CARE. PATIENT IN ST, HR LOW 100S TO 1-TEENS. SBP LOW 100S TO 130S. EDEMA NOTED. ABDOMEN MODERATELY DISTENDED, SOFT, WITH HYPERACTIVE BS NOTED. RECTAL TUBE IN PLACE FOR LOOSE STOOLS. TF INFUSING INTO DOBHOFF AT GOAL RATE OF 30 MLS PER HOUR WITH 30 ML WATER FLUSH Q4H. PATIENT ANURIC; RECEIVING DIALYSIS QOD. SCATTERED BRUISING NOTED T/O BODY. PATIENT HAS MACERATIONS AND EXCORIATIONS TO AIDAN AND GROIN FOLD AREAS. COCCYX REDDENED. NS INFUSING TKO INTO PICC LINE. PERMACATH NOTED TO R CHEST WALL. BED LOW, CALL LIGHT IN REACH. WILL CONTINUE TO MONITOR PATIENT FREQUENTLY THROUGHOUT SHIFT.
--- NOTE | 2021-03-31 11:00 | NUR ---
DR. GALLOWAY UPDATED ON PATIENT STATUS. INFORMED THAT HGB CONTINUES TO TREND DOWN AND WAS 7.1 THIS AM. INFORMED THAT PATIENT WILL BE GETTING DIALYSIS TODAY. INFORMED THAT SODIUM 131 THIS AM AND THAT GFR DECREASING. INFORMED THAT PATIENT AFEBRILE THIS AM BUT THAT PATIENT NOW HAS TEMP OF 99.8 DEGREES FAHRENHEIT. INFORMED THAT ICE PACKS PLACED ON PATIENT. INFORMED THAT NO RECTAL TUBE OUTPUT SINCE TWO NIGHTS AGO. INFORMED THAT THERE HAS BEEN RECTAL TUBE LEAKAGE FROM RECTUM AND THAT IT IS LOOSE NOW AND NO LONGER LIQUID. INFORMED THAT RECTAL TUBE DC'D. ORDER RECEIVED TO GIVE 1 UNIT PRBCS WITH DIALYSIS.
--- NOTE | 2021-03-31 12:00 | NUR ---
DR. LOVELL THROUGH TO SEE PATIENT. UPDATED ON PATIENT STATUS. NO ORDERS RECEIVED AT THIS TIME.
--- NOTE | 2021-03-31 13:00 | NUR ---
PATIENT AFEBRILE. HR 90S TO 1-TEENS. SBP 1-TEENS TO 130S. PATIENT REMAINS SATTING 90% AND GREATER ON SAME VENT SETTINGS. RR IN THE 20S. NO OTHER ACUTE CHANGES TO NOTE ON AT THIS TIME.
--- NOTE | 2021-03-31 16:15 | NUR ---
PATIENT AFEBRILE. HR LOW 100S. SBP 1-TEENS TO 130S. PATIENT REMAINS SATTING 90% AND GREATER ON SAME VENT SETTINGS. NO OTHER ACUTE CHANGES TO NOTE ON AT THIS TIME. BROTHER AT BEDSIDE.
--- NOTE | 2021-03-31 18:54 | NUR ---
SHIFT SUMMARY PATIENT REMAINED VENTILATED THROUGH [facility]. PATIENT CONTINUED TO INFREQUENTLY FOLLOW SIMPLE COMMANDS. PATIENT CONTINUED TO TRACK NURSE AND LOOK AT WHILE SPEAKING. PATIENT CONTINUED TO BE VERY WEAK. PATIENT CONTINUED TO HAVE FLAT AFFECT. PATIENT HAD TMAX OF 99.8 DEGREES FAHRENHEIT. PATIENT GIVEN PRN FENTANYL A COUPLE TIMES DURING SHIFT FOR SIGNS OF DISCOMFORT, MOSTLY WITH NURSING CARE/ AIDAN CARE/ REPOSITIONING. PATIENT CONTINUED TO HAVE SCANT TO SMALL AMOUNT OF THIN/ FROTHY, WHITE/ CLEAR SPUTUM SUCTIONED FROM ETT. PATIENT REMAINED SATTING WELL ON SPONTANEOUS PS 12/6 AND 30% FIO2. PATIENT REMAINED SR TO ST, HR 90S TO 1-TEENS. SBP LOW 100S TO 140S. RECTAL TUBE DC'D THIS SHIFT. PATIENT HAVING SMALL, BROWN, LOOSE BMS. TF REMAINS AT GOAL RATE. 3020 MLS OUTPUT THIS SHIFT. 2600 MLS OUT FROM DIALYSIS. PATIENT REMAINED ANURIC. NO CHANGE NOTED TO SKIN. PATIENT REPOSITIONED THROUGHOUT SHIFT. NS REMAINS TKO. MIDODRINE DC'D THIS SHIFT. PATIENT RECEIVED 1 UNIT PRBCS WITH DIALYSIS. BROTHER IN TO VISIT TODAY. PATIENT APPEARS COMFORTABLE AT THIS TIME. BED LOW, CALL LIGHT IN REACH. REPORT WILL BE GIVEN TO ASSUMING BROKER IN CHARGE NURSE SHORTLY.
--- NOTE | 2021-03-31 22:31 | NUR ---
PT RECEIVED FROM LEORA BRIGHT. ON VENT PER TRACH PS 15/5 30%, TRIED TO ENGAGE WITH HER AND SHE LOOKS AWAY. ASSESSMENT DONE AND MEDS GIVEN, BY AND SAYS TO REMOVE THE TWILL TAPE AND REPLACE IT WITH THE VELCRO TRACH COLLAR. TRACH SITE CLEANED AND DRESSED, VELCRO TRACH COLLAR PLACED, MUCH GRIMACING AND EYE ROLLING DURING THE PROCESS. SHE CONTINUES TO TRY TO MOUTH WORDS, WHEN ASKED TO SLOW DOWN AND REPEAT, SHE ROLLS HER EYES AND LOOKS AWAY. TURNED AND REPOSITIONED, CALL LIGHT WITHIN REACH. SOFT WRIST RESTRAINTS IN PLACE FOR PROTECTION OF TRACH.
--- NOTE | 2021-04-01 01:57 | NUR ---
WAS IN WITH ARIADNA, SHE HAS HAD HER RESTRAINTS OFF SINCE MIDNIGHT, ASKED HER IF SHE COULD GRAB HER CALL LIGHT, IT WAS NEXT TO HER LEFT HAND. SHE SLOWLY REACHED HER LEFT HAND OUT AND GRABBED THE CALL LIGHT, POSITIONED HER HAND AROUND IT. SHE WAS ABLE TO COMMUNICATE THAT SHE WANTED TO BE COVERED WITH A SHEET. SHE ALSO WAS ABLE TO BURP. SHE IS MOVING HER LEGS AROUND AND HER ARMS, SLOWLY WITH EFFORT. SHE CONTINUES TO SEEM WITHDRAWN AND DOWN, BUT IS ABLE TO COMMUNICATE WITH THIS RN.
--- NOTE | 2021-04-01 02:24 | NUR ---
ARIADNA JUST TOLD ME THAT SHE WOULD LIKE TO SEE HER BABY. I DON'T KNOW HOW THIS COULD BE ACCOMPLISHED OR HOW IT WOULD AFFECT THE CHILD, BUT IT MIGHT BE SOMETHING THAT WOULD BRING HER SPIRITS UP.
[2021-04-01 04:50] LABS: Hematocrit 23.2 % (33.0-51.0); Hemoglobin 7.6 g/dL (11.5-16.0); Mean Corpuscular HGB 31.8 pg (26.0-34.0); Mean Corpuscular HGB Conc 32.8 g/dL (31.5-36.5); Mean Corpuscular Volume 97 fL (80-100); Mean Platelet Volume 9.9 fL (9.1-12.4); Platelet Count 167 K/mm3 (150-400); RDW Coefficient Variation 22.5 % (11.7-14.2); RDW Standard Deviation 75.2 fL (35.1-46.3); Red Blood Cell Count 2.39 M/mm3 (3.80-5.20); White Blood Cell Count 10.56 K/mm3 (4.00-11.30)
--- NOTE | 2021-04-01 04:51 | NUR ---
ARIADNA WAS INCONTINENT OF MEDIUM SIZED STOOL, VERY UNCOMFORTABLE FOR US TO CLEAN HER UP. HER WOUNDS IN HER PANNUS, INNER THIGHS, COCCYX AND BUTTOCKS ARE RAW, OPEN, AND RED. SHE IS VERY TENDER AND DIDN'T WANT TO LET US CLEAN HER, THE SITES WERE SMOTHERED IN [place] CREAM.
[2021-04-01 05:07] LABS: Albumin, Blood 2.7 g/dL (3.4-5.0); Anion Gap 9 mmol/L (6-16); Blood Urea Nitrogen 24 mg/dL (8-24); Bun/Creatinine Ratio 9.2 (12.0-20.0); CO2, Blood 28 mmol/L (21-32); Calcium, Blood 9.1 mg/dL (8.5-10.1); Chloride, Blood 94 mmol/L (98-108); Creatinine, Blood 2.61 mg/dL (0.40-1.00); Glomerular Filtration Rate 22 (60-); Glucose, Blood 126 mg/dL (70-99); Magnesium, Blood 1.8 mg/dL (1.6-2.4); Phosphorus, Blood 2.7 mg/dL (2.5-4.9); Potassium, Blood 3.4 mmol/L (3.5-5.5); Sodium, Blood 131 mmol/L (136-145)
[2021-04-01 05:22] LABS: BAND PERCENT MAN 1 % (0-8); BASOPHILS PERCENT MAN 1 % (0-2); EOSINOPHILS ABSOLUTE MAN 0.31 K/mm3 (0.00-0.68); EOSINOPHILS PERCENT MAN 3 % (0-6); LYMPHOCYTES ABSOLUTE MAN 2.64 K/mm3 (0.84-5.20); LYMPHOCYTES PERCENT MAN 25 % (21-46); MONOCYTES ABSOLUTE MAN 0.63 K/mm3 (0.16-1.47); MONOCYTES PERCENT MAN 6 % (4-13); NEUTROPHILS ABSOLUTE MAN 6.86 K/mm3 (1.96-9.15); SEG NEUTROPHILS PERCENT MAN 64 % (41-73); TOTAL CELLS COUNTED 100
--- NOTE | 2021-04-01 06:28 | NUR ---
ARIADNA IS RESTING QUIETLY AT THIS TIME, SHE WAS MORE ENGAGING AND SMILED AT US MORE THE LAST COUPLE OF HOURS. SHE CONTINUES ON NACL @ 10ML/HR, K+ RIDER HANGING, WRIST RESTRAINTS REMAIN OFF SINCE MIDNIGHT, TRACH SUCTION NEEDED CONTINUES ON PS 12/ 30%.
--- NOTE | 2021-04-01 08:00 | NUR ---
INITIAL ASSESSMENT PATIENT VENTILATED THROUGH 8.0 CUFFED TRACH. PATIENT ANSWERING YES AND NO QUESTIONS WITH SHAKING AND NODDING OF HEAD. PATIENT IS NOT FOLLOWING COMMANDS SUCH SQUEEZING HANDS AND WIGGLING FEET TO COMMAND. GROSS MOVEMENTS NOTED. PATIENT ANXIOUS AT TIMES. FLAT/ WITHDRAWN AFFECT. PATIENT VERY WEAK. PATIENT AFEBRILE. LUNGS CLEAR THROUGHOUT. PATIENT SATTING WELL ON SPONTANEOUS PS 12/6, 30% FIO2. SCANT AMOUNT OF THIN, WHITE SECRETIONS FROM ETT. RR 20S TO 30S. PATIENT IN ST, HR LOW 100S TO 1-TEENS. SBP 1-TEENS TO 120S. PATIENT EDEMATOUS BUT IS BETTER THAN IT HAS BEEN IN PREVIOUS DAYS. ABDOMEN MODERATELY DISTENDED, SOFT, WITH HYPERACTIVE BS NOTED. PATIENT CONTINUES TO HAVE LOOSE STOOLS. TF REMAINS INFUSING AT GOAL RATE. PATIENT REMAINS ANURIC; DIALYSIS. PATIENT CONTINUES TO HAVE MACERATED/ EXCORIATED AIDAN AND GROIN FOLD AREAS. AREAS CLEANSED WELL WITH WARM SOAP AND WATER THIS AM, THROUGHLY DRIED AND PRESCRIPTION POWDER APPLIED. NS INFUSING TKO. PATIENT RECEIVED 20 MEQ KCL THIS AM FOR POTASSIUM OF 3.4. BED LOW, CALL LIGHT IN REACH. WILL CONTINUE TO MONITOR PATIENT FREQUENTLY THROUGHOUT SHIFT.
--- NOTE | 2021-04-01 10:00 | NUR ---
DR. GALLOWAY UPDATED ON PATIENT STATUS. INFORMED THAT PATIENT OUT OF RESTRAINTS. INFORMED THAT PATIENT RECEIVED 20 MEQ KCL FOR POTASSIUM OF 3.4 THIS AM. NO ORDERS RECEIVED AT THIS TIME.
--- NOTE | 2021-04-01 12:00 | NUR ---
AFEBRILE. PATIENT REMAINS SATTING WELL ON SAME VENT SETTINGS. HR LOW 100S TO 1-TEENS. SBP 90S TO 120S. OOB TO CHAIR. NO OTHER ACUTE CHANGES TO NOTE ON AT THIS TIME. WILL CONTINUE TO MONITOR.
--- NOTE | 2021-04-01 16:00 | NUR ---
PATIENT AFEBRILE. PATIENT REMAINS SATTING 90% AND GREATER ON SAME VENT SETTINGS. HR IN THE 1-TEENS. SBP 1-TEENS TO 120S. NO OTHER ACUTE CHANGES TO NOTE ON AT THIS TIME. WILL CONTINUE TO MONITOR.
--- NOTE | 2021-04-01 18:38 | NUR ---
SHIFT SUMMARY PATIENT REMAINED WITH VENT TO TRACH. PATIENT INTERMITTENTLY RESPONDED WITH NODDING AND SHAKING OF HEAD TO ANSWER YES AND NO QUESTIONS. PATIENT INTERMITTENTLY FOLLOWED OTHER SIMPLE COMMANDS SUCH OPENING MOUTH FOR ORAL CARE. PATIENT SMILED FAINTLY TWICE THIS SHIFT, BUT REMAINED MOSTLY APPEARING FLAT/ WITHDRAWN/ DEPRESSED. PATIENT REMAINED AFEBRILE. PATIENT GIVEN PRN FENTANYL A COUPLE OF TIMES FOR SIGNS OF PAIN; PAIN MOSTLY WITH REPOSITIONING AND AIDAN/ GROIN CARE. PATIENT REMAINED SATTING 90% AND GREATER ON SPONTANEOUS PS VENT SETTINGS OF 12/5, 30% FIO2. LUNGS COARSE TO CLEAR. PATIENT REMAINED ST, HR LOW 100S TO 1-TEENS. SBP 90S TO 120S. 3 MEDIUM, LOOSE BMS THIS SHIFT. TF REMAINED AT GOAL RATE. PATIENT REMAINED ANURIC. NO CHANGE TO SKIN. PATIENT REPOSITIONED Q2H. NS REMAINS INFUSING TKO. PATIENT RECEIVED 20 MEQ KCL FOR POTASSIUM OF 3.4 THIS AM. INNER CANNULA CHANGED BY RT. TRACH CARE PERFORMED BY RN. PATIENT HAD COMPLETE BED BATH AND CEILING LIFTED OOB TO CHAIR FOR A FEW HOURS. PATIENT APPEARS COMFORTABLE AT THIS TIME. BED LOW, CALL LIGHT IN REACH. REPORT WILL BE GIVEN TO ONCOMING DATASTAGE ARCHITECT RN SHORTLY.
--- NOTE | 2021-04-01 22:05 | NUR ---
SHIFT ASSESSMENT ASSUMED CARE OF PT @ 1900. REPORT RECEIVED FROM LEORA BRIGHT. PT ALERT IN ROOM, VENTILATED THROUGH 8.0 CUFFED TRACH. CUFF CHANGED TODAY. CLEANSED AROUND SITE. SPON PS 30/6 @ 30% c SATS >95%, OCCASIONALLY FIGHTING VENTILATOR. LS CLEAR. DIALYSIS PT, ANURIC. TF @ GOAL RATE. INCONTINENT OF LOOSE, LIGHT BROWN STOOL. SKIN THOROUGHLY CLEANED AFTER BM, NEW PADS UNDER PT, PRESCRIPTION POWDER APPLIED TO WOUNDS, TURNED HARD TO RIGHT SIDE. PT ANXIOUS, DIFFICULT TO COMMUNICATE WITH, APPEARS FRUSTRATED/ PAINFUL. SHE ATTEMPTS TO MOUTH WORDS, WILL NOT POINT AT COMMUNICATION BOARD. MEDICATED c PRN ANTIANXIETY AND PAIN MEDS, SEEMS TO MILDLY HELP. CALL LIGHT IN REACH, WILL CONTINUE TO MONITOR CLOSELY.
[2021-04-02 04:09] LABS: Hematocrit 23.9 % (33.0-51.0); Hemoglobin 7.8 g/dL (11.5-16.0); Mean Corpuscular HGB 31.8 pg (26.0-34.0); Mean Corpuscular HGB Conc 32.6 g/dL (31.5-36.5); Mean Corpuscular Volume 98 fL (80-100); Mean Platelet Volume 9.9 fL (9.1-12.4); Platelet Count 179 K/mm3 (150-400); RDW Coefficient Variation 22.3 % (11.7-14.2); RDW Standard Deviation 76.1 fL (35.1-46.3); Red Blood Cell Count 2.45 M/mm3 (3.80-5.20); White Blood Cell Count 9.93 K/mm3 (4.00-11.30)
[2021-04-02 04:24] LABS: Albumin, Blood 2.6 g/dL (3.4-5.0); Anion Gap 11 mmol/L (6-16); Blood Urea Nitrogen 36 mg/dL (8-24); Bun/Creatinine Ratio 9.4 (12.0-20.0); CO2, Blood 26 mmol/L (21-32); Calcium, Blood 9.4 mg/dL (8.5-10.1); Chloride, Blood 93 mmol/L (98-108); Creatinine, Blood 3.84 mg/dL (0.40-1.00); Glomerular Filtration Rate 14 (60-); Glucose, Blood 124 mg/dL (70-99); Magnesium, Blood 1.9 mg/dL (1.6-2.4); Phosphorus, Blood 2.8 mg/dL (2.5-4.9); Potassium, Blood 3.3 mmol/L (3.5-5.5); Sodium, Blood 130 mmol/L (136-145)
[2021-04-02 04:32] LABS: BAND PERCENT MAN 4 % (0-8); BASOPHILS ABSOLUTE MAN 0.09 K/mm3 (0.00-0.23); BASOPHILS PERCENT MAN 1 % (0-2); EOSINOPHILS ABSOLUTE MAN 0.29 K/mm3 (0.00-0.68); EOSINOPHILS PERCENT MAN 3 % (0-6); LYMPHOCYTES ABSOLUTE MAN 2.48 K/mm3 (0.84-5.20); LYMPHOCYTES PERCENT MAN 25 % (21-46); MONOCYTES ABSOLUTE MAN 0.79 K/mm3 (0.16-1.47); MONOCYTES PERCENT MAN 8 % (4-13); NEUTROPHILS ABSOLUTE MAN 6.25 K/mm3 (1.96-9.15); SEG NEUTROPHILS PERCENT MAN 59 % (41-73); TOTAL CELLS COUNTED 100
--- NOTE | 2021-04-02 05:54 | NUR ---
SHIFT SUMMARY PT REMAINS ALERT, INTERMITTENTLY FOLLOWING SIMPLE COMMANDS. MINIMAL SLEEP. WILL SHAKE HEAD YES/NO TO SOME QUESTIONS, OTHER TIMES SHE STARES BLANKLY AT STAFF. NO CHANGES TO VENT SETTINGS. VSS. PT BECOMES VERY ANXIOUS/ PAINFUL WITH HARD TURNS. WOUND CARE TO AIDAN AREA PERFORMED MULTIPLE TIMES, PT MEDICATED c PRN PAIN AND ANTIANXIETY MEDS. PT FIGHTS WOUND CARE. TWO SMALL BM'S DURING THE NIGHT. NO ACUTE CHANGES IN PT CONDITION.
--- NOTE | 2021-04-02 08:30 | NUR ---
ASSESSMENT- PT AWAKENS TO NAME, EYES OPEN, WILL FOLLOW SOME DIRECTIONS. ABLE TO MOVE ALL EXTREMITIES, VERY WEAK. PERRL. REPOSITIOINED, LINEN CHANGE DONE. TRACH CARE-ON VENT SUPPORT WITH PRESSURE SUPPORT INCREASED TO 15 FOR LOW TIDAL VOLUMES, MAINTAINING SATURATIONS. LUNGS WITH RHONCHI T/O. APICAL REGULAR, SINUS TACH. BP STABLE. ANASARCA PRESENT. ABDOMEN LARGE, SOFT. TUBE FEEDING VIA DOBHOFF NEPRO AT GOAL RATE. INCONTINENT-BATH AND LINEN CHANGE DONE. MULTIPLE WOUNDS BUTTOCKS, GROIN-CLEANED AND MEDICATED POWDER APPLIED. MEPILEX TO LEFT HIP-HEALING SCABBED AREA. ANURIC. SCDS ON. LEFT ARM PICC LINE D/I WITH NS TKO. DIALYSIS CATH INTACT.
--- NOTE | 2021-04-02 09:30 | NUR ---
PT STARTED ON DIALYSIS IN ROOM. VSS. TOLERATING VENT SUPPORT. CALM, SLEEPING WHEN UNDISTURBED
--- NOTE | 2021-04-02 11:35 | NUR ---
ISOLATION- PER CDC GUIDELINES DOES NOT NEED PRECAUTIONS-NOT INFECTIVE AFTER 21 DAYS. CLEARED BY INFECTION CONTROL
--- NOTE | 2021-04-02 11:36 | NUR ---
DR. MYERS HERE-UDPATED. PT TOLERATING DIALYSIS WITH STABLE VITAL SIGNS. REPOSITIONED, CALM, COOPERATIVE. DR. BOSCH CALLED-WILL BE HERE TO EVALUATE PT TODAY. BUT CONCERNED REGARDING MEDICAL STATUS AND PEG PLACEMENT FOR POSSIBLE SEPSIS AND BLEEDING COMPLICATIONS
--- NOTE | 2021-04-02 13:00 | NUR ---
SEE ASSESSMENT-TOLERATING PRESSURE SUPPORT.
--- NOTE | 2021-04-02 13:27 | NUR ---
Met pt lying in bed awake, out of vent but on dialysis and is able to respond by headnod,she is much better offered prayers and encouraged pt.
--- NOTE | 2021-04-02 15:30 | NUR ---
INCONTINENT LIQUID STOOL, WOUNDS CLEANSED, STILL AREAS BRIGHT RED WITH SCANT BLEEDING BUT IMPROVED FROM PREVIOUS DESCRIPTIONS. USING POWDER TO HELP KEEP AIDAN AREA DRY AND POSITIONING TO AVOID PRESSURE. TRANSFERRED TO CHAIR WITH CEILING LIFT, ABLE TO TOLERATE WELL. UP FOR 2.5 HOURS, BACK TO BED, LINEN CHANGE. NOTIFIED WOUND THERAPY OF REQUEST FOR ASSISTANCE TO MANAGE WOUNDS. BP LOW AFTER RX FOR PAIN, NOW NORMAL AND ALDACTONE GIVEN. PT DOES RESPOND TO QUESTIONS BUT QUICKLY CLOSES EYES. FATIGUED, WITHDRAWN.
--- NOTE | 2021-04-02 18:05 | NUR ---
HAS TOLERATED PRESSURE SUPPORT, DENIES SOB, TIDAL VOLUMES ADEQUATE. SINUS TACH. BP STABLE. TUBE FEED INFUSING, DOBHOFF INTACT. MULTIPLE LIQUID STOOLS, TURNED FREQUENTLY FOR SKIN CARE AND TO RELIEVE PRESSURE POINTS. REMAINS VERY WEAK, OPENS EYES TO VERBAL STIMULUS, BARELY WILL NOD HEAD. HYLTON WEAKLY.
--- NOTE | 2021-04-02 19:40 | NUR ---
ASSUMED CARE REPORT RECEIVED FROM ILANA RN. PT VENTED VIA TRACH, PRESSURE SUPPORT 12/5 30%. HR 120'S, SBP 100'S, SPO2 96%. TF NEPRO RUNNING AT GOAL RATE OF 30 ML/HR WITH 30 Q4H WATER FLUSHES. MARGARETTE PICC LINE INFUSING NS AT TKO RATE. PT WITH SMALL LIQUID BOWEL MOVEMENT, CLEANED AND PT REPOSITIONED. PT ANURIC PER REPORT. PT OPENS EYES TO VERBAL STIMULI, NODS HEAD TO YES/NO QUESTIONS. INTERMITTENTLY FOLLOWS COMMANDS. SCD'S IN PLACE.
[2021-04-03 03:48] LABS: BASOPHILS ABSOLUTE AUTO 0.03 K/mm3 (0.00-0.23); BASOPHILS PERCENT AUTO 0 % (0-2); Hematocrit 23.4 % (33.0-51.0); Hemoglobin 7.7 g/dL (11.5-16.0); Mean Corpuscular HGB 32.5 pg (26.0-34.0); Mean Corpuscular HGB Conc 32.9 g/dL (31.5-36.5); Mean Corpuscular Volume 99 fL (80-100); Mean Platelet Volume 9.7 fL (9.1-12.4); Platelet Count 223 K/mm3 (150-400); RDW Coefficient Variation 23.1 % (11.7-14.2); RDW Standard Deviation 79.4 fL (35.1-46.3); Red Blood Cell Count 2.37 M/mm3 (3.80-5.20); White Blood Cell Count 10.11 K/mm3 (4.00-11.30)
[2021-04-03 03:50] LABS: EOSINOPHILS ABSOLUTE AUTO 0.23 K/mm3 (0.00-0.68); EOSINOPHILS PERCENT AUTO 2 % (0-6); IMMATURE GRAN ABSOLUTE AUTO 0.05 K/mm3 (0.00-0.10); IMMATURE GRAN PERCENT AUTO 1 % (0-1); LYMPHOCYTES ABSOLUTE AUTO 2.75 K/mm3 (0.84-5.20); LYMPHOCYTES PERCENT AUTO 27 % (21-46); MONOCYTES ABSOLUTE AUTO 2.13 K/mm3 (0.16-1.47); MONOCYTES PERCENT AUTO 21 % (4-13); NEUTROPHILS ABSOLUTE AUTO 4.92 K/mm3 (1.96-9.15); NEUTROPHILS PERCENT AUTO 49 % (41-73)
[2021-04-03 04:03] LABS: Albumin, Blood 2.6 g/dL (3.4-5.0); Anion Gap 10 mmol/L (6-16); Blood Urea Nitrogen 25 mg/dL (8-24); Bun/Creatinine Ratio 8.8 (12.0-20.0); CO2, Blood 27 mmol/L (21-32); Calcium, Blood 9.2 mg/dL (8.5-10.1); Chloride, Blood 102 mmol/L (98-108); Creatinine, Blood 2.83 mg/dL (0.40-1.00); Glomerular Filtration Rate 20 (60-); Glucose, Blood 142 mg/dL (70-99); Magnesium, Blood 1.9 mg/dL (1.6-2.4); Phosphorus, Blood 2.1 mg/dL (2.5-4.9); Potassium, Blood 3.8 mmol/L (3.5-5.5); Sodium, Blood 139 mmol/L (136-145)
--- NOTE | 2021-04-03 05:12 | NUR ---
UPDATE PT HAVING 4-6 BEAT RUNS OF VTACH, HR SUSTAINING 120-130'S. DR WARE NOTIFIED, NEW ORDER PLACED FOR ONE TIME DOSE OF 5MG LOPRESSOR AND 20 MM OF KPHOS. KPHOS ORDER VERIFIED WITH DR BEVERLY.
--- NOTE | 2021-04-03 06:16 | NUR ---
SHIFT SUMMARY PT REMAINS ON VENT VIA TRACH. VENT SETTINGS SPONT PRESSURE SUPPORT 12/5 30% FIO2. ONE TIME DOSE OF LOPRESSOR GIVEN THIS SHIFT FOR ELEVATED HR 130'S, DROPPED TO 115'S. BP STABLE, SPO2 >92%. PRN FENTANYL GIVEN ONCE FOR PAIN. PT VISIBLY IN PAIN WITH AIDAN CARE. SKIN TO GROIN AND AIDAN AREA EXCORIATED AND RED, MEDICATED POWDER AND CREAMS APPLIED. PT TURNED Q2H. PT HAD APPROX 20 MINUTES OF 4-6 BEAT RUNS OF VTACH THIS AM. 20 MMOLES KPHOS ORDERED. PT ANURIC, 2 BM'S OVERNIGHT. PT FOLLOWING SOME COMMANDS. MINIMAL SLEEP THIS SHIFT.
--- NOTE | 2021-04-03 14:41 | NUR ---
pt.is lying in a chair resting doing much better prayed for her.
--- NOTE | 2021-04-03 17:52 | NUR ---
SUMMARY PT RESTING IN BED. VENT TO TRACH WITH SPONTANEOUS SETTINGS. PT IS CALM, MORE AWAKE THIS AFTERNOON. OOB TO CHAIR TODAY WITH LIFT. PT IS HAVING FREQUENT PASTY BM'S. SKIN IS EXCORIATED AND OPEN IN PERIAREA. NO DIALYSIS TODAY. NO ACUTE CHANGES THIS SHIFT.
--- NOTE | 2021-04-03 19:40 | NUR ---
TRACH CHANGE: DR. MELCHOR CAME THRU AND CHANGED PT'S TRACH TO A 8.0 DCT; 8.0 TRACH, CUFFED AND UNFENESTRATED CUFF. DR. MELCHOR DID A QUICK BEDSIDE BRONCH POST CHANGE TO MAKE SURE IT WAS IN THE RIGHT SPOT.
[2021-04-04 03:27] LABS: Hematocrit 23.1 % (33.0-51.0); Hemoglobin 7.4 g/dL (11.5-16.0)
[2021-04-04 03:44] LABS: Albumin, Blood 2.4 g/dL (3.4-5.0); Anion Gap 11 mmol/L (6-16); Blood Urea Nitrogen 38 mg/dL (8-24); Bun/Creatinine Ratio 9.3 (12.0-20.0); CO2, Blood 25 mmol/L (21-32); Calcium, Blood 9.2 mg/dL (8.5-10.1); Chloride, Blood 99 mmol/L (98-108); Creatinine, Blood 4.08 mg/dL (0.40-1.00); Glomerular Filtration Rate 13 (60-); Glucose, Blood 118 mg/dL (70-99); Magnesium, Blood 1.9 mg/dL (1.6-2.4); Phosphorus, Blood 4.2 mg/dL (2.5-4.9); Potassium, Blood 4.2 mmol/L (3.5-5.5); Sodium, Blood 135 mmol/L (136-145)
--- NOTE | 2021-04-04 05:28 | NUR ---
SHIFT SUMMARY PATIENT FOUND TO BE ALERT, FOLLOWS MINIMAL COMMANDS, AND HYLTON. TRACH CHANGED AT START OF SHIFT BY MD AND VENT ON SPONTANEOUS SUPPORT WITH FIO2 AT 30%. TOLERATING THIS WELL WITH SATS IN HIGH 90'S ALL SHIFT AN NO ACUTE DISTRESS NOTED. VSS. HR IN THE 110'S-120'S. 1 4 BEAT RUN OF VTACH BUT OTHERWISE REMAINED SINUS WITH FREQUENT PVC'S ALL SHIFT. ANURIC. INCONTINENT OF STOOL WITH 3 LARGE, LOOSE BM'S OVERNIGHT. TRYING TO KEEP AIDAN AREA DRY POSSIBLE BUT SKIN IS SEVERLY EXCORIATED WITH MANY SMALL OPEN AREAS THAT SEEM TO BE GETTING WORSE. ONLY USING WIPES AND POWDER ON THIS AREA SOMETHING IS OBVIOUSLY IRRITATING SKIN EVEN MORE. Q2H TURNS IN PLACE TO HELP WITH THIS. TUBE FEEDS INFUSING PER DOBHOFF PER ORDER.NO ACUTE CONCERNS AT THIS TIME. WILL CONTINUE TO MONITOR UNTIL REPORT GIVEN TO RADHA RN.
--- NOTE | 2021-04-04 07:55 | NUR ---
INITIAL ASSESSMENT PATIENT VENTILATED TO 8.0 CUFFED TRACH. PATIENT TRACKS NURSE AND RESPONDS TO NAME. PATIENT OCCASIONALLY RESPONDS TO YES AND NO QUESTIONS WITH NODDING AND SHAKING OF HEAD. PATIENT OCCASIONALLY RESPONDS TO SIMPLE COMMANDS OF WIGGLING TOES AND SQUEEZING HANDS. PATIENT APPEARS WITHDRAWN, WITH FLAT AFFECT. PATIENT CALM AT THIS TIME. PATIENT AFEBRILE. PATIENT APPEARS WITHOUT PAIN AT THIS TIME. LUNGS CLEAR IN UPPER LOBES AND DIMINISHED IN LOWER LOBES. PATIENT SATTING 90% AND GREATER ON SPONTANEOUS PRESSURE SUPPORT 12/5, 30% FIO2. RR IN THE HIGH 30S. SCANT AMOUNT OF THIN, YELLOW SPUTUM NOTED WITH TRACH SUCTIONING. PATIENT IN ST, HR IN THE 1-TEENS. SBP LOW 100S. MAP IN THE 50S. NIGHT RN REPORTED MAP TO DR. BEVERLY WHEN HE STOPPED BY THIS AM. ABDOMEN MODERATELY DISTENDED, SOFT, WITH HYPERACTIVE BS NOTED. PATIENT HAS BEEN HAVING LOOSE, INCONTINENT STOOLS. TF INFUSING AT GOAL RATE. PATIENT ANURIC; DIALYSIS PATIENT. MANY MACERATIONS AND EXCORIATIONS TO AIDAN/ GROIN AREAS. PATIENT BEING REPOSITIONED Q2H AND PRN. NS INFUSING TKO. BED LOW, CALL LIGHT IN REACH. WILL CONTINUE TO MONITOR FREQUENTLY THROUGHOUT SHIFT.
--- NOTE | 2021-04-04 09:37 | NUR ---
2 WOUND CARE NURSES HERE TO LOOK AT WOUNDS ON PATIENT'S AIDAN/ GROIN AREAS. SUGGESTIONS OBTAINED AND PLACED IN ORDERS UNDER NURSE NOTIFY.
--- NOTE | 2021-04-04 12:00 | NUR ---
PATIENT HAS TEMP OF 99.0 DEGREES FAHRENHEIT. PATIENT SATTING 90% AND GREATER ON SPONTANEOUS PRESSURE SUPPORT 10/5, 30% FIO2. RR IN THE 30S. HR 1-TEENS TO 120S. SBP IN THE LOW 100S. PATIENT HAD COMPLETE BED BATH. MORE WOUND CARE PERFORMED. WILL CONTINUE TO MONITOR.
--- NOTE | 2021-04-04 13:12 | NUR ---
PATIENT'S TRACH CAME OUT. PATIENT HAD BEEN COUGHING DURING NURSING CARE. PATIENT LOST VOLUMES AND STATED BACK UP APNEA SETTINGS INITIATED. PATIENT BREATHING THROUGH MOUTH AND NOT RECEIVING BREATHS FROM VENT. RTOKSANA, CALLED TO ROOM IMMEDIATELY. DR. MYERS GRABBED FROM ROOM NEXT DOOR. ASSESSED PATIENT AND IT WAS FOUND THAT TRACH HAD COME OUT, ALTHOUGH WITH PATIENT'S ANATOMY IT WAS NOT OBVIOUS. OBTURATOR GIVEN TO DR. MYERS AND DR. MYERS REPLACED TRACH. DR. MELCHOR TO ROOM IMMEDIATELY AFTER TRACH ALREADY PLACED. GLIDESCOPE BROUGHT TO DR. MELCHOR AND DR. MELCHOR CONFIRMED THAT TRACH CORRECTLY PLACED. VENT ONCE AGAIN SHOWING THAT PATIENT IS RECEIVING VOLUMES. PATIENT O2 STAYED 92% AND GREATER THROUGHOUT ORDEAL. PATIENT IS BACK RESTING IN BED AT THIS TIME, APPEARING COMFORTABLE.
--- NOTE | 2021-04-04 16:00 | NUR ---
PATIENT AFEBRILE. HR 1-TEENS TO 120S. SBP 1-TEENS TO 150S. RR IN THE 30S. PATIENT REMAINS SATTING 90% AND GREATER ON SAME VENT SETTINGS NOON CHECK. NO OTHER ACUTE CHANGES TO NOTE ON AT THIS TIME. WILL CONTINUE TO MONITOR.
--- NOTE | 2021-04-04 18:41 | NUR ---
SHIFT SUMMARY PATIENT REMAINED TRACKING NURSE WITH EYES AND RESPONDING TO NAME. PATIENT REMAINED OCCASIONALLY NODDING/ SHAKING HEAD TO ANSWER YES AND NO QUESTIONS. PATIENT CONTINUED TO OCCASIONALLY FOLLOW SIMPLE COMMANDS. PATIENT HAD TMAX OF 99.0 DEGREES FAHRENHEIT. PATIENT GIVEN PRN FENTANYL TO HELP WITH PAIN DURING NURSING CARE TO AIDAN AND GROIN AREAS. SPONTANEOUS PRESSURE SUPPORT DECREASED FROM 15/ 5 TO 10/ 5. FIO2 REMAINED 30%. TRACH POPPED OUT SOMEHOW THIS SHIFT. DR. MYERS ABLE TO REPLACE QUICKLY. PATIENT MAINTAINED SATS THE ENTIRE TIME. DR. MELCHOR THEN CAME AND MADE SURE IN CORRECT POSITION. PATIENT REMAINED IN ST, HR 1-TEENS TO 120S. SBP LOW 100S TO 150S. PATIENT HAD MULTIPLE LOOSE BMS THIS SHIFT. TF REMAINED AT GOAL RATE. PATIENT REMAINED ANURIC. RAW STOCK DRIER TENDER HERE TO ASSESS WOUNDS AND GIVE SUGGESTIONS. WOUND CARE PERFORMED EVERY TIME PATIENT HAD A STOOL TODAY. NS REMAINS TKO. PHYSICAL THERAPY WORKED WITH PATIENT. PATIENT HAD COMPLETE BED BATH THIS SHIFT. PICC PULLED OUT 5 CM AND DRESSING CHANGED. PATIENT APPEARS COMFORTABLE AT THIS TIME. BED LOW, CALL LIGHT IN REACH. WILL BE GIVING REPORT TO ONCOMING MEDICAL CODING INSTRUCTOR NURSE SHORTLY.
--- NOTE | 2021-04-04 19:41 | NUR ---
REPORT RECEIVED-CARE ASSUMED PT ON VENT, PICC WITH TKO, TUBE FEED @ 30ML/HR. PT EYES OPEN, NODS AND FOLLOWS. CONTINUE ASSESSMENT AND ARE.
--- NOTE | 2021-04-05 00:51 | NUR ---
ASSESS NO CHANGES
[2021-04-05 03:37] LABS: Hematocrit 22.2 % (33.0-51.0); Hemoglobin 7.3 g/dL (11.5-16.0)
[2021-04-05 03:54] LABS: Albumin, Blood 2.3 g/dL (3.4-5.0); Anion Gap 12 mmol/L (6-16); Blood Urea Nitrogen 56 mg/dL (8-24); Bun/Creatinine Ratio 10.7 (12.0-20.0); CO2, Blood 24 mmol/L (21-32); Calcium, Blood 9.2 mg/dL (8.5-10.1); Chloride, Blood 98 mmol/L (98-108); Creatinine, Blood 5.23 mg/dL (0.40-1.00); Glomerular Filtration Rate 10 (60-); Glucose, Blood 111 mg/dL (70-99); Magnesium, Blood 1.9 mg/dL (1.6-2.4); Phosphorus, Blood 5.1 mg/dL (2.5-4.9); Potassium, Blood 4.4 mmol/L (3.5-5.5); Sodium, Blood 134 mmol/L (136-145)
--- NOTE | 2021-04-05 05:51 | NUR ---
END OF SHIFT PT REMAINS ON CECILE SPONT: 06/19 30%, RR 25-33, TV 240-250, VE 7.30-7.70. BS: DECREASED BILAT BASES. SXN: SCANT BLOODY SECREATIONS, POSITIVE COUGH. PT AWAKE, FOLLOWS, HYLTON, WEAK. VITALS PRINTED & REVIEWE-PLACED IN PAPER CHART. CONTINUE TF @ 30ML/HR WITH Q4 30 ML FLUSHES. LABS SENT. CONTINUE ASSESSMENT AND CARE.
--- NOTE | 2021-04-05 08:20 | NUR ---
INITIAL ASSESSMENT PATIENT TRACKING NURSE AND RESPONDS TO NAME. PATIENT RESPONDING TO SIMPLE COMMANDS AND NODDING/ SHAKING HEAD TO ANSWER YES AND NO QUESTIONS. PATIENT WEAK BUT STRENGTH IS IMPROVING. WITHDRAWN/ FLAT AFFECT NOTED. PATIENT HAS TEMP OF 99.1 DEGREES FAHRENHEIT. PATIENT VENTILATED TO 8.0 CUFFED, NON-FENESTRATED TRACH. PATIENT ON SPONTANEOUS PRESSURE SUPPORT 10/5, 30% FIO2. LUNGS CLEAR IN UPPER LOBES AND DIMINISHED IN LOWER LOBES. SCANT AMOUNT OF THIN, PINK SECRETIONS FROM TRACH. RR IN THE 20S. PATIENT IN ST, HR LOW 100S TO 1-TEENS. ABDOMEN MODERATELY DISTENDED, SOFT, WITH HYPERACTIVE BS NOTED. PATIENT HAS BEEN HAVING LOOSE STOOLS. TF INFUSING INTO DOBHOFF AT GOAL RATE OF 30 MLS/ HOUR WITH 30 ML WATER FLUSH Q4H. PATIENT ANURIC. MANY MACERATIONS/ EXCORIATIONS TO AIDAN/ GROIN AREA. WOUND CARE BEING PERFORMED. NS INFUSING TKO. BED LOW, CALL LIGHT IN REACH. WILL CONTINUE TO MONITOR PATIENT FREQUENTLY THROUGHOUT SHIFT.
--- NOTE | 2021-04-05 08:45 | NUR ---
DR. MYERS UPDATED ON PATIENT STATUS. INFORMED THAT PATIENT HAS TEMP OF 99.1 DEGREES FAHRENHEIT THIS AM. INFORMED THAT NIGHT RN REPORTED PATIENT TV TO BE BETWEEN 230S AND 250S AND RR IN THE 30S OVERNIGHT. INFORMED THAT HEMOGLOBIN 7.3 THIS AM AND THAT PATIENT SCHEDULED TO HAVE DIALYSIS. INFORMED THAT SOFTWARE ENGINEER WEB SERVICES RN REPORTED THAT FENTANYL OF 50 MCG DOES NOT SEEM TO BE TOUCHING PATIENT'S PAIN WHEN BEING REPOSITIONED OR WHEN PERFORMING AIDAN/ GROIN AREA CARE. STATES HE WILL PUT ORDERS IN.
--- NOTE | 2021-04-05 12:43 | NUR ---
SHIFT SUMMARY PATIENT HAS REMAINED FOLLOWING COMMANDS. PATIENT REMAINS FLAT/ WITHDRAWN. PATIENT HAS REMAINED CALM AND COOPERATIVE. PATIENT HAS CONTINUED TO HAVE PAIN WITH REPOSITIONING AND GROIN/ AIDAN AREA CARE. PRN FENTANYL DOSE INCREASED THIS SHIFT. PATIENT HAD TMAX OF 99.1 DEGREES FAHRENHEIT. PATIENT HAS REMAINED SATTING 90% AND GREATER ON SPONTANEOUS PRESSURE SUPPORT SETTINGS OF 10/5, 30% FI02. RR TEENS TO 20S. PATIENT HAS REMAINED IN ST, HR LOW 100S TO 1-TEENS. SBP LOW 100S TO 130S. PATIENT REMAINS HAVING FAIRLY FREQUENT LOOSE STOOLS. TF TO BE CHANGED FROM NEPRO TO PIVOT 1.5. PATIENT HAS REMAINED ANURIC. WOUND CARE PERFORMED Q TIME PATIENT CLEANED UP FROM STOOL. NS REMAINS TKO. DIALYSIS PERFORMED THIS SHIFT. PATIENT HAD COMPLETE BED BATH. PATIENT RECEIVED 1 UNIT PRBCS THIS SHIFT. BED LOW, CALL LIGHT IN REACH. REPORT HAS BEEN GIVEN TO ASSUMING NURSE.
--- NOTE | 2021-04-05 14:23 | NUR ---
TRANSFER OF CARE AT 1220. PT TRACKING EYES, RESPONDING BY HEAD NODS. ABLE TO COMMUNICATE YES AND NO ANSWERS. PUPILS EQUAL ROUND AND REACTIVE TO LIGHT. ABLE TO WIGGLE TOES AND FINGERS. TRACH WITH SPONTANEOUS PRESSURE AT 10/5 AND 30% FIO2. RESPIRATORY RATE 28-30. SUCTIONING TRACH NEEDED. ORAL CARE Q4 AND NEEDED. TELE SHOWING SINUS TACH WITH HR 100-110'S. VITAL SIGNS STABLE. NS INFUSING INTO MARGARETTE PICC LINE AT K[facility]. DIALYSIS TODAY, TOOK OFF 2500 AND 1 UNIT OF BLOOD INFUSED. TUBE FEEDING INFUSING AT 30 ML/HR WITH WATER FLUSHES SET TO 30ML Q4. DOBHOFF NOT FLUSHING, NEW ORDERS BY DR. MYERS TO REPLACE DOBHOFF. OLD DOBHOFF REMOVED WNL. NEW ONE PLACED, PLACEMENT CONFIRMED WITH XRAY AND DR. MYERS. DOBHOFF AT 55 MARKING. WIRE REMOVED FROM NEW DOBHOFF AND TUBE FEEDING CONNECTED. ORAL CARE PROVIDED, TURNED, AIDAN CARE, AND MOVED TO RECLINER FOR PT AND OT SESSION. WILL CONTINUE TO MONITOR. CALL LIGHT IN REACH. PT AND OT IN ROOM AT THIS TIME.
--- NOTE | 2021-04-05 15:15 | NUR ---
PATIENT MOVED BACK TO BED. SMALL BM, CHANGED, AIDAN CARE, AND TURNED. SUCTIONING TRACH NEEDED. WILL VITAL SIGNS STABLE CALL LIGHT IN REACH. WILL CONTINUE TO MONITOR.
--- NOTE | 2021-04-05 16:34 | NUR ---
RESPIRATORY CARE IN TO CHANGE INNER CANNULA. SUCTIONING TRACH NEEDED. PT REPOSITIONED, AND ORAL CARE PROVIDED. PT ATTEMPTING TO MOUTH WORDS. UNABLE TO MAKE OUT WORDS. DENIES PAIN, DENIES NEED TO BE REPOSITIONED FURTHER. VITAL SIGNS STABLE. WILL CONTINUE TO MONITOR.
--- NOTE | 2021-04-05 18:29 | NUR ---
SHIFT SUMMARY: PT ALERT TO SELF. ABLE TO SHAKE HEAD YES AND NO, TRYS TO MOUTH WORDS. OPENS EYES TO VERBAL STIMULI AND TRACKS. ABLE TO FOLLOW SIMPLE COMMANDS SUCH WIGGLING FINGERS/TOES AND MOVING NECK UP AND DOWN. LUNGS SOUNDING CLEAR AND DIM IN BASES. SUCTIONING TRACH NEEDED. SPONTANEOUS PRESSURE SET AT 15/5 AND 30% FIO2, RT IN TO ADJUST. RESPIRATORY CARE CHANGED INNER CANNULA THIS SHIFT. TELE REMAINS SINUS TACH WITH HR 114-116 AT THIS TIME. VITAL SIGNS STABLE. DENIES PAIN AT THIS TIME. BOWEL TONES PRESENT. TUBE FEEDING PIVOT 1.5 SET TO GOAL RATE AT 30 ML/HR WITH Q4 30ML WATER FLUSHES. HOB ELEVATED 30 DEGREES. DOBHOFF REMAINS AT 55 MARKING, SECURED WITH TAPE. MULTIPLE SMALL BOWEL MOVEMENTS THIS SHIFT. NS INFUSING AT [facility] TO RIGHT UPPER ARM PICC. Q2 TURNING AT MAX AND ADJUSTED NEEDED. WOUND CARE WHEN TURNING AND NEEDED WITH AIDAN CARE. WOUND CARE ORDERES FOLLOWED. ORAL CARE Q4 WITH GREEN SUCTION SWABS. OUT OF BED TODAY IN RECLINER WITH PT AND OT. PRN FENTANYL GIVEN NEEDED, PT TOLERATED WELL. SLEEPING AT THIS TIME. DENIES NEEDS. CALL LIGHT IN REACH. BED IN LOW LOCKED POSITION. WILL CONTINUE TO MONITOR AND REPORT OFF.
[2021-04-06 03:48] LABS: BASOPHILS ABSOLUTE AUTO 0.02 K/mm3 (0.00-0.23); BASOPHILS PERCENT AUTO 0 % (0-2); Hematocrit 24.5 % (33.0-51.0); Hemoglobin 8.2 g/dL (11.5-16.0); LYMPHOCYTES ABSOLUTE AUTO 2.44 K/mm3 (0.84-5.20); LYMPHOCYTES PERCENT AUTO 26 % (21-46); MONOCYTES ABSOLUTE AUTO 2.41 K/mm3 (0.16-1.47); MONOCYTES PERCENT AUTO 26 % (4-13); Mean Corpuscular HGB 31.1 pg (26.0-34.0); Mean Corpuscular HGB Conc 33.5 g/dL (31.5-36.5); Mean Corpuscular Volume 93 fL (80-100); Mean Platelet Volume 9.8 fL (9.1-12.4); Platelet Count 296 K/mm3 (150-400); RDW Coefficient Variation 21.7 % (11.7-14.2); RDW Standard Deviation 69.6 fL (35.1-46.3); Red Blood Cell Count 2.64 M/mm3 (3.80-5.20)
[2021-04-06 03:54] LABS: EOSINOPHILS ABSOLUTE AUTO 0.13 K/mm3 (0.00-0.68); EOSINOPHILS PERCENT AUTO 1 % (0-6); IMMATURE GRAN PERCENT AUTO 1 % (0-1); NEUTROPHILS PERCENT AUTO 46 % (41-73)
[2021-04-06 04:04] LABS: Albumin, Blood 2.3 g/dL (3.4-5.0); Anion Gap 10 mmol/L (6-16); Blood Urea Nitrogen 39 mg/dL (8-24); Bun/Creatinine Ratio 11.1 (12.0-20.0); CO2, Blood 28 mmol/L (21-32); Calcium, Blood 8.7 mg/dL (8.5-10.1); Chloride, Blood 96 mmol/L (98-108); Glomerular Filtration Rate 15 (60-); Glucose, Blood 136 mg/dL (70-99); Magnesium, Blood 1.9 mg/dL (1.6-2.4); Phosphorus, Blood 3.7 mg/dL (2.5-4.9); Potassium, Blood 3.5 mmol/L (3.5-5.5); Sodium, Blood 134 mmol/L (136-145)
--- NOTE | 2021-04-06 06:19 | NUR ---
SHIFT SUMMARY PT ALERT, FOLLOWS COMMANDS, NODS YES OR NO, MOUTHS SOME WORDS. SP02>90% W/ TRACH ON SPONTANEOUS VENTILATION 15/5, 30% FI02. RN SUCTIONED OCCASIONALLY PER PT REQUEST. TELEMETRY READS ST, HR 90'S-110'S. PT HAS DOBHOFF W/ CONTINUOUS TUBE FEEDING AT TARGETED RATE. ORAL CARE PERFORMED Q4H. PT HAS PICC LINE INFUSING TKO FLUIDS. Q2H REPOSITIONING. PT BUTTOCKS/GROIN AREA EXORIATED. PERFORMED WOUND CARE. INCONTINENT OF STOOL X3. CALL LIGHT IN REACH. PT SLEPT MOST OF NIGHT. WILL GIVE REPORT TO ONCOMING NURSE.
--- NOTE | 2021-04-06 08:30 | NUR ---
ASSUMED CARE BEDSIDE REPORT FROM VIANEY COREY AT 0700. PT RESTING IN BED. VENT SETTINGS SPONT 15/5/30%. TRACH IN PLACE. MODERATE AMOUNT OF THIN YELLOW SECRETIONS FROM TRACH. STRONG COUGH. PT OPENS EYES SPONTANEOUSLY. FOLLOWS SIMPLE COMMANDS. NODS HEAD YES/NO. FLAT AFFECT. PT NODS HEAD TO PAIN. MEDICATED PRIOR TO BED BATH. UP TO CHAIR. LUNGS COARSE ON RIGHT, DIM THROUGHOUT. ABD ROUND, DISTENDED. BT X 4. DOBHOFF TO RIGHT NARE, 55CM. TUBE FEEDS AT GOAL OF 30 ML/HR c 30 ML FLUSH q4 HR. SKIN TO PERIAREA EXCORATED AND SLOUGHING. WOUND CARE ORDERED. ST ON MONITOR, RATE 110'S. BP STABLE. WILL CONTINUE TO MONITOR.
--- NOTE | 2021-04-06 17:23 | NUR ---
SHIFT SUMMARY PT REMAINS ON VENT, SETTINGS SPONT 8/5/30%. PT TOLERATING WELL. PRODUCTIVE COUGH c SMALL AMOUNT OF CLEAR SPUTUM. PT FOLLOWS SIMPLE COMMANDS. NODS HEAD TO YES/NO QUESTIONS. LUNGS DIM IN BASES. PT UP TO CHAIR FOR MOST OF SHIFT. CLEANED AIDAN AREA MULTIPLE TIMES. EXCORIATION AND SLOUGHING. RECTAL TUBE PLACED. TUBE FEEDS CHANGED TO NEPRO. VSS. WILL CONTINUE TO MONITOR UNTIL REPORT TO ONCOMING NURSE.
--- NOTE | 2021-04-06 19:11 | NUR ---
ASSUMED PT CARE FROM LEORA JAUREGUI AT 1900 PT AWAKE AND ALERT. FOLLOWING COMMANDS. VERY FLAT AFFECTED AND WITHDRAWN; HOWEVER, VERY COMPLIANT WITH CARES. TRACH 8.0 UNFENESTRATED CUFF. VENT SETTINGS: SPONTANEOUS WITH PS 8/5; FIO2 30%. RR 30'S. SPO2 >95%. VSS, SEE FLOWSHEET. PICC LINE TO RIGHT UPPER ARM. HD CATH TO RIGHT UPPER CHEST WALL. NEPRO INFUSING AT GOAL OF 25MLS/HR VIA DOBHOFF. PT HAS RECTAL TUBE D/T LOOSE STOOL WITH SEVERE ULCERATIONS TO INNER GROIN AND BUTTOCKS. NO [place] CATHETER AT THIS TIME D/T PT BEING ANURIC. SEE SHIFT SUMMARY FOR FURTHER DETAILS.
--- NOTE | 2021-04-06 20:29 | NUR ---
TRACH CARE PERFORMED TRACH CARE UTILIZING STERILE WATER AND TRACH CARE TRAY. CLEANED OUTER TRACH AREA, WELL INNER TRACH AREA. TWO SUTURES THAT HAD BEEN CUT REMAINED NEAR WOUND, WHICH WERE REMOVED. PHOTOS OBTAINED OF OPEN WOUND THAT SURROUNDS TRACH. APPEARS TO HAVE GOOD PINK GRANULATED TISSUE WITH NO SLOUGH OR ODOR NOTED. PT TOLERATED WELL.
--- NOTE | 2021-04-07 02:00 | NUR ---
CHANGE TO VENT PT CONTINUED TO HAVE A HIGH 30'S RESP RATE WITH TIDAL VOLUMES LOW OR BELOW 200. MEDICATED WITH 50MCG OF FENTANYL WITH NO EFFECT; THEREFORE, RT CALLED TO BEDSIDE TO CHANGE PT BACK TO AC 20, VT 300, PEEP 5, FIO2 30%. PT TOLERATING WELL.
[2021-04-07 03:52] LABS: Hematocrit 24.5 % (33.0-51.0); Hemoglobin 8.3 g/dL (11.5-16.0)
[2021-04-07 04:10] LABS: Albumin, Blood 2.2 g/dL (3.4-5.0); Anion Gap 13 mmol/L (6-16); Blood Urea Nitrogen 69 mg/dL (8-24); CO2, Blood 26 mmol/L (21-32); Calcium, Blood 9.4 mg/dL (8.5-10.1); Chloride, Blood 94 mmol/L (98-108); Creatinine, Blood 4.61 mg/dL (0.40-1.00); Glomerular Filtration Rate 11 (60-); Glucose, Blood 124 mg/dL (70-99); Phosphorus, Blood 4.6 mg/dL (2.5-4.9); Potassium, Blood 3.6 mmol/L (3.5-5.5); Sodium, Blood 133 mmol/L (136-145)
--- NOTE | 2021-04-07 05:20 | NUR ---
END OF SHIFT SUMMARY PT REMAINS OFF SEDATIVE MEDS; AWAKE AND ALERT. ABLE TO FOLLOW COMMANDS. NODS HEAD YES/NO APPROPRIATELY. VENT SETTINGS: AC 20, VT 300, PEEP 5, FIO2 30%. RESP RATE 30-40'S DESPITE ADJUNCT FENTANYL AND ATIVAN. PICC TO RIGHT UPPER ARM DRESSING CHANGED THIS SHIFT. TRACH CARES GIVEN THIS SHIFT WITHOUT ANY COMPLICATIONS AND PT TOLERATED WELL. RECTAL TUBE REMAINS DRAINING TO GRAVITY. WOUND CARES GIVEN; PLACED HYDROGEL TO ALL WOUNDS AND INSERTED ABD PADS ALONG ALL FOLDS TO HELP DECREASE MOISTURE AND SHEARING. THE CREAM MIXED WITH POWDER APPEARS TO MAKE AREAS WORSE D/T WHEN FECES GET ON THOSE AREAS AND THE CREAM IS HARD TO WIPE AWAY. THE HYDROGEL AND ABD PADS ALREADY SEEM TO HAVE IMPROVED THE RIGHT GROIN SITE; WILL PASS OFF IN REPORT TO CONTINUE AND SEE IF WE SEE IMPROVEMENT. NEPRO REMAINS AT GOAL OF 25MLS/HR VIA DOBHOFF. PT REMAINS FLAT AFFECTED AND WILL OCCASIONALLY CHOOSE NOT TO ANSWER QUESTIONS. WILL CONTINUE PROVIDING EMOTIONAL AND PHYSICIAL SUPPORT IN ORDER TO MEET PT'S NEEDS. WILL CONTINUE TO MONITOR UNTIL REPORT IS HANDED OFF TO ONCOMING RN.
--- NOTE | 2021-04-07 14:04 | NUR ---
UPDATE PHYSICIAN AT BEDSIDE. ORDERS TO HAVE PT UP TO CHAIR FOR T PIECE TRIAL THIS AFTERNOON. PT TOLERATING WELL IN CHAIR. PT USED COMMUNICATION BOARD TO REQUEST TO "GO HOME." PHYSICAL THERAPY CURRENTLY WORKING WITH PT AT BEDSIDE.
--- NOTE | 2021-04-07 18:47 | NUR ---
SHIFT SUMMARY PT ALERT. ORIENTED TO SELF. DIFFICULT TO ASSESS ORIENTATION AT THIS TIME. NODS HEAD "NO" WHEN ASKED IF SHE IS AWARE SHE IS IN HOSPITAL. T PIECE TRIAL DONE THIS AFTERNOON. PT TOLERATED WELL FOR 1 HR 15 MIN. BEGAN TO HAVE INCREASE IN RESPIRATORY RATE. PHYSICIAN ORDER TO HAVE PT BACK ON VENT SETTINGS. PT CURRENLTY ON SPONT MODE ON VENT 12/5/30%. SATURATION MAINTAINED ABOVE 96%. RR RATE UNDER 30 AT THIS TIME. PT PROVIDED WITH WOUND CARE WITH CALAZIME/MICONAZORB. RECTAL TUBE REPLACED D/T FREQUENT LOOSE STOOL. PHYSICIAN AWARE, [facility] ORDERED TO RULE OUT. PT TURNED Q 2 HRS. PT PROVIDED WITH MEDCIATIONWHEN NODDING HEAD YES TO PAIN. PROVIDED WITH ATIVAN ONE TIME THIS AM WHEN ANXIOUS AND RR RATE ELEVATED. ASKED PT IF SHE WANTED TO SPEAK WITH FAMILY, SHE NODDED HEAD YES. ATTEMPTED TO CONTACT FAMILY. NO ANSWER AT THIS TIME. INNER CANNULA CHANGED WITH RT. SMALL PRESSURE SORE FORMING D/T PRESSURE OF TRACH. UNABLE TO TAKE PICTURES AT THIS TIME. RT TO PUT GEL PAD TO RELIEVE PRESSURE. SIZE OF SORE IS LESS THAN .5 IN. SORE NOT OPEN, EDGES INTACT. WILL CONT TO MONITOR UNTIL REPORT GIVEN TO NIGHTSHIFT RN.
--- NOTE | 2021-04-07 19:15 | NUR ---
REPOERT RECEIVED-CARE ASSUMED PT ON VENT PS110/20, 30%. PLAN-AIRVO TRIAL GASPER @ 2044. IV TKO. SNED STOOL SAMPLE. CONTINUE ASSESSMENT AND CARE.
[2021-04-07 21:06] LABS: C DIFFICILE DNA NEGATIVE (Negative)
--- NOTE | 2021-04-08 00:43 | NUR ---
ASSESS PT WENT APROX 50 MIN ON AIRVO THIS EVENING-SEE RT NOTE. CURRENTLY BACK ON VENT PC 08/18 30%. SXN: SCANT CREAL SECREATIONS WITH POSITIVE STRONG COUGH. CONTINUE Q2 TURNS AND ORAL CARE. PAIN MEDS PER MAR FOR AIDAN CARE. CONTINUE ASSESSMENTS AND CARE.
[2021-04-08 04:26] LABS: Hematocrit 25.5 % (33.0-51.0); Hemoglobin 8.5 g/dL (11.5-16.0)
[2021-04-08 04:43] LABS: Albumin, Blood 2.3 g/dL (3.4-5.0); Anion Gap 12 mmol/L (6-16); Blood Urea Nitrogen 46 mg/dL (8-24); Bun/Creatinine Ratio 15.1 (12.0-20.0); CO2, Blood 27 mmol/L (21-32); Calcium, Blood 9.5 mg/dL (8.5-10.1); Chloride, Blood 96 mmol/L (98-108); Creatinine, Blood 3.04 mg/dL (0.40-1.00); Glomerular Filtration Rate 18 (60-); Glucose, Blood 112 mg/dL (70-99); Phosphorus, Blood 3.6 mg/dL (2.5-4.9); Potassium, Blood 3.3 mmol/L (3.5-5.5); Sodium, Blood 135 mmol/L (136-145)
--- NOTE | 2021-04-08 06:20 | NUR ---
END OF SHIFT PT ON VENT 08/19, 30%. BS: DECREASED BILAT. SXN SCANT SECREATIONS OVERNIGHT. ORAL CARE DONE AND TURNS NOTED. PAIN MEDS GIVEN WITH SKIN CARE-PT REMIANS VERY PAINFUL T/O CARE. PT ABLE TO FOLLOW-NODS. ROM DONE WITH PT-VERY WEAK. CONTINUE ASSESSMENTS AND CARE TILL REPORT OFF TO DAYSHIFT.
--- NOTE | 2021-04-08 10:15 | NUR ---
PT GROIN AND BUTTOCKS WOUNDS CLEANED AND OINTMENT APPLIED (BLUE AND ORANGE TOP 1/2 MIX WITH ANTI-FUNGAL). PT IS ALERT AND UNRESTRAINED. RECTAL TUBE IS PATENT OF SMALL AMOUNT. NS TKO. T.F. NEPRO AT 25ML PER JOHN. PT SKIN IS VERY TENDER BUT RELAXES WHEN CLEANING AND MOVING IS FINISHED.
--- NOTE | 2021-04-08 14:54 | NUR ---
APPROX 1345 PT RETURNED TO PS ON VENT AND RR DEC FROM UPPER 40 RANGE TO LOW 30 RANGE. PT CONT. TO REST IN BED AND IS TOLERATING WELL. PT REMAINS UP IN CHAIR.
--- NOTE | 2021-04-08 15:51 | NUR ---
PT REMAINS UP IN CHAIR AND WILLING TO REMAIN UP AND ON PS 12/ 30%.
--- NOTE | 2021-04-08 18:45 | NUR ---
PT RETURNED TO BED. HAD PASSED THE RECTAL TUBE BUT WAS REINSERTED DUE TO SKIN BREAKDOWN. MULTIPLE BREAKDOWN SITES PERSIST AND SOME ARE BLEEDING. PT WAS GIVEN FENTANYL AND ASSISTED WITH PAIN AND DISTRESS.
--- NOTE | 2021-04-08 19:15 | NUR ---
REPORT RECEIVED-CARE ASSUMED. PT AWAKE, ON VENT SPONT 08/19 30%. CUFF LEAK NOTED-RT NOTIFIED. NS INFUSING TKO. TF @ 25 ML/HR. CONTINUE ASSESSMENT AND CARE.
--- NOTE | 2021-04-09 01:33 | NUR ---
ASSESS PT RESTING-RECTAL TUBE OUT DUE TO PUSHED OUT BY PT-STOOL APPEARS THINKER-AT THIS TIME. WILL LEAVE TUBE OUT-CONTINUE TO ASSESS.
[2021-04-09 05:55] LABS: Bun/Creatinine Ratio 17.1 (12.0-20.0); Calcium, Blood 9.8 mg/dL (8.5-10.1); Creatinine, Blood 4.03 mg/dL (0.40-1.00); Potassium, Blood 3.5 mmol/L (3.5-5.5)
--- NOTE | 2021-04-09 06:28 | NUR ---
END OF SHIFT NOTE PT REMAINS ON VENT PS /, 30%. SMALL TO MOD AMTS OF SECREATIONS OVERNIGHT, STRONG COUGH. Q2 TURNS DONE, Q4 ORAL CARE. PT SEEMS DEPRESSED & FLAT, ALSO REMIANS HAVING INCREASED PAIN WITH AIDAN WITH CARE DESPITE THE PAIN MEDS PER MAR. PT WINDOW FACING THIS AM, BLINDS OPEN WITH ATTEMPT TO ENCOURAGE PT. CONTINUE ASSESSMENTS AND CARE TILL REPORT OFF TO ONCOMING SHIFT RN.
--- NOTE | 2021-04-09 14:14 | NUR ---
PT CONT TO STOOL OF LIQUID STOOL AND PT PLACED HIGH ONSIDE TO ATTEMPT TO MINIMIZE CONTAMINIATION. SKIN IS VERY BROKE DOWN AND IS REQUIRING INTENSE CLEANING AND MEDICATED BARRIOR CARE. PT CONT TO BE RESISTIVE AND PRE MEDICATED FOR PAIN.
--- NOTE | 2021-04-09 15:02 | NUR ---
Met Pt. lying in bed resting seems much better offered prayers and encouragement.
--- NOTE | 2021-04-09 16:54 | NUR ---
PT PERSISTS WITH SMALL AMOUNT OF STOOL WITH EACH TURN AND REQUIRING CLEANING. PT HAS BEEN MEDICATED BUT CONT. TO TOLERATED POORLY BOTH PHYSICALLY AND EMOTIONALLY. PT REMAINS ON AIRVO SETTINGS WITH RR IN MID TO UPPER 30 AT TIMES. VSS, I/O NOTED.
--- NOTE | 2021-04-09 16:58 | NUR ---
PT STATUS REMAINS STABLE WITH CHRONIC SKIN AND RESP CONDITIONS AND PT IS POORLY ABLE OR WILLING TO COOPERATED. PT REMAINS QUITE DECONDTIONDED AND VERY DIFFICULT TO MOTIVATE.
[2021-04-10 06:04] LABS: PO2 Arterial 66.8 mmHg (80-100); pH Blood Arterial 7.46 (7.35-7.45)
[2021-04-10 06:09] LABS: BASOPHILS ABSOLUTE AUTO 0.04 K/mm3 (0.00-0.23); BASOPHILS PERCENT AUTO 0 % (0-2); Hematocrit 26.8 % (33.0-51.0); Hemoglobin 8.9 g/dL (11.5-16.0); LYMPHOCYTES ABSOLUTE AUTO 2.99 K/mm3 (0.84-5.20); LYMPHOCYTES PERCENT AUTO 26 % (21-46); MONOCYTES ABSOLUTE AUTO 2.34 K/mm3 (0.16-1.47); MONOCYTES PERCENT AUTO 21 % (4-13); Mean Corpuscular HGB 30.9 pg (26.0-34.0); Mean Corpuscular HGB Conc 33.2 g/dL (31.5-36.5); Mean Corpuscular Volume 93 fL (80-100); Mean Platelet Volume 9.8 fL (9.1-12.4); Platelet Count 339 K/mm3 (150-400); RDW Standard Deviation 66.8 fL (35.1-46.3); Red Blood Cell Count 2.88 M/mm3 (3.80-5.20); White Blood Cell Count 11.33 K/mm3 (4.00-11.30)
[2021-04-10 06:12] LABS: EOSINOPHILS ABSOLUTE AUTO 0.08 K/mm3 (0.00-0.68); EOSINOPHILS PERCENT AUTO 1 % (0-6); IMMATURE GRAN ABSOLUTE AUTO 0.11 K/mm3 (0.00-0.10); IMMATURE GRAN PERCENT AUTO 1 % (0-1); NEUTROPHILS ABSOLUTE AUTO 5.77 K/mm3 (1.96-9.15); NEUTROPHILS PERCENT AUTO 51 % (41-73)
[2021-04-10 06:41] LABS: International Normalized Ratio 1.22
[2021-04-10 07:07] LABS: Albumin, Blood 2.1 g/dL (3.4-5.0); Albumin/Globulin Ratio 0.4 (0.8-1.8); Bilirubin, Indirect 0.6 mg/dL (0.1-0.7); Bilirubin, Total 2.6 mg/dL (0.1-1.0); Calcium, Blood 9.9 mg/dL (8.5-10.1); Creatinine, Blood 4.94 mg/dL (0.40-1.00); Globulin, Blood 4.7 g/dL (2.2-4.0); Magnesium, Blood 2.1 mg/dL (1.6-2.4); Phosphorus, Blood 4.7 mg/dL (2.5-4.9); Potassium, Blood 3.4 mmol/L (3.5-5.5); Total Protein, Blood 6.8 g/dL (6.4-8.2)
--- NOTE | 2021-04-10 08:00 | NUR ---
INITIAL ASSESSMENT PATIENT RESPONDS TO VERBAL STIMULI AND TRACKS NURSE. PATIENT COOPERATIVE AND ABLE TO FOLLOW SIMPLE COMMANDS. PATIENT WITHDRAWN, DEPRESSED, WITH FLAT AFFECT. PATIENT WEAK. PATIENT AFEBRILE. PATIENT DENIES PAIN AT THIS TIME. LUNGS COARSE THROUGHOUT. 8.0 CUFFED, NON-FENESTRATED TRACH IN PLACE. RR 20S TO 30S. AIRVO TO T-PIECE AT 40 L AND 32% FIO2. PATIENT SATTING HIGH 90S. PATIENT IN ST, HR IN THE LOW 100S. SBP 90S TO LOW 100S. NORMOACTIVE BOWEL SOUNDS NOTED. PATIENT INCONTINENT OF STOOL WITH SIGNIFICANT SKIN BREAKDOWN. GEOSPATIAL IMAGERY INTELLIGENCE ANALYST REPORTS THAT PATIENT DID NOT HAVE ANY BMS LAST NIGHT BUT THAT WOUNDS BLEEDING OFF AND ON T/O SHIFT. DOBHOFF IN PLACE WITH NEPRO TF INFUSING AT GOAL RATE OF 25 MLS/ HOUR WITH 30 ML WATER FLUSH Q4H. PATIENT ANURIC; ON DIALYSIS. SCATTERED BRUISES NOTED T/O. WOUNDS NOTED TO AIDAN/ GROIN AREAS. SKIN JAUNDICED. NS INFUSING TKO. PATIENT RECIEVING 20 MEQ KCL FOR POTASSIUM OF 3.4 THIS AM. BED LOW, CALL LIGHT IN REACH. WILL CONTINUE TO MONITOR PATIENT FREQUENTLY THROUGHOUT SHIFT.
--- NOTE | 2021-04-10 12:00 | NUR ---
DR. HARRIS UPDATED ON PATIENT STATUS. INFORMED THAT SODIUM 130 AND POTASSIUM OF 3.4 THIS AM. INFORMED THAT PATIENT RECEIVED 20 MEQ KCL REPLACEMENT. INFORMED THAT KIDNEY LABS INCREASING AND AMMONIA AT 41. INFORMED THAT PATIENT TO HAVE DIALYSIS TODAY. INFORMED THAT PATIENT HAS BEEN TOLERATING AIRVO WELL AT 40 L AND 32% FIO2. INFORMED THAT SMALL AMOUNT OF THICK, YELLOW SPUTUM BEING SUCTIONED FROM TRACH. INFORMED THAT PATIENT CONTINUES TO LOOK LIKE SHE IS IN MUCH PAIN DURING REPOSITIONING AND AIDAN/ WOUND CARE.
--- NOTE | 2021-04-10 12:30 | NUR ---
PATIENT AFEBRILE. TF BEING HELD FOR PENDING PEG TUBE PLACEMENT. HR IN THE LOW 100S. SBP LOW 100S. RR 20S TO 30S. NO OTHER ACUTE CHANGES TO NOTE ON AT THIS TIME. WILL CONTINUE TO MONITOR.
--- NOTE | 2021-04-10 14:17 | NUR ---
Pt. is lying in bed and in dialysis looks weak prayed for the pt.
--- NOTE | 2021-04-10 15:45 | NUR ---
5442 pt pulling on dialysis catheters, rn and pct in room to turn pt and do arnulfo care, pt agitated and pulling at lines. DR GEORGE in to speak to patient and par for peg tube placement. arterial pressures rising upwards of 500, unable to correct. blood returned to patient. report to Dr Oliva. nitza
--- NOTE | 2021-04-10 16:30 | NUR ---
PATIENT AFEBRILE. HR IN THE 1-TEENS. SBP 90S TO 120S. NO OTHER ACUTE CHANGES TO NOTE ON AT THIS TIME. WILL CONTINUE TO MONITOR.
--- NOTE | 2021-04-10 17:00 | NUR ---
PEG TUBE PROCEDURE PUSHED BACK TILL TOMORROW AM. SUB Q HEPARIN ADMINISTERED. TF RESTARTED.
--- NOTE | 2021-04-10 17:50 | NUR ---
BOARD LAYER CALLED AND STATED THEY DECIDED TO TAKE PATIENT FOR PEG PLACEMENT NOW. INFORMED THAT TF RESTARTED.
--- NOTE | 2021-04-10 18:00 | NUR ---
[facility] W[facility] RNS HERE TO TAKE PATIENT TO [facility] FOR PEG TUBE PLACEMENT.
--- NOTE | 2021-04-10 19:14 | NUR ---
SHIFT SUMMARY PATIENT CONTINUED TO RESPOND TO VERBAL STIMULI AND NOD/ SHAKE TO ANSWER YES AND NO QUESTIONS. PATIENT REMAINED DEPRESSED AND WITHDRAWN. PATIENT REMAINED AFEBRILE. PRN OXYCODONE STARTED THIS SHIFT TO TRY AND HELP WITH PAIN PATIENT IS EXPERIENCING WITH REPOSITIONING AND AIDAN/ WOUND CARE. WOUND CARE NURSE CALLED AND CAME TO CHECK BACK UP ON WOUNDS. NURSE GAVE SAME INSTRUCTIONS. PRIMARY NURSE ASKED IF THE PAYMENT ANALYST COULD COME LOOK TOMORROW AND SHE STATED THAT SHE COULD AND THAT SHE WILL HAVE HER CALL ICU TOMORROW. LUNGS REMAINED COARSE. PATIENT REMAINED SATTING HIGH 90S ON AIRVO WITH T-PIECE TO TRACH AT 40 L AND 30 TO 32% FIO2. PATIENT PLACED ON SPONTANEOUS VENT SETTINGS FOR PEG TUBE PROCEDURE. PATIENT HAD SMALL AMOUNT OF THICK, YELLOW SPUTUM FROM TRACH. PATIENT REMAINED IN ST, HR LOW 100S TO 1-TEENS. SBP 80S TO 120S. PATIENT HAD 4 LOOSE/ LIQUID BMS THIS SHIFT BUT AMOUNT DECREASING. TF REMAINED AT GOAL. PATIENT REMAINED ANURIC. NO CHANGES TO SKIN NOTED. PATIENT REPOSITIONED Q2H. PATIENT RECEIVED TOTAL OF 30 MEQ KCL FOR POTASSIUM OF 3.4 THIS AM. PHYSICAL THERAPY WORKED WITH PATIENT TODAY. PATIENT RECEIVED SHORT DIALYSIS SESSION TODAY. TIGRE STARTED THIS SHIFT. PATIENT OOB TO CHAIR TODAY. PATIENT REMAINS AT HAND SPRING REPAIRER AT THIS TIME. REPORT GIVEN TO ASSUMING SIX SIGMA BLACK TRAINER NURSE.
[2021-04-11 03:27] LABS: BASOPHILS ABSOLUTE AUTO 0.04 K/mm3 (0.00-0.23); BASOPHILS PERCENT AUTO 0 % (0-2); EOSINOPHILS ABSOLUTE AUTO 0.03 K/mm3 (0.00-0.68); EOSINOPHILS PERCENT AUTO 0 % (0-6); Hematocrit 25.2 % (33.0-51.0); Hemoglobin 8.2 g/dL (11.5-16.0); IMMATURE GRAN ABSOLUTE AUTO 0.09 K/mm3 (0.00-0.10); IMMATURE GRAN PERCENT AUTO 1 % (0-1); LYMPHOCYTES ABSOLUTE AUTO 2.66 K/mm3 (0.84-5.20); LYMPHOCYTES PERCENT AUTO 24 % (21-46); MONOCYTES ABSOLUTE AUTO 2.82 K/mm3 (0.16-1.47); MONOCYTES PERCENT AUTO 26 % (4-13); Mean Corpuscular HGB 30.4 pg (26.0-34.0); Mean Corpuscular HGB Conc 32.5 g/dL (31.5-36.5); Mean Corpuscular Volume 93 fL (80-100); Mean Platelet Volume 9.4 fL (9.1-12.4); NEUTROPHILS ABSOLUTE AUTO 5.42 K/mm3 (1.96-9.15); NEUTROPHILS PERCENT AUTO 49 % (41-73); NRBC ABSOLUTE 0.02 K/mm3 (0.00-0.02); NRBC Auto 0.2 /100 WBC (0.0-0.2); Platelet Count 298 K/mm3 (150-400); RDW Coefficient Variation 20.5 % (11.7-14.2); RDW Standard Deviation 66.9 fL (35.1-46.3); White Blood Cell Count 11.06 K/mm3 (4.00-11.30)
[2021-04-11 03:44] LABS: Albumin, Blood 2.1 g/dL (3.4-5.0); Anion Gap 10 mmol/L (6-16); Blood Urea Nitrogen 69 mg/dL (8-24); Bun/Creatinine Ratio 16.5 (12.0-20.0); CO2, Blood 28 mmol/L (21-32); Calcium, Blood 9.4 mg/dL (8.5-10.1); Chloride, Blood 97 mmol/L (98-108); Creatinine, Blood 4.18 mg/dL (0.40-1.00); Glomerular Filtration Rate 13 (60-); Glucose, Blood 111 mg/dL (70-99); Phosphorus, Blood 3.9 mg/dL (2.5-4.9); Potassium, Blood 3.5 mmol/L (3.5-5.5); Sodium, Blood 135 mmol/L (136-145)
[2021-04-11 03:46] LABS: PCO2 Arterial 36.4 mmHg (35-45); PO2 Arterial 60.7 mmHg (80-100); pH Blood Arterial 7.49 (7.35-7.45)
--- NOTE | 2021-04-11 06:25 | NUR ---
END OF SHIFT SUMMARY: PATIENT STILL VERY WITHDRAWN/DEPRESSED IN ICU SETTING. REFUSES TO PARTICIPATE IN CARE OR SIMPLY NOD HEAD YES/NO TO QUESTIONS IN ORDER TO GIVE HER THE BEST CARE POSSIBLE. SHE WIILL NOT EVEN ENGAGE WHEN ASKED IF SHE IS IN PAIN AND WOULD LIKE MEDICATION EVEN WHEN SHE LOOKS COMPLETELY MISERABLE. PLACED ON AIRVO AT 0000 AND HAS BEEN TOLERATING GREAT. MINIMAL SECRETIONS FROM TRACH. BM X3 AND FREQUENT WOUND CARE. FENTANYL GIVEN X2. DISCUSSED PLAN WITH PATIENT ABOUT POSSIBLE DIALYSIS AGAIN TODAY AND PLAN FOR RE-FEEDING LATER ON IN THE DAY. NPO FOR 24HRS.
--- NOTE | 2021-04-11 10:30 | NUR ---
ASSUMED CARE: REPORT RECEIVED FROM MISSY Gilmore RN. ASSUMED CARE OF THIS PT AT APPROX 1030. ON ASSESSMENT, THE PT IS AWAKE & ANSWERING SOME YES/ NO QUESTIONS BY NODDING HER HEAD. SHE GRIMACES W/ ALL MOVEMENTS & ADLs. SHE IS INTERACTING MORE W/ STAFF THAN ON PRIOR SHIFTS, PER REPORT. PT ON HUMIDIFIED TRACH COLLAR TO RA W/ O2 SATS > 92%. MONITOR SHOWS ST W/ HR 100s, BP STABLE. DOBHOFF REMAINS IN PLACE & PEG TUBE PLACED YESTERDAY (04/10/2021) AT APPROX 1930, PT TO RESUME TUBE FEEDINGS NO EARLIER THAN 24 HRS AFTER PEG PLACEMENT. PT ANURIC R/T ESRD & HD. SKIN CONDITION OVERALL POOR, PT HAS VARIOUS WOUNDS TO BUTTOCKS THAT ARE DIFFICULT TO KEEP CLEAN & DRY R/T NUMEROUS LIQUID BMs THAT PT HAS EACH DAY. WOUND CLINIC HAS CONTACTED THIS RN & PLANS TO COME SEE THE PT AGAIN TODAY. WILL CONTINUE TO MONITOR & UPDATE NEEDED.
--- NOTE | 2021-04-11 10:48 | NUR ---
REPORT GIVEN TO MAURI COREY IN ICU.
--- NOTE | 2021-04-11 18:35 | NUR ---
SHIFT SUMMARY: NO ACUTE CHANGES SINCE PRIOR UPDATES. THE PT REMAINS ALERT/ ORIENTED TO SELF, FOLLOWING DIRECTIONS & IS ANSWERING YES/ NO QUESTIONS BY NODDING HEAD. SHE HAS WORKED W/ PT & OT THIS SHIFT, ATTEMPTING TO STAND FROM RECLINER. PT ON TRACH COLLAR W/ HUMIDIFIER IN PLACE. O2 SATS > 92% ON AVG, DESATS TO 86% NOTED W/ EXERTION. MONITOR SHOWS ST W/ HR 100s, BP STABLE. PEG TUBE & DOBHOFF IN PLACE, NO ENTERAL FEEDINGS UNTIL 24 HRS AFTER PEG TUBE PLACEMENT (APPROX 1930 TONIGHT). PT CONTINUES HAVING LOOSE BROWN BMs. NO URINARY VOID THIS SHIFT. SKIN CONDITION OVERALL POOR, AREA CLEANSED PRN W/ BMs & PINK BARRIER CREAM APPLIED. Q2H REPOSITIONING TO MAINTAIN SKIN INTEGRITY. WILL CONTINUE TO MONITOR & REPORT OFF TO ONCOMING RN.
[2021-04-12 04:45] LABS: Hematocrit 25.8 % (33.0-51.0); Hemoglobin 8.6 g/dL (11.5-16.0)
[2021-04-12 05:03] LABS: Albumin, Blood 2.1 g/dL (3.4-5.0); Anion Gap 10 mmol/L (6-16); Blood Urea Nitrogen 78 mg/dL (8-24); Bun/Creatinine Ratio 15.8 (12.0-20.0); CO2, Blood 26 mmol/L (21-32); Calcium, Blood 9.3 mg/dL (8.5-10.1); Chloride, Blood 98 mmol/L (98-108); Creatinine, Blood 4.95 mg/dL (0.40-1.00); Glomerular Filtration Rate 10 (60-); Glucose, Blood 127 mg/dL (70-99); Phosphorus, Blood 4.4 mg/dL (2.5-4.9); Potassium, Blood 3.5 mmol/L (3.5-5.5); Sodium, Blood 134 mmol/L (136-145)
--- NOTE | 2021-04-12 06:35 | NUR ---
END OF SHIFT SUMMARY: SPOKE WITH DR. HARRIS THIS MORNING AND SHE WILL BE MADE PCU STATUS TODAY. PATIENT STILL ALERT BUT RARELY NODS HEAD TO QUESTIONS OR WANTS TO PARTICIPATE IN CARE. HOWEVER, SHE WAS A LITTLE MORE COOPERATIVE THIS EVENING. MINIMAL SECRETIONS FROM TRACH. PATIENT ALSO PLACED IN ISOLATION FOR ESBL IN HER SPUTUM AROUND 0530. BM X2. WOUNDS KEPT DRY POSSIBLE AND CREAMS/POWDER APPLIED FREQUENTLY. WILL RECEIVE DIALYSIS TODAY. NO OTHER CHANGES AT THIS TIME
--- NOTE | 2021-04-12 18:16 | NUR ---
PT TRANSFERRED FROM BED TO CHAIR WITH LIFT ASSIST; PT HAD SEVERAL SMALL LIQUID BM; LOPERAMIDE ADMINISTERED PER MAR; BEDBATH GIVEN; PT RECEIVED HEMODIALYSIS; BP LOWER DURING HD THERAPY WITH MAPS IN 63-71 RANGE; PT HEART RATE IN S. TACH RATE 100-119; PT RECEIVED ORAL CARE Q4H AND WAS REPOSITIONED IN BED OR CHAIR Q2H; PT'S HANDS AND FACE WASHED; AIDAN AREA CAREFULLY CLEANSED AFTER EACH SOILING AND SILICONE BARRIER OINTMENT AND MICONAZOLE POWDER APPLIED TO FOLDS AND AFFECTED AREAS
--- NOTE | 2021-04-13 04:43 | NUR ---
PT STARTED TO SOUND WHEEZY AND HAD DIFFICULTY BREATHING. ATTEMPTED TO SUCTION TRACH AND GOT SCANT AMOUNT OF DRIED SECRETION. WHEEZING AND DIFFICULTY BREATHING CONTNUED, CHANGED INNER CANULA AND WHEEZING A DIFFICULTY BREATHING RESOLVED.
--- NOTE | 2021-04-13 05:15 | NUR ---
SHIFT SUMMARY PATIENT IS ALERT AND ORIENTED X SELF AND FOLLOWING DIRECTION, HARD TO ORIENTATION D/T PT NOT SPEAKING, NODS HEAD YES/NO. WHEN SHE DOES NOT WANT TO ANSWER SHE CLOSES HER EYES OR TURNS AWAY. WITHDRAWN ALL SHIFT. 02 SATS VARY AT TIMES SHE TOLERATES RA AND AT ONE POINT DURING THE NIGHT SHE DESATURATED INTO THE 60s WHEN THE 02 TUBING BECAME DISCONNECTED. SUCTIONED PRN, AND INNER CANULA CHANGED BECUASE SECRETION DRIED IN THE CANULA. BP STABLE. Q2 HOUR TURNING AND BRIEF CHANGES, LOOSE BM EACH TIME. WOUND CARE PROVIDED. CALL LIGHT IN REACH.
[2021-04-13 06:44] LABS: Hematocrit 25.2 % (33.0-51.0); Hemoglobin 8.2 g/dL (11.5-16.0)
[2021-04-13 07:05] LABS: Anion Gap 9 mmol/L (6-16); Blood Urea Nitrogen 48 mg/dL (8-24); Bun/Creatinine Ratio 14.9 (12.0-20.0); CO2, Blood 29 mmol/L (21-32); Calcium, Blood 9.5 mg/dL (8.5-10.1); Chloride, Blood 97 mmol/L (98-108); Creatinine, Blood 3.22 mg/dL (0.40-1.00); Glomerular Filtration Rate 17 (60-); Glucose, Blood 129 mg/dL (70-99); Magnesium, Blood 1.9 mg/dL (1.6-2.4); Phosphorus, Blood 3.1 mg/dL (2.5-4.9); Potassium, Blood 3.2 mmol/L (3.5-5.5); Sodium, Blood 135 mmol/L (136-145)
--- NOTE | 2021-04-13 07:30 | NUR ---
ASSUMED CARE OF PT FROM NOC SHIFT RN. PT RESTING IN BED, AWAKE, NO DISTRESS NOTED. CALL LIGHT IN REACH. MONITORING IN PLACE. RT ROUNDING AT THIS TIME. NO NEEDS IDENTIFIED. WILL CONTINUE TO MONITOR.
--- NOTE | 2021-04-13 18:23 | NUR ---
SHIFT SUMMARY: PT NOTED TO BE RESTLESS IN BED, MOVES HUMIDIFIED O2 AWAY FROM TRACH COLLAR FREQUENTLY. PT REPOSITIONED AND AIDAN CARE/ WOUND CARE PROVIDED FREQUENTLY. PT MEDICATED FOR PAIN PER MD ORDERS. PT APPEARS WITHDRAWN AND DOES NOT ALWAYS ANSWER QUESTIONS OR FOLLOW COMMANDS. PT ENCOURAGED TO BE MORE INVOLVED IN HER CARE. PT HAS BEEN UP TO CHAIR FOR SOME TIME THIS AM. RT CONSULTED DR TRUJILLO ABOUT DECREASING THE SIZE OF HER TRACH TO A 6.0. SUPPLIES AT BEDSIDE FOR CHANGING TRACH IF NEEDED. SPEACH THERAPY IN TO SEE PT THIS AM, PT DID WELL, SEE ST ORDERS. WILL CONTINUE TO MONITOR AND REPORT TO NOC SHIFT RN.
--- NOTE | 2021-04-13 19:30 | NUR ---
ASSUMING PT CARE: PT RESTING W/ EYES CLOSED, RR SHALLOW & SOMEWHAT RAPID. OPENS EYES TO NAME, WILL NOD TO SOME YES/NO QUESTIONS. PT SEEMS WITHDRAWN & ANXIOUS. OFTEN FIGITING & PULLING @ TUBES, LINES. WILL MEDICATE ACCORDINGLY FOR COMFORT SHORTLY. TRACH COLLAR IN PLACE W/ HUMIDIFIED O2 @ 26% FiO2. ABD IS OBESE, NONTENDER, HYPOACTIVE BT. TF @ 35ml/hr. SEE INITIAL SHIFT ASSESSMENT FOR FULL PT ASSESSMENT.
--- NOTE | 2021-04-14 01:30 | NUR ---
UPDATE: PT INCONTINENT OF BOWEL. PIN BALL MACHINE MECHANIC @ BEDSIDE TO ASSIST. PT DID NOT TOLERATE AIDAN-CARE WELL; OPENING HER MOUTH WIDE, GRIMACING & OFTEN REACHING BACK TO GRASP AT HER BUTTOCKS. PT APPEARS VERY PAINFUL WHEN WOUNDS ARE CLEANED. DRY ABD PAD & HYDROGEL PLACED TO GLUTEAL WOUNDS. PT REFUSES TO TURN TO OPPOSITE SIDE, GRASPING ONTO THE RAIL FIRMLY. HOB ELEVATED & PT ASSISTED INTO A POSITION OF COMFORT. WILL REEVALUATE AGAIN SHORTLY.
--- NOTE | 2021-04-14 05:00 | NUR ---
UPDATE: DURING AIDAN-CARE & DRESSING CHANGES, PT FOUND TO HAVE INCREASED BLEEDING FROM WOUNDS W/ BLOOD SMEARED UP HER BACK. PT'S FINGERNAILS APPEARED HEAVILY SOILED W/ BLOOD & STOOL. IT APPEARS PT HAS BEEN ITCHING HER WOUNDS. AGGRESSIVELY. NAILS CLEANED, TRIMMED, & FILED FOR PT SAFETY. PT TOLERATED WELL. DR BEVERLY @ BEDSIDE FOR AM ROUNDING, PLAN FOR DIALYSIS TODAY OR TOMORROW. AWAITING AM LAB DRAW RESULTS.
[2021-04-14 05:51] LABS: Hematocrit 25.8 % (33.0-51.0); Hemoglobin 8.3 g/dL (11.5-16.0)
[2021-04-14 06:11] LABS: Anion Gap 10 mmol/L (6-16); Blood Urea Nitrogen 59 mg/dL (8-24); Bun/Creatinine Ratio 14.6 (12.0-20.0); CO2, Blood 27 mmol/L (21-32); Chloride, Blood 99 mmol/L (98-108); Creatinine, Blood 4.05 mg/dL (0.40-1.00); Glomerular Filtration Rate 13 (60-); Glucose, Blood 142 mg/dL (70-99); Magnesium, Blood 2.1 mg/dL (1.6-2.4); Phosphorus, Blood 3.6 mg/dL (2.5-4.9); Potassium, Blood 3.6 mmol/L (3.5-5.5); Sodium, Blood 136 mmol/L (136-145)
--- NOTE | 2021-04-14 06:15 | NUR ---
SHIFT SUMMARY: PT WAS RESTLESS FOR MOST OF THE NIGHT, OFTEN PULLING @ EQUIPMENT & SCRATCHING HERSELF W/ HER FINGERNAILS. SEE PREVIOUS NOTATIONS. PRN OXYCODONE, FENTANYL, & ATIVAN WERE SOMEWHAT HELPFUL IN MITIGATING HER AGITATION, ALLOWING HER TO REST FOR SHORT PERIODS OF TIME. DURING DRESSING CHANGES PT WAS ABLE TO FOLLOW SOME COMMANDS, GRASPING @ SIDERAIL FOR TURNS. HOWEVER PT WAS VERY OPPOSED TO HAVING THE GROIN CLEANED, CLENCHING HER LEGS CLOSED. A DRY FLOW FOLDED BETWEEN THE LEGS HAS BEEN HELPFUL IN KEEPING THE AREA FREE OF STOOL. PLAN FOR TRACH SIZE CHANGE TODAY FROM AN 8.0 TO A 6. WILL CONTINUE TO MONITOR & REPORT APPROPRIATE.
--- NOTE | 2021-04-14 12:22 | NUR ---
REASSESSMENT PT SPENT MOST OF THE MORNING IN THE DIALYSIS ROOM HAVING DIALYSIS. SHE CONTINUES WITH HUMIDIFIED AIR VIA TRACH COLLAR AND IS TOLERATING IT WELL. LUNGS ARE CLEAR, DIM IN THE BASES. STILL ST WITH RATE IN THE LOW 100S, BP STABLE. GENERALIZED EDEMA. WOUNDS ON HER BUTTOCKS ARE BLEEDING, BUT SKIN AROUND THEM IS INTACT. WOUND CARE DONE PER ORDERS. THE ONLY INTERACTION OR CHANGE IN FACIAL EXPRESSION IS GRIMACING WHEN PT'S BOTTOM IS GETTING CLEANED. OTHERWISE SHE HAS NOT BEEN TRYING TO ANSWER QUESTIONS ALTHOUGH SHE LOOKS AT WHOMEVER IS IN THE ROOM AND WILL TRACK THEM IF THEY ARE CLOSE TO HER.
--- NOTE | 2021-04-14 16:41 | NUR ---
SHIFT SUMMARY PT HAS BEEN RESTING IN BED THIS AFTERNOON. HER TRACH WAS CHANGED OUT TO A SIZE [address] TRUJILLO AND THE RT. SHE WORE THE PMV FOR 3 HOURS BEFORE SHE STARTED TO SHOW INCREASED WORK OF BREATHING SO IT WAS REMOVED. SHE WAS UNABLE TO VERBALIZE ANYTHING WHILE IT WAS ON. SHE JUST APPEARED TO EXHALE A LITTLE MORE FORCEFUL, NOT EVEN TRYING TO MOUTH WORDS. HER LUNGS HAVE A FEW WHEEZES THIS EVENING. STILL MAINTAINING SPO2 ON 26% HUMIDIFIED AIR VIA TRACH COLLAR. ST IN THE LOW 100-110S, BP STABLE. TOELRATING TUBE FEED. PT WAS NOT ALERT ENOUGH THIS SHIFT TO ATTEMPT PO PER SPEECH'S GUIDELINES. STILL HAVING LOOSE STOOLS. WOUND CARE TO BOTTOM PER ORDERS. CONTINUING TO MONITOR.
--- NOTE | 2021-04-14 20:00 | NUR ---
ASSUMING PT CARE: PT IN A L SIDE LAYING POSITION IN BED. OPENS EYES TO NAME, DOES NOT RESPOND OR FOLLOW COMMANDS. VERY RESTLESS. PULLING @ CORDS, FREQUENT SCRATCHING.SPO2 >90%. HR 90s. PT APPEARS FLUSHED. BLANKETS REMOVED & GIVEN TOP SHEET. BEDSIDE FAN BLOWING ON PT. SEE SHIFT ASSESSMENT.
--- NOTE | 2021-04-15 01:00 | NUR ---
UPDATE: INC O2 REQUIREMENTS DESPITE POSITION CHANGES, PRN MEDS, & SUCITON, PT CONTINUES TO BE VERY RESTLESS. PT PULLING @ EQUIPMENT, REMOVING LEADS, NOW TACHYCARDIC IN THE 130s W/ SATS 85-89%. RT CALLED TO BEDSIDE TO ASSESS TRACH COLLAR & HUMIDIFIED AIR SET UP. FiO2 INC TO 40%. SATS NOW 97%. PT SAT UP IN SEMI-FOWLERS, APPEARS MUCH MORE COMFORTABLE.
[2021-04-15 04:38] LABS: Hematocrit 24.4 % (33.0-51.0); Hemoglobin 7.7 g/dL (11.5-16.0)
[2021-04-15 04:57] LABS: Albumin, Blood 1.9 g/dL (3.4-5.0); Anion Gap 8 mmol/L (6-16); Blood Urea Nitrogen 46 mg/dL (8-24); Bun/Creatinine Ratio 15.7 (12.0-20.0); CO2, Blood 31 mmol/L (21-32); Calcium, Blood 9.6 mg/dL (8.5-10.1); Chloride, Blood 97 mmol/L (98-108); Creatinine, Blood 2.93 mg/dL (0.40-1.00); Glomerular Filtration Rate 19 (60-); Glucose, Blood 118 mg/dL (70-99); Magnesium, Blood 1.8 mg/dL (1.6-2.4); Phosphorus, Blood 3.1 mg/dL (2.5-4.9); Potassium, Blood 3.4 mmol/L (3.5-5.5); Sodium, Blood 136 mmol/L (136-145)
--- NOTE | 2021-04-15 05:53 | NUR ---
SHIFT SUMMARY: PT's O2 REQUIREMENTS INCREASED SOMEWHAT T/O THE NIGHT. ONCE SHE WAS MEDICATED FOR PAIN & ANXIETY, SPO2 INC TO 99% ON 40%FiO2 & SHE WAS ABLE TO REST SOUNDLY FOR SEVERAL HOURS. PT ABLE TO PRODUCE A WEAK COUGH WHICH IS AN IMPROVEMENT, TRACH SUCTIONED SEVERAL TIMES W/ THICK & DELGADO SPUTUM. AIDAN AREA CLEANED SEVERAL TIMES & DRESSED W/ PINK BARRIER CREAM & ABD PADS. THIS APPEARS TO BE WORKING VERY WELL, WOUNDS APPEAR MORE CLEAN & PROTECTED FROM STOOL DURING BED CHANGES. NO ACUTE NEG CHANGES THIS SHIFT.
--- NOTE | 2021-04-15 10:43 | NUR ---
AM NOTE... ASSUMED CARE OF PT AT 0700, PT IS A&O BUT IT IS UNKNOWN HOW ORIENTED SHE IS D/T HER BEING WITHDRAWN, PT FIGHTS CARE AT TIMES ESPECIALLY TURNS AND AIDAN CARE. PT HAS HUMIDIFIED AIR AT 26% GOING INTO HER TRACH, TRACH IS A 6 SHILEY. PT'S L/S COARSE WITH EXP WHEEZES, PT'S TRACH WAS SUCTIONED AND A SMALL AMOUNT OF THICK YELLOW SECRETIONS CAME UP. PT'S TUBE FEEDINGS RUNNING PER ORDERS AT GOAL OF 35MLS/HR PT HAD 100MLS OF RESIDUAL NOTED AND REINSTILLED THIS AM. PT'S PEG TUBE IS SECURE WITH DRESSING C/D/I. PT HAS 1+ EDEMA NOTED TO HER BLE AND BUE WELL GENERALIZED DEPENDENT EDEMA. PT'S BP WAS SOFT THIS AM, METOPROLOL AND ALDACTONE HELD THIS AM. PT'S WOUNDS WERE CLEANED AND DRESSED PER ORDERS. CALL LIGHT IN REACH WILL CONTINUE TO MONITOR.
--- NOTE | 2021-04-15 18:48 | NUR ---
SHIFT SUMMARY... NO ACUTE NEGATIVE CHANGES NOTED THIS SHIFT. PT'S VS HAVE BEEN STABLE. PT HAS SLEPT FOR MOST OF THE SHIFT BUT WAKES EASILY TO VERBAL STIMULI. PT WAS ABLE TO NOD TO YES OR NO QUESTIONS GIVEN A BIT OF TIME IN BETWEEN QUESTIONS. PT'S TRACH SLIPPED OUT A LITTLE AND WAS NOT FLUSH WITH THE PT'S NECK, PT'S O2 SATS DROPPED AND SHE HAD TO BE TURNED UP TO 90%, RT CALLED AND TRACH WAS REPOSITIONED FLUSH AGAINST HER NECK, PT'S O2 SATS IMPROVED AND WAS BACK DOWN TO 26%. CALL LIGHT IN REACH WILL CONTINUE TO MONITOR UNTIL REPORT IS GIVEN TO ONCOMING RN.
[2021-04-16 03:51] LABS: Hematocrit 22.7 % (33.0-51.0); Hemoglobin 7.2 g/dL (11.5-16.0)
[2021-04-16 04:11] LABS: Albumin, Blood 2.2 g/dL (3.4-5.0); Anion Gap 8 mmol/L (6-16); Blood Urea Nitrogen 69 mg/dL (8-24); Bun/Creatinine Ratio 18.3 (12.0-20.0); CO2, Blood 28 mmol/L (21-32); Calcium, Blood 10.2 mg/dL (8.5-10.1); Chloride, Blood 96 mmol/L (98-108); Creatinine, Blood 3.78 mg/dL (0.40-1.00); Glomerular Filtration Rate 14 (60-); Glucose, Blood 141 mg/dL (70-99); Magnesium, Blood 1.9 mg/dL (1.6-2.4); Phosphorus, Blood 2.5 mg/dL (2.5-4.9); Potassium, Blood 3.7 mmol/L (3.5-5.5); Sodium, Blood 132 mmol/L (136-145)
--- NOTE | 2021-04-16 05:51 | NUR ---
shift summary pt rested well through night. alert, but it not oriented. did not verbalize at all through night. sats >90% on 10l via trach at 26% fio2. tele sinus tach. incontinent stool, frequent changes done. wound care done on patient's bottom. q2 turns. aneuric. suctioned trach x3, as pt was coughing and could audibly hear congestion. not visibly in pain. appears comfortable. vss. call light within reach, bed in lowest position. will continue to monitor.
--- NOTE | 2021-04-16 10:30 | NUR ---
Care Assumed 0700 Pt nods yes when asked if she is in pain but otherwise unable to follow commands. Attempting to touch her bottom when asked if in pain. Treated per emar. Pt has trach in place with 9 LPM via trach collar, FIO2 26%. Pt has TF @ 35 ml/hr, goal per order. Multiple wounds t/o, see wound assessment. Pt had loose BM and bedbath completed. Pt taken to dialysis via bed around 0930. VSS. Reamins in sinus tach.
--- NOTE | 2021-04-16 14:19 | NUR ---
Met pt lying in bed sleeping and weak , offered prayers for her and blessed pt.
--- NOTE | 2021-04-16 15:46 | NUR ---
Update- pt to moved to PCU 10 Pt returned from dialysis at 1300. VSS. Remains in Sinus tach. No neuro changes, nods yes/no to simple questions such as are you in pain or do you know where you are. Pt updated on care being provided. TF increased to 45 ml/hr. Pt has weak manufacturer. Called PCU nurse to give report, message left.
--- NOTE | 2021-04-16 17:00 | NUR ---
TRANSFERRED TO U 10 VIA BED Pt to U 10 VIA BED. ALL BELONGINGS SENT WITH PT. TF INCREASED TO RATE OF 50, GOAL RATE. REPORT GIVEN TO U 10 NURSE. ALL QUESTIONS ANSWERED. VSS UPON TRANSFER.
--- NOTE | 2021-04-16 18:47 | NUR ---
REPORT RECEIVED FROM STARR RN, PT TRANSFERRED TO PCU 10.
[2021-04-17 04:02] LABS: Hematocrit 26.2 % (33.0-51.0); Hemoglobin 8.6 g/dL (11.5-16.0)
[2021-04-17 04:20] LABS: Anion Gap 7 mmol/L (6-16); Blood Urea Nitrogen 59 mg/dL (8-24); Bun/Creatinine Ratio 19.7 (12.0-20.0); CO2, Blood 30 mmol/L (21-32); Calcium, Blood 9.5 mg/dL (8.5-10.1); Chloride, Blood 94 mmol/L (98-108); Glomerular Filtration Rate 18 (60-); Glucose, Blood 135 mg/dL (70-99); Magnesium, Blood 1.9 mg/dL (1.6-2.4); Phosphorus, Blood 1.8 mg/dL (2.5-4.9); Potassium, Blood 3.5 mmol/L (3.5-5.5); Sodium, Blood 131 mmol/L (136-145)
--- NOTE | 2021-04-17 05:47 | NUR ---
shift summary pt rested well through night. alert, but withdrawn and lethargic. appears to understand some commands, but was nonverbal all night. sats >90% on 9l via trach/ 26%fio2. tele sinus tach. suctioned trach x3 - with thick sputum coming out. aneuric, but has frequent loose bm's. buttocks are very beefy red/bleeding. cream and wound care done during arnulfo cleaning. did not appear to be in distress or in any pain. q2 turns. call light within reach, curtain open for better visualization. bed in lowest position. will continue to monitor.
--- NOTE | 2021-04-17 13:49 | NUR ---
Met pt in bed and her nurse in the room attending to her needs offered prayers for pt.
[2021-04-17 16:59] LABS: Hematocrit 26.5 % (33.0-51.0); Hemoglobin 8.7 g/dL (11.5-16.0); Mean Corpuscular HGB 31.2 pg (26.0-34.0); Mean Corpuscular HGB Conc 32.8 g/dL (31.5-36.5); Mean Corpuscular Volume 95 fL (80-100); Mean Platelet Volume 9.2 fL (9.1-12.4); NRBC ABSOLUTE 0.02 K/mm3 (0.00-0.02); NRBC Auto 0.1 /100 WBC (0.0-0.2); Platelet Count 195 K/mm3 (150-400); RDW Coefficient Variation 21.2 % (11.7-14.2); RDW Standard Deviation 70.5 fL (35.1-46.3); Red Blood Cell Count 2.79 M/mm3 (3.80-5.20); White Blood Cell Count 16.69 K/mm3 (4.00-11.30)
[2021-04-17 17:27] LABS: BAND PERCENT MAN 2 % (0-8); BASOPHILS ABSOLUTE MAN 0.33 K/mm3 (0.00-0.23); BASOPHILS PERCENT MAN 2 % (0-2); EOSINOPHILS PERCENT MAN 0 % (0-6); LYMPHOCYTES ABSOLUTE MAN 2.83 K/mm3 (0.84-5.20); LYMPHOCYTES PERCENT MAN 17 % (21-46); MONOCYTES ABSOLUTE MAN 2.16 K/mm3 (0.16-1.47); MONOCYTES PERCENT MAN 13 % (4-13); NEUTROPHILS ABSOLUTE MAN 11.34 K/mm3 (1.96-9.15); SEG NEUTROPHILS PERCENT MAN 66 % (41-73); TOTAL CELLS COUNTED 100
--- NOTE | 2021-04-17 19:15 | NUR ---
PT SUCTIONED 2X USING ASEPTIC INLINE KIT WITH 3 PASSES EACH TIME, PT REPOSITIONED Q2H WITH PILLOWS, PT RECEIVED ORAL CARE Q4H, PT RECEIVED TRACH CARE, AIDAN CARE, AND PEG STOMAL CARE, PT'S FEED TUBE FLUSHED PROXIMALLY 3X MANUALLY AND TUBE FEED TUBING SYSTEM CHANGED AT 1200, BLOOD SPECIMEN ASPIRATED FROM PICC PROXIMAL LUMEN FOR LABORATORY COLLECTION, PT RECEIVED ALBUMIN PER MAR AND HEMODIALYSIS THERAPY WAS INITIATED BY NURSE HOBSON, PT RECEIVED PRAYER VISIT FROM FLY TIER, NO CALLS RECEIVED BY RN FROM FAMILY
[2021-04-18 04:38] LABS: Hematocrit 25.9 % (33.0-51.0); Hemoglobin 8.5 g/dL (11.5-16.0)
[2021-04-18 04:54] LABS: Albumin, Blood 2.5 g/dL (3.4-5.0); Anion Gap 11 mmol/L (6-16); Blood Urea Nitrogen 93 mg/dL (8-24); Bun/Creatinine Ratio 24.3 (12.0-20.0); CO2, Blood 28 mmol/L (21-32); Calcium, Blood 10.1 mg/dL (8.5-10.1); Chloride, Blood 89 mmol/L (98-108); Creatinine, Blood 3.83 mg/dL (0.40-1.00); Glomerular Filtration Rate 14 (60-); Glucose, Blood 133 mg/dL (70-99); Phosphorus, Blood 3.3 mg/dL (2.5-4.9); Potassium, Blood 3.5 mmol/L (3.5-5.5); Sodium, Blood 128 mmol/L (136-145)
--- NOTE | 2021-04-18 06:21 | NUR ---
shift summary pt rested most of night. alert, but does not verbalize with staff. sats >90% on trach with 9L blowby. suctioned via trach x4. tele nsr/sinus tach. q2 turns. aneuric. 2 loose bm's, bed bath complete. 4L removed via corn press operator at bedside. possible dialysis again today. peg in place with tube feeds running at goal, minimal resdiual. does not appear to be in any pain. vss. call light wihtin reach, bed in lowest position. will continue to monitor.
--- NOTE | 2021-04-18 11:40 | NUR ---
UPDATE: ASSUMED CARE OF PT AFTER RECEIVING REPORT THIS AM FROM LEORA MONTILLA. NO ACUTE CHANGES IN PT CONDITION. PT CONTINUES ALERT TO STAFF ENTERING ROOM BUT DOES NOT INTERACT, MAINTAINING O2 SATS >92%, TRACH IS PATENT WITH 8 L/MIN BLOW BY IN PLACE, SR/ST ON MONITOR. Q2H TURNS AND ORAL CARE PER ORDERS. PT TO DIALYSIS THIS AM AT APPROX 0930, PT CONTINUES IN DIALYSIS. PT HAS RECEIVED NEW ROOM ASSIGNMENT IN MEDICAL DEPT.
--- NOTE | 2021-04-18 18:00 | NUR ---
SHIFT SUMMARY TRANSFERRED FROM PCU AT 1220. SOFT BP'S, 1400 ALDACTONE HELD. TALKBACK HOST NOTIFIED DURING ROUNDS. REMAINS ON 8 L VIA TRACH COLLAR.
--- NOTE | 2021-04-18 18:02 | NUR ---
TRACH CARE COMPLETED AT 1400: INNER CANNULA CHANGED, TRACH TIES CHANGED. SITE CLEANSED WITH 50% PEROXIDE, 50% STERILE WATER. PATIENT CLEARS OWN SECRETIONS WELL, MODERATE AMOUNT OF DELGADO SECRETIONS.
--- NOTE | 2021-04-19 02:29 | NUR ---
PEG TUBE REMAINS CLOGGED, CHARGE NURSE AND MYSELF MULTIPLE ATTEMPTS TO DE CLOG IT WITH SODA. CALL PLACED TO MD SMOKING PIPE MOUNTER AND MD STATED IF UNABLE TO DE CLOG IT, TO PASS IT ON TO AM NURSE AND HAVE THEM CALL THE MD IN THE AM TO EITHER DECLOG IT OR REPLACE IT. IVF INFUSING. ISOLATION CONTINUES. CALL LIGHT IN REACH.
--- NOTE | 2021-04-19 03:24 | NUR ---
JOINERS SUPERVISOR SUMMARY PEG TUBE CLOGGED NEAR SHIFT COMMENCE. IVF INFUSING. TRACHE CARE WAS DONE, INNER CANNULA CHANGED PT HAD THICK SECRETIONS. RT ASSESSED AND TREATMENTS DONE. CONTINUE TO MAKE ATTEMPTS TO UNCLOG PEG TUBE, BUT IF UNABLE TO AM RN TO F/U WITH MD FOR ASSESSMENT AND POSSIBLE REPLACEMENT. NEURO CHECKS DONE, CARROTING MACHINE OFFBEARER EQUAL, NODS TO FEELING IN ALL 4 EXT. POSITIVE BILAT BABINSKI. PEG DRESSING CHANGED PT PULLED IT OFF. RAILS UP X 3. HOB ELEVATD 45-50 DEGREES. ISOLATOIN PRECATIONS MAINTAINED.
[2021-04-19 06:47] LABS: Hematocrit 26.3 % (33.0-51.0); Hemoglobin 8.6 g/dL (11.5-16.0)
[2021-04-19 07:06] LABS: Albumin, Blood 2.5 g/dL (3.4-5.0); Anion Gap 11 mmol/L (6-16); Blood Urea Nitrogen 75 mg/dL (8-24); Bun/Creatinine Ratio 22.3 (12.0-20.0); CO2, Blood 28 mmol/L (21-32); Calcium, Blood 9.8 mg/dL (8.5-10.1); Chloride, Blood 90 mmol/L (98-108); Creatinine, Blood 3.37 mg/dL (0.40-1.00); Glomerular Filtration Rate 16 (60-); Glucose, Blood 123 mg/dL (70-99); Magnesium, Blood 2.1 mg/dL (1.6-2.4); Phosphorus, Blood 3.2 mg/dL (2.5-4.9); Potassium, Blood 3.2 mmol/L (3.5-5.5); Sodium, Blood 129 mmol/L (136-145)
--- NOTE | 2021-04-19 17:17 | NUR ---
SUMMARY PT RESTING QUIETLY IN BED, PT HAS WORKED WITH PT/OT TODAY, STOOD WITH ASSIST, PEG TUBE UNCLOGGED, TUBE FEEDING REGIMEN CHANGED, PT MED PER EMAR FOR PAIN AND ANXIETY, CREAM AND POWDER APPLIED TO HER AIDAN AREA AND BUTTOCKS, PT SUCTIONED VIA TRACH A FEW TIMES TODAY, PT DIVYA WELL, TRACH INNER CANNULA CHANGED BY RT TODAY, PT DIVYA WELL, VSS, WILL CONTINUE TO MONITOR
--- NOTE | 2021-04-19 23:01 | NUR ---
HS MEDICATIONS ADMINISTERED. PEG TUBE FEEDING INFUSING PER MD ORDERS - WILL INCREASE TO 75/ML. WARM BLANKET APPLIED. MORE COMPLIANT WITH INSTRUCTIONS THAN NOTED 24 HR PREVIOUS. ISOLATION PRECAUTIONS MAINTAINED
[2021-04-20 05:10] LABS: BASOPHILS ABSOLUTE AUTO 0.12 K/mm3 (0.00-0.23); BASOPHILS PERCENT AUTO 1 % (0-2); EOSINOPHILS PERCENT AUTO 0 % (0-6); Hematocrit 27.2 % (33.0-51.0); Hemoglobin 8.8 g/dL (11.5-16.0); IMMATURE GRAN ABSOLUTE AUTO 0.14 K/mm3 (0.00-0.10); IMMATURE GRAN PERCENT AUTO 1 % (0-1); LYMPHOCYTES ABSOLUTE AUTO 2.87 K/mm3 (0.84-5.20); LYMPHOCYTES PERCENT AUTO 17 % (21-46); MONOCYTES ABSOLUTE AUTO 2.77 K/mm3 (0.16-1.47); MONOCYTES PERCENT AUTO 17 % (4-13); Mean Corpuscular HGB 31.4 pg (26.0-34.0); Mean Corpuscular HGB Conc 32.4 g/dL (31.5-36.5); Mean Corpuscular Volume 97 fL (80-100); NEUTROPHILS ABSOLUTE AUTO 10.65 K/mm3 (1.96-9.15); NEUTROPHILS PERCENT AUTO 65 % (41-73); Platelet Count 204 K/mm3 (150-400); RDW Coefficient Variation 20.7 % (11.7-14.2); RDW Standard Deviation 70.7 fL (35.1-46.3); White Blood Cell Count 16.55 K/mm3 (4.00-11.30)
[2021-04-20 05:34] LABS: BAND PERCENT MAN 1 % (0-8); BASOPHILS ABSOLUTE MAN 0.33 K/mm3 (0.00-0.23); BASOPHILS PERCENT MAN 2 % (0-2); EOSINOPHILS PERCENT MAN 0 % (0-6); LYMPHOCYTES ABSOLUTE MAN 2.64 K/mm3 (0.84-5.20); LYMPHOCYTES PERCENT MAN 16 % (21-46); MONOCYTES ABSOLUTE MAN 1.65 K/mm3 (0.16-1.47); MONOCYTES PERCENT MAN 10 % (4-13); NEUTROPHILS ABSOLUTE MAN 11.91 K/mm3 (1.96-9.15); SEG NEUTROPHILS PERCENT MAN 71 % (41-73); TOTAL CELLS COUNTED 100
[2021-04-20 05:38] LABS: Albumin, Blood 2.4 g/dL (3.4-5.0); Albumin/Globulin Ratio 0.5 (0.8-1.8); Bilirubin, Total 2.6 mg/dL (0.1-1.0); Bun/Creatinine Ratio 25.7 (12.0-20.0); Calcium, Blood 10.4 mg/dL (8.5-10.1); Creatinine, Blood 4.24 mg/dL (0.40-1.00); Globulin, Blood 4.7 g/dL (2.2-4.0); Magnesium, Blood 2.3 mg/dL (1.6-2.4); Phosphorus, Blood 3.4 mg/dL (2.5-4.9); Potassium, Blood 3.6 mmol/L (3.5-5.5); Total Protein, Blood 7.1 g/dL (6.4-8.2)
--- NOTE | 2021-04-20 06:11 | NUR ---
CARBIDE GRINDER SUMMARY HAS BEEN RESTING WITH INTERMITTENT EPISODES OF WAKEFULNESS. HOB REMAINS 30-45 DEGREES ELEVATED SHE HAS PEG TUBE WITH CONTINUOUS FEEDING, CURRENTLUY AT 75 ML/HR AND SCHEDULED FLUSHES OF WATER. MEDICATED ONCE FOR PAIN. INCONT OF FECES, CLEANED. WOUNDS CLEANED. ISOLATION PRECAUTIONS CONTINUE/MAINTAINED. TRACHE CARE DONE.
--- NOTE | 2021-04-20 17:12 | NUR ---
SUMMARY PT RESTING QUIETLY IN BED, PT WAKES EASILY, REMAINS ON THE TRACH, PT WILL REMOVE THE HUMIDIFIED AIR FREQUENTLY, MOUTHING THE WORDS "TOO HOT", FAN GIVEN TO THE PT WITH GOOD RESULTS, PT HAD DIALYSIS TODAY, DIVYA WELL, PT CONT TO HAVE LOOSE STOOLS AND HAS SKIN BREAKDOWN TO HER AIDAN AREA AND BUTTOCKS OOZING BLOOD WITH ANY CLEANUP, RECTAL TUBE INSERTED, PT DIVYA WELL, TUBE FEEDS STARTED AT 1700 PER ORDER, PT MED PER EMAR FOR PAIN, VSS, WILL CONT TO MONITOR
[2021-04-21 05:24] LABS: Hematocrit 28.6 % (33.0-51.0); Hemoglobin 9.2 g/dL (11.5-16.0)
--- NOTE | 2021-04-21 05:27 | NUR ---
SHIFT SUMMARY ALERT, DIFFICULT TO UNDERSTAND. MOUTHS WORDS, DEFINITE LANGUAGE BARRIER. ATTEMPTED TO UTILIZE NOTEPAD AND PEN, THEN PICTURE BOARD; BOTH WITH GREAT DIFFICULTY. COOPERATIVE WITH CARE. C/O PAIN/DISCOMFORT; MEDICATED PER EMAR. REMAINS WITH TRACH. NPO. TUBE FEEDINGS DURING THE NIGHT; TOLERATED WELL. APPEARED TO REST WELL OVERNIGHT. BED REMAINS IN LOWEST POSITION. CALL LIGHT AND BELONGINGS WITHIN REACH. CONTINUE WITH CURRENT PLAN OF CARE. REPORT TO ONCOMING RN.
[2021-04-21 06:18] LABS: Albumin, Blood 2.3 g/dL (3.4-5.0); Anion Gap 9 mmol/L (6-16); Blood Urea Nitrogen 74 mg/dL (8-24); Bun/Creatinine Ratio 25.4 (12.0-20.0); CO2, Blood 27 mmol/L (21-32); Calcium, Blood 9.9 mg/dL (8.5-10.1); Chloride, Blood 94 mmol/L (98-108); Creatinine, Blood 2.91 mg/dL (0.40-1.00); Glomerular Filtration Rate 19 (60-); Glucose, Blood 153 mg/dL (70-99); Magnesium, Blood 2.2 mg/dL (1.6-2.4); Phosphorus, Blood 2.3 mg/dL (2.5-4.9); Potassium, Blood 4.4 mmol/L (3.5-5.5); Sodium, Blood 130 mmol/L (136-145)
--- NOTE | 2021-04-21 22:00 | NUR ---
EMESIS HAD BOUT OF EMESIS DIRECTLY AFTER MEDICATION ADMINISTRATION. DID NOT SAY NAUSEATED AT TIME OF ADMINISTRATION. STATED PAINFUL TO UPPER QUADRANTS AROUND PEG TUBE MOSTLY. STOPPED FEEDINGS AT THAT TIME AND WILL RE-ASSESS IN A FEW HOURS.
--- NOTE | 2021-04-22 01:00 | NUR ---
ABDOMINAL RE-ASSESSMENT BOWEL TONES HYPOACTIVE. STATES ENTIRE ABDOMEN PAINFUL; RATED 8/10. NOT NAUSEATED, BUT VERY PAINFUL. NO RESIDUAL AT THIS TIME. STATES IS NOT HUNGRY AND DOES NOT WANT TO RESUME FEEDINGS AT THIS TIME.
[2021-04-22 05:31] LABS: Hemoglobin 9.2 g/dL (11.5-16.0)
--- NOTE | 2021-04-22 05:46 | NUR ---
SHIFT SUMMARY A/O, CONTINUED DIFFICULTY UNDERSTANDING. COOPERATIVE WITH CARE. C/O PAIN/DISCOMFORT TO ABDOMEN DIFFUSELY; MEDICATED PER EMAR. STOPPED TUBE FEEDINGS STOPPED T/O THE NIGHT; PATIENT REFUSED TO HAVE THEM RE-INSTATED. APPEARED TO REST MUCH OF THE NIGHT AFTER PREVIOUS NOTE PLACEMENT. REPOSITIONED TOLERATED. NO OTHER ACUTE CHANGES NOTED. VSS/AFEBRILE. BED REMAINS IN LOWEST POSITION. CALL LIGHT AND BELONGINGS WITHIN REACH. CONTINUE WITH CURRENT PLAN OF CARE. REPORT TO ONCOMING RN.
[2021-04-22 06:04] LABS: Albumin, Blood 2.3 g/dL (3.4-5.0); Anion Gap 11 mmol/L (6-16); Blood Urea Nitrogen 106 mg/dL (8-24); Bun/Creatinine Ratio 26.4 (12.0-20.0); CO2, Blood 26 mmol/L (21-32); Chloride, Blood 90 mmol/L (98-108); Creatinine, Blood 4.01 mg/dL (0.40-1.00); Glomerular Filtration Rate 13 (60-); Glucose, Blood 131 mg/dL (70-99); Magnesium, Blood 2.1 mg/dL (1.6-2.4); Phosphorus, Blood 4.6 mg/dL (2.5-4.9); Potassium, Blood 3.2 mmol/L (3.5-5.5); Sodium, Blood 127 mmol/L (136-145)
--- NOTE | 2021-04-22 17:24 | NUR ---
PT HAS HAD FEEDING HELD UNITL DIETARY CAN ADJUST FEED. PT CONTINUES TO HAVE DIARRHEA, FEEDING TO BE ADJUSTED FRIDAY WHEN DIETARY IS IN. KIERA WEBER NEPHRO FORMULA DT DIARRHEA. PT HAS PULLED OUT RECTAL TUBE TWICE THIS SHIFT, DC PER KIERA. PT CONTINUES TO REQUIRE SUCTIONING BUT IS ABLE TO COUGH UP SOME PHLEM. COMMUNICATION REMAINS DIFFICULT AND PT EITHER REFUSES TO NOD OR SHAKE HEAD IN RESPONCE TO QUESTIONS OR DOESNT UNDERSTAND WHAT IS BEING ASKED. NURSE IS NOT SURE WHICH. PT WILL OFTEN RETURN A QUESTION WITH A BLANK STARE WHEN A SHAKE OR NOD OF THE HEAD IS INDICATED. PT HAS RECEIVED WATER THROUHG PEGG AFTER PLACEMENT WAS VERIFIED. PT HAS NOT VOMITTED THIS SHIFT BUT STILL REPORTS PAIN TO ABDOMEN.
--- NOTE | 2021-04-23 05:00 | NUR ---
SHIFT SUMMARY A/O, WITH DIFFICULTY COMMUNICATING NEEDS. WANTS TO SPEAK IN SENTENCES, BUT WORD STRUCTURE RUNS TOGETHER R/T LITTLE ENUNCIATION. NO C/O PAIN/DISCOMFORT; HOWEVER WHEN ASSESSING ABDOMEN, NOTICED GUARDING. NO FEEDINGS OVERNIGHT; H20 GIVEN THROUGH GRAVITY. TOLERATED MEDS. NO EMESIS. SUCTION PROVIDED BY RN's AND RT OVERNIGHT. APPEARED TO REST WELL. NO ACUTE CHANGES NOTED OVERNIGHT. STATES WANTS TO TRY HARDER WITH PT. BED REMAINS IN LOWEST POSITION. CALL LIGHT AND BELONGINGS WITHIN REACH. CONTINUE WITH CURRENT PLAN OF CARE. REPORT TO ONCOMING RN.
[2021-04-23 05:01] LABS: Hematocrit 35.3 % (33.0-51.0); Hemoglobin 11.4 g/dL (11.5-16.0)
[2021-04-23 05:34] LABS: Albumin, Blood 2.2 g/dL (3.4-5.0); Anion Gap 9 mmol/L (6-16); Blood Urea Nitrogen 66 mg/dL (8-24); Bun/Creatinine Ratio 22.1 (12.0-20.0); CO2, Blood 27 mmol/L (21-32); Chloride, Blood 93 mmol/L (98-108); Creatinine, Blood 2.98 mg/dL (0.40-1.00); Glomerular Filtration Rate 19 (60-); Glucose, Blood 111 mg/dL (70-99); Phosphorus, Blood 2.8 mg/dL (2.5-4.9); Sodium, Blood 129 mmol/L (136-145)
[2021-04-23 08:12] LABS: BASOPHILS ABSOLUTE AUTO 0.09 K/mm3 (0.00-0.23); BASOPHILS PERCENT AUTO 1 % (0-2); Hematocrit 35.6 % (33.0-51.0); Hemoglobin 11.4 g/dL (11.5-16.0); LYMPHOCYTES ABSOLUTE AUTO 2.15 K/mm3 (0.84-5.20); LYMPHOCYTES PERCENT AUTO 18 % (21-46); MONOCYTES ABSOLUTE AUTO 1.97 K/mm3 (0.16-1.47); MONOCYTES PERCENT AUTO 16 % (4-13); Mean Corpuscular HGB 30.8 pg (26.0-34.0); Mean Corpuscular Volume 96 fL (80-100); Mean Platelet Volume 8.6 fL (9.1-12.4); NRBC ABSOLUTE 0.03 K/mm3 (0.00-0.02); NRBC Auto 0.2 /100 WBC (0.0-0.2); Platelet Count 218 K/mm3 (150-400); RDW Coefficient Variation 21.2 % (11.7-14.2); RDW Standard Deviation 73.7 fL (35.1-46.3); White Blood Cell Count 12.24 K/mm3 (4.00-11.30)
[2021-04-23 08:13] LABS: EOSINOPHILS PERCENT AUTO 0 % (0-6); IMMATURE GRAN ABSOLUTE AUTO 0.14 K/mm3 (0.00-0.10); IMMATURE GRAN PERCENT AUTO 1 % (0-1); NEUTROPHILS ABSOLUTE AUTO 7.89 K/mm3 (1.96-9.15); NEUTROPHILS PERCENT AUTO 65 % (41-73)
--- NOTE | 2021-04-23 12:43 | NUR ---
Met pt. lying in bed resting she is doing fine offered prayers for pt.
--- NOTE | 2021-04-23 17:13 | NUR ---
SUMMARY PT RESTING QUIETLY IN BED, PT HAS BEEN AWAKE OFF AND ON T/O THE DAY, MED PER EMAR FOR PAIN AND ANXIETY, PT DECLINED TO WORK WITH THERAPY TODAY, HAD A CT SCAN, DIVYA WELL, TUBE FEEDS CHANGED, PT DIVYA WELL SO FAR, NO VISITORS SO FAR TODAY, PT'S AIDAN AREA AND BUTOCKS CONTINUE TO BE EXCORIATED, BUT IMPROVED, VASOLINE CREAM APPLIED, VSS, WILL CONT TO MONITOR
--- NOTE | 2021-04-23 17:53 | NUR ---
TRACH INNER CANNULA CHANGED BY RT TODAY
--- NOTE | 2021-04-24 06:08 | NUR ---
SHIFT SUMMARY: AOX3. UNABLE TO SPEAK VERY WELL DUE TO TRACH. DOES MAKE SOME SOFT SOUNDING WORDS OFF AND ON. USES HEAD MOVEMENTS TO ANSWER QUESTIONS. TEARFUL AT TIMES, ANXIOUS, AND APPEARS DOWN MAJORITY OF THE TIME. CONTINUES TO PULL AT HER TRACH BAND. IT IS RUBBING ON THE LEFT OF THE TRACH CAUSING SKIN BREAKDOWN. APPLIED SOFT GUAZE AFTER CLEANING BUT SHE CONTINUED TO REMOVED IT. USES O2 PRN VIA TRACH, SATS 94-95% ON RA. HAD TO DEEP SUCTION X2 DUE TO SECREATION THICK, YELLOW. SHE TOLERATED OK, DID GIVE ATIVAN AFTERWARDS TO HELP. PAIN IN ABDOMIN AND ALL OVER. MEDICATED X2. SKIN BREAKDOWN UNDER PEG TUBE, CLEANSED AND PLACED GAUZE. REDNESS IN SKIN FOLDS OF ABDOMIN AND GROIN. 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 REPOSITIONED. VS WITH LOW BP IN THE 90'S AND HR IN TE 110'S. NO URINE OUTPT. PHOSPHORUS HIGH WILL PROBALLY GET DIALYSIS TODAY. KVO RRUNNING IN PICC LINE. TUBE FEEDING AT 50ML/HR AND TOLERATING WELL. WILL CONTINUE TO MONITOR. CALL LIGHT IN REACH.
[2021-04-24 07:34] LABS: Albumin, Blood 2.2 g/dL (3.4-5.0); Anion Gap 10 mmol/L (6-16); Blood Urea Nitrogen 84 mg/dL (8-24); CO2, Blood 25 mmol/L (21-32); Calcium, Blood 9.4 mg/dL (8.5-10.1); Chloride, Blood 93 mmol/L (98-108); Glomerular Filtration Rate 13 (60-); Glucose, Blood 131 mg/dL (70-99); Magnesium, Blood 2.1 mg/dL (1.6-2.4); Phosphorus, Blood 5.5 mg/dL (2.5-4.9); Potassium, Blood 4.4 mmol/L (3.5-5.5); Sodium, Blood 128 mmol/L (136-145)
--- NOTE | 2021-04-24 09:35 | NUR ---
PT GOING TO DIALYSIS NOW
--- NOTE | 2021-04-24 12:37 | NUR ---
Pt. is doing much better encouraged pt. and offered prayers.
--- NOTE | 2021-04-24 18:07 | NUR ---
SUMMARY PT RESTING IN BED, FAMILY JUST VISITED AND LEFT, MOM STATES SHE WILL BRING CELL PHONE IN FOR THE PT, PT MED PER EMAR FOR PAIN AND ANXIETY PER PEG, PT HAD DIALYSIS TODAY, DIVYA WELL, PT WORKED WITH PT/OT AND STOOD, GOOD PROGRESS, TUBE FEEDS STARTED AT 1730, SUCTIONED PRN VIA TRACH, PT WILL TAKE OFF HUMIDIFIED AIR FREQUENTLY, EDUCATED PT REGARDING THE NEED FOR HUMIDITY, PT EXPRESSED A DESIRE FOR WATER, ORAL SWABS PROVIDED, NO ACUTE CHANGES, WILL CONT TO MONITOR
--- NOTE | 2021-04-25 04:35 | NUR ---
SHIFT SUMMARY: PT HAS A TENDENCY OF PULLING HER OXYGEN MASK OFF FREQUENTLY. EVEN THOUGH HER SATS ARE GOOD ON RA SHE IS IN NEEDD OF HUMIDITY. STARTING TO DEVELOP THICK BROWNISH SPUTUM WHICH MAKES ME WONDER ABOUT HER TUBE FEED, SHE CONTINUES TO LAY HER HEAD DOWN. HAD TO LOCK THE CONTROLS SO SHE COULD NOT DO THAT. INSTRUCTED HER TO LEAVE THE MASK ON TO PREVENT RESPIRITORY FAILURE. PAIN IS STILL CONSTANT BUT IS IMPROVING. HER BOTTOM IS LOOKING A LITTLE BETTER. STOOL WAS SOFT SLIGHTLY FORMED THIS LAST TIME. OPEN TO AIR, ONLY VASALINE ON IT. PEG TUBE FEEDING STILL INFUSING AT 50ML/HR. KVO IV FLUIDS. WILL CONTINUE TO EDUCATE ON NEEDS AND CARE. CALL LIGHT IN REACH ENCOURGED HER TO USE IT MORE OFEN.
[2021-04-25 05:56] LABS: Hematocrit 27.8 % (33.0-51.0); Hemoglobin 8.8 g/dL (11.5-16.0)
[2021-04-25 06:10] LABS: Albumin, Blood 2.3 g/dL (3.4-5.0); Anion Gap 9 mmol/L (6-16); Blood Urea Nitrogen 68 mg/dL (8-24); Bun/Creatinine Ratio 22.3 (12.0-20.0); CO2, Blood 27 mmol/L (21-32); Calcium, Blood 9.1 mg/dL (8.5-10.1); Chloride, Blood 96 mmol/L (98-108); Creatinine, Blood 3.05 mg/dL (0.40-1.00); Glomerular Filtration Rate 18 (60-); Glucose, Blood 135 mg/dL (70-99); Magnesium, Blood 2.3 mg/dL (1.6-2.4); Phosphorus, Blood 5.4 mg/dL (2.5-4.9); Potassium, Blood 4.5 mmol/L (3.5-5.5); Sodium, Blood 132 mmol/L (136-145)
--- NOTE | 2021-04-25 19:08 | NUR ---
PT RESTING BED, ALERT AND ORIENTED TO SELF. PT CONTINUES TO ASK WHERE HER FAMILY IS AND STATES "WHAT IS ALL THIS, WHATS HAPPENING." PT G TUBE MALFUNCTIONED AT START OF SHIFT, MEDS HELD, NOTIFIED. PROVIDER CONSULT PLACED AND G TUBE TO BE REPLACED TOMORROW WELL SWALLOW STUDY. PT TREATED FOR ANXIETY AND PAIN PER EMAR WITH IV MEDS. PT LESIONS REMAIN RED/OPEN AND IRRITATED WITH EACH LOOSE BM. BED IN LOW POSITION AND CALL IGHT WITHIN REACH. STAFF WILL CONT TO MONITOR.
[2021-04-26 05:11] LABS: Hematocrit 26.4 % (33.0-51.0); Hemoglobin 8.4 g/dL (11.5-16.0)
--- NOTE | 2021-04-26 05:24 | NUR ---
SHIFT SUMMARY: ALERT ORIENTED. SLOW TO RESPOND AT TIMES, TROUBLE FINDING THE RIGHT WORDS, HAS TROUBLE SPEAKING OR FORMING WORD SOUNDS, UNABLE TO USE THE WHITE BOARD SHE JUST SCRIBBLES OR FORGETS HOW TO SPELL THE WORD OR WHAT SHE NEEDS. CONCERNED ABOUT SOME FORM OF DEFICIT. NPO- NO MEDS WERE GIVEN. EXCEPT CREAM FOR HER BOTTOM. ONLY 1 STACIA-LOOSE BM NOTED. LESIONS ARE IMPROVING ON HER BOTTOM. SHE IS KEEPING THE HUMITITY ON MORE WHICH IS HELPED TO KEEP AIRWAY CLEAR, ONLY HAD TO DEEP SUCTION ONCE. STILL HAS PERIODS OF CRYING AND BEING VERY UPSET, ATIVAN AND PAIN MEDS WERE GIVEN. REPOSITION Q2, VS WN HER NORMAL LIMIT. CALL LIGHT IS IN REACH, DID PROVIDE COMMUNICATION BOARDS BUT SHE IS YET TO USE THEM.
[2021-04-26 05:40] LABS: Albumin, Blood 2.2 g/dL (3.4-5.0); Anion Gap 10 mmol/L (6-16); Blood Urea Nitrogen 82 mg/dL (8-24); CO2, Blood 24 mmol/L (21-32); Calcium, Blood 9.7 mg/dL (8.5-10.1); Chloride, Blood 95 mmol/L (98-108); Glomerular Filtration Rate 13 (60-); Glucose, Blood 91 mg/dL (70-99); Magnesium, Blood 2.3 mg/dL (1.6-2.4); Phosphorus, Blood 7.4 mg/dL (2.5-4.9); Potassium, Blood 4.8 mmol/L (3.5-5.5); Sodium, Blood 129 mmol/L (136-145)
--- NOTE | 2021-04-26 08:03 | NUR ---
DIALYSIS DUE TO MULT APPTS TODAY FOR PROCEDURES, PT'S DIALYSIS IS BEING HELD UNTIL TOMORROW WITH DR BEVERLY'S APPROVAL.
--- NOTE | 2021-04-26 18:27 | NUR ---
SHIFT SUMMARY NO ACUTE EVENTS THIS SHIFT, VSS. NPO FOR PLACEMENT OF TUBE IN CLOTH MERCERIZER BACK TENDER. IN THE MORNING PT WENT TO CLOTH MERCERIZER BACK TENDER FOR REPLACEMENT OF FEEDING TUBE. DEEP SUCTIONING DONE THIS SHIFT PER RT. PT HAD SEVERAL BOWEL MOVEMENTS TODAY, APPEAR TO BE VERY LOOSE, BUT NOT COMPLETELY LIQUID AT THIS TIME. PT COMPLAINED OF ABDOMINAL PAIN THIS SHIFT, MEDICATED PER EMAR. PT WAS ABLE TO WORK WITH PT/OT THIS SHIFT, WAS ABLE TO TOLERATE BEING UP IN THE RECLINER IN THE ROOM FOR SEVERAL HOURS THIS AFTERNOON. PT WAS ABLE TO MOUTH THAT SHE WANTED ICE WATER FOR MOUTH SWABS. PT WAS ABLE TO INDICATE THAT HER ROOM WAS TOO WARM THIS SHIFT, ENVIRONMENTAL MODIFICATION MADE TO PATIENT SATISFACTION. NO FAMILY AT BEDSIDE THIS SHIFT. DIALYSIS PLANNED FOR TOMORROW, BARIUM SWALLOW STUDY PLANNED FOR TOMORROW PER ST.
[2021-04-27 05:28] LABS: Hematocrit 25.3 % (33.0-51.0)
[2021-04-27 05:57] LABS: Albumin, Blood 2.1 g/dL (3.4-5.0); Anion Gap 10 mmol/L (6-16); Blood Urea Nitrogen 97 mg/dL (8-24); Bun/Creatinine Ratio 18.7 (12.0-20.0); CO2, Blood 25 mmol/L (21-32); Calcium, Blood 9.3 mg/dL (8.5-10.1); Chloride, Blood 94 mmol/L (98-108); Glomerular Filtration Rate 10 (60-); Glucose, Blood 135 mg/dL (70-99); Magnesium, Blood 2.5 mg/dL (1.6-2.4); Potassium, Blood 5.2 mmol/L (3.5-5.5); Sodium, Blood 129 mmol/L (136-145)
--- NOTE | 2021-04-27 05:58 | NUR ---
SHIFT SUMMARY; INCREASE IN FATIQUED TODAY. INCREASE IN SLEEP. TUBE FEED STARTED LATE AFTER MEDICATIONS WAS GIVEN AND TUBE WAS FLUSHED WELL. RAN AT 50CC ALL NIGHT. GAVE PAIN MEDICATION AND ATIVAN ONCE. BP WAS 101/58 BEFORE PM MEDS WITH HR 119. GAVE METOPROLOL WHICH DROPPED HER BP THIS AM TO 81/34. WILL LET DAYSHIFT KNOW. AFEBRILE. WITHHELD HEPARIN DUE TO CONSTANT SLOW BLEEDING FROM SEVERAL OF THE INJECTIONS SITE ON ABDOMIN. BOTTOM ALSO HAS HAD INCREASE IN BLEEDING THE LAST DAY SINCE HEPARIN WAS RESTARTED. 2 PUDDING LIKE STOOLS THIS SHIFT. LEISONS ON BOTTOM ARE IMPROVING SEVERAL ARE ALMOST HEALED. CONTINUES TO PULL OFF HER HUMITIFIED AIR WHICH HAS CAUSED HER SECREATIONS TO THICKEN UP AND DECRESE HER AIRWAY. SUCTION WAS COMPLETED, MASK BACK ON. BED ALARM IS ON, CALL LIGHT IS IN REACH.
[2021-04-27 06:30] LABS: Phosphorus, Blood 8.9 mg/dL (2.5-4.9)
--- NOTE | 2021-04-27 17:01 | NUR ---
SUMMARY PT RESTING QUIETLY IN BED, WAKES EASILY, PT HAD A BARIUM SPEECH AND SWALLOW TODAY AND PASSED, DIET ORDERED BY SPEECH, PT WITH POOR APPETITE BUT GOOD SWALLOW, PT HAD DIALYSIS TODAY, DIVYA WELL, WORKED WITH PT/OT, MED PER EMAR FOR PAIN, VASELINE ON BUTTOCKS FOR SKIN BREAKDOWN, VSS, WILL CONT TO MONITOR
--- NOTE | 2021-04-27 18:00 | NUR ---
TRACH INNER CANNULA HAS BEEN CHANGED TODAY
[2021-04-28 05:35] LABS: Hemoglobin 7.8 g/dL (11.5-16.0)
[2021-04-28 06:05] LABS: Anion Gap 10 mmol/L (6-16); Blood Urea Nitrogen 41 mg/dL (8-24); Bun/Creatinine Ratio 12.4 (12.0-20.0); CO2, Blood 28 mmol/L (21-32); Calcium, Blood 8.3 mg/dL (8.5-10.1); Chloride, Blood 97 mmol/L (98-108); Glomerular Filtration Rate 17 (60-); Glucose, Blood 110 mg/dL (70-99); Magnesium, Blood 2.2 mg/dL (1.6-2.4); Potassium, Blood 3.8 mmol/L (3.5-5.5); Sodium, Blood 135 mmol/L (136-145)
[2021-04-28 06:41] LABS: Phosphorus, Blood 5.3 mg/dL (2.5-4.9)
--- NOTE | 2021-04-28 07:58 | NUR ---
SHIFT SUMMARY: ARIADNA HAS BEEN SLEEPING MOST OF THE SHIFT. AT START OF SHIFT SHE STARTED COMPALING OF ABDOMINAL PAIN, NAUSEA, VERY TENDER ON PALPITATION TO WHERE SHE WOULD PUSH MY HAND AWAY. ASKED IF SHE WANTED TO CONTINUE HER TUBE FEED SHE SAID NO. STOPPED TUBE FEED FOR THE NIGHT. WITHELD MEDS. LATER WHEN TO GIVE HER PAIN MEDS BUT SHE WAS ASLEEP AND HAS BEEN VERY FATIQUED ALL NIGHT. LUNGS DIMINISHED, SKIN VERY DRY AND ITCHY. CONTINUES TO REMOVE HUMIDIFIER MASK. REPLACED IT. BOTTOM IMPROVED. 2 BM THIS SHIFT. VS WITH IN HER NORMAL. NO OTHER ACUTE CHANGES TO NOTE. CALL LIGHT IS IN REACH, BED ALARM IS ON.
--- NOTE | 2021-04-28 19:46 | NUR ---
WILLY- PT ALERT AND ORIENTED, FOLLOWS COMMANDS. TURN Q2 WHILE IN BED, PETROLIUM TO ULCERS IN BUTTOCK/VAGINAL ULCERATIONS. HEALING WITH EPITHELIAL TISSUE PRESENT. PEG PATENT, CLEANSED WITH H2O2 AND SALINE MID SHIFT, SITE WNL WITH CRUSTY. MEDS ADMIN VIA PEG, PT BECAME NAUSEATED ONCE THIS AM AFTER MEDS ADMIN, AND PAIN IN KING. MEDICATED ZOFRAN WITH RELEIF. OXY AND ATIVAN APPROX Q4-6 FOR ABD PAIN AND ULCERATION PAIN WITH RELEIF. PT GOT OOB WITH PT AND RN GB WALKER TO CHAIR AND SAT UP FOR 2 HOURS. TOLERATING PUREE BITES AT MEALS, AND ENJOYS ICE. NO EVIDENCE OF ASPIRATION. PT HAS TRACH, HAS STRONG COUGH, SUCTIONED APPROX Q2, MOT AMOUNT DELGADO SECRETIONS. TMM 26%, SATS MID 90'S. PT PULLED PICC OUT TODAY, NO BLEEDING. RN NOTIFIED DR WANG. OK TO REPLACE WITH A PERIPHERAL. PLACED A #20 LAC. PT HAD ALSO PEELED OFF PERMACATH DRESSING AND REPLACED THAT THIS AM.
--- NOTE | 2021-04-28 23:28 | NUR ---
2200 PT LYING IN BED, NODS HEAD YES TO PAIN, MOUTHS THE WORD STOMACH TO THE LOCATION OF THE PAIN BUT IS UNABLE TO DESCRIBE OR GIVE THE PAIN A NUMBER FOR THE LEVEL OF PAIN. TRACHE WITH TRACHEA MASK MIST WITH 26% O2 IN AT 93%. TF VIA PT CONTINUOUS AT 75. PT HAD ABOUT 80 ML RESIDUAL, GAVE MEDS VIA PT AND FLUSHED WITH ABOUT 160 ML H2O. PT TOLERATED WELL. NO OTHER APPARENT SIGNS OF DISTRESS. CALL LIGHT IS IN REACH. BED ALARM IS ON.
--- NOTE | 2021-04-29 00:55 | NUR ---
SUCTIONED TRACHEA, PT TOLERATED WELL. CHECKED TF RESIDUAL, 40 ML, FLUSHED WITH 80 ML H2O. PT TOLERATED WELL. NO APPARENT SIGNS OF DISTRESS. CALL LIGHT IS IN REACH.
--- NOTE | 2021-04-29 02:46 | NUR ---
ASSISTED FIBER ANALYST IN TURNING AN REPOSITIONING PT. SUCTIONED TRACHE. PT TOLERATED WELL. NO APPARENT SIGNS OF DISTRESS. CALL LIGHT IS IN REACH.
--- NOTE | 2021-04-29 04:06 | NUR ---
PT LYING IN BED, EYES CLOSED, APPEARS TO BE RESTING. BREATHING IS EVEN, UNLABORED. NO APPARENT SIGNS OF DISTRESS. CALL LIGHT IS IN REACH. RESIDUAL CHECKED, 30 ML, FLUSHED WITH ABOUT 80 ML H2O. SUCTIONED PT'S TRACHEA. PT TOLERATED WELL.
--- NOTE | 2021-04-29 04:15 | NUR ---
PT IS ALERT, MOSTLY NONVERBAL. SHE WILL SHAKE HER HEAD YES AND NO AND MOUTH SOME WORDS BUT DOES NOT ALWAYS RESPOND TO QUESTIONS. PT HAS A TRACHEA WITH ON O2 MIST MASK WITH 26% O2 IN. PT HAS PT WITH CONTINOUS TF AT 75 WITH NEPRO. WOUNDS ON BOTTOM THAT PETROLEUM JELLY IS BEING USED ON. PT SHOOK HEAD YES TO PAIN AND MOUTHED IT WAS IN HER STOMACH. SHE WAS GIVEN ROXOCODONE. PT WAS ALSO A LITTLE FIDGETY AT HS AND SCRATCHING AT HER ABD SO SHE ALSO GOT SOME ATIVAN AT HS.
[2021-04-29 05:43] LABS: Hematocrit 25.2 % (33.0-51.0); Hemoglobin 7.7 g/dL (11.5-16.0); Mean Corpuscular HGB 30.6 pg (26.0-34.0); Mean Corpuscular HGB Conc 30.6 g/dL (31.5-36.5); Mean Corpuscular Volume 100 fL (80-100); Mean Platelet Volume 8.7 fL (9.1-12.4); Platelet Count 255 K/mm3 (150-400); RDW Coefficient Variation 19.9 % (11.7-14.2); Red Blood Cell Count 2.52 M/mm3 (3.80-5.20); White Blood Cell Count 17.07 K/mm3 (4.00-11.30)
--- NOTE | 2021-04-29 05:48 | NUR ---
PT LYING IN BED, AWAKE, SUCTIONED PT'S TRACHEA, NOT MUCH OUTPUT THIS TIME. PT TOLERATED WELL. NO APPARENT SIGNS OF DISTRESS. CALL LIGHT IS IN REACH. NO OTHER CHANGES THIS SHIFT.
[2021-04-29 06:11] LABS: Anion Gap 11 mmol/L (6-16); Blood Urea Nitrogen 67 mg/dL (8-24); Bun/Creatinine Ratio 15.7 (12.0-20.0); CO2, Blood 27 mmol/L (21-32); Calcium, Blood 9.2 mg/dL (8.5-10.1); Chloride, Blood 92 mmol/L (98-108); Creatinine, Blood 4.28 mg/dL (0.40-1.00); Glomerular Filtration Rate 12 (60-); Glucose, Blood 137 mg/dL (70-99); Magnesium, Blood 2.4 mg/dL (1.6-2.4); Phosphorus, Blood 5.4 mg/dL (2.5-4.9); Potassium, Blood 4.2 mmol/L (3.5-5.5); Sodium, Blood 130 mmol/L (136-145)
[2021-04-29 06:16] LABS: BASOPHILS PERCENT MAN 0 % (0-2); EOSINOPHILS PERCENT MAN 0 % (0-6); LYMPHOCYTES ABSOLUTE MAN 4.26 K/mm3 (0.84-5.20); LYMPHOCYTES PERCENT MAN 25 % (21-46); MONOCYTES ABSOLUTE MAN 2.21 K/mm3 (0.16-1.47); MONOCYTES PERCENT MAN 13 % (4-13); NEUTROPHILS ABSOLUTE MAN 10.58 K/mm3 (1.96-9.15); SEG NEUTROPHILS PERCENT MAN 62 % (41-73); TOTAL CELLS COUNTED 100
--- NOTE | 2021-04-29 10:02 | NUR ---
NURSING NOTIFICATION POSTED AT 0704 REGARDING ORDERS FOR HEMODIALYSIS TODAY SCHEDULED FOR 0900 IN DIALYSIS TREATMENT ROOM. AT 100O PATIENT STILL NOT DELIVERED TO TREATMENT ROOM. ONE UNIT WAIT TIME WILL BE ASSESSED.
--- NOTE | 2021-04-29 18:45 | NUR ---
SUMMARY- PT HAD DIALYSIS TODAY TOOK OFF 2L. BP PM WAS MARGIONALLY LOW BUT WITHIN TREND ON DIALYSIS DAY. PT HAD TOTAL BED BATH AND HAIR BRUSHED OUT, TRIMMED. LINEN CHANGE. CLEANSED PEG SITE AND TRACH SITE WITH H2O2. CHANGED INNER CANULA OF TRACH AARON #6 THIS AM. PT'S LUNGS DIM BASES, SCATTERED RHONCHI, CLEARS SECRETIONS WITH COUGH AND SUCTION ABOUT Q2. DELGADO SECRETIONS. TUBE FEEDS RAN ALL NIGHT AND STOPPED THIS AM 0945 AT WHICH TIME RESIDUAL WAS 350, DID NOT REINSTILL. MEDICATED WITH OXY AND ATIVAN PRN WITH EFFECTIVE RELEIF OF BUTTOCK AND ABD PAIN. AIDAN ULCERATIONS KEPT CLEAN AND APPLIED PETROLIUM WITH EACH CHANGE. SKIN IS IMPROVING AND ULCERATIONS HEALING. MULT LOOSE TO SOFT SERVE YOGURG TEXTURE BM Q 3- PT TURNED. DID NOT GET OOB BUT SAT UP 90DEGREES FOR MEALS.
--- NOTE | 2021-04-29 21:36 | NUR ---
2056 PT LYING IN BED, NODS YES TO PAIN AND YES TO NAUSEA, PT MOSTLY NONVERBAL, NODS YES AND NO BUT DOES NOT ALWAYS RESPOND TO QUESTIONS. SUCTIONED TRACHEA, PT TOLERATED WELL, GAVE PAIN MEDICATION AND NAUSEA MEDS, WILL EVAL FOR EFFECT. RESIDUAL ON TF WAS ABOUT 10 ML. FLUSHED WITH 80 ML. WOUNDS ON BOTTOM, USING PETROLEUM JELLY. NO OTHER APPARENT SIGNS OF DISTRESS. CALL LIGHT IS IN REACH. BED ALARM IS ON.
--- NOTE | 2021-04-29 23:07 | NUR ---
PT LYING IN BED, EYES CLOSED, APPEARS TO BE RESTING. BREATHING IS EVEN, UNLABORED. NO APPARENT SIGNS OF DISTRESS. CALL LIGHT IS IN REACH.
--- NOTE | 2021-04-30 00:08 | NUR ---
PT HAD PULLED OUT HER TRACHEA, CALLED RT, RT PLACED A NEW TRACHEA BACK IN, RT SUCTIONED PT'S TRACHEA. PT TOLERATED WELL. NO OTHER APPARENT SIGNS OF DISTRESS. CALL LIGHT IS IN REACH.
--- NOTE | 2021-04-30 01:45 | NUR ---
PT BEING CHANGED AND REPOSITIONED AT THIS TIME. PT IS GRABBING AT HER TRACHEA AGAIN. WILL TRY TO DISTRACT PT WITH SOMETHING. PT TOLERATING WELL. NO APPARENT SIGNS OF DISTRESS. CALL LIGHT IS IN REACH. BED ALARM IS ON.
--- NOTE | 2021-04-30 02:38 | NUR ---
SUCTIONED PT'S TRACHEA, PT TOLERATED WELL. NO APPARENT SIGNS OF DISTRESS. CALL LIGHT IS IN REACH. BED ALARM IS ON.
--- NOTE | 2021-04-30 03:24 | NUR ---
PT LYING IN BED, EYES CLOSED, APPEARS TO BE RESTING. BREATHING IS EVEN, UNLABORED. NO APPARENT SIGNS OF DISTRESS. CALL LIGHT IS IN REACH. BED ALARM IS ON.
--- NOTE | 2021-04-30 03:25 | NUR ---
PT IS ALERT, MOSTLY NONVERBAL, WILL SHAKE HEAD YES AND NO AND WILL MOUTH WORDS SOMETIMES BUT DOES NOT ALWAYS RESPOND TO QUESTIONS. TREACHEA WITH TRACHEA MIST MASK WITH 26% O2 IN AT 95%. PT NODDED HEAD YES TO PAIN AND TO NAUSEA, GOT ROXICODONE AND ZOFRAN. TF VIA PT CONTINUOUS AT 75 WITH NEPRO. HD CATH TO RCW. WOUNDS TO BOTTOM, USING PERTROLEUM JELLY ON THEM.
--- NOTE | 2021-04-30 03:53 | NUR ---
SUCTIONED PT'S TRACHEA. TF RESIDUAL 400, DISCARDED. HELD TF. FLUSHED WITH 80 H2O. PT TOLERATED WELL.
--- NOTE | 2021-04-30 05:32 | NUR ---
PT LYING IN BED, EYES CLOSED, APPEARS TO BE RESTING. BREATHING IS EVEN, UNLABORED. NO APPARENT SIGNS OF DISTRESS. CALL LIGHT IS IN REACH. BREATHING IS EVEN, UNLABORED. NO OTHER CHANGES THIS SHIFT.
[2021-04-30 05:58] LABS: Hematocrit 26.9 % (33.0-51.0); Hemoglobin 8.1 g/dL (11.5-16.0)
[2021-04-30 06:10] LABS: Albumin, Blood 1.9 g/dL (3.4-5.0); Anion Gap 10 mmol/L (6-16); Blood Urea Nitrogen 60 mg/dL (8-24); Bun/Creatinine Ratio 18.5 (12.0-20.0); CO2, Blood 26 mmol/L (21-32); Calcium, Blood 8.9 mg/dL (8.5-10.1); Chloride, Blood 99 mmol/L (98-108); Creatinine, Blood 3.25 mg/dL (0.40-1.00); Glomerular Filtration Rate 17 (60-); Glucose, Blood 119 mg/dL (70-99); Magnesium, Blood 2.1 mg/dL (1.6-2.4); Phosphorus, Blood 3.6 mg/dL (2.5-4.9); Potassium, Blood 3.8 mmol/L (3.5-5.5); Sodium, Blood 135 mmol/L (136-145)
--- NOTE | 2021-04-30 14:45 | NUR ---
Met pt. lying in bed and her therapists in the room attending to her needs encouraged pt and offered prayers
--- NOTE | 2021-04-30 19:44 | NUR ---
alert, orintated to self, declined medication for pain but tolerated peg medication well, swallowed a few sips of fluid and wanted to retain the glass, nurse would not allow unmonitored drinking, call light in reach, report shared with noc nurse
--- NOTE | 2021-05-01 04:50 | NUR ---
RESPOOLER SUMMARY NO ACUTE CHANGES THIS SHIFT. TRACH SUCTIONED NEEDED FOR SECRETIONS. PT FREQUENTLY REMOVED TRACH HUMIDIFIER. MEDS AND WATER FLUSHES THROUGH PEG TUBE WITH NO ISSUES. PT HAS RESTED MOST OF THE NIGHT.
[2021-05-01 05:16] LABS: Hematocrit 25.3 % (33.0-51.0); Hemoglobin 7.8 g/dL (11.5-16.0)
[2021-05-01 05:31] LABS: Albumin, Blood 1.8 g/dL (3.4-5.0); Anion Gap 11 mmol/L (6-16); Blood Urea Nitrogen 100 mg/dL (8-24); Bun/Creatinine Ratio 23.1 (12.0-20.0); CO2, Blood 23 mmol/L (21-32); Calcium, Blood 8.8 mg/dL (8.5-10.1); Chloride, Blood 95 mmol/L (98-108); Creatinine, Blood 4.32 mg/dL (0.40-1.00); Glomerular Filtration Rate 12 (60-); Glucose, Blood 99 mg/dL (70-99); Magnesium, Blood 2.1 mg/dL (1.6-2.4); Phosphorus, Blood 3.9 mg/dL (2.5-4.9); Sodium, Blood 129 mmol/L (136-145)
--- NOTE | 2021-05-01 14:23 | NUR ---
pt. is lying in bed and sleeping offered prayers .
--- NOTE | 2021-05-01 17:06 | NUR ---
PT SOUNDED LIKE SHE NEEDED TO BE SUCTIONED. THIS COMMERCIAL ESCROW ASSISTANT DID A SUCTION AND PT HAS VERY STICKY MUCOUS. WAS ABLE TO LCEAR AND PT NODDED SHE WAS MORE COMFORTABLE.
--- NOTE | 2021-05-01 17:10 | NUR ---
PLEASE REFER TO STUDENT NOTE FOR SHIFT SUMMARY.
--- NOTE | 2021-05-01 17:34 | NUR ---
SHIFT SUMMARY: PATIENT SEEMED PRETTY TIRED TODAY. SHE WAS ABLE TO NOD HER HEAD TO YES AND NO QUESTIONS. COMPLAINED OF PAIN BEING 10/10 AND WAS TREATED PER EMAR. PATIENT IS INCONTINENT AND PRODUCING MINIMAL URINE. PATIENT WAS ADMINISTERED MEDS THROUGH PEG TUBE AND RECIEVED TUBE FLUSHES. PATIENT WAS CHANGED AT 1730 AND WAS TREATED WITH OINTMENT AND POWDER TO AIDAN AREA AND WOUNDS. PATIENT WAS SUCTIONED DURING DIALYSIS IN PATIENTS ROOM. PATIENTS BED IS IN LOWEST POSITION WITH CALL LIGHT IN PLACE.
--- NOTE | 2021-05-02 04:48 | NUR ---
TERMINAL CARMAN SUMMARY TUBE FEED RESIDUALS CHECKED BY MEAT BONER AND SLICER SILVIO WHO REPORTED RESIDUAL OF >400 ML. PT RECEIVING FEEDS AT 75 ML/HR. RESIDUALS WERE DISCARDED BY MEAT BONER AND SLICER AND TUBE FEEDS STOPPED. REGULAR MEDS AND WATER FLUSHES GIVEN AFTER, PT TOLERATED FINE. PT REMOVED TRACH THIS AM, REPLACED BY RT JAMIE. PT ATTEMPTED TO REMOVE AGAIN SO ORDER RECIEVED TO PLACE BILATERAL WRIST RESTRAINTS ON PT. WILL CONTINUE TO MONITOR.
[2021-05-02 05:49] LABS: Hematocrit 25.6 % (33.0-51.0); Hemoglobin 8.1 g/dL (11.5-16.0)
[2021-05-02 06:13] LABS: Albumin, Blood 1.8 g/dL (3.4-5.0); Anion Gap 9 mmol/L (6-16); Blood Urea Nitrogen 62 mg/dL (8-24); Bun/Creatinine Ratio 20.1 (12.0-20.0); CO2, Blood 30 mmol/L (21-32); Calcium, Blood 8.3 mg/dL (8.5-10.1); Chloride, Blood 88 mmol/L (98-108); Creatinine, Blood 3.08 mg/dL (0.40-1.00); Glomerular Filtration Rate 18 (60-); Glucose, Blood 121 mg/dL (70-99); Phosphorus, Blood 2.8 mg/dL (2.5-4.9); Potassium, Blood 3.2 mmol/L (3.5-5.5); Sodium, Blood 127 mmol/L (136-145)
--- NOTE | 2021-05-02 13:08 | NUR ---
Consult requested pt remains on hemodialysis and trach care. Pt is currently in restraints due to pulling out her trach and tying to pull out her IV. She is mottled and bruised. Poor eye contact stares off. pt kps score is 40%. pt appears to be guarding her neck possibly from tearing pain. Will see if we can find the right person to speak with the family. They want full treatment. pt may not be able to make decisions. quality of life is and pronosis very poor.
--- NOTE | 2021-05-02 13:31 | NUR ---
Pt. in bed and nurses attending to her needes encouraged pt and prayed for her.
--- NOTE | 2021-05-02 16:49 | NUR ---
PT IS ALERT ORIENTED, HOWEVER DOES NOT TRY TO SPEAK AT ALL OR TAKE PO NUTRITION POSSIBLY DUE TO ANXIETY CONCERNING HER TRACHEOTOMY. PT WAS REASURED THAT SHE COULD COULD TAKE PO. THE PT MAY ALSO HAVE A SORE THROAT. THE PT WAS MEDICATED FOR PAIN AND ANXIETY X2 TODAY SO FAR. THE PT'S TRACH SLEEVE WAS REMOVED AND THE TRACH WAS CAPPED FOR A SHORT WHILE THEN REPLACED AFTER ABOUT 20 MIN DUE TO THE PTS ANXIETY CAUSING HYPERVENTILATION. THE PT WAS ON WRIST RESTRAINTS THIS AM DUE TO PULLING AT HER TRACH AND IV. THE PT IS NOW COOPERATIVE WITH THE TRACH AND THE IV HAS BEEN REMOVED, WRIST RESTRAINTS REMOVED. THE PT WAS UP IN THE CHAIR FOR A SHORT TIME THIS AFTERNOON AND NOW APPEARS TO BE RESTING IN BED COMFORTABLY. CALL LIGHT IN REACH WILL CONTINUE TO MONITOR AND ASSESS FOR CHANGES.
[2021-05-03 05:42] LABS: BASOPHILS ABSOLUTE AUTO 0.13 K/mm3 (0.00-0.23); BASOPHILS PERCENT AUTO 1 % (0-2); Hematocrit 26.5 % (33.0-51.0); Hemoglobin 8.6 g/dL (11.5-16.0); LYMPHOCYTES ABSOLUTE AUTO 3.66 K/mm3 (0.84-5.20); LYMPHOCYTES PERCENT AUTO 18 % (21-46); MONOCYTES ABSOLUTE AUTO 3.76 K/mm3 (0.16-1.47); MONOCYTES PERCENT AUTO 18 % (4-13); Mean Corpuscular HGB 31.3 pg (26.0-34.0); Mean Corpuscular HGB Conc 32.5 g/dL (31.5-36.5); Mean Corpuscular Volume 96 fL (80-100); Mean Platelet Volume 9.1 fL (9.1-12.4); Platelet Count 302 K/mm3 (150-400); RDW Coefficient Variation 19.6 % (11.7-14.2); RDW Standard Deviation 68.3 fL (35.1-46.3); Red Blood Cell Count 2.75 M/mm3 (3.80-5.20); White Blood Cell Count 20.72 K/mm3 (4.00-11.30)
[2021-05-03 05:43] LABS: EOSINOPHILS PERCENT AUTO 0 % (0-6); IMMATURE GRAN ABSOLUTE AUTO 0.19 K/mm3 (0.00-0.10); IMMATURE GRAN PERCENT AUTO 1 % (0-1); NEUTROPHILS ABSOLUTE AUTO 12.98 K/mm3 (1.96-9.15); NEUTROPHILS PERCENT AUTO 63 % (41-73)
[2021-05-03 06:10] LABS: Albumin, Blood 1.9 g/dL (3.4-5.0); Anion Gap 11 mmol/L (6-16); Blood Urea Nitrogen 95 mg/dL (8-24); Bun/Creatinine Ratio 23.2 (12.0-20.0); CO2, Blood 27 mmol/L (21-32); Calcium, Blood 8.6 mg/dL (8.5-10.1); Chloride, Blood 87 mmol/L (98-108); Creatinine, Blood 4.09 mg/dL (0.40-1.00); Free Thyroxine 1.62 ng/dL (0.70-1.60); Glomerular Filtration Rate 13 (60-); Glucose, Blood 134 mg/dL (70-99); Magnesium, Blood 2.1 mg/dL (1.6-2.4); Phosphorus, Blood 3.2 mg/dL (2.5-4.9); Potassium, Blood 3.7 mmol/L (3.5-5.5); Sodium, Blood 125 mmol/L (136-145)
--- NOTE | 2021-05-03 06:32 | NUR ---
SHIFT SUMMARY- PT. WITH TRACHEOSTOMY IN PLACE AND PEG TUBE. ON CYCLIC TF'S, TOLERATING WELL. UP IN CHAIR FOR PART OF THE NIGHT. C/O ABD PAIN THIS AM. CHECKED RESIDUAL WITH RESULT OF 80ML, PEG TUBE FLUSH W/O DIFFICULTY. MEDICATED FOR PAIN PER EMAR, APPEARED TO HAVE GOOD EFFECT. SUCTIONED X2 WITH MINIMAL OUTPUT. PT. SLEPT ON/OFF T/O THE NIGHT, NO APPARENT DISTRESS NOTED. CALL LIGHT WITHIN REACH AND SIDE RAILS UPX2. WILL CONT TO MONITOR.
--- NOTE | 2021-05-03 14:03 | NUR ---
Pt. in bed her nurses in the room attending to her need and pt. is doing better prayed for her.
--- NOTE | 2021-05-03 18:16 | NUR ---
PT IS A/OX3, COOPERATIVE. THE PT IS UP WITH 1-2 PERSON ASSIST. TODAY THE PT WAS ABLE TO STAND WITH THE WALKER AND TAKE SOME STEP TO THE CHAIR. SHA WAS IN THE CHAIR UNTIL SHE WAS TAKEN TO DIALYSIS TODAY. THE PT IS SOB WITH MINIMAL ACTIVITY. THE PT APPEARS TO HAVE TOLERATED DIALYSIS TODAY. THE PT WAS MEDICATED FOR PAIN AND ANXIETY X2 TODAY. THE RESPIRATORY THERAPIST ATTEMPTED TO CAP THE PT'S TRACH TODAY, HOWEVER THE PT IMMEDIATLY BECAME HIGHLY AXIOUS AND ARFAID AND WOULD NOT CALM. THE CAP WAS REMOVED AND A NEW SLEEVE WAS INSERTED. THE PT IS RESTING IN BED AND RECIEVING TUBE FEED AT THIS TIME. THIS AFTERNOON THE PT WORKED WITH THE THERAPIST AND WAS UP IN THE CHAIR AGAIN FOR ABOUT AN HOUR. THE PT WAS SUCTIONED T/O THE DAY. CALL LIGHT IN REACH WILL CONTINUE TO MONITOR FOR CHANGES. STRAIGHT CATH WAS ATTEMPTED FOR UA, HOWEVER THE PT WAS DRY
--- NOTE | 2021-05-04 05:36 | NUR ---
SHIFT SUMMARY- PT. PULLED TRACHEOSTOMY AT SHIFT CHANGE. TUBE REINSERTED BY DR. HARRIS. NEW UNCUFFED TRACH INSERTED BY RT LATER DURING THE NIGHT, PT. TOLERATED WELL. TF HELD DUE TO RESIDUAL OF 330 LAST NIGHT AND REPEAT RESIDUAL OF 210 THIS AM. PT. AWAKE MOST OF THE NIGHT, HAD ICE CHIPS DURING THE NIGHT. NO COMPLAINTS OF PAIN OR DISCOMFORT. CALL LIGHT WITHIN REACH, SIDE RAILS UPX3, AND BED ALARM ON FOR SAFETY. WILL CONT TO MONITOR.
[2021-05-04 06:13] LABS: BASOPHILS PERCENT AUTO 0 % (0-2); Hematocrit 29.4 % (33.0-51.0); Hemoglobin 9.2 g/dL (11.5-16.0); LYMPHOCYTES ABSOLUTE AUTO 4.82 K/mm3 (0.84-5.20); LYMPHOCYTES PERCENT AUTO 20 % (21-46); MONOCYTES ABSOLUTE AUTO 4.57 K/mm3 (0.16-1.47); MONOCYTES PERCENT AUTO 19 % (4-13); Mean Corpuscular HGB 30.8 pg (26.0-34.0); Mean Corpuscular HGB Conc 31.3 g/dL (31.5-36.5); Mean Corpuscular Volume 98 fL (80-100); Mean Platelet Volume 9.3 fL (9.1-12.4); Platelet Count 292 K/mm3 (150-400); RDW Coefficient Variation 20.4 % (11.7-14.2); Red Blood Cell Count 2.99 M/mm3 (3.80-5.20); White Blood Cell Count 23.89 K/mm3 (4.00-11.30)
[2021-05-04 06:19] LABS: EOSINOPHILS PERCENT AUTO 0 % (0-6); IMMATURE GRAN ABSOLUTE AUTO 0.21 K/mm3 (0.00-0.10); IMMATURE GRAN PERCENT AUTO 1 % (0-1); NEUTROPHILS ABSOLUTE AUTO 14.19 K/mm3 (1.96-9.15); NEUTROPHILS PERCENT AUTO 59 % (41-73)
[2021-05-04 06:36] LABS: Magnesium, Blood 2.6 mg/dL (1.6-2.4)
[2021-05-04 06:37] LABS: Albumin, Blood 1.9 g/dL (3.4-5.0); Anion Gap 10 mmol/L (6-16); Blood Urea Nitrogen 66 mg/dL (8-24); Bun/Creatinine Ratio 20.2 (12.0-20.0); CO2, Blood 28 mmol/L (21-32); Calcium, Blood 8.7 mg/dL (8.5-10.1); Chloride, Blood 98 mmol/L (98-108); Creatinine, Blood 3.27 mg/dL (0.40-1.00); Glomerular Filtration Rate 17 (60-); Glucose, Blood 115 mg/dL (70-99); Phosphorus, Blood 2.5 mg/dL (2.5-4.9); Potassium, Blood 3.4 mmol/L (3.5-5.5); Sodium, Blood 136 mmol/L (136-145); Thyroid Stimulating Hormone 0.576 uIU/mL (0.360-4.800); Triiodothyronine, Free 3.97 pg/mL (2.18-3.98)
--- NOTE | 2021-05-04 16:20 | NUR ---
PT IS A/OX3, COOPERATIVE, THE PT SEEMS MORE ALERT TODAY COMPARED TO YESTERDAY. THE PT PARTICIPATED WITH BOTH THE PHYSICAL AND OCCUPATIONAL THERAPIST TODAY . THE PT WAS MEDICATED FOR PAIN AND ANXIETY X2 TODAY SO FAR. THE APPPEARS TO BE BREATHING EASILY ON RA. SO FAR THIS SHIFT THE PT HAS LEFT HER TRACH IN PLACE AND HAS NEEDED LESS SUCTIONING. THE PT DID NOT HAVE DIALYSIS TODAY. THE PT WAS POSTIONED FROM SIDE TO SIDE. ICE CHIPS WERE GIVEN AT THE PT'S REQUEST. CALL LIGHT IN REACH WILL CONTINUE TO MONITOR AND ASSESS FOR CHANGES
[2021-05-05 06:03] LABS: Hemoglobin 8.7 g/dL (11.5-16.0)
--- NOTE | 2021-05-05 06:33 | NUR ---
SHIFT SUMMARY- PT. ON AIRVO 60LPM @85%, SATS MAINTAINED. PT. HAD NO COMPLAINTS DURING THE NIGHT. SLEPT T/O THE NIGHT, NO APPARENT DISTRESS NOTED. CALL LIGHT WITHIN REACH AND SIDE RAILS UPX2. WILL CONT TO MONITOR.
--- NOTE | 2021-05-05 06:45 | NUR ---
SHIFT SUMMARY- PT. WITH HIGH RESIDUAL FROM PEG TUBE. TF'S HAVE BEEN HELD X24HRS AND UNABLE TO TOLERATE MEDS. DR. SALMERON NOTFIED. TRACH IN PLACE, ON RA. NO COMPLAINTS OF PAIN DURING THE NIGHT, VSS. CALL LIGHT WITHIN REACH, SIDE RAILS, AND BED ALARM ON. WILL CONT TO MONITOR.
[2021-05-05 06:46] LABS: Albumin, Blood 1.7 g/dL (3.4-5.0); Anion Gap 11 mmol/L (6-16); Blood Urea Nitrogen 79 mg/dL (8-24); Bun/Creatinine Ratio 18.9 (12.0-20.0); CO2, Blood 26 mmol/L (21-32); Calcium, Blood 9.1 mg/dL (8.5-10.1); Chloride, Blood 95 mmol/L (98-108); Creatinine, Blood 4.17 mg/dL (0.40-1.00); Glomerular Filtration Rate 13 (60-); Glucose, Blood 80 mg/dL (70-99); Magnesium, Blood 2.2 mg/dL (1.6-2.4); Phosphorus, Blood 3.3 mg/dL (2.5-4.9); Potassium, Blood 4.1 mmol/L (3.5-5.5); Sodium, Blood 132 mmol/L (136-145)
--- NOTE | 2021-05-05 18:10 | NUR ---
SHIFT SUMMARY NO ACUTE CHANGES. DIALYSIS COMPLETED TODAY, BLOOD PRESSURE MEDS HELD. TRACH IN PLACE, ON RA. LARGE AMOUNTS OF RESIDUAL FROM PEG TUBE, TUBE FEEDINGS STILL PAUSED. PT MEDS HELD AT THIS TIME WELL. PT TOLERATING SMALL AMOUNTS OF ORAL INTAKE. PT REPORTS PAIN AND MEDS GIVEN PER EMAR PRN. NO ACUTE CHANGES. CALL LIGHT WITHIN REACH, DOES NOT USUALLY CALL. ROUTINE CHECKS COMPLETED.
[2021-05-06 04:59] LABS: Hematocrit 26.8 % (33.0-51.0); Hemoglobin 8.1 g/dL (11.5-16.0)
[2021-05-06 05:26] LABS: Albumin, Blood 1.7 g/dL (3.4-5.0); Anion Gap 7 mmol/L (6-16); Blood Urea Nitrogen 35 mg/dL (8-24); Bun/Creatinine Ratio 11.7 (12.0-20.0); CO2, Blood 29 mmol/L (21-32); Calcium, Blood 7.8 mg/dL (8.5-10.1); Chloride, Blood 100 mmol/L (98-108); Creatinine, Blood 2.98 mg/dL (0.40-1.00); Glomerular Filtration Rate 19 (60-); Glucose, Blood 94 mg/dL (70-99); Magnesium, Blood 2.3 mg/dL (1.6-2.4); Phosphorus, Blood 2.7 mg/dL (2.5-4.9); Potassium, Blood 3.4 mmol/L (3.5-5.5); Sodium, Blood 136 mmol/L (136-145)
--- NOTE | 2021-05-06 06:37 | NUR ---
SHIFT SUMMARY- PT. PULLED OUT TRACH LAST NIGHT. REINSERTED BY RT, TOLERATED WELL. COMPLAINED OF GENERALIZED PAIN, MEDICATED PER EMAR. RESTED QUIETLY T/O THE NIGHT, NO APPARENT DISTRESS NOTED. CALL LIGHT WITHIN REACH, SIDE RAILS UPX2, AND BED ALARM ON. WILL CONT TO MONITOR.
--- NOTE | 2021-05-06 17:58 | NUR ---
SHIFT SUMMARY NO ACUTE CHANGES, MORE AWARE AND RESPONSIVE TODAY. TOLERATING CRUSHED ORAL MEDS IN APPLESAUCE. FLUSHING PEG TUBE APPEARS TO BE UNCOMFORTABLE FOR PT, LOTS OF RESIDUAL WELL. TRACH IN PLACE. SATING ABOVE 90% ON RA. NO DIALYSIS TODAY. PT REFUSING MOST MEALS, NUTRTIONAL SUPPLEMENTS OFFERED. PT DOES NOT CALL. ROUTINE CHECKS. CALL LIGHT WITHIN REACH, BED ALARM ON.
--- NOTE | 2021-05-06 19:30 | NUR ---
ASSUMED CARE RECEIVED REPORT FROM LEORA AYALA. PT RESTING, IN NAD. NO ACUTE NEEDS ASSESSED AT THIS TIME. CALL LIGHT, POSSESSIONS IN REACH, BED IN LOW AND LOCKED POSITION WITH ALARMS ON. TM
[2021-05-07 05:40] LABS: Hematocrit 30.9 % (33.0-51.0); Hemoglobin 9.4 g/dL (11.5-16.0)
[2021-05-07 06:06] LABS: Albumin, Blood 1.8 g/dL (3.4-5.0); Anion Gap 9 mmol/L (6-16); Blood Urea Nitrogen 39 mg/dL (8-24); Bun/Creatinine Ratio 9.8 (12.0-20.0); CO2, Blood 27 mmol/L (21-32); Calcium, Blood 8.5 mg/dL (8.5-10.1); Chloride, Blood 98 mmol/L (98-108); Glomerular Filtration Rate 13 (60-); Glucose, Blood 76 mg/dL (70-99); Magnesium, Blood 2.2 mg/dL (1.6-2.4); Phosphorus, Blood 3.3 mg/dL (2.5-4.9); Potassium, Blood 4.4 mmol/L (3.5-5.5); Sodium, Blood 134 mmol/L (136-145)
--- NOTE | 2021-05-07 08:01 | NUR ---
SHIFT SUMMARY PT RESTING IN CHAIR, IN NAD. VS REVIEWED, HYPOTENSIVE, OTHER VS WNL. SECOND SHILEY SIZE 6 TRACH PLACED AT HOB. APPEARED TO SLEEP WELL T/O NIGHT. MEDICATED X1 FOR C/O UPSET STOMACH, WITH GOOD EFFECT. PEG TUBE CLAMPED, SMALL AMOUNT RESIDUAL NOTED. TOLERATED SMALL SIPS OF WATER PO. NO ACUTE NEEDS ASSESSED AT THIS TIME. CALL LIGHT, POSSESSIONS IN REACH, CHAIR IN LOCKED POSITION. REPORT GIVEN TO LEORA ESQUIVEL.
--- NOTE | 2021-05-07 14:15 | NUR ---
Pt. lying in bed but much improved prayed for the pt. and blessed her.
--- NOTE | 2021-05-07 18:15 | NUR ---
PT IS A/OX3. PT IS A 1-2 PERSON ASSIST UP. THE PT HAS A TRACH AND HAS DIFFICULTY COMMUNICVATING WITH THE STAFF. PT APPEARS TO BE BREATHING EASILY ON RA AT THIS TIME TRACH IS HUMIDIFIED. THE PT NEDDS SUCTION PRN. THE PT SAT UP IN THE CHAIR FOR BREAKFAST THIS AM. THE PT THEN HAD DIALYSIS IN HER ROOM IN BED. THE PT WAS BACK UP IN THE RECLLINER THIS AFTER NOON AND HAS TOLERATED THAT WELL. PT WAS MEDICATED FOR PAIN X1 SO FAR THIS SHIFT. CALL LIGHT IN REACH WILL CONTINUE TO MONITOR AND ASSESS FOR CHANGES
[2021-05-08 05:25] LABS: Hematocrit 26.4 % (33.0-51.0); Hemoglobin 8.3 g/dL (11.5-16.0)
--- NOTE | 2021-05-08 05:44 | NUR ---
SUMMARY: PT A/OX3, IS 1-2PA OOB W/FWW AND GB AND BED ALARM ON FOR IMPULSIVITY. SHE HAS A TRACH W/DIFFICULTY COMMUNICATING BUT CAN OCC SPECIFY NEEDS W/WHISPERED SPEECH. SPO2 WNL ON RA W/TRACH HUMIDIFICATION, SUCTIONING COMPLETED PRN. TURN SCHEDULE MAINTAINED FOR COCCYX WOUNDS. SHE WAS MEDICATED FOR PAIN PRN X2 FOR TOLERABLE RELIEF. NO ACUTE CHANGES, VSS/AFEBRILE. WCTM AND REPORT TO DAY RN.
[2021-05-08 05:53] LABS: Albumin, Blood 1.6 g/dL (3.4-5.0); Anion Gap 9 mmol/L (6-16); Blood Urea Nitrogen 25 mg/dL (8-24); Bun/Creatinine Ratio 8.4 (12.0-20.0); CO2, Blood 28 mmol/L (21-32); Calcium, Blood 7.9 mg/dL (8.5-10.1); Chloride, Blood 97 mmol/L (98-108); Creatinine, Blood 2.97 mg/dL (0.40-1.00); Glomerular Filtration Rate 19 (60-); Glucose, Blood 91 mg/dL (70-99); Magnesium, Blood 1.9 mg/dL (1.6-2.4); Phosphorus, Blood 2.9 mg/dL (2.5-4.9); Potassium, Blood 3.6 mmol/L (3.5-5.5); Sodium, Blood 134 mmol/L (136-145)
--- NOTE | 2021-05-08 14:49 | NUR ---
Pt. in bed resting, with slow improvement,offered prayers for pt.
--- NOTE | 2021-05-08 15:44 | NUR ---
PT IS A/OX3, COOPERATIVE UP WITH 1-2 PERSON ASSIST. THE PT APPEARS TO BE BREATHING EASILY THROUGH HER TRACH WITH HUMIDIFIER, THE PT WAS UP TO THE CHAIR THIS AM FOR BREAKFAST. THE PT TOOK SOME SMALL BITES ORALY ONLY. PT WAS ASSITED BACK TO BED AND TAKEN TO DIALYSIS. THE PT WAS SLEEPY FOR MOST OF THE AFTERNOON AFTER DIALYSIS. OCCUPATIONAL THERAPY WORKED WITH THE PT THIS AFTERNOON AND THE PT IS UP IN A RECLINER AT THIS TIME. THE PT WAS MEDICATED FOR PAIN AND ANXIETY X1 THIS AM BEFORE DIALYSIS. THE PT WAS DEEP SUCTIONED T/O THE DAY NEEDED. CALL LIGHT IN REACH
[2021-05-09 04:39] LABS: BASOPHILS ABSOLUTE AUTO 0.09 K/mm3 (0.00-0.23); BASOPHILS PERCENT AUTO 0 % (0-2); Hematocrit 26.3 % (33.0-51.0); Hemoglobin 7.8 g/dL (11.5-16.0); Mean Corpuscular HGB 30.2 pg (26.0-34.0); Mean Corpuscular HGB Conc 29.7 g/dL (31.5-36.5); Mean Corpuscular Volume 102 fL (80-100); Mean Platelet Volume 9.5 fL (9.1-12.4); NRBC ABSOLUTE 0.05 K/mm3 (0.00-0.02); NRBC Auto 0.2 /100 WBC (0.0-0.2); Platelet Count 215 K/mm3 (150-400); RDW Standard Deviation 77.3 fL (35.1-46.3); Red Blood Cell Count 2.58 M/mm3 (3.80-5.20); White Blood Cell Count 21.84 K/mm3 (4.00-11.30)
[2021-05-09 04:40] LABS: EOSINOPHILS PERCENT AUTO 0 % (0-6); IMMATURE GRAN ABSOLUTE AUTO 0.25 K/mm3 (0.00-0.10); IMMATURE GRAN PERCENT AUTO 1 % (0-1); LYMPHOCYTES ABSOLUTE AUTO 5.97 K/mm3 (0.84-5.20); LYMPHOCYTES PERCENT AUTO 27 % (21-46); MONOCYTES ABSOLUTE AUTO 3.56 K/mm3 (0.16-1.47); MONOCYTES PERCENT AUTO 16 % (4-13); NEUTROPHILS ABSOLUTE AUTO 11.97 K/mm3 (1.96-9.15); NEUTROPHILS PERCENT AUTO 55 % (41-73)
[2021-05-09 05:00] LABS: Albumin, Blood 1.5 g/dL (3.4-5.0); Albumin/Globulin Ratio 0.3 (0.8-1.8); Bilirubin, Total 2.5 mg/dL (0.1-1.0); Bun/Creatinine Ratio 11.6 (12.0-20.0); Calcium, Blood 7.9 mg/dL (8.5-10.1); Creatinine, Blood 2.75 mg/dL (0.40-1.00); Globulin, Blood 5.7 g/dL (2.2-4.0); Magnesium, Blood 1.9 mg/dL (1.6-2.4); Phosphorus, Blood 1.7 mg/dL (2.5-4.9); Potassium, Blood 4.2 mmol/L (3.5-5.5); Total Protein, Blood 7.2 g/dL (6.4-8.2)
--- NOTE | 2021-05-09 06:07 | NUR ---
VIEW SCORE 7 BUT PT WAS HAVING A COUGHING FIT W/INCREASED RR, REQUESTS FOR SUCTIOINING AND C/O PAIN. RR WAS 29 W/TEMP OF 102.1 BUT SHE WAS VERY ANXIOUS AND FLUSHED AT THE TIME. TRACH SUCTIONING PERFORMED, OXYCODONE RECIEVED AND PT REPOSITIONED FOR IMPROVED COMFORT. RESPIRATIONS IMPROVED AND PT SETTLED HER TEMP BEGAN TO IMPROVE W/O PRN MEDS/INTERVENTIONS NEEDED. RR DOWN TO 16, W/TEMP NOW AT 100.5. PT REMAINS HYPOTENSIVE AND TACHYCARDIC BUT THIS ISN'T NEW. VIEW SCORE DOWN TO 4. WCTM MONITOR CLOSELY AND ALERT MD IF PT DOESN'T CONTINUE TO IMPROVE.
--- NOTE | 2021-05-09 07:10 | NUR ---
SUMMARY: PT A/OX3, COOPERATIVE W/CARE AND 1-2PA OOB. BED ALARM ON FOR OCC IMPULSIVITY BUT PT USED CALL LIGHT TO SPECIFY NEEDS. SHE HAS DIFFICULTY COMMUNICATING D/T TRACH BUT SPEAKS IN WHISPERED SPEECH, SHORT PHRASES. SPO2 REMAINS WNL W/TRACH TO HUMIDIFIED AIR. SUCTIONING COMPLETED PRN W/HOB ELEVATED FOR ASPIRATION RISK. NEPRO CYCLIC TUBE FEEDS INFUSED T/O NOCTE W/Q4H SCHEDULED FLUSHES. MEDS ADMIN VIA PEG TUBE AND Q4H RESIDUALS <20 MLS. SHE HAD X1 EPISODE OF DISTRESS THIS AM W/VIEW SCORE 7 D/T COUGHING FIT, TACHYPNEA, ANXIEY, PAIN AND ELEVATED TEMP. TACHYCARDIA AND HYPOTENSION PERSISTED T/O NOCTE BUT WERE WNL. OXYCODONE RECIEVED FOR PAIN, PT REPOSITIONED FOR COMFORT AND TRACH SUCTIONED FOR IMPROVED ANXIETY, RESPIRATIONS AND TEMP IMPROVENT. VIEW IMPROVED. TURN SCHEDULE MAINTAINED FOR SBD PREVENTION AND OINTMENT APPLIED TO BUTTOCKS WOUNDS PER EMAR. NO ACUTE CHANGES. WCTM AND REPORT TO DAY RN.
--- NOTE | 2021-05-09 17:47 | NUR ---
SHIFT SUMMARY PT AXO TO SELF THOUGH EXTREMELY WITHDRAWN, NOT ANSWERING MOST QUESTIONS BUT WILL NOD YES AND NO TO SOME QUESTIONS. THIS NURSE ASKED HER IF SHE WAS IN PAIN AND SHE NODDED AND THEN THIS NURSE SAID SHE WOULD GET A DOSE OF PAIN MEDICATION AND PATIENT SHOOK HER HEAD "NO". WHEN ASKED IF SHE WOULD SWALLOW A PILL AND SHE SHOOK HER HEAD "NO." AT 1700 PT RESIDUAL WAS OVER 250ML. FEEDING WAS STOPPED THIS MORNING AT 0700 PER OSWALDO REYEZ RN R/T FORMULA BEING OUT AND NO BACK UP ON HAND AT THAT TIME. DR ESCOBAR CALLED X2 BUT CALL WAS DROPPED. PER CLINICAL JUDGEMENT WILL HOLD FEEDING AT THIS TIME AND HAVE PIE TOPPER RECHECK RESIDUAL AT START OF THEIR SHIFT. SKIN BREAKDOWN ON BOTTOM, MEDICATED PER EMAR AND REPOSIONED. BED IN LOW POSITION, CALL LIGHT WITHIN REACH, BED ALARM ON.
--- NOTE | 2021-05-09 19:15 | NUR ---
ASSUMED CARE RECEIVED REPORT FROM LEORA FRASER. PT RESTING, IN NAD. NO ACUTE NEEDS ASSESSED AT THIS TIME. CALL LIGHT, POSSESSIONS IN REACH.
[2021-05-10 05:13] LABS: Hematocrit 26.5 % (33.0-51.0); Hemoglobin 8.2 g/dL (11.5-16.0)
[2021-05-10 06:03] LABS: Albumin, Blood 1.5 g/dL (3.4-5.0); Anion Gap 9 mmol/L (6-16); Blood Urea Nitrogen 48 mg/dL (8-24); Bun/Creatinine Ratio 12.6 (12.0-20.0); CO2, Blood 25 mmol/L (21-32); Calcium, Blood 8.1 mg/dL (8.5-10.1); Chloride, Blood 100 mmol/L (98-108); Glomerular Filtration Rate 14 (60-); Glucose, Blood 74 mg/dL (70-99); Magnesium, Blood 1.9 mg/dL (1.6-2.4); Potassium, Blood 4.4 mmol/L (3.5-5.5); Sodium, Blood 134 mmol/L (136-145)
--- NOTE | 2021-05-10 07:31 | NUR ---
SHIFT SUMMARY PT ASLEEP, APPEARS TO BE COMFORTABLE. VS REVIEWED, HYPOTENSIVE, O2 SATS 90-93%. APPEARS INCREASINGLY WITHDRAWN AT TIMES, PROVIDED REASSURANCE. PEG TUBE REMAINS IN PLACE, PURULENT YELLOW DRAINAGE NOTED SURROUNDING SITE; CLEANSED WITH WARM SOAPY WATER. PT MEDICATED FOR PAIN AND NAUSEA X1, WITH GOOD EFFECT. SUCTIONED PRN. NO OTHER ACUTE CONCERNS TO REPORT OVERNIGHT. NO ACUTE NEEDS ASSESSED AT THIS TIME. CALL LIGHT, POSSESSIONS IN REACH, BED IN LOW AND LOCKED POSITION WITH ALARMS ON. REPORT GIVEN TO LEORA GOETZ.
--- NOTE | 2021-05-10 18:42 | NUR ---
PT TO DIALYSIS AT 0900 AND RETURNED BETWEEN 1230 AND 1300. ATTEMPTED TO GIVE PT AM MEDS THRU PEG TUBE. SHE WAS PUSHING MY HANDS AWAY FROM PEG TUBE AND THEN COVERING IT WITH HER HAND. UNABLE TO GIVE MEDS THAT TIME. PEG TUBE BUTTONS COMING OFF, DR MONROE WAS CALLED AND HE CAME TO BEDSIDE AND ASSESSED PEG TUBE. REMAINING BUTTONS REMOVED. ABX TO SITE AND DRAIN SPONGE PLACED.
--- NOTE | 2021-05-10 19:16 | NUR ---
ASSUMED CARE RECEIVED REPORT FROM LEORA GOETZ. PT RESTING, IN NAD. NO ACUTE NEEDS ASSESSED AT THIS TIME. CALL LIGHT, POSSESSIONS IN REACH, BED IN LOW AND LOCKED POSITION WITH ALARMS ON. WCTM.
--- NOTE | 2021-05-10 23:00 | NUR ---
SPOKE TO DR. MERCHANT REGARDING PT'S HYPOTENSION AND HELD LOPRESSOR. ORDERS RECEIVED. WCVIPUL.
[2021-05-11 05:46] LABS: Hematocrit 24.2 % (33.0-51.0); Hemoglobin 7.5 g/dL (11.5-16.0)
--- NOTE | 2021-05-11 06:00 | NUR ---
SPOKE TO DR. WARE REGARDING PT'S CONTINUED HYPOTENSION AND LOW HGB. ORDERS RECEIVED.
[2021-05-11 06:11] LABS: Albumin, Blood 1.6 g/dL (3.4-5.0); Anion Gap 8 mmol/L (6-16); Blood Urea Nitrogen 28 mg/dL (8-24); Bun/Creatinine Ratio 9.8 (12.0-20.0); CO2, Blood 30 mmol/L (21-32); Calcium, Blood 7.7 mg/dL (8.5-10.1); Chloride, Blood 102 mmol/L (98-108); Creatinine, Blood 2.86 mg/dL (0.40-1.00); Glomerular Filtration Rate 19 (60-); Glucose, Blood 97 mg/dL (70-99); Magnesium, Blood 1.9 mg/dL (1.6-2.4); Phosphorus, Blood 2.9 mg/dL (2.5-4.9); Potassium, Blood 3.2 mmol/L (3.5-5.5); Sodium, Blood 140 mmol/L (136-145)
--- NOTE | 2021-05-11 07:45 | NUR ---
SHIFT SUMMARY PT RESTING, APPEARS COMFORTABLE. VS REVIEWED, HYPOTENSIVE, OTHER VS WNL. WITHDRAWN, BUT ATTEMPTING TO COMMUNICATE NEEDS TO STAFF. REMOVED HDY PERMACATH DRSG MULTIPLE TIMES, DRSG RE-APPLIED. TOLERATING TF WELL AT 30ML/HR WITH Q4H FLUSHES, GASTRIC RESIDUALS LESS THAN 250ML. ENCOURAGED PT TO STAY OFF BUTTOCKS MUCH POSSIBLE D/T SKIN BREAKDOWN. TRACH SUCTIONED PRN. SIZE 6 SHILEY TRACH AND OBTURATOR REMAIN PRESENT AT [facility]. NO ACUTE NEEDS ASSESSED. CALL LIGHT, AND POSSESSIONS IN REACH, BED IN LOW AND LOCKED POSITION WITH ALARMS ON. REPORT GIVEN TO LEORA WINTERS.
--- NOTE | 2021-05-11 10:54 | NUR ---
TRACH SUCTIONED USING STERILE TECHNIQUE.
--- NOTE | 2021-05-11 16:33 | NUR ---
PT BP/HEPARIN THIS RN SPOKE WITH DR. ESCOBAR VIA PHONE ABOUT PT'S BP OF 82/54. THIS RN WILL ADMINISTER 1800 DOSE OF MIDODRINE EARLY. THIS RN ALSO QUESTIONED THE HIGH HEPARIN DOSING AND CLARIFIED THE ORDER. THIS RN INSTRUCTED TO CHANGE HEPARIN TO 5,00 UNITS Q12H IF POSITIVE COVID TEST RESULT GREATER THAN 21 DAYS PRIOR. LAST COVID POSITIVE DATE IS 03/07/21 SO ORDER WILL BE CHANGED IN EMAR. THIS RN WILL CONTINUE TO MONITOR PT STATUS.
--- NOTE | 2021-05-11 17:07 | NUR ---
SHIFT SUMMARY PT IS AO AND NONVERBAL. PT MEDICATED FOR ANXIETY X1. PT IS HYPOTENSIVE THIS SHIFT AND MEDICATED WITH MIDODRINE. PT PULLED TRACH OUT THIS SHIFT AND NOW HAS WRIST RESTRAINTS TO PROTECT AIRWAY. ST EVALUATED PT TODAY. PT REMAINS ON RA. PT SATS DROPPED TO 79% WITH TRACH OUT, CURRENTLY AT 95% WITH TRACH IN. TRACH SUCTIONING PERFORMED FREQUENTLY THIS SHIFT. PT IS IN BED, CALL LIGHT IN REACH, LOW POSITION.
[2021-05-12 05:56] LABS: Albumin, Blood 1.5 g/dL (3.4-5.0); Anion Gap 8 mmol/L (6-16); Blood Urea Nitrogen 35 mg/dL (8-24); Bun/Creatinine Ratio 9.2 (12.0-20.0); CO2, Blood 30 mmol/L (21-32); Calcium, Blood 7.7 mg/dL (8.5-10.1); Chloride, Blood 99 mmol/L (98-108); Creatinine, Blood 3.82 mg/dL (0.40-1.00); Glomerular Filtration Rate 14 (60-); Glucose, Blood 82 mg/dL (70-99); Magnesium, Blood 1.9 mg/dL (1.6-2.4); Phosphorus, Blood 3.9 mg/dL (2.5-4.9); Potassium, Blood 3.7 mmol/L (3.5-5.5); Sodium, Blood 137 mmol/L (136-145)
[2021-05-12 06:03] LABS: Hematocrit 25.7 % (33.0-51.0); Hemoglobin 8.1 g/dL (11.5-16.0); Mean Corpuscular HGB 30.5 pg (26.0-34.0); Mean Corpuscular HGB Conc 31.5 g/dL (31.5-36.5); Mean Corpuscular Volume 97 fL (80-100); Mean Platelet Volume 9.6 fL (9.1-12.4); NRBC ABSOLUTE 0.02 K/mm3 (0.00-0.02); NRBC Auto 0.1 /100 WBC (0.0-0.2); Platelet Count 179 K/mm3 (150-400); RDW Coefficient Variation 21.2 % (11.7-14.2); RDW Standard Deviation 73.4 fL (35.1-46.3); Red Blood Cell Count 2.66 M/mm3 (3.80-5.20); White Blood Cell Count 22.42 K/mm3 (4.00-11.30)
[2021-05-12 06:41] LABS: BAND PERCENT MAN 3 % (0-8); BASOPHILS ABSOLUTE MAN 0.22 K/mm3 (0.00-0.23); BASOPHILS PERCENT MAN 1 % (0-2); EOSINOPHILS PERCENT MAN 0 % (0-6); LYMPHOCYTES ABSOLUTE MAN 4.25 K/mm3 (0.84-5.20); LYMPHOCYTES PERCENT MAN 19 % (21-46); MONOCYTES ABSOLUTE MAN 2.01 K/mm3 (0.16-1.47); MONOCYTES PERCENT MAN 9 % (4-13); NEUTROPHILS ABSOLUTE MAN 15.91 K/mm3 (1.96-9.15); SEG NEUTROPHILS PERCENT MAN 68 % (41-73); TOTAL CELLS COUNTED 100
--- NOTE | 2021-05-12 18:48 | NUR ---
SHIFT SUMMARY PT IS AO TO SELF AND RECEPTIVE TO STAFF. PT SUCTIONED PRN T/O SHIFT. PT MEDICATED FOR PAIN X1. PT DENIES N/V, SOB. PT HAD IMPROVED PO INTAKE THIS SHIFT AND GOOD FLUID INTAKE. PT HAD DIALYSIS TODAY. PT CONTINUES TO BE HYPOTENSIVE WITH MIDODRINE. PT REMAINS IN RESTRAINTS TO PROTECT TRACH. PT WORKED WITH PT TODAY AND SAT IN CHAIR. PT TEARFUL T/O SHIFT. PT IS IN BED, CALL LIGHT IN REACH, LOW POSITION.
[2021-05-13 05:50] LABS: Hematocrit 25.7 % (33.0-51.0); Hemoglobin 7.9 g/dL (11.5-16.0)
[2021-05-13 06:11] LABS: Albumin, Blood 1.5 g/dL (3.4-5.0); Anion Gap 6 mmol/L (6-16); Blood Urea Nitrogen 19 mg/dL (8-24); Bun/Creatinine Ratio 6.9 (12.0-20.0); CO2, Blood 32 mmol/L (21-32); Calcium, Blood 7.6 mg/dL (8.5-10.1); Chloride, Blood 102 mmol/L (98-108); Creatinine, Blood 2.76 mg/dL (0.40-1.00); Glomerular Filtration Rate 20 (60-); Glucose, Blood 87 mg/dL (70-99); Magnesium, Blood 1.9 mg/dL (1.6-2.4); Phosphorus, Blood 3.2 mg/dL (2.5-4.9); Potassium, Blood 3.8 mmol/L (3.5-5.5); Sodium, Blood 140 mmol/L (136-145)
--- NOTE | 2021-05-13 19:31 | NUR ---
SHIFT SUMMARY PT IS AO. PT IS TEARFUL T/O SHIFT. PT DENIES N/V. PT VERBALIZES PAIN AND HOLDS STOMACH NEAR PEG TUBE SITE. PT IS ON O2. TUBE FEEDS TO BE HELD DUE TO INCREASED RESIDUAL AND PO INTAKE. DROPLET PRECAUTIONS MAINTAINED T/O SHIFT. RESTRAINTS DC'D THIS SHIFT. PT IS IN BED, CALL LIGHT IN REACH, LOW POSITION.
--- NOTE | 2021-05-14 05:10 | NUR ---
SHIFT SUMMARY NO ACUTE CHANGES THIS SHIFT, MEDICATED 1X FOR PAIN (GENERAL, BOTTOM, & SALAZAR), 1X FOR ANXIETY, REPOS Q2 FOR COMFORT, TRACH CARE COMPLETED, SLEEPING AT THIS TIME, CALL LIGHT IN REACH, BED ALARM ACTIVE, WILL CONT TO MONITOR UNTIL REPORT GIVEN TO DAY RN.
--- NOTE | 2021-05-14 07:15 | NUR ---
ASSUMED CARE RECEIVED REPORT FROM LEORA BARBER. PT RESTING, IN NAD. NO ACUTE NEEDS ASSESSED. CALL LIGHT, POSSESSIONS IN REACH, [facility].
--- NOTE | 2021-05-14 07:57 | NUR ---
THIS RN IN PT ROOM, PREPARING AM MEDICATIONS. PT SUCTIONED, AND THIS RN NOTED THAT PT REMOVED INNER CANNULA FROM TRACH. WHEN THIS RN ATTEMPTED TO RE-INSERT NEW TRACH, PT REFUSED, PUSHING THIS RN'S HANDS AWAY AND COVERING UP TRACH SITE, ABLE TO VOCALIZE THAT IT WAS PAINFUL. NO S/S RESPIRATORY DISTRESS NOTED. O2 SATS WNL.
--- NOTE | 2021-05-14 09:45 | NUR ---
PT OFF FLOOR FOR DIALYSIS
[2021-05-14 10:10] LABS: BASOPHILS ABSOLUTE AUTO 0.06 K/mm3 (0.00-0.23); BASOPHILS PERCENT AUTO 0 % (0-2); Hematocrit 24.6 % (33.0-51.0); Hemoglobin 7.8 g/dL (11.5-16.0); LYMPHOCYTES ABSOLUTE AUTO 4.57 K/mm3 (0.84-5.20); LYMPHOCYTES PERCENT AUTO 20 % (21-46); MONOCYTES ABSOLUTE AUTO 2.03 K/mm3 (0.16-1.47); MONOCYTES PERCENT AUTO 9 % (4-13); Mean Corpuscular HGB 30.5 pg (26.0-34.0); Mean Corpuscular HGB Conc 31.7 g/dL (31.5-36.5); Mean Corpuscular Volume 96 fL (80-100); NRBC ABSOLUTE 0.03 K/mm3 (0.00-0.02); NRBC Auto 0.1 /100 WBC (0.0-0.2); Platelet Count 192 K/mm3 (150-400); RDW Coefficient Variation 21.1 % (11.7-14.2); RDW Standard Deviation 72.5 fL (35.1-46.3); Red Blood Cell Count 2.56 M/mm3 (3.80-5.20); White Blood Cell Count 23.38 K/mm3 (4.00-11.30)
[2021-05-14 10:11] LABS: EOSINOPHILS PERCENT AUTO 0 % (0-6); IMMATURE GRAN ABSOLUTE AUTO 0.24 K/mm3 (0.00-0.10); IMMATURE GRAN PERCENT AUTO 1 % (0-1); NEUTROPHILS ABSOLUTE AUTO 16.48 K/mm3 (1.96-9.15); NEUTROPHILS PERCENT AUTO 71 % (41-73)
[2021-05-14 10:40] LABS: Albumin, Blood 1.4 g/dL (3.4-5.0); Anion Gap 10 mmol/L (6-16); Blood Urea Nitrogen 27 mg/dL (8-24); Bun/Creatinine Ratio 7.5 (12.0-20.0); CO2, Blood 26 mmol/L (21-32); Calcium, Blood 7.4 mg/dL (8.5-10.1); Chloride, Blood 98 mmol/L (98-108); Creatinine, Blood 3.59 mg/dL (0.40-1.00); Glomerular Filtration Rate 15 (60-); Glucose, Blood 106 mg/dL (70-99); Magnesium, Blood 1.5 mg/dL (1.6-2.4); Phosphorus, Blood 4.3 mg/dL (2.5-4.9); Potassium, Blood 4.5 mmol/L (3.5-5.5); Sodium, Blood 134 mmol/L (136-145)
--- NOTE | 2021-05-14 12:45 | NUR ---
PT RETURNED TO FLOOR FROM DIALYSIS.
--- NOTE | 2021-05-14 14:45 | NUR ---
TRANSFER OF CARE REPORT GIVEN TO LEORA LANE. PT RESTING, IN NAD. VS REVIEWED, WNL. NO ACUTE CONCERNS NOTED. CALL LIGHT IN REACH.
--- NOTE | 2021-05-14 14:47 | NUR ---
pt. in bed and the nurses in the room attending to her needs offered prayers for the pt.
--- NOTE | 2021-05-15 02:55 | NUR ---
PT SET OFF BED ALARM. WAS FOUND BY DISTRIBUTION SUPERINTENDENT STANDING AT THE SIDE OF THE BED. DISTRIBUTION SUPERINTENDENT ATTEMPTED TO ASSIST PT TO THE BSC. PT WAS TOO WEAK AND BEGAN TO SIT ON THE FLOOR. DISTRIBUTION SUPERINTENDENT ASSISTED PT TO SIT ON THE FLOOR. PT SAT GENTLY ON THE FLOOR. CEILING LIFT USED TO TRANSFER PT BACK IN TO BED. PT WAS NOT INJURED. BED ALARM SET. CALL LIGHT IN REACH.
--- NOTE | 2021-05-15 04:29 | NUR ---
SHIFT SUMMARY NO ACUTE CHANGES THIS SHIFT, MEDICATED 1X AT BEDTIME FOR ANXIETY, MEDS ADMIN VIA PEG, PT SLEEPING AT THIS TIME, CALL LIGHT IN REACH, BED ALARM ACTIVE, WILL CONT TO MONITOR UNTIL REPORT GIVEN TO DAY RN.
[2021-05-15 05:34] LABS: Albumin, Blood 1.2 g/dL (3.4-5.0); Anion Gap 6 mmol/L (6-16); Blood Urea Nitrogen 20 mg/dL (8-24); Bun/Creatinine Ratio 7.1 (12.0-20.0); CO2, Blood 26 mmol/L (21-32); Calcium, Blood 7.2 mg/dL (8.5-10.1); Chloride, Blood 103 mmol/L (98-108); Glomerular Filtration Rate 20 (60-); Glucose, Blood 94 mg/dL (70-99); Magnesium, Blood 1.7 mg/dL (1.6-2.4); Phosphorus, Blood 3.6 mg/dL (2.5-4.9); Potassium, Blood 4.7 mmol/L (3.5-5.5); Sodium, Blood 135 mmol/L (136-145)
[2021-05-15 05:42] LABS: Hematocrit 28.1 % (33.0-51.0); Hemoglobin 8.2 g/dL (11.5-16.0)
--- NOTE | 2021-05-15 13:53 | NUR ---
Pt. in bed and the nurses in thwe room attending to the pt. offered prayers for pt.
--- NOTE | 2021-05-15 14:10 | NUR ---
Attempted to meet with pt today. She had however just finished working with with nurse and PT so she is understandably tired. I did notice when I entered the room, she closed her eyes and turned her head to the side, away from me. I attempted to speak to her, but no response. Resp even and unlabored. According to an earlier note, pt recently pulled her PEG and Trach out again. She does seem to be aware they shouldn't come out, and she has been able to communicate with staff on her communication board when she is in the mood to. PT tells me this patient is able to ambulate with minimal assist for a "few steps", but she will only do this occasionally when she feels up to it. I left a message for both pt's mom and dad on the cell phones I have listed fof them. I also remember pt teling me she has an 11 old son. I do wonder if she would do better if she could see him. I didn't bring it up todaym, as she appeared disinterested in speaking to me at this time.
--- NOTE | 2021-05-15 18:38 | NUR ---
Called by physical therapy to review pt. therapy relaying difficulty in progress and quality of life. Stated she puled out peg and trach again. Review with care management they have not heard from patients mother. Unsure if they are sick. will get ethic consult. pt kps score is 40%.
--- NOTE | 2021-05-15 18:50 | NUR ---
PATIENT IS ALERT AND ORIENTED. FLAT AFFECT. MOUTHS WORDS. HAS SPEAKING VALVE FOR TRACH, HAS DIFFICULTY TALKING. PALLIATIVE CARE SAW THE PATIENT TODAY. PEG TUBE IS IN PLACE, BOLUS FEEDS. TOLERATES PO FOOD AND MEDICATIONS. HAS A POOR APPETITE, DRINKS FLUIDS MORE THAN EATS HER PUREE DIET. 2PA TO RECLINER, SHE SPENT 4 HOURS IN THE RECLINER TODAY. LOOSE STOOL. ATTENDS IN PLACE
--- NOTE | 2021-05-16 06:29 | NUR ---
SHIFT SUMMARY ASSUMED CARE OF PT AT 1900. PT ORIENTATION DIFFICULT TO ASSESS DUE TO IMPAIRED SPEECH. PT WILL NOD HER HEAD IN UNDERSTANDING BUT WILL NOT FOLLOW SOME COMMANDS, LIKE TO STOP TAKING OFF HER OXIMETER DURING VITALS. HEART SOUNDS REGULAR, LUNG SOUNDS HAVE CRACKLES AT THE BASES. PT HAS A TACH, DRAINING THICK YELLOW MUCUS. PT WAS ON OXYGEN T/O THE NIGHT. PT WAS INCONTIENT OF BOWEL, STOOL IS YELLOW AND RUNNY. PT HAS TUBE FEEDING ONCE. PT C/O STOMACH PAIN, WHEN RESIDUAL WAS CHECKED, THERE WAS 100CC. PT WAS MEDICATED FOR PAIN. PT WAS INCONTIENT OF URINE. PT WAS WOUNDS ON BUTTOM, AIDAN AREA AND UNDER HER BREASTS, OPEN TO AIR. CALL LIGHT IN REACH, BED IN LOWEST POSTION.
--- NOTE | 2021-05-16 09:16 | NUR ---
patient holds abd and grimaces, tube feedings on hold for abd pain, per order
--- NOTE | 2021-05-16 09:24 | NUR ---
patient being transported to dialysis now
--- NOTE | 2021-05-16 12:25 | NUR ---
patient back from dialysis
--- NOTE | 2021-05-16 16:27 | NUR ---
SHIFT SUMMARY PT IS AO AND LETHARGIC TODAY. PT MEDICATED FOR PAIN X1. PT C/O ABDOMINAL PAIN T/O SHIFT. PT APPEARS UNCOMFORTABLE AND CRIES T/O SHIFT. 5 L 02 IS ON TRACH. PT REQUIRED SUCTIONING T/O SHIFT. PT HAD DIALYSIS TODAY. PT HAD MINIMAL PO INTAKE, BUT TOOK MEDS VIA APPLESAUCE. PT AWAITING PLACEMENT AND GUARDIANSHIP PLANS. PT MEDICATED FOR HYPOTENSION WITH SCHEDULED MIDODRINE. PT IS IN BED, CALL LIGHT IN REACH, ALARM ON.
--- NOTE | 2021-05-16 18:18 | NUR ---
PATIENT REFUSED PO CRUSHED MED, GIVEN VIA PEG TUBE, PATIENT WAKES AND EASILY IS BACK TO SLEEP,
--- NOTE | 2021-05-16 19:43 | NUR ---
review of pt with the ethicist and staff.
--- NOTE | 2021-05-17 03:24 | NUR ---
SUCTIONED PT'S TRACHEA, CLEAR SLIGHT THICK SPUTUM, SMALL AMOUNT. PT TOLERATED WELL. PLACED O2 MIST MASK BACK PT, PT KEEPS PULLING IT OFF. NO OTHER APPARENT SIGNS OF DISTRESS. CALL LIGHT IS IN REACH.
--- NOTE | 2021-05-17 03:45 | NUR ---
EQUIPMENT SERVICE LEAD SUMMARY AWAKE AND PULLING AT TRACHE MASK AT SHIFT COMMENCE. SOME INTERMITTENT CONGESTION IN TRACHE, SUCTIONED - THICK BROWN TINGED RESULTS. INNER CANNULA REPLACED. ENCOURAGEMENT GIVEN. REPOSITIONED AND CHANGED . HAS BEEN KEEPING TRACH MASK ALONE AND IN PLACE SINCE. RESTING QUIETLY WITH FEW INTERRUPTIONS SINCE. CALL LIGHT IN REACH. ISOLATION PRECAUTIONS MAINTAINED.
--- NOTE | 2021-05-17 16:42 | NUR ---
SHIFT SUMMARY PT IS AOX4 AND USING VALVE TO TRACH FOR SPEECH TODAY. PT MEDICATED X1 FOR PAIN. PT SUCTIONED PRN FOR TRACH. PT APPETITE IS POOR TO MODERATE BUT SUPPLEMENTED VIA BOLUS FEEDS. PT HAS GOOD PO FLUID INTAKE. PT WORKED WITH PT/OT TO SIT IN CHAIR AT THE BEDSIDE. WOUND CARE PRN FOR STAGE TWO ULCERS ON COCCYX. PT IS 2 ASSIST FOR TRANSFERS. DROPLET PRECAUTIONS MAINTAINED T/O SHIFT. PT IS IN BED, CALL LIGHT IN REACH, LOW POSITION.
--- NOTE | 2021-05-18 04:40 | NUR ---
PARTS ADMINISTRATOR SUMMARY AWAKE AT INTERVALS, MORE ANIMATED. APPEARS MORE IN TOUCH WITH WORKING AT GETTING BETTER. MORE WILLING TO ASSIST WITH REPOSITIONING, NOT PULLING AT TRACHE. TRACHE INNER CANNULA CHANGED PREVIOUS ONE HAD THICK MUCOID SECRETIONS AND PT WAS HAVING SOME DIFFICULTY WITH RESPS. TOLERATING PO MEDS WITH APPLESAUCE, DRINKING FLUIDS. CALL LIGHT IN REACH. ISOLATION PRECAUTIONS MAINTAINED.
[2021-05-18 05:48] LABS: Hematocrit 25.8 % (33.0-51.0); Hemoglobin 8.2 g/dL (11.5-16.0)
[2021-05-18 06:05] LABS: Albumin, Blood 1.3 g/dL (3.4-5.0); Anion Gap 6 mmol/L (6-16); Blood Urea Nitrogen 50 mg/dL (8-24); Bun/Creatinine Ratio 13.2 (12.0-20.0); CO2, Blood 29 mmol/L (21-32); Calcium, Blood 7.6 mg/dL (8.5-10.1); Chloride, Blood 94 mmol/L (98-108); Creatinine, Blood 3.78 mg/dL (0.40-1.00); Glomerular Filtration Rate 14 (60-); Glucose, Blood 87 mg/dL (70-99); Magnesium, Blood 1.8 mg/dL (1.6-2.4); Phosphorus, Blood 4.5 mg/dL (2.5-4.9); Potassium, Blood 5.4 mmol/L (3.5-5.5); Sodium, Blood 129 mmol/L (136-145)
--- NOTE | 2021-05-18 18:14 | NUR ---
SHIFT SUMMARY PT IS AO. PT SATS GREATER THAN 90% ON RA. PT HAD DIALYSIS TODAY. PT DENIES N/V, SOB, PAIN. DROPLET PRECUATIONS MAINTAINED T/O SHIFT. PT APPETITE IS GOOD, ORAL FLUID INTAKE GOOD. PT REQUIRED PRN SUCTIONING OF TRACH BY THIS RN T/O SHIFT. PT IS 2 ASSIST IN ROOM. PT WORKED WITH OT TODAY. PT IS IN BED, CALL LIGHT IN REACH, ALARM ON, LOW POSITION.
[2021-05-19 05:07] LABS: Hematocrit 31.2 % (33.0-51.0); Hemoglobin 9.5 g/dL (11.5-16.0)
[2021-05-19 05:36] LABS: Albumin, Blood 1.4 g/dL (3.4-5.0); Anion Gap 8 mmol/L (6-16); Blood Urea Nitrogen 31 mg/dL (8-24); Bun/Creatinine Ratio 11.2 (12.0-20.0); CO2, Blood 29 mmol/L (21-32); Calcium, Blood 7.5 mg/dL (8.5-10.1); Chloride, Blood 94 mmol/L (98-108); Creatinine, Blood 2.76 mg/dL (0.40-1.00); Glomerular Filtration Rate 20 (60-); Glucose, Blood 109 mg/dL (70-99); Magnesium, Blood 1.8 mg/dL (1.6-2.4); Phosphorus, Blood 3.2 mg/dL (2.5-4.9); Potassium, Blood 3.7 mmol/L (3.5-5.5); Sodium, Blood 131 mmol/L (136-145)
--- NOTE | 2021-05-19 06:47 | NUR ---
SHIFT SUMMARY PATIENT ALERT AND ORIENTED TO SELF. HAD NO COMPLAINT OF PAIN. PATIENT FELL AT 0415. NO INJURIES NOTED. TRACH TUBE STILL IN PLACE. CALL LIGHT WITHIN REACH. REPORT GIVEN TO ONCOMING RN.
--- NOTE | 2021-05-19 16:06 | NUR ---
PT HAS BEEN AOX3 AND HAS BEEN VERY TIRED AND HAS NOT WANTED TO TRY AND EAT ORALLY WELL TODAY. PT HAS TAKEN SOME ORAL MEDICATIONS, BUT DID NOT WANT TO EAT. PT HAS FEEDINGS STARTED AND THEN PULLED FEEDING TUBE APART FROM PEG TUBE. PT NOT WANTING TO HAVE FOOD RUNNING. WILL CONTINUE TO TRY. BED ALARM IN PLACE WILL CONTINUE TO MONITOR.
[2021-05-20 06:50] LABS: Hematocrit 25.4 % (33.0-51.0)
[2021-05-20 07:13] LABS: Albumin, Blood 1.2 g/dL (3.4-5.0); Anion Gap 5 mmol/L (6-16); Blood Urea Nitrogen 49 mg/dL (8-24); Bun/Creatinine Ratio 13.5 (12.0-20.0); CO2, Blood 31 mmol/L (21-32); Calcium, Blood 7.6 mg/dL (8.5-10.1); Chloride, Blood 96 mmol/L (98-108); Creatinine, Blood 3.62 mg/dL (0.40-1.00); Glomerular Filtration Rate 15 (60-); Glucose, Blood 105 mg/dL (70-99); Magnesium, Blood 1.7 mg/dL (1.6-2.4); Phosphorus, Blood 4.2 mg/dL (2.5-4.9); Potassium, Blood 4.1 mmol/L (3.5-5.5); Sodium, Blood 132 mmol/L (136-145)
--- NOTE | 2021-05-20 07:16 | NUR ---
SHIFT SUMMARY PATIENT ALERT AND ORIENTED X2. MEDICATED PER EMAR FOR PAIN. PATIENT PULLED HER TRACH OUT. RT REPLACED IT AND PATIENT WAS SUCTIONED DUE TO COUGHING UP LARGE AMOUNT OF BLOODY SPUTUM. CALL LIGHT WITHIN REACH. REPORT GIVEN TO ONCOMING RN.
--- NOTE | 2021-05-20 13:14 | NUR ---
visiting pt in dialysis. pt was more interactive today. Asked her if she felt like she was in outerspace and disconnected form the world she nodded yes. asked if i could take her outside she nodded on. asked if i could get her cell phone from her family she vigourously nodded yes. called family and left a message if we cant get ahold of them will try to get her a phone or tablet to use.
--- NOTE | 2021-05-20 17:41 | NUR ---
NO CHANGES AT THIS TIME. PT WAS SUCTIONED X1 TODAY. PT DID DIALYSIS AND DID NOT WANT TO EAT AND HAD TWO BOLUS FEEDINGS. THE SECOND ONE WAS DONE AFTER DIALYSIS AND PT HAD EMESIS. DINNER BOLUS WILL BE HELD. PT DID SWALLOW SOME MEDICATIONS LATER IN THE DAY CRUSHED IN APPLESAUCE. PT ENCOURAGE TO EAT WITH NO SUCCESS. WILL CONTINUE TO MONTIOR BED ALARM IN PLACE. PT HAS BED SORES TREATED, BUT THESE ARE NOT IMPROVING PT MOVES HER SELF INTO THE SAME POSISTION AFTER REPOSTIONING.
[2021-05-21 04:51] LABS: Hematocrit 24.8 % (33.0-51.0); Hemoglobin 7.5 g/dL (11.5-16.0)
[2021-05-21 05:14] LABS: Albumin, Blood 1.2 g/dL (3.4-5.0); Anion Gap 6 mmol/L (6-16); Blood Urea Nitrogen 42 mg/dL (8-24); Bun/Creatinine Ratio 15.6 (12.0-20.0); CO2, Blood 30 mmol/L (21-32); Calcium, Blood 7.3 mg/dL (8.5-10.1); Chloride, Blood 96 mmol/L (98-108); Glomerular Filtration Rate 21 (60-); Glucose, Blood 102 mg/dL (70-99); Magnesium, Blood 1.6 mg/dL (1.6-2.4); Potassium, Blood 3.3 mmol/L (3.5-5.5); Sodium, Blood 132 mmol/L (136-145)
--- NOTE | 2021-05-21 06:37 | NUR ---
SHIFT SUMMARY PATIENT ALERT AND ORIENTED. HAD NO COMPLAINTS OF PAIN. TRACH WAS SUCTIONED ONCE THIS MORNING. NO ACUTE ISSUES NOTED OVERNIGHT. BED IN LOWEST POSITION WITH WHEELS LOCKED AND ALARM ON. CALL LIGHT WITHIN REACH. REPORT GIVEN TO ONCOMING RN.
--- NOTE | 2021-05-21 07:47 | NUR ---
PT HAS NO IV. DR. BEVERLY NOTIFIED AND ORDER GIVEN TO CHANGE IV KCL 20 MEQ TO KCL 20 MEQ ELIXER. ORDER PROCESSED.
--- NOTE | 2021-05-21 15:14 | NUR ---
Met pt in bed relaxing and doing much better, encouraged pt. and offered prayers and blessing.
--- NOTE | 2021-05-21 19:50 | NUR ---
SHIFT SUMMARY: PT A/O TO SELF, ABLE TO COMMUNICATE WELL WITH WHITE BOARD AND WAS ABLE TO WHISPER AT TIMES. PT UP TO CHAIR TODAY FOR A SHORT TIME. PT HAD LARGE SOFT BM. PT CONTINUES TO HAVE OPEN SORES TO BOTTOM AND AIDAN AREA. NO S/S OF INFECTION. CLEANSED AND APPLIED VASELINE PER ORDER. PT TOLERATED PEG TUBE FEEDING AT 1400 PM AND STARTED AGAIN AT 1800. ORAL CARE COMPLETED. TRACH SUCTIONED AT PT REQUESTS. DIVYA WELL.
--- NOTE | 2021-05-22 03:07 | NUR ---
PRODUCT MARKETING INTERN SUMMARY TRACHE CARE GIVEN, INCLUDING CHANGING OUT INNER CANNULA (#6), AND SUCTIONING. NOTED THICK BROWN TINGED RETURNS. PT MORE COOPERATIVE WITH TRACHE CARE AND EVEN ASSISTING WITH PLACING O2 TRACHE MASK BACK ON AFTER TRACHE CARE. HOB ELEVATED ABOUT 40 DEGREES. PEG TUBE FLUSHED. HAS BEEN RESTING QUIETLY WITH OCCASIONAL INTERRUPTIONS, USUALLY COUGHING DURING SAID INTERRUPTIONS. CALL LIGHT IN REACH. ASSISTS WITH REPOSITIONING. ISOLATION PRECAUTIONS MAINTAINED.
[2021-05-22 05:11] LABS: Hematocrit 22.5 % (33.0-51.0); Hemoglobin 7.1 g/dL (11.5-16.0)
[2021-05-22 05:34] LABS: Albumin, Blood 1.1 g/dL (3.4-5.0); Anion Gap 6 mmol/L (6-16); Blood Urea Nitrogen 64 mg/dL (8-24); CO2, Blood 30 mmol/L (21-32); Calcium, Blood 7.2 mg/dL (8.5-10.1); Chloride, Blood 92 mmol/L (98-108); Creatinine, Blood 3.56 mg/dL (0.40-1.00); Glomerular Filtration Rate 15 (60-); Glucose, Blood 93 mg/dL (70-99); Magnesium, Blood 1.5 mg/dL (1.6-2.4); Sodium, Blood 128 mmol/L (136-145)
--- NOTE | 2021-05-22 14:12 | NUR ---
Pt. is doing fine she has nurses in the room attending bto her needs prayed for her
--- NOTE | 2021-05-22 14:32 | NUR ---
DR. BEVERLY NOTIFIED PT HAS NO IV ACCESS. IV MAGNESIUM CHANGED TO PO. ORDER RECEIVED TO GIVE MAGNESIUM OXIDE 400 MG PO BID X 2 DOSES. ORDER PLACED.
--- NOTE | 2021-05-22 18:07 | NUR ---
SHIFT SUMMARY: PT A/O. HAD DIALYSIS TODAY. PT SLEPT MOST OF THE AFTERNOON AND HAD NO ORAL INTAKE. PT HAD FEEDING X ONE TIME. PT HAS HAD NO ACUTE CONCERNS THIS SHIFT.
[2021-05-23 05:11] LABS: Hematocrit 25.8 % (33.0-51.0); Hemoglobin 8.1 g/dL (11.5-16.0)
--- NOTE | 2021-05-23 05:34 | NUR ---
SAW STRAIGHTENER SUMMARY REMAINS ON CONTACT ISOLATION FOR ESBL. DOOR OPEN, WAVES TO STAFF IN HALLWAY. MORE ANIMATED TONIGHT. INNER CANNULA OF TRACHE CHANGED AND SUCTIONED, PT ALLOWED STAFF TO DO IT. PT EVEN HOLDING O2 FOR TRACHE TO NECK AT TIMES. MEDS CRUSHED IN APPLESAUCE AND TOLERATED WELL. ASSISTS WITH TURNING AND REPOSITIONING. INCONT AND CHANGED A FEW TIMES, PT ALERTING STAFF TO HER NEEDS. CALL LIGHT IN REACH.
[2021-05-23 05:35] LABS: Albumin, Blood 1.2 g/dL (3.4-5.0); Anion Gap 6 mmol/L (6-16); Blood Urea Nitrogen 40 mg/dL (8-24); CO2, Blood 30 mmol/L (21-32); Calcium, Blood 7.5 mg/dL (8.5-10.1); Chloride, Blood 98 mmol/L (98-108); Creatinine, Blood 2.67 mg/dL (0.40-1.00); Glomerular Filtration Rate 21 (60-); Glucose, Blood 107 mg/dL (70-99); Magnesium, Blood 2.1 mg/dL (1.6-2.4); Phosphorus, Blood 3.2 mg/dL (2.5-4.9); Potassium, Blood 3.1 mmol/L (3.5-5.5); Sodium, Blood 134 mmol/L (136-145)
--- NOTE | 2021-05-23 19:08 | NUR ---
SUMMARY- PT ALERT AND ORIENTED X4. GETTING OOB WITH 1-2 SBA, USING BSC AND ALSO INCONT. FREQ LOOSE STOOL. HELD REGLAN. [facility] MAY NEED STOOL CX IF NOT RECENTLY. MAY NEED SOMETHING TO BULK UP STOOL- SPOKE WITH DIETITIAN STATED SHE WOULD START BANANA FLAKES. PT HAS POOR APPETITE. GIVEN ONE BOLUS DOSE TUBE FEED 1000. TOLERATING FLUIDS AND 25% LUNCH, DIDNT GIVE BOLUS AFTER LUNCH. MIN DINNER BUT PLAN TO GO DOWN TO [employer] TO GET [employer] SO DIDN'T WANT TO FILL STOMACH BEFOREHAND. PT'S LUNGS CLEAR. STRONG COUGH, SUCTIONED PRN THIN CLEAR/DELGADO APPROX 6X THIS SHIFT. TRACH PLUGGED PER RT LONNY STAR AT 1140 TODAY, PT INSTRUCTED TO BREATH THROUGH NOSE, SAT'S AT THE TIME 90%, STARTED ON OXYGEN 2L NC, SATS UP TO 97%. PT EASED INTO BREATHING AND HAS BEEN PLUGGED ALL SHIFT. ONCE SHE HAD A COUGHING SPELL AND HAD SMALL EMESIS. UNPLUGGED TRACH TO SUCTION, NO ASPIRATION NOTED. NO DIALYSIS TODAY. KCL 3.1 THIS AM REPLACED WITH 40MEQ KCL LIQ. MIDIDRINE FOR LOW BP, HELD NOON DOSE FOR ELEVATED BP. SKIN TO BOTTOM MUCH IMPROVED FROM 2 WEEKS AGO WHEN I HAD HER. CONT MULT OPEN ULCERATIONS, WITH EPITHELIAL CELLS, KEEPING VASALINE OINT OVER WOUNDS AFTER EACH LIQ STOOL, APPROX 6 TODAY. LINDA WITH CASE SIMA. SPOKE WITH PT AND LET HER KNOW SHE CAN'T REACH HER MOM AND WILL CONT TO TRY, LINDA STATED WORRY THAT SOMETHING MAY HAVE HAPPENED, WILL F/U WITH TRYING TO FIND MOM
--- NOTE | 2021-05-23 21:26 | NUR ---
pt up in chair capped trach more alert. Advocating for getting her some communication to the outside world. unable to contact family.
--- NOTE | 2021-05-24 03:12 | NUR ---
PHYSICIAN COMMUNICATION CONTACTED [facility] IN [facility] PHYSICIAN, DR SALMERON, TO NOTIFY HIM THAT THE PATIENT FELL, NO APPARENT INJURIES. ASKED IF FOUR SIDE RAIL RESTRAINTS COULD BE INITIATED SINCE THIS IS HER SECOND FALL THIS WEEK. DR SALMERON ORDERED THE SIDE RAILS.
--- NOTE | 2021-05-24 05:26 | NUR ---
SHIFT SUMMARY PATIENT ALERT AND ORIENTED. HAD A GROUND LEVEL FALL AT 0245, NO INJURIES NOTED. TRACH CAPPED. BED IN LOWEST POSITION WITH WHEELS LOCKED AND ALL FOUR SIDE RAILS UP. CALL LIGHT WITHIN REACH. REPORT GIVEN TO ONCOMING RN.
[2021-05-24 05:55] LABS: Hematocrit 26.5 % (33.0-51.0); Hemoglobin 8.2 g/dL (11.5-16.0)
[2021-05-24 06:55] LABS: Albumin, Blood 1.3 g/dL (3.4-5.0); Anion Gap 6 mmol/L (6-16); Blood Urea Nitrogen 51 mg/dL (8-24); Bun/Creatinine Ratio 14.8 (12.0-20.0); CO2, Blood 29 mmol/L (21-32); Calcium, Blood 7.6 mg/dL (8.5-10.1); Chloride, Blood 95 mmol/L (98-108); Creatinine, Blood 3.45 mg/dL (0.40-1.00); Glomerular Filtration Rate 16 (60-); Glucose, Blood 102 mg/dL (70-99); Magnesium, Blood 1.8 mg/dL (1.6-2.4); Phosphorus, Blood 4.8 mg/dL (2.5-4.9); Potassium, Blood 4.2 mmol/L (3.5-5.5); Sodium, Blood 130 mmol/L (136-145)
--- NOTE | 2021-05-24 19:18 | NUR ---
SHIFT SUMMARY PT ALERT TO SELF AND STAFF. SHE IS ABLE TO COMMUNICATE USING THE WHITE BOARD AND BY MOUTHING WORDS. TRACH IN PLACE WITH SUCTION NEEDED. TO DIALYSIS TODAY. PUT ON CONTINUOUS FEEDINGS VIA THE [place] POUCH. REMAINS IN 4 SIDE RAIL RESTRAINTS WHICH HE TOLERATES WELL. VSS. WILL REPORT TO ONCOMING RN.
[2021-05-25 05:45] LABS: Hematocrit 24.3 % (33.0-51.0); Hemoglobin 7.4 g/dL (11.5-16.0); Mean Corpuscular HGB 31.5 pg (26.0-34.0); Mean Corpuscular HGB Conc 30.5 g/dL (31.5-36.5); Mean Corpuscular Volume 103 fL (80-100); Mean Platelet Volume 9.2 fL (9.1-12.4); Platelet Count 207 K/mm3 (150-400); RDW Coefficient Variation 23.7 % (11.7-14.2); RDW Standard Deviation 86.3 fL (35.1-46.3); Red Blood Cell Count 2.35 M/mm3 (3.80-5.20); White Blood Cell Count 18.61 K/mm3 (4.00-11.30)
[2021-05-25 06:11] LABS: Albumin, Blood 1.2 g/dL (3.4-5.0); Anion Gap 6 mmol/L (6-16); Blood Urea Nitrogen 35 mg/dL (8-24); Bun/Creatinine Ratio 12.3 (12.0-20.0); CO2, Blood 32 mmol/L (21-32); Calcium, Blood 7.8 mg/dL (8.5-10.1); Chloride, Blood 93 mmol/L (98-108); Creatinine, Blood 2.85 mg/dL (0.40-1.00); Glomerular Filtration Rate 20 (60-); Glucose, Blood 124 mg/dL (70-99); Phosphorus, Blood 2.7 mg/dL (2.5-4.9); Potassium, Blood 3.9 mmol/L (3.5-5.5); Sodium, Blood 131 mmol/L (136-145)
--- NOTE | 2021-05-25 06:35 | NUR ---
SHIFT SUMMARY PATIENT ALERT AND ORIENTED. MEDICATED PER EMAR FOR PAIN. NO COMPLAINTS OF SHORTNESS OF BREATH. NO ACUTE ISSUES NOTED OVERNIGHT. CALL LIGHT WITHIN REACH. REPORT GIVEN TO ONCOMING RN.
--- NOTE | 2021-05-25 19:25 | NUR ---
PT PELASANT TODAY. NO C/O PAIN TO ME. PT DID EAT SOME THIS NAS. NEW PEG FEEDING STARTED TODAY. DO DIALYSIS TODAY. PILLS CRUSHED IN APPLESAUCE ORALLY. NO NEW CONCERNS NOTED. BED IN LOW POSITION,C ALL LITE IN REACH, BED ALARM ON FOR SAFETY. 4 RAILS FOR SAFETY
[2021-05-26 06:04] LABS: Hematocrit 26.3 % (33.0-51.0); Hemoglobin 8.3 g/dL (11.5-16.0)
[2021-05-26 06:25] LABS: Albumin, Blood 1.2 g/dL (3.4-5.0); Anion Gap 6 mmol/L (6-16); Blood Urea Nitrogen 53 mg/dL (8-24); Bun/Creatinine Ratio 14.8 (12.0-20.0); CO2, Blood 30 mmol/L (21-32); Chloride, Blood 93 mmol/L (98-108); Creatinine, Blood 3.59 mg/dL (0.40-1.00); Glomerular Filtration Rate 15 (60-); Glucose, Blood 117 mg/dL (70-99); Magnesium, Blood 1.8 mg/dL (1.6-2.4); Potassium, Blood 4.4 mmol/L (3.5-5.5); Sodium, Blood 129 mmol/L (136-145)
--- NOTE | 2021-05-26 06:43 | NUR ---
SHIFT SUMMARY PATIENT ALERT AND ORIENTED. MEDICATED PER EMAR FOR PAIN. TRACH SUCTIONED NEEDED. NO ACUTE ISSUES OVERNIGHT. CALL LIGHT WITHIN REACH. REPORT GIVEN TO ONCOMING RN.
--- NOTE | 2021-05-26 18:09 | NUR ---
PT PLEASANT TODAY. DID DO SEVERAL STAND FROM BED WITH PT/OT TODAY.O2 MAINTAINED >90%. DID DIALYSIS TODAY. NO NEW CONCERNS NOTED. BED IN LOW POSITION,C TASHATE IN REACH, CALLS APPROP BED RAILS X4 FOR FALL PREVENTION.
--- NOTE | 2021-05-27 04:22 | NUR ---
SHIFT SUMMARY PT HAD AN UNEVENTFUL NIGHT. ALERT AND COOPERATIVE WITH CARE. SPEAKS SOFTLY AND SLOWLY BUT WAS ABLE TO MAKE NEEDS KNOWN. TUBE FEEDINGS CONTINUOUSLY RUNNING AT GOAL RATE OF 30 ML/HR. NO RESIDUAL WITH CHECK AT ASSESSMENT. TRACH REMAINED CAPPED THROUGHOUT THE NIGHT. MEDICATED X 1 W/ 10 MG ROXICODONE FOR PAIN. WOUNDS TO AIDAN AREA AND COCCYX IMPROVING. PT REMAINED IN BED THROUGHOUT THE NIGHT. RESTRAINT ORDER FOR SIDE RAILS X 4 RENEWED DUE TO PT'S RECENT IMPULSIVE BEHAVIOUR AND FALLS. VITAL SIGNS STABLE. NO ACUTE CHANGES THIS EVENING. WILL CONTINUE TO MONITOR.
[2021-05-27 05:39] LABS: Hematocrit 24.8 % (33.0-51.0); Hemoglobin 7.6 g/dL (11.5-16.0)
[2021-05-27 06:08] LABS: Albumin, Blood 1.2 g/dL (3.4-5.0); Anion Gap 4 mmol/L (6-16); Blood Urea Nitrogen 33 mg/dL (8-24); CO2, Blood 30 mmol/L (21-32); Calcium, Blood 7.9 mg/dL (8.5-10.1); Chloride, Blood 96 mmol/L (98-108); Creatinine, Blood 2.76 mg/dL (0.40-1.00); Glomerular Filtration Rate 20 (60-); Glucose, Blood 115 mg/dL (70-99); Magnesium, Blood 1.6 mg/dL (1.6-2.4); Phosphorus, Blood 4.4 mg/dL (2.5-4.9); Potassium, Blood 3.8 mmol/L (3.5-5.5); Sodium, Blood 130 mmol/L (136-145)
--- NOTE | 2021-05-27 16:56 | NUR ---
PT PLEASANT TODAY. MED FOR PAIN TWICE. WOUNDS ON BOTTOM STILL PRETTY RED, SOME OOZING. DID GET SOME PRETTY HEALTHY COUGH THIS AFT. NO NEW CONCERNS NOTED. BED IN LOW POSITION, CALL LITE IN REACH, CALLS APPROP, BED ALARM ON FOR SAFETY
--- NOTE | 2021-05-27 19:06 | NUR ---
assisted sabino, r/t . decanulated trach. pt ye well is talking some. denies pain. guaze and petroleum guaze taped to pt over trach access hole. pt pleased bed in low position, call lite in reach, bed alarm on for safety
--- NOTE | 2021-05-28 04:24 | NUR ---
SHIFT SUMMARY PT CONTINUES TO IMPROVE IN STRENGTH BOTH IN SPEECH AND MOVEMENT. PT ABLE TO MAKE NEEDS KNOWN THROUGHOUT THE NIGHT. USED CALL LIGHT APPROPRIATELY. TRACH SITE D/C'D BY RT YESTERDAY, GAUZE REMAINS IN PLACE. PEG TUBE CLOGGED THIS EVENING. ATTEMPTED MULTIPLE TIMES TO UNCLOG BUT WAS UNABLE. USING WATER, COCACOLA AND SUCTIONING. FEEDING HELD MOST OF THIS EVENING DUE TO IT. PT SWALLOWED ALL OF HER PILLS WELL BY MOUTH. PT REPORTING GENERALIZED PAIN, MEDICATED X 1. WOUNDS TO COCCYX AND AIDAN AREA IMPROVING. SCHEDULED OINTMENT APPLIED. VITAL SIGNS STABLE. PT SLEPT OFF AND ON THROUGHOUT THE NIGHT. WILL CONTINUE TO MONITOR.
[2021-05-28 05:03] LABS: Hematocrit 26.5 % (33.0-51.0); Hemoglobin 8.2 g/dL (11.5-16.0)
[2021-05-28 05:23] LABS: Albumin, Blood 1.3 g/dL (3.4-5.0); Anion Gap 5 mmol/L (6-16); Blood Urea Nitrogen 45 mg/dL (8-24); Bun/Creatinine Ratio 13.2 (12.0-20.0); CO2, Blood 29 mmol/L (21-32); Calcium, Blood 7.8 mg/dL (8.5-10.1); Chloride, Blood 95 mmol/L (98-108); Creatinine, Blood 3.42 mg/dL (0.40-1.00); Glomerular Filtration Rate 16 (60-); Glucose, Blood 90 mg/dL (70-99); Magnesium, Blood 1.6 mg/dL (1.6-2.4); Phosphorus, Blood 5.8 mg/dL (2.5-4.9); Potassium, Blood 4.6 mmol/L (3.5-5.5); Sodium, Blood 129 mmol/L (136-145)
--- NOTE | 2021-05-28 13:46 | NUR ---
Pt. is doing much better, encouraged her and offered prayers .
--- NOTE | 2021-05-28 19:13 | NUR ---
spoke with care managment possibly a phone for her from [facility].
--- NOTE | 2021-05-28 20:28 | NUR ---
alert, orintated to self and location, better able to speak today, trach tube gone and site is healing, changed gauze multiple times as needed, call light in reach, peg tube remains blocked, eating some, monitoring intake, shared report with noc nurse
--- NOTE | 2021-05-29 06:26 | NUR ---
SHIFT SUMMARY PATIENT ALERT AND ORIENTED. MEDICATED PER EMAR FOR PAIN. MINIMAL COMPLAINTS OF SHORNESS OF BREATH, CONTINUES ON 2 LITERS O2 VIA NC. NO ACUTE ISSUES NOTED OVERNIGHT. CALL LIGHT WITHIN REACH. REPORT GIVEN TO ONCOMIISUZIE COREY.
--- NOTE | 2021-05-29 14:08 | NUR ---
Pt. is in bed resting and is doing much better encouraged and prayed for her.
--- NOTE | 2021-05-29 17:35 | NUR ---
TOOK OVER PT'S CARE AT 1040. NO DISTRESS NOTED AT THIS TIME. PT HAS BEEN RESTING IN BED MOST OF THE DAY. PT WORKED WELL WITH PHYSICAL THERAPY. NO DISTRESS NOTED AT THIS TIME. ST WAS ABLE TO DO AN EVAL ON PT AND PT DID WELL. WILL CONTINUE TO MONITOR.
--- NOTE | 2021-05-30 04:55 | NUR ---
SHIFT SUMMARY: NO ACUTE CHANGES. VS WNL. MEDICATED FOR PAIN IN LOWER BACK X1. ULCERS PRESENT ON BOTTOM NOT HEALING, REPOSITIONED PER PATIENT REQUEST. BLE EDEMA 3+ UP TO HIPS AND LOWER ABDOMIN. PEG TUBE CURRENTLY CLOGGED, NOT ABLE TO BE USED. ABLE TO TAKE IN SOFT SMALL AMOUNTS OF FOOD. TOLERATING EVERYTHING WELL. DRESSING CDI OVER TRACH SITE, STILL HAS COUGH. WILL CONTINUE TO MONITOR. CALL LIGHT IN REACH.
[2021-05-30 05:15] LABS: Hematocrit 25.1 % (33.0-51.0); Hemoglobin 7.7 g/dL (11.5-16.0); Mean Corpuscular HGB Conc 30.7 g/dL (31.5-36.5); Mean Corpuscular Volume 104 fL (80-100); Mean Platelet Volume 8.7 fL (9.1-12.4); Platelet Count 279 K/mm3 (150-400); RDW Coefficient Variation 21.7 % (11.7-14.2); Red Blood Cell Count 2.41 M/mm3 (3.80-5.20); White Blood Cell Count 17.95 K/mm3 (4.00-11.30)
[2021-05-30 05:38] LABS: BAND PERCENT MAN 2 % (0-8); BASOPHILS ABSOLUTE MAN 0.17 K/mm3 (0.00-0.23); BASOPHILS PERCENT MAN 1 % (0-2); LYMPHOCYTES ABSOLUTE MAN 2.69 K/mm3 (0.84-5.20); LYMPHOCYTES PERCENT MAN 15 % (21-46); MONOCYTES ABSOLUTE MAN 1.97 K/mm3 (0.16-1.47); MONOCYTES PERCENT MAN 11 % (4-13); SEG NEUTROPHILS PERCENT MAN 71 % (41-73); TOTAL CELLS COUNTED 100
[2021-05-30 05:49] LABS: Albumin, Blood 1.2 g/dL (3.4-5.0); Anion Gap 8 mmol/L (6-16); Blood Urea Nitrogen 37 mg/dL (8-24); Bun/Creatinine Ratio 9.8 (12.0-20.0); CO2, Blood 26 mmol/L (21-32); Calcium, Blood 8.1 mg/dL (8.5-10.1); Chloride, Blood 94 mmol/L (98-108); Creatinine, Blood 3.76 mg/dL (0.40-1.00); Glomerular Filtration Rate 14 (60-); Glucose, Blood 90 mg/dL (70-99); Phosphorus, Blood 7.3 mg/dL (2.5-4.9); Potassium, Blood 4.8 mmol/L (3.5-5.5); Sodium, Blood 128 mmol/L (136-145)
--- NOTE | 2021-05-30 18:15 | NUR ---
SHIFT SUMMARY PT TO DIALYSIS THIS MORNING. RETURNED APPROX LUNCHTIME AND AFTER LUNCH SLEPT FOR SEVERAL HOURS. DRESSING CHANGED TO PEG SITE WITH THICK YELLOW GREEN DISCHARGE. TRACH DRESSING CHANGED WELL. APPEARS TO BE FOLLOWING DR. CASTELLANO RECOMMENDATION TO PRESS ON HER TRACH SITE WHEN COUGHING OR TALKING. TOENAILS LONG WITH SEVERAL MISSING. SEEN BY
--- NOTE | 2021-05-31 05:19 | NUR ---
SHIFT SUMMARY: NO ACUTE CHANGES OVER NIGHT. DRESSING CHANGED OVER HER TRACH, WHEN SHE COUGHS SHE HAS YELLOW THIN MUCUS. ENCOURAGED HER TO PUT PRESSURE OVER SITE WHEN SHE COUGHS TO HELP KEEP IT FROM OPENING UP. BOTTOM UNCHANGED. DECREASE IN EDEMA TO BLE BUT STILL HAS 3+ IN UPPER THIGHS, HIPS AND ABDOMIN. DID NOT GIVE HEPARIN DUE TO SEVERAL OF THE PUNCTURE SITES ON HER ABDOMIN STILL BLEEDING FROM PREVIOUS ADMINISTRATION. ABDOMIN VERY BRUISED AND TENDER. LEGS ARE ALSO TENDER, AND SHE ITCHES A LOT FROM DRY SKIN. REPOSITIONED. CALL LIGHT IN REACH.
--- NOTE | 2021-05-31 17:12 | NUR ---
SHIFT SUMMARY: PT A/O TO SELF, PLACE, PT ONE ASSIST WITH GAIT BELT. PT TOLERATING FOODS WELL, OCCASIONAL COUGH. PT UP TO CHAIR TODAY AND WENT ON A WALK VIA WC WITH PT. PT REFUSING HEPARIN AND HARDEEP. PER PT SHE IS BLEEDING FROM STOMACH WHERE SHE GETS HEPARIN INJECTIONS THAT WON'T STOP BLEEDING AND THIS IS WHY SHE IS REFUSING. BANDAGED SPOTS CHECKED AND SHE WAS INFORMED THEY ARE NO LONGER BLEEDING BUT SHE CONTINUED TO REFUSE HEPARIN. PT EDUCATED ON RISKS OF BLOD CLOT DEVELOPMENT IF SHE DOES NOT GET HEPARIN. PT VU. WOUND CARE TO BOTTOM COMPLETED X2 TODAY/ PT WOUNDS SHOW NO S/S OF INFECTION. GRANULATION TISSUE NOTED TO WOUND BEDS. NO ACUTE CHANGES THIS SHIFT.
[2021-06-01 04:53] LABS: Hematocrit 24.3 % (33.0-51.0); Hemoglobin 7.6 g/dL (11.5-16.0)
[2021-06-01 05:18] LABS: Albumin, Blood 1.3 g/dL (3.4-5.0); Anion Gap 6 mmol/L (6-16); Blood Urea Nitrogen 38 mg/dL (8-24); Bun/Creatinine Ratio 9.6 (12.0-20.0); CO2, Blood 29 mmol/L (21-32); Calcium, Blood 8.1 mg/dL (8.5-10.1); Chloride, Blood 92 mmol/L (98-108); Creatinine, Blood 3.94 mg/dL (0.40-1.00); Glomerular Filtration Rate 13 (60-); Glucose, Blood 95 mg/dL (70-99); Phosphorus, Blood 6.7 mg/dL (2.5-4.9); Potassium, Blood 5.4 mmol/L (3.5-5.5); Sodium, Blood 127 mmol/L (136-145)
--- NOTE | 2021-06-01 13:49 | NUR ---
DR. MONROE OFFICE NOTIFIED OF CONSULT FOR PEG TUBE REMOVAL. LEFT VOICEMAIL WITH DETAILS.
--- NOTE | 2021-06-01 17:17 | NUR ---
SHIFT SUMMARY: PT A/O X 2, 1-2 PERSON ASSIST FOR TX. PT CONTINUES TO IMPROVE. PT HAD ST, CALORIE COUNT DISCONTINUED DUE TO ADEQUATE CALORIE INTAKE BY MOUTH. PT PEG TUBE REMOVED TODAY BY DR. MONROE. DRESSING IN PLACE AND CDI AT SHIFT END. PT HAD DIALYSIS THIS AM. NO ACUTE CHANGES THIS SHIFT.
[2021-06-02 04:55] LABS: Hematocrit 23.1 % (33.0-51.0); Hemoglobin 6.9 g/dL (11.5-16.0)
[2021-06-02 05:19] LABS: Albumin, Blood 1.2 g/dL (3.4-5.0); Anion Gap 7 mmol/L (6-16); Blood Urea Nitrogen 29 mg/dL (8-24); Bun/Creatinine Ratio 9.4 (12.0-20.0); CO2, Blood 28 mmol/L (21-32); Calcium, Blood 8.2 mg/dL (8.5-10.1); Chloride, Blood 96 mmol/L (98-108); Glomerular Filtration Rate 18 (60-); Glucose, Blood 137 mg/dL (70-99); Magnesium, Blood 2.2 mg/dL (1.6-2.4); Phosphorus, Blood 4.7 mg/dL (2.5-4.9); Potassium, Blood 4.7 mmol/L (3.5-5.5); Sodium, Blood 131 mmol/L (136-145)
--- NOTE | 2021-06-02 05:26 | NUR ---
END OF SHIFT SUMMARY; Pt reporting no SOB overnight. Pt has spontaneous strong cough. Encouraged pt to put fingure on trach site when coughing and talking. Pt up to [facility] bharti one person assist. Complained of some back pain and stomach pain, medicated. Trach site and PEG tube site dressings dry and intact. Pt resting at this time.
--- NOTE | 2021-06-02 16:48 | NUR ---
THE PATIENT IS ALERT AND ORIENTED X 4. SHE IS IN NO ACUTE DISTRESS. UNEVENTFUL DAY. SHE IS CALM AND COOPERATIVE. SHE HAS BEEN OUT OF BED TO COMMODE X 2. REFUSED TO SIT IN CHAIR. SHE HAD BM X 1 AND NOTED BRIGHT RED BLEEDING NOTED FROM WOUNDS ON SACRAL. PT WAS ENCOURAGE TO CHANGE POSITION. WILL PROMPT PATIENT EVERY TWO HOURS TO TURN. SHE REFUSED HARDEEP. VS WNL. SHE APPEARS TO BE RESTING COMFORTABLY AT THIS TIME.
--- NOTE | 2021-06-03 05:20 | NUR ---
END OF SHIFT SUMMARY: Pt resting well tonight. No SOB nor acute distress noted overnight. trach dressing dislodged, replaced with 2x2s and tagederm. Pt sattig well with 3LNC. Resting comfrotably at this time.
--- NOTE | 2021-06-03 16:19 | NUR ---
PATIENT IS RESTING COMFORTABLY. SHE IS ALERTED AND ORIENTED X 3. REPORTED ABD PAIN 8/10. SHE WAS MEDICATED FOR PAIN AND PAIN WAS DECREASED FROM 8 TO 4. SHE HAD DIAYSIS THIS AM. ONE UNIT OF PRBC WAS GIVEN IN DIALYSIS. THE PATIENT RETURNED TO THE FLOOR AROUND LUNCH TIME. SHE IS NOT IN ACUTE DISRESS. VS WNL. SHE IS ON 3L NC AND TOLERATING WELL. SHE HAD WOUND TO SACRAL AREA AND ENCOURAGED TO TURN. SHE HAD AN UNEVENTFUL DAY.
[2021-06-04 05:26] LABS: Hemoglobin 8.4 g/dL (11.5-16.0)
[2021-06-04 05:55] LABS: Albumin, Blood 1.3 g/dL (3.4-5.0); Anion Gap 6 mmol/L (6-16); Blood Urea Nitrogen 26 mg/dL (8-24); Bun/Creatinine Ratio 8.7 (12.0-20.0); CO2, Blood 29 mmol/L (21-32); Calcium, Blood 8.3 mg/dL (8.5-10.1); Chloride, Blood 93 mmol/L (98-108); Creatinine, Blood 2.99 mg/dL (0.40-1.00); Glomerular Filtration Rate 18 (60-); Glucose, Blood 103 mg/dL (70-99); Phosphorus, Blood 4.3 mg/dL (2.5-4.9); Potassium, Blood 4.8 mmol/L (3.5-5.5); Sodium, Blood 128 mmol/L (136-145)
--- NOTE | 2021-06-04 07:16 | NUR ---
Tea was awake all night watching TV. she complained of pain around bedtime in the area of her gluteus where her sores are. pain resolved with oxycodone. dressing over trach site replaced with bandaid. lung sounds diminished and have scattered crackles t hroughout
--- NOTE | 2021-06-04 11:47 | NUR ---
PATIENT WITH STAGE II TO BUTTOCKS AREA CLEANSED TREATED PER ORDERS PATIENT TOLERATED WELL SCANT AMT SEROSANG DRAINAGE NOTED WILL CONT TO MONITOR
--- NOTE | 2021-06-04 17:01 | NUR ---
PATIENT REMAINS IN STABLE CONDITION A&OX3 WITH MILD INTERMITTENT FORGETFULNESS ABLE TO VERBALIZE NEEDS UP IN CHAIR THIS AM PARTICIPATED IN OT/PT TOLERATED WELL REMAINS ON 02 @2 L NC FOR MILD SOB/GOYAL SAT > 95% MEDICATED FOR INTERMITTENT RLE PAIN WITH EFFECTIVENESS ADEQUATE PO INTAKE TOTAL CARE FOR ADL'S TURNED AND REPOSITIONED THROUGHOUT SHIFT WILL CONT TO MONITOR
--- NOTE | 2021-06-05 04:55 | NUR ---
aLERT AND ORIENTEDX3. PATIENT ABLE TO MAKE HER NEEDS KNOWN. COMPLAINED OF PAIN TO RIGHT LEG, OXYCODONE GIVEN WITH MODERATE EFFECT. BILATERAL LEGS CONTINUE TO BE EDEMATUS. PATIENT REFUSED HER HARDEEP AND LEVONOX. VITAL SIGNS WNL. REPOSITIONED EVERY TWO HOURS. AIDAN CARE DONE TO WOUND AREA. PATIENT REMAINS AT BASELINE.
[2021-06-05 05:28] LABS: Hemoglobin 9.2 g/dL (11.5-16.0)
[2021-06-05 06:34] LABS: Albumin, Blood 1.4 g/dL (3.4-5.0); Anion Gap 7 mmol/L (6-16); Blood Urea Nitrogen 32 mg/dL (8-24); Bun/Creatinine Ratio 8.2 (12.0-20.0); CO2, Blood 29 mmol/L (21-32); Calcium, Blood 8.6 mg/dL (8.5-10.1); Chloride, Blood 91 mmol/L (98-108); Creatinine, Blood 3.88 mg/dL (0.40-1.00); Glomerular Filtration Rate 14 (60-); Glucose, Blood 88 mg/dL (70-99); Magnesium, Blood 2.1 mg/dL (1.6-2.4); Phosphorus, Blood 5.4 mg/dL (2.5-4.9); Potassium, Blood 5.5 mmol/L (3.5-5.5); Sodium, Blood 127 mmol/L (136-145)
--- NOTE | 2021-06-05 08:58 | NUR ---
PATIENT TRANSPORTED OFF OF UNIT VIA BED TO DIALYSIS UNIT AT THIS TIME PER THIS NURSE PATIENT REMAINS ALERT DENIED PAIN OR DISCOMFORT RESP EASY/EVEN/UNLABORED ON RA VSS NO DISTRESS NOTED BP MEDS HELD PRIOR TO DIALYSIS DIALYSIS CATH INTACT TO RIGHT CHEST NO COMPLICATIONS NOTED
--- NOTE | 2021-06-05 11:59 | NUR ---
THIS NURSE AND COMMERCIAL LENDER TRANSPORTED PATIENT FROM DIALYSIS BACK TO THIS UNIT AT THIS TIME PATIENT REMAINS ALERT DENIES PAIN OR DISCOMFORT VERBALIZES FEELING TIRED RESP EASY/EVEN/UNLABORED ON RA SAFETY INERVENTIONS MAINTAINED
--- NOTE | 2021-06-05 13:19 | NUR ---
Pt. is resting ans is much better prayed for pt.
--- NOTE | 2021-06-05 15:58 | NUR ---
PATIENT REMAINS IN STABLE CONDITION THIS SHIFT REMAINS A&OX3-4 ABLE TO VERBALIZE NEEDS INTERMITTENT PAIN TO LLE CONTROLLED WITH PRN PAIN MEDS ORDERED PATIENT NOW ON RA SATS REMAIN >92% NO SOB NOTED UP WITH MAX ASSIST PARTICIPATED IN PT/OT TOLERATED WELL NOTED WITH MOD EDEMA TO BLE ENCOURAGED/ASSISTED TO ELEVATE THEM WHILE BACK IN BED TX TO BUTTOCKS PERFORMED AND TOLERATED WELL ASSISTED TO TURN/REPOSITIO FOR COMFORT WHILE IN BED RESP EASY/EVEN/UNLABORED NO S/S DISTRESS NOTED
--- NOTE | 2021-06-06 04:43 | NUR ---
SHIFT SUMMARY A/OX3, PLEASANT AND COOPERATIVE WITH CARE. SLOW TO RESPOND, ABLE TO MAKE NEEDS KNOWN. UP IN CHAIR T/O SHIFT WELL TRANSPORTING THROUGH HALLS VIA WHEELCHAIR. C/O PAIN TO LLE, MEDICATED PER EMAR. VSS, NO ACUTE CHANGES AT THIS TIME. BED IN LOWEST POSITION WITH CALL LIGHT IN REACH. WILL CONTINUE TO MONITOR AND REPORT TO ONCOMING RN.
[2021-06-06 05:02] LABS: Hemoglobin 7.9 g/dL (11.5-16.0)
[2021-06-06 05:37] LABS: Albumin, Blood 1.3 g/dL (3.4-5.0); Anion Gap 7 mmol/L (6-16); Blood Urea Nitrogen 21 mg/dL (8-24); Bun/Creatinine Ratio 6.5 (12.0-20.0); CO2, Blood 29 mmol/L (21-32); Chloride, Blood 91 mmol/L (98-108); Creatinine, Blood 3.25 mg/dL (0.40-1.00); Glomerular Filtration Rate 17 (60-); Glucose, Blood 112 mg/dL (70-99); Magnesium, Blood 1.8 mg/dL (1.6-2.4); Phosphorus, Blood 4.7 mg/dL (2.5-4.9); Potassium, Blood 4.5 mmol/L (3.5-5.5); Sodium, Blood 127 mmol/L (136-145)
--- NOTE | 2021-06-06 16:40 | NUR ---
PATIENT REMAINS IN STABLE CONDITION NO COMPLICATIONS/CHANGES NOTED THIS SHIFT PATIENT REMAINS A&OX3-4 ABLE TO VERBALIZE NEEDS DEPENDENT ASSIST FOR ADL'S ADEQUATE PO INTAKE STAGE 11 TO BUTTOCKS CONT TO IMPROVE TX TOLERATED WELL PARTICATED IN PT/OT TOLERATED WELL REMAINS WITH MOD NON-PITTING EDEMA TO BLE ENCOURAGED/ASSISTED TO EVLEVATE TOLERATED EXPRESSES NO PAIN REMAINS ON RA RESP EASY/EVEN/UNLABORED NO S/S DISTRESS NOTED
--- NOTE | 2021-06-07 05:28 | NUR ---
PATIENT IS ALERT AND ORIENTED, PLEASANT AND COOPERATIVE. PATIENT WILL BE HAVING DIALYSIS THIS MORNING. PATIENT COMPLAINT OF PAIN TO HER LEFT LEG AND RECIEVED OXYCODONE 10 MG ORDERED WITH MODERADE EFFECT. PATIENT CONTINUES ON 02 AT 3L VIA NC. PATIENT REQUESTED TO HAVE BREATHING TREATMENT, RESPIRATORY THERAPIST NOTIFIED AND ADMINISTERED PATIENT'S TREATMENT. PATIENT REQUESTED TO HAVE PUDDING THIS STORY WRITER. PATIENT SLEEPING SOUNDLY AND COMFORTABLE THIS MOMENT, WITH NO ACCUTE DISTRESS.
[2021-06-07 05:40] LABS: Hematocrit 28.4 % (33.0-51.0); Mean Corpuscular HGB 32.1 pg (26.0-34.0); Mean Corpuscular HGB Conc 31.7 g/dL (31.5-36.5); Mean Corpuscular Volume 101 fL (80-100); Mean Platelet Volume 8.6 fL (9.1-12.4); Platelet Count 266 K/mm3 (150-400); RDW Standard Deviation 73.4 fL (35.1-46.3); White Blood Cell Count 24.36 K/mm3 (4.00-11.30)
[2021-06-07 06:05] LABS: Albumin, Blood 1.4 g/dL (3.4-5.0); Albumin/Globulin Ratio 0.2 (0.8-1.8); Bilirubin, Direct 1.5 mg/dL (0.0-0.3); Bilirubin, Indirect 0.3 mg/dL (0.1-0.7); Bilirubin, Total 1.8 mg/dL (0.1-1.0); Bun/Creatinine Ratio 6.4 (12.0-20.0); Calcium, Blood 8.5 mg/dL (8.5-10.1); Creatinine, Blood 4.24 mg/dL (0.40-1.00); Phosphorus, Blood 5.4 mg/dL (2.5-4.9); Potassium, Blood 4.9 mmol/L (3.5-5.5); Total Protein, Blood 7.4 g/dL (6.4-8.2)
[2021-06-07 06:06] LABS: BAND PERCENT MAN 8 % (0-8); BASOPHILS ABSOLUTE MAN 0.48 K/mm3 (0.00-0.23); BASOPHILS PERCENT MAN 2 % (0-2); EOSINOPHILS PERCENT MAN 0 % (0-6); LYMPHOCYTES ABSOLUTE MAN 2.43 K/mm3 (0.84-5.20); LYMPHOCYTES PERCENT MAN 10 % (21-46); METAMYELOCYTE ABSOLUTE MAN 0.24 K/mm3 (0.00-0.00); METAMYELOCYTE PERCENT MAN 1 % (0-0); MONOCYTES ABSOLUTE MAN 2.43 K/mm3 (0.16-1.47); MONOCYTES PERCENT MAN 10 % (4-13); NEUTROPHILS ABSOLUTE MAN 18.75 K/mm3 (1.96-9.15); SEG NEUTROPHILS PERCENT MAN 69 % (41-73); TOTAL CELLS COUNTED 100
--- NOTE | 2021-06-07 17:07 | NUR ---
PT HAS BEEN QUITE PLEASANT TODAY. HAS BEEN TO BATHROOM. WALKING IMPROVED. LEG PAIN INCREASED SOME TODAY. DID ELEVATE LEGS, THEY ARE SWOLLEN. DID DO DIALYSIS TODAY. PT TALKING SOME MORE. NO NEW CONCERNS NOTED. BED IN LOW POSITION, CALL LITE IN REACH, CALLS APPROP
--- NOTE | 2021-06-07 19:38 | NUR ---
LAB CALLED [facility] 5.4. CALLED DR MEJIA. ORDERS FOR BLOOD CULTURES X2 AT DIALYSIS PORT , AND BLOOD CULTURES AT SITE WHEN PLACE POWERGLIDE LINE. [place] CATH WITH UA, VANCO IV PER PHARMACY DOSE, ZOSYN IV PER PHARMACY DOSE, 2L OF NS AT 500/HR. DEC RO 150/HR IF CRACKLES OR WHEEZES.
[2021-06-07 20:57] LABS: Adenovirus F 40/41 Not Detected (NOT DETECT); Astrovirus Not Detected (NOT DETECT); Campylobacter Sp Not Detected (NOT DETECT); Cryptosporidium Not Detected (NOT DETECT); Cyclospora Cayetanensis Not Detected (NOT DETECT); E. Coli O157 Not Detected (NOT DETECT); Entamoeba Histolytica Not Detected (NOT DETECT); Enteroaggregative E. coli-EAEC Not Detected (NOT DETECT); Enteropathogenic E. coli-EPEC Not Detected (NOT DETECT); Enterotoxigenic E. coli-ETEC Not Detected (NOT DETECT); Giardia Lamblia Not Detected (NOT DETECT); Norovirus GI/GII Not Detected (NOT DETECT); Plesiomonas Shigelloides Not Detected (NOT DETECT); Rotavirus A Not Detected (NOT DETECT); Salmonella Sp Not Detected (NOT DETECT); Sapovirus Not Detected (NOT DETECT); Shiga Toxin-prod E. coli-STEC Not Detected (NOT DETECT); Shigella/Enteroin E. coli-EIEC Not Detected (NOT DETECT); Vibrio Cholerae Not Detected (NOT DETECT); Vibrio Sp Not Detected (NOT DETECT); Yersinia Enterocolitica Not Detected (NOT DETECT)
[2021-06-07 21:14] LABS: Source, Urine Catheter
[2021-06-07 21:22] LABS: Appearance, Urine Cloudy (Clear); Blood, Urine 2+ (Neg); Color, Urine Yellow (P-Yellow); Glucose Qualitative, Urine Neg (Neg); Ketones, Urine 1+ (Neg); Leukocyte Esterase, Urine 3+ (Neg); Nitrite, Urine Pos (Neg); Protein, Urine 3+ (Neg); Urobilinogen, Urine NORM (Normal)
[2021-06-07 21:28] LABS: Bilirubin, Urine 1+ (Neg)
[2021-06-07 21:29] LABS: Bacteria Many /hpf; Red Blood Cells, Urine 0-2 /hpf (0-2); Squamous Epithelial Cells Few /hpf (Few); White Blood Cells, Urine 50-100 /hpf (0-5)
[2021-06-08 05:16] LABS: BASOPHILS PERCENT AUTO 1 % (0-2); EOSINOPHILS ABSOLUTE AUTO 0.02 K/mm3 (0.00-0.68); EOSINOPHILS PERCENT AUTO 0 % (0-6); Hematocrit 25.7 % (33.0-51.0); IMMATURE GRAN ABSOLUTE AUTO 0.11 K/mm3 (0.00-0.10); IMMATURE GRAN PERCENT AUTO 1 % (0-1); LYMPHOCYTES ABSOLUTE AUTO 3.53 K/mm3 (0.84-5.20); LYMPHOCYTES PERCENT AUTO 22 % (21-46); MONOCYTES ABSOLUTE AUTO 2.25 K/mm3 (0.16-1.47); MONOCYTES PERCENT AUTO 14 % (4-13); Mean Corpuscular HGB 31.5 pg (26.0-34.0); Mean Corpuscular HGB Conc 31.1 g/dL (31.5-36.5); Mean Corpuscular Volume 101 fL (80-100); Mean Platelet Volume 8.4 fL (9.1-12.4); NEUTROPHILS ABSOLUTE AUTO 10.29 K/mm3 (1.96-9.15); NEUTROPHILS PERCENT AUTO 63 % (41-73); Platelet Count 288 K/mm3 (150-400); RDW Coefficient Variation 20.2 % (11.7-14.2); RDW Standard Deviation 74.4 fL (35.1-46.3); Red Blood Cell Count 2.54 M/mm3 (3.80-5.20)
[2021-06-08 05:41] LABS: Albumin/Globulin Ratio 0.2 (0.8-1.8); Bilirubin, Total 1.4 mg/dL (0.1-1.0); Bun/Creatinine Ratio 5.2 (12.0-20.0); Calcium, Blood 7.8 mg/dL (8.5-10.1); Creatinine, Blood 3.27 mg/dL (0.40-1.00); Globulin, Blood 5.8 g/dL (2.2-4.0); Magnesium, Blood 1.8 mg/dL (1.6-2.4); Phosphorus, Blood 4.2 mg/dL (2.5-4.9); Potassium, Blood 4.1 mmol/L (3.5-5.5); Total Protein, Blood 6.8 g/dL (6.4-8.2)
--- NOTE | 2021-06-08 06:13 | NUR ---
SHIFT SUMMARY PATIENT ALERT AND ORIENTED. MEDICATED PER EMAR FOR PAIN. BREATHING TREATMENTS NEEDED FOR SHORTNESS OF BREATH. [place] CATHETER PATENT AND DRAINING. POWERGLIDE PATENT AND FLUSHED. BED IN LOWEST POSITION WITH WHEELS LOCKED. CALL LIGHT WITHIN REACH. REPORT GIVEN TO ONCOMING RN.
[2021-06-08 14:43] LABS: Vancomycin, Random 25.3 ug/mL
--- NOTE | 2021-06-08 20:27 | NUR ---
PATIENT CONTINUES TO COMPLAIN ABOUT PAIN IN LEFT LOWER EXTREMITY. HER LEG IS WARM AND SWOLLEN, AND SHE HAS BEEN FREQUENTLY REFUSING HEPARIN. MD INFORMED AND LOWER EXT ULTRASOUND ORDERED TO RULE OUT DVT.
--- NOTE | 2021-06-08 21:41 | NUR ---
left lower extremitiy ultrasound was negative for DVT. director corporate sales informed and will inform hospitalist
--- NOTE | 2021-06-09 03:09 | NUR ---
ARIADNA HAD A REASONABLY GOOD REST AFTER TAKING 0.5MG ATIVAN WITH HER REGULAR BEDTIME MEDICATIONS. LEFT LOWER EXTREMITY STILL PAINFUL AND EDEMATOUS, CALL PLACED TO HOSPITALIST TO REQUEST DVT STUDY WHICH WAS COMPLETED AND FOUND TO BE NEGATIVE. LAB CALLED LATER IN MORNING TO INFORM HER BLOOD CULTURES HAD COME BACK WITH GRAM POSITIVE COCCI IN [employer] WHICH THE PHARMACY STATES IS ALREADY COVERED BY THE VANCO SHE IS RECEIVING. NO OTHER CHANGES NOTED OVERNIGHT
[2021-06-09 05:29] LABS: BASOPHILS ABSOLUTE AUTO 0.11 K/mm3 (0.00-0.23); BASOPHILS PERCENT AUTO 1 % (0-2); EOSINOPHILS ABSOLUTE AUTO 0.06 K/mm3 (0.00-0.68); EOSINOPHILS PERCENT AUTO 0 % (0-6); Hemoglobin 8.2 g/dL (11.5-16.0); IMMATURE GRAN ABSOLUTE AUTO 0.09 K/mm3 (0.00-0.10); IMMATURE GRAN PERCENT AUTO 1 % (0-1); LYMPHOCYTES ABSOLUTE AUTO 3.39 K/mm3 (0.84-5.20); LYMPHOCYTES PERCENT AUTO 20 % (21-46); MONOCYTES ABSOLUTE AUTO 2.17 K/mm3 (0.16-1.47); MONOCYTES PERCENT AUTO 13 % (4-13); Mean Corpuscular HGB Conc 31.5 g/dL (31.5-36.5); Mean Corpuscular Volume 102 fL (80-100); Mean Platelet Volume 8.3 fL (9.1-12.4); NEUTROPHILS PERCENT AUTO 66 % (41-73); Platelet Count 307 K/mm3 (150-400); RDW Coefficient Variation 19.7 % (11.7-14.2); RDW Standard Deviation 72.5 fL (35.1-46.3); Red Blood Cell Count 2.56 M/mm3 (3.80-5.20); White Blood Cell Count 17.22 K/mm3 (4.00-11.30)
[2021-06-09 06:02] LABS: Albumin, Blood 1.1 g/dL (3.4-5.0); Albumin/Globulin Ratio 0.2 (0.8-1.8); Bilirubin, Direct 1.1 mg/dL (0.0-0.3); Bilirubin, Indirect 0.4 mg/dL (0.1-0.7); Bilirubin, Total 1.5 mg/dL (0.1-1.0); Bun/Creatinine Ratio 5.3 (12.0-20.0); Calcium, Blood 8.2 mg/dL (8.5-10.1); Creatinine, Blood 3.96 mg/dL (0.40-1.00); Globulin, Blood 5.8 g/dL (2.2-4.0); Magnesium, Blood 1.7 mg/dL (1.6-2.4); Potassium, Blood 4.6 mmol/L (3.5-5.5); Total Protein, Blood 6.9 g/dL (6.4-8.2)
--- NOTE | 2021-06-09 15:33 | NUR ---
Pt request put in for Spiritual Care. Assessment: Pt presented laying down and unsure of why she was recieving Spiritual Care visit. Pt asked,"And why are you here?" Pt shared she was tired. Interventions: Attempted to cultivate a relationship of care and support. Attempted to explore spiritual, emotional, and relational resources and needs. Respected pt request to just rest. Outcome: no outcome at this time Follow up: If pt request will follow up.
--- NOTE | 2021-06-09 18:27 | NUR ---
SHIFT SUMMARY: PT A/O X3. PT HAD DIALYSIS THIS MORNING AND SLEPT MOST OF THE DAY. UP AT DINNER TIME TO CHAIR. PT ABLE TO AMBULATE TO RESTROOM VIA WALKER. USED CHAIR TO GET BACK TO ROOM. PT HAD AUDIBLE WHEEZES TODAY AT TIMES BUT LS WERE DIM TO COARSE. PT USED O2 AT 2 LPM VIA NC FOR COMFORT. PT HAD PAIN IN THE EVENING REPORTING HER FEET HURT. OXYCODONE GIVEN AND EFFECTIVE.
--- NOTE | 2021-06-10 04:15 | NUR ---
VERY SOMNOLENT TONIGHT. PATIENT STILL COMPLAINS OF 7/10 PAIN LEFT LEG AND NOW RIGHT FOOT. BOTH WERE ELEVATED ON PILLOWS AND PAIN MEDICATIONS GIVEN ONE TABLET AT A TIME (DUE TO HER SOMNOLENCE) ABOUT TWO HOURS APART WITH MINIMAL EFFECT PER THE PATIENT. AT ONE POINT, ARIADNA BECAME TEARFUL WHEN THIS RN SUGGESTED WE USE THE COMMODE INSTEAD OF AMB. TO THE BATHROOM DUE TO HER EXTREME FATIGUE (WHICH APPARENTLY IS NOT ABNORMAL FOR HER ON HER DIALYSIS DAYS) PATIENT HAS GENERALIZED NON PITTING EDEMA, AND 1-2+ LOWER EXTREMITY EDEMA. LEFT LEG SWELLING DOES APPEAR TO BE SLIGHTLY LESS THAT NIGHT PRIOR
[2021-06-10 06:07] LABS: BASOPHILS ABSOLUTE AUTO 0.15 K/mm3 (0.00-0.23); BASOPHILS PERCENT AUTO 1 % (0-2); EOSINOPHILS PERCENT AUTO 1 % (0-6); Hematocrit 24.3 % (33.0-51.0); Hemoglobin 7.5 g/dL (11.5-16.0); IMMATURE GRAN ABSOLUTE AUTO 0.12 K/mm3 (0.00-0.10); IMMATURE GRAN PERCENT AUTO 1 % (0-1); LYMPHOCYTES PERCENT AUTO 21 % (21-46); MONOCYTES ABSOLUTE AUTO 2.48 K/mm3 (0.16-1.47); MONOCYTES PERCENT AUTO 14 % (4-13); Mean Corpuscular HGB 31.9 pg (26.0-34.0); Mean Corpuscular HGB Conc 30.9 g/dL (31.5-36.5); Mean Corpuscular Volume 103 fL (80-100); Mean Platelet Volume 8.4 fL (9.1-12.4); NEUTROPHILS ABSOLUTE AUTO 11.13 K/mm3 (1.96-9.15); NEUTROPHILS PERCENT AUTO 63 % (41-73); Platelet Count 313 K/mm3 (150-400); RDW Coefficient Variation 19.2 % (11.7-14.2); RDW Standard Deviation 72.8 fL (35.1-46.3); Red Blood Cell Count 2.35 M/mm3 (3.80-5.20); White Blood Cell Count 17.78 K/mm3 (4.00-11.30)
[2021-06-10 06:23] LABS: Anion Gap 5 mmol/L (6-16); Blood Urea Nitrogen 15 mg/dL (8-24); Bun/Creatinine Ratio 4.7 (12.0-20.0); CO2, Blood 29 mmol/L (21-32); Chloride, Blood 99 mmol/L (98-108); Glomerular Filtration Rate 17 (60-); Glucose, Blood 114 mg/dL (70-99); Magnesium, Blood 1.9 mg/dL (1.6-2.4); Phosphorus, Blood 4.7 mg/dL (2.5-4.9); Potassium, Blood 3.8 mmol/L (3.5-5.5); Sodium, Blood 133 mmol/L (136-145)
--- NOTE | 2021-06-10 18:43 | NUR ---
SHIFT SUMMARY: PT A/O X2 ONE PERSON ASSIST W/GAIT BELT TODAY. PT SLEPT MOST OF THE DAY BUT GOT UP IN CHAIR FOR DINNER. PT PAIN MANAGED WITH OXYCODONE. DRESSING CHANGES COMPLETED TO TRACH SITE AND PEG TUB SITE. BOTH DRESSINGS HAD SCANT DRIED BROWN DISCHARGE ON DRESSINGS. NO S/S OF INFECTION AT BOTH SITES. BOTH SITES CLEANSED WITH WOUND CLEANSER, APPLIED GAUZE AND TAPED INTO PLACE. NO ACUTE CONCERNS THIS SHIFT.
[2021-06-11 07:04] LABS: BASOPHILS ABSOLUTE AUTO 0.13 K/mm3 (0.00-0.23); BASOPHILS PERCENT AUTO 1 % (0-2); EOSINOPHILS PERCENT AUTO 1 % (0-6); Hematocrit 24.6 % (33.0-51.0); Hemoglobin 7.5 g/dL (11.5-16.0); IMMATURE GRAN PERCENT AUTO 1 % (0-1); LYMPHOCYTES ABSOLUTE AUTO 2.53 K/mm3 (0.84-5.20); LYMPHOCYTES PERCENT AUTO 14 % (21-46); MONOCYTES ABSOLUTE AUTO 2.08 K/mm3 (0.16-1.47); MONOCYTES PERCENT AUTO 12 % (4-13); Mean Corpuscular HGB 31.3 pg (26.0-34.0); Mean Corpuscular HGB Conc 30.5 g/dL (31.5-36.5); Mean Corpuscular Volume 103 fL (80-100); Mean Platelet Volume 8.3 fL (9.1-12.4); NEUTROPHILS ABSOLUTE AUTO 12.57 K/mm3 (1.96-9.15); NEUTROPHILS PERCENT AUTO 72 % (41-73); Platelet Count 323 K/mm3 (150-400); RDW Coefficient Variation 18.7 % (11.7-14.2); RDW Standard Deviation 70.4 fL (35.1-46.3); White Blood Cell Count 17.51 K/mm3 (4.00-11.30)
[2021-06-11 07:21] LABS: Anion Gap 6 mmol/L (6-16); Blood Urea Nitrogen 18 mg/dL (8-24); Bun/Creatinine Ratio 4.7 (12.0-20.0); CO2, Blood 27 mmol/L (21-32); Calcium, Blood 7.9 mg/dL (8.5-10.1); Chloride, Blood 98 mmol/L (98-108); Creatinine, Blood 3.81 mg/dL (0.40-1.00); Glomerular Filtration Rate 14 (60-); Glucose, Blood 126 mg/dL (70-99); Magnesium, Blood 1.6 mg/dL (1.6-2.4); Phosphorus, Blood 5.7 mg/dL (2.5-4.9); Potassium, Blood 4.6 mmol/L (3.5-5.5); Sodium, Blood 131 mmol/L (136-145)
--- NOTE | 2021-06-11 13:04 | NUR ---
Met pt in bed, relaxed and resting she is doing fine just coming in from dialysis, offered prayers and spiritual support.
--- NOTE | 2021-06-11 13:07 | NUR ---
Met pt in bed ,relaxed and resting , she is fine just coming back from dialysis. Offered prayer and spiritual support.
--- NOTE | 2021-06-11 17:35 | NUR ---
Therputic visit she is more conversant and spoke with her mom about getting her more minutes on her phone.
--- NOTE | 2021-06-11 18:17 | NUR ---
PT REPORTED ABD PAIN WHILE GIVING 6 PM MEDICATIONS. ON ASSESSMENT HER ABD ON LEFT LOWER QUAD IS DISTENDED AND TIGHT. SKIN IS DISCOLORED BROWN COLOR. PT WINCES IN PAIN WITH GENTLE PALPATION. NOTIFIED DR. MEJIA AND HE GAVE ORDER TO GET A ABD XRAY 1 VIEW. ORDER PROCESSED AND PLAN TO REPORT OFF TO NOC SHIFT.
--- NOTE | 2021-06-11 19:27 | NUR ---
SHIFT SUMMARY: PT A/O TO SELF AND SITUATION. PT WAS REPORTING INCREASED PAIN TO FEET AND LEGS AND DID NOT RESOLVE AFTER DIALYSIS WITH FLUID REMOVAL FROM BODY. AT SHIFT END WHILE COMPLETING WOUND CARE TO PEG TUBE SITE PT C/O ABD PAIN. PT ASSESSMENT COMPLETED AND DR. MEJIA NOTIFIED WITH ORDER FOR ABD X RAY. XRAY REPORT PENDING AND NOC RN GIVEN REPORT TO ADDRESS IF NEEDED. NO OTHER ACUTE CONCERNS TO REPORT.
[2021-06-11 22:37] LABS: Percent Saturation 29.5 % (15.0-50.0)
--- NOTE | 2021-06-12 03:40 | NUR ---
PATIENT TAKEN DOWN FOR XRAY OF ABDOMEN AT SHIFT CHANGE. COMPLAINS OF TENDERNESS/PAIN AT OLD PEG SITE. ERYTHMEA AT OLD PEG SITE. ROXICODONE ADMISITERED TO CONTROL PAIN. IRON DEFICIENCY PANEL COLLECTED AND SENT TO LAB. NO OTHER ACUTE CHANGES IN CONDITION OVERNIGHT.
[2021-06-12 06:20] LABS: BASOPHILS ABSOLUTE AUTO 0.18 K/mm3 (0.00-0.23); BASOPHILS PERCENT AUTO 1 % (0-2); EOSINOPHILS ABSOLUTE AUTO 0.16 K/mm3 (0.00-0.68); EOSINOPHILS PERCENT AUTO 1 % (0-6); Hematocrit 25.5 % (33.0-51.0); Hemoglobin 7.9 g/dL (11.5-16.0); IMMATURE GRAN ABSOLUTE AUTO 0.09 K/mm3 (0.00-0.10); IMMATURE GRAN PERCENT AUTO 1 % (0-1); LYMPHOCYTES ABSOLUTE AUTO 3.78 K/mm3 (0.84-5.20); LYMPHOCYTES PERCENT AUTO 21 % (21-46); MONOCYTES ABSOLUTE AUTO 2.51 K/mm3 (0.16-1.47); MONOCYTES PERCENT AUTO 14 % (4-13); Mean Corpuscular HGB 32.1 pg (26.0-34.0); Mean Corpuscular Volume 104 fL (80-100); Mean Platelet Volume 8.3 fL (9.1-12.4); NEUTROPHILS PERCENT AUTO 64 % (41-73); Platelet Count 351 K/mm3 (150-400); RDW Coefficient Variation 18.4 % (11.7-14.2); Red Blood Cell Count 2.46 M/mm3 (3.80-5.20); White Blood Cell Count 18.42 K/mm3 (4.00-11.30)
[2021-06-12 06:35] LABS: Anion Gap 5 mmol/L (6-16); Blood Urea Nitrogen 13 mg/dL (8-24); CO2, Blood 29 mmol/L (21-32); Calcium, Blood 8.2 mg/dL (8.5-10.1); Chloride, Blood 99 mmol/L (98-108); Creatinine, Blood 3.29 mg/dL (0.40-1.00); Glomerular Filtration Rate 17 (60-); Glucose, Blood 100 mg/dL (70-99); Magnesium, Blood 1.8 mg/dL (1.6-2.4); Phosphorus, Blood 5.1 mg/dL (2.5-4.9); Potassium, Blood 4.2 mmol/L (3.5-5.5); Sodium, Blood 133 mmol/L (136-145)
--- NOTE | 2021-06-12 13:31 | NUR ---
Pt.is in hed bed relaxed and playing game with her phone,she is doing well encouraged pt, prayer and spiritual support.
--- NOTE | 2021-06-12 18:40 | NUR ---
SHIFT SUMMARY PT A/O X4; PLEASANT AND COOPERATIVE WITH CARE. GETS UP WITH A SBA W/FWW TO THE BSC THIS SHIFT. C/O PAIN IN HER LLQ. AREA WARM TO THE TOUCH AND SWELLING NOTED. ULTRASOUND DONE AND INTRA ABDOMINAL ABSCESS FOUND. CONSULT CALLED TO GENERAL SURGERY. VSS. WILL REPORT TO HERNANDEZ COREY.
--- NOTE | 2021-06-12 19:00 | NUR ---
ASSUMED CARE RECEIVED REPORT FROM LEORA AMEZCUA. PT RESTING, IN NAD. NO ACUTE NEEDS ASSESSED AT THIS TIME. CALL LIGHT, POSSESSIONS IN REACH, BED IN LOW AND LOCKED POSITION.
[2021-06-13 06:49] LABS: BASOPHILS ABSOLUTE AUTO 0.17 K/mm3 (0.00-0.23); BASOPHILS PERCENT AUTO 1 % (0-2); EOSINOPHILS ABSOLUTE AUTO 0.18 K/mm3 (0.00-0.68); EOSINOPHILS PERCENT AUTO 1 % (0-6); Hematocrit 25.6 % (33.0-51.0); Hemoglobin 7.8 g/dL (11.5-16.0); IMMATURE GRAN ABSOLUTE AUTO 0.12 K/mm3 (0.00-0.10); IMMATURE GRAN PERCENT AUTO 1 % (0-1); LYMPHOCYTES ABSOLUTE AUTO 3.31 K/mm3 (0.84-5.20); LYMPHOCYTES PERCENT AUTO 19 % (21-46); MONOCYTES ABSOLUTE AUTO 2.26 K/mm3 (0.16-1.47); MONOCYTES PERCENT AUTO 13 % (4-13); Mean Corpuscular HGB 31.5 pg (26.0-34.0); Mean Corpuscular HGB Conc 30.5 g/dL (31.5-36.5); Mean Corpuscular Volume 103 fL (80-100); Mean Platelet Volume 8.1 fL (9.1-12.4); NEUTROPHILS ABSOLUTE AUTO 11.69 K/mm3 (1.96-9.15); NEUTROPHILS PERCENT AUTO 66 % (41-73); Platelet Count 350 K/mm3 (150-400); RDW Coefficient Variation 18.1 % (11.7-14.2); RDW Standard Deviation 68.6 fL (35.1-46.3); Red Blood Cell Count 2.48 M/mm3 (3.80-5.20); White Blood Cell Count 17.73 K/mm3 (4.00-11.30)
--- NOTE | 2021-06-13 06:51 | NUR ---
STEAMER GUM CANDY SUMMARY PT RESTING, APPEARS COMFORTABLE. SLEPT ON AND OFF T/O NIGHT. VS REVIEWED,WNL. O2 SATS STABLE ON 3L/NC. NO ACUTE CONCERNS TO REPORT OVERNIGHT. DR. BEVERLY AT BEDSIDE TO SEE PT, PLAN IS FOR DIALYSIS TODAY. PT DENIES NEEDS AT THIS TIME. CALL LIGHT, POSSESSIONS IN REACH, BED IN LOW AND LOCKED POSITION. WILL REPORT OFF TO ONCOMING RN.
[2021-06-13 07:09] LABS: Anion Gap 5 mmol/L (6-16); Blood Urea Nitrogen 20 mg/dL (8-24); Bun/Creatinine Ratio 4.7 (12.0-20.0); CO2, Blood 29 mmol/L (21-32); Calcium, Blood 8.4 mg/dL (8.5-10.1); Chloride, Blood 97 mmol/L (98-108); Creatinine, Blood 4.23 mg/dL (0.40-1.00); Glomerular Filtration Rate 12 (60-); Glucose, Blood 110 mg/dL (70-99); Phosphorus, Blood 6.4 mg/dL (2.5-4.9); Potassium, Blood 4.7 mmol/L (3.5-5.5); Sodium, Blood 131 mmol/L (136-145)
[2021-06-13 13:02] LABS: Vancomycin, Random 23.9 ug/mL
[2021-06-13 14:37] LABS: SARS-Cov-2 (COVID-19) PCR, MMC POSITIVE (NEGATIVE)
--- NOTE | 2021-06-13 17:19 | NUR ---
SHIFT SUMMARY PT IS AOX4. PT DENIES SOB, N/V. PT MEDICATED X1 FOR PAIN. PT HAD DIALYSIS TODAY AND ABD CT TO EVALUATE ABSCESS. DR. FOSTER CONSULTED FOR ABD ABSCESS WITH POSSIBLE DRAIN PLACEMENT. DROPLET PRECUATIONS MAINTAINED T/O SHIFT. PT HAD COVID TEST FOR PLACEMENT DETERMINATION WHICH CAME UP POSITIVE, PAST 90 DAY MAYO OF PRIOR TEST. MICROBIOLOGY WILL EVALUATE RESULTS. PT WORKED WITH PT/OT. PT IS ONE ASSIST FOR TRANSFERS TO COMMODE. PT SATS REMAIN GREATER THAN 90% WITH 3 L O2 VIA NC. PT IS IN BED, CALL LIGHT IN REACH, LOW POSITION.
[2021-06-14 05:52] LABS: BASOPHILS ABSOLUTE AUTO 0.18 K/mm3 (0.00-0.23); BASOPHILS PERCENT AUTO 1 % (0-2); EOSINOPHILS ABSOLUTE AUTO 0.16 K/mm3 (0.00-0.68); EOSINOPHILS PERCENT AUTO 1 % (0-6); Hematocrit 25.6 % (33.0-51.0); Hemoglobin 7.8 g/dL (11.5-16.0); IMMATURE GRAN ABSOLUTE AUTO 0.12 K/mm3 (0.00-0.10); IMMATURE GRAN PERCENT AUTO 1 % (0-1); LYMPHOCYTES ABSOLUTE AUTO 4.22 K/mm3 (0.84-5.20); LYMPHOCYTES PERCENT AUTO 23 % (21-46); MONOCYTES ABSOLUTE AUTO 2.66 K/mm3 (0.16-1.47); MONOCYTES PERCENT AUTO 14 % (4-13); Mean Corpuscular HGB 31.6 pg (26.0-34.0); Mean Corpuscular HGB Conc 30.5 g/dL (31.5-36.5); Mean Corpuscular Volume 104 fL (80-100); Mean Platelet Volume 8.2 fL (9.1-12.4); NEUTROPHILS ABSOLUTE AUTO 11.41 K/mm3 (1.96-9.15); NEUTROPHILS PERCENT AUTO 61 % (41-73); Platelet Count 370 K/mm3 (150-400); RDW Coefficient Variation 17.7 % (11.7-14.2); RDW Standard Deviation 68.2 fL (35.1-46.3); Red Blood Cell Count 2.47 M/mm3 (3.80-5.20); White Blood Cell Count 18.75 K/mm3 (4.00-11.30)
--- NOTE | 2021-06-14 06:08 | NUR ---
SHIFT SUMMARY PT IS A 31 Y/O FEMALE, ORIGINALL ADMITTED FOR SEPSIS. SHE IS A&O X 4, POST-TRACH PEG TUBE REMOVAL. 1PA TO THE BSC. PT WAS MEDICATED FOR BLE AND ABD PAIN WITH PRN OXYCODONE. NO C/O NAUSEA OR SOB. VITAL SIGNS STABLE. PT AWAITING POSSIBLE SURGICAL I&D OF AN ABDOMINAL ABSCESS. NO ACUTE CHANGES IN PT CONDITION NOTE DURING THE NIGHT. WILL CONTINUE TO MONITOR AND TREAT PER EMAR UNTIL HAND OFF TO DAY SHIFT RN.
[2021-06-14 06:18] LABS: Anion Gap 4 mmol/L (6-16); Blood Urea Nitrogen 15 mg/dL (8-24); Bun/Creatinine Ratio 4.4 (12.0-20.0); CO2, Blood 31 mmol/L (21-32); Calcium, Blood 8.4 mg/dL (8.5-10.1); Chloride, Blood 98 mmol/L (98-108); Creatinine, Blood 3.44 mg/dL (0.40-1.00); Glomerular Filtration Rate 16 (60-); Glucose, Blood 109 mg/dL (70-99); Magnesium, Blood 2.1 mg/dL (1.6-2.4); Phosphorus, Blood 5.6 mg/dL (2.5-4.9); Potassium, Blood 4.4 mmol/L (3.5-5.5); Sodium, Blood 133 mmol/L (136-145)
[2021-06-14 09:10] LABS: HBSAG SCREEN Negative (Negative); HEP B CORE AB, TOT Negative (Negative)
--- NOTE | 2021-06-14 17:29 | NUR ---
SHIFT SUMMARY NO ACUTE CHANGES THIS SHIFT. PT IS WAITING ON NEWS TO HEAR WHERE SHE WILL BE TRANSFERRED. DR AND PATIENT HOPEFUL TO DISCHARGE TOMORROW AFTERNOON.
--- NOTE | 2021-06-15 05:26 | NUR ---
PATIENT IS ALERT AND RESPONSIVE. PATIENT REQUESTED AND WAS MEDICATED WITH ATIVAN 0.5MG FOR ANXITY WITH GOOD EFFECT. PATIENT SLEPT THE REST OF THE SHIFT WELL, NO COMPLAIN VOICED.
[2021-06-15 05:31] LABS: BASOPHILS ABSOLUTE AUTO 0.04 K/mm3 (0.00-0.23); BASOPHILS PERCENT AUTO 0 % (0-2); EOSINOPHILS PERCENT AUTO 0 % (0-6); Hematocrit 25.7 % (33.0-51.0); Hemoglobin 7.9 g/dL (11.5-16.0); IMMATURE GRAN ABSOLUTE AUTO 0.15 K/mm3 (0.00-0.10); IMMATURE GRAN PERCENT AUTO 1 % (0-1); LYMPHOCYTES PERCENT AUTO 13 % (21-46); MONOCYTES ABSOLUTE AUTO 1.18 K/mm3 (0.16-1.47); MONOCYTES PERCENT AUTO 7 % (4-13); Mean Corpuscular HGB 31.5 pg (26.0-34.0); Mean Corpuscular HGB Conc 30.7 g/dL (31.5-36.5); Mean Corpuscular Volume 102 fL (80-100); Mean Platelet Volume 8.1 fL (9.1-12.4); NEUTROPHILS ABSOLUTE AUTO 13.49 K/mm3 (1.96-9.15); NEUTROPHILS PERCENT AUTO 79 % (41-73); Platelet Count 379 K/mm3 (150-400); RDW Coefficient Variation 17.4 % (11.7-14.2); RDW Standard Deviation 65.5 fL (35.1-46.3); Red Blood Cell Count 2.51 M/mm3 (3.80-5.20); White Blood Cell Count 17.06 K/mm3 (4.00-11.30)
[2021-06-15 06:07] LABS: Albumin, Blood 1.1 g/dL (3.4-5.0); Albumin/Globulin Ratio 0.2 (0.8-1.8); Bilirubin, Direct 0.9 mg/dL (0.0-0.3); Bilirubin, Indirect 0.3 mg/dL (0.1-0.7); Bilirubin, Total 1.2 mg/dL (0.1-1.0); Bun/Creatinine Ratio 5.5 (12.0-20.0); C-REACTIVE PROTEIN, EXT RANGE 4.76 mg/dL (0.000-0.300); Calcium, Blood 8.6 mg/dL (8.5-10.1); Creatinine, Blood 4.21 mg/dL (0.40-1.00); Globulin, Blood 6.3 g/dL (2.2-4.0); Magnesium, Blood 1.9 mg/dL (1.6-2.4); Phosphorus, Blood 7.2 mg/dL (2.5-4.9); Potassium, Blood 5.5 mmol/L (3.5-5.5); Thyroid Stimulating Hormone 2.3 uIU/mL (0.360-4.800); Total Protein, Blood 7.4 g/dL (6.4-8.2)
[2021-06-15 10:11] LABS: HBSAG SCREEN Negative (Negative); HEP B CORE AB, TOT Negative (Negative); HEP B SURFACE AB Reactive (.)
--- NOTE | 2021-06-15 17:54 | NUR ---
SUMMARY PT SITTING UP IN BED EATING DINNER, PT HAD DIALYSIS THIS MORNING, DIVYA WELL, PT WORKED WITH PT/OT, HAS BEEN MED PER EMAR FOR PAIN AND ANXIETY, HAS BEEN PLEASANT AND COOPERATIVE WITH CARE T/O THE DAY, VSS, WILL CONT TO MONITOR
[2021-06-16 04:44] LABS: BASOPHILS ABSOLUTE AUTO 0.02 K/mm3 (0.00-0.23); BASOPHILS PERCENT AUTO 0 % (0-2); EOSINOPHILS PERCENT AUTO 0 % (0-6); Hematocrit 25.9 % (33.0-51.0); IMMATURE GRAN ABSOLUTE AUTO 0.23 K/mm3 (0.00-0.10); IMMATURE GRAN PERCENT AUTO 1 % (0-1); LYMPHOCYTES ABSOLUTE AUTO 2.68 K/mm3 (0.84-5.20); LYMPHOCYTES PERCENT AUTO 15 % (21-46); MONOCYTES ABSOLUTE AUTO 1.66 K/mm3 (0.16-1.47); MONOCYTES PERCENT AUTO 9 % (4-13); Mean Corpuscular HGB 31.4 pg (26.0-34.0); Mean Corpuscular HGB Conc 30.9 g/dL (31.5-36.5); Mean Corpuscular Volume 102 fL (80-100); Mean Platelet Volume 7.9 fL (9.1-12.4); NEUTROPHILS ABSOLUTE AUTO 13.91 K/mm3 (1.96-9.15); NEUTROPHILS PERCENT AUTO 75 % (41-73); Platelet Count 377 K/mm3 (150-400); RDW Coefficient Variation 17.4 % (11.7-14.2); RDW Standard Deviation 65.1 fL (35.1-46.3); Red Blood Cell Count 2.55 M/mm3 (3.80-5.20)
--- NOTE | 2021-06-16 05:05 | NUR ---
TURBINE ENGINE ASSEMBLER SUMMARY PT A/O X4, SLEPT WELL TONGIHT. MEDICATED FOR PAIN X2 OVERNIGHT. 4L O2 VIA NC MAINTAINING SATS IN THE HIGH 90'S TO 100% MEDICATED FOR NAUSEA PER EMAR. VSS, NO ACUTE CHANGES. USES CALL LIGHT APPROPRIATELY. CALL LIGHT WITHIN REACH, WILL CONTINUE TO MONITOR.
[2021-06-16 05:16] LABS: Magnesium, Blood 2.2 mg/dL (1.6-2.4)
[2021-06-16 05:17] LABS: Albumin, Blood 1.2 g/dL (3.4-5.0); Albumin/Globulin Ratio 0.2 (0.8-1.8); Calcium, Blood 8.6 mg/dL (8.5-10.1); Creatinine, Blood 3.57 mg/dL (0.40-1.00); Globulin, Blood 6.1 g/dL (2.2-4.0); Phosphorus, Blood 6.5 mg/dL (2.5-4.9); Potassium, Blood 5.2 mmol/L (3.5-5.5); Total Protein, Blood 7.3 g/dL (6.4-8.2)
--- NOTE | 2021-06-16 15:28 | NUR ---
PATIENT HAS C/O DIFFICULTY WITH BREATHING SINCE START OF SHIFT HOWEVER HER O2 SATS HAVE BEEN WNL AND STABLE. SHE COMPLAINS OF CONSTANT PAIN TO HER BUTTOCKS/COCCYX R/T THE WOUNDS; DRESSING CHANGES PERFORMED TODAY WITH PETROLEUM JELLY APPLICATION. PATIENT IS ABLE TO REPOSITION HERSELF AND IS EVEN ABLE TO AMBULATE WITH FWW AND SBA; PATIENT IS ENCOURAGED TO REPOSITION FREQUENTLY TO ALLOW FOR WOUND HEALING. PATIENT RECIEVING DIALYSIS IN ROOM AT THIS TIME; SHE IS CURRENTLY ASLEEP. BOTTLED BEVERAGE INSPECTOR WITH THE PATIENT. CALL LIGHT WITHIN REACH.
--- NOTE | 2021-06-17 04:58 | NUR ---
STRIPPING SHOVEL OILER SUMMARY PT A/OX4, SLEPT WELL TONIGHT. MEDICATED FOR ANXIETY AND PAIN OVERNIGHT. TAKES MEDS WHOLE WITH APPLESAUCE. CONTINUES TO BE ON 2L O2 VIA NC SATTING IN THE HIGH 90'S. USES CALL LIGHT APPROPRIATELY. NO ACUTE CHANGES, CALL LIGHT WITHIN REACH, BED ALARM ON, WILL CONTINUE TO MONITOR,
[2021-06-17 06:17] LABS: BASOPHILS ABSOLUTE AUTO 0.01 K/mm3 (0.00-0.23); BASOPHILS PERCENT AUTO 0 % (0-2); EOSINOPHILS PERCENT AUTO 0 % (0-6); Hematocrit 25.4 % (33.0-51.0); IMMATURE GRAN ABSOLUTE AUTO 0.16 K/mm3 (0.00-0.10); IMMATURE GRAN PERCENT AUTO 1 % (0-1); LYMPHOCYTES ABSOLUTE AUTO 2.36 K/mm3 (0.84-5.20); LYMPHOCYTES PERCENT AUTO 15 % (21-46); MONOCYTES ABSOLUTE AUTO 1.46 K/mm3 (0.16-1.47); MONOCYTES PERCENT AUTO 10 % (4-13); Mean Corpuscular HGB Conc 31.5 g/dL (31.5-36.5); Mean Corpuscular Volume 102 fL (80-100); Mean Platelet Volume 8.1 fL (9.1-12.4); NEUTROPHILS ABSOLUTE AUTO 11.45 K/mm3 (1.96-9.15); NEUTROPHILS PERCENT AUTO 74 % (41-73); NRBC ABSOLUTE 0.02 K/mm3 (0.00-0.02); NRBC Auto 0.1 /100 WBC (0.0-0.2); Platelet Count 368 K/mm3 (150-400); RDW Coefficient Variation 17.5 % (11.7-14.2); RDW Standard Deviation 65.4 fL (35.1-46.3); White Blood Cell Count 15.44 K/mm3 (4.00-11.30)
[2021-06-17 06:32] LABS: Albumin, Blood 1.3 g/dL (3.4-5.0); Anion Gap 7 mmol/L (6-16); Blood Urea Nitrogen 25 mg/dL (8-24); CO2, Blood 29 mmol/L (21-32); Calcium, Blood 8.3 mg/dL (8.5-10.1); Chloride, Blood 99 mmol/L (98-108); Creatinine, Blood 3.12 mg/dL (0.40-1.00); Glomerular Filtration Rate 18 (60-); Glucose, Blood 108 mg/dL (70-99); Phosphorus, Blood 5.2 mg/dL (2.5-4.9); Potassium, Blood 4.3 mmol/L (3.5-5.5); Sodium, Blood 135 mmol/L (136-145)
--- NOTE | 2021-06-17 10:35 | NUR ---
UPON MORNING ASSESSMENT, PT WAS VERY CONCERNED THAT HIS WAS EXTREMELY WORRIED THAT HE "WAS DYING." HE STATES THAT "SOMEONE FROM THE HOSPITAL CALLED" HIS SPOUSE AND TOLD HER HE "WAS DYING." SHE THEN CALLED THEIR CHILDREN AND RELATIVES AND TOLD THEM ALSO THAT "HE WAS DYING." HE MADE MULTIPLE PHONE CALL SAYING "I'M NOT ." THERAPEUTIC COMMUNICATION AND ACTIVE LISTENING SKILLS UTILIZED. BED IN LOW POSITION, CALL LIGHT WITHIN REACH.
--- NOTE | 2021-06-17 19:09 | NUR ---
SHIFT SUMMARY PT AXO, PLEASANT AND COOPERATIVE WITH CARE. ANXIOUS AT TIMES. PT COMPLAINED OF PAIN, MEDICATED PER EMAR. PT COMPLAINED OF PRESSURE ON HER CHEST. DR WEST AWARE, EKG DONE, DR AWARE OF RESULTS AND NO NEW ORDERS. THIS NURSE ENCOURAGED NON-PHARM INTERVENTIONS FOR ANXIETY REDUCTION. IV PATENT AND SALINE LOCKED. PT UP WITH 1 ASSIST WITH FWW AND GB. VSS. ON 4L O2 VIA NC. BED IN LOW POSITION, CALL LIGHT WITHIN REACH.
[2021-06-18 05:04] LABS: Hemoglobin 8.7 g/dL (11.5-16.0)
[2021-06-18 05:26] LABS: Albumin, Blood 1.5 g/dL (3.4-5.0); Anion Gap 7 mmol/L (6-16); Blood Urea Nitrogen 39 mg/dL (8-24); Bun/Creatinine Ratio 9.8 (12.0-20.0); CO2, Blood 29 mmol/L (21-32); Calcium, Blood 8.8 mg/dL (8.5-10.1); Chloride, Blood 96 mmol/L (98-108); Creatinine, Blood 3.99 mg/dL (0.40-1.00); Glomerular Filtration Rate 13 (60-); Glucose, Blood 126 mg/dL (70-99); Magnesium, Blood 2.1 mg/dL (1.6-2.4); Phosphorus, Blood 6.4 mg/dL (2.5-4.9); Potassium, Blood 4.8 mmol/L (3.5-5.5); Sodium, Blood 132 mmol/L (136-145)
--- NOTE | 2021-06-18 06:09 | NUR ---
SHIFT SUMMARY PT AAOX3, COVID 19+, ON 4L NC. SATS STABLE. NO DISTRESS NOTED, CALL LIGHT WITHIN REACH. PT ABLE TO MAKE NEEDS KNOWN. NO SIGNIFICANT EVENTS DURING THIS SHIFT.
[2021-06-18 10:46] LABS: Hematocrit 28.6 % (33.0-51.0); Hemoglobin 8.7 g/dL (11.5-16.0); Mean Corpuscular HGB 31.4 pg (26.0-34.0); Mean Corpuscular HGB Conc 30.4 g/dL (31.5-36.5); Mean Corpuscular Volume 103 fL (80-100); Mean Platelet Volume 8.4 fL (9.1-12.4); NRBC ABSOLUTE 0.02 K/mm3 (0.00-0.02); NRBC Auto 0.1 /100 WBC (0.0-0.2); Platelet Count 385 K/mm3 (150-400); RDW Coefficient Variation 17.2 % (11.7-14.2); Red Blood Cell Count 2.77 M/mm3 (3.80-5.20); White Blood Cell Count 16.75 K/mm3 (4.00-11.30)
--- NOTE | 2021-06-18 17:40 | NUR ---
SHIFT SUMMARY PT TO DIALYSIS TODAY. [facility] NOW COVID TEST CAME UP NEGATIVE. NOTIFIED AND INFECTION CONTROL. UP IN CHAIR THIS MORNING FOR BREAKFAST BUT NAPPING THE REMAINDER OF THE DAY ON AND OFF. AMBULATED TO BATHROOM WITH MEDIUM FORMED BM. PHOTO TAKEN OF BUTTOCK AND R BUTTOCK CREASE WOUNDS. MEDICATED FOR PAIN ONCE THIS SHIFT.
--- NOTE | 2021-06-19 05:59 | NUR ---
SHIFT SUMMARY PT AAOX3. ON 2L NC. NO DISTRESS NOTED. PT HAD FALL DURING SHIFT. NO VISIBLE INJURIES NOTED. PT C/O PAIN, MEDICATED PER NOV. BED IN LOWEST POSITION, CALL LIGHT WITHIN REACH. BED ALARM ON. PT RESTING.
--- NOTE | 2021-06-19 18:48 | NUR ---
SHIFT SUMMARY PT DOZING MOST OF DAY. HAS WALKED TO BATHROOM USING FWW AND GAIT BELT WITH ONE P ASSIST AFTER REASSURANCES GIVEN FOR SAFETY AND BOOST CONFIDENCE. NO DIALYSIS TODAY. LEGS REMAIN EDEMATOUS AND UNCOMFORTABLE BUT STATES BACK CAUSES PAIN SINCE FALL. ABLE TO MAKE NEEDS KNOWN.
[2021-06-20 05:07] LABS: Hematocrit 29.9 % (33.0-51.0); Hemoglobin 9.3 g/dL (11.5-16.0)
[2021-06-20 05:31] LABS: Albumin, Blood 1.7 g/dL (3.4-5.0); Anion Gap 9 mmol/L (6-16); Blood Urea Nitrogen 47 mg/dL (8-24); Bun/Creatinine Ratio 10.7 (12.0-20.0); CO2, Blood 27 mmol/L (21-32); Calcium, Blood 8.9 mg/dL (8.5-10.1); Chloride, Blood 100 mmol/L (98-108); Creatinine, Blood 4.39 mg/dL (0.40-1.00); Glomerular Filtration Rate 12 (60-); Glucose, Blood 124 mg/dL (70-99); Magnesium, Blood 2.1 mg/dL (1.6-2.4); Phosphorus, Blood 6.5 mg/dL (2.5-4.9); Potassium, Blood 4.7 mmol/L (3.5-5.5); Sodium, Blood 136 mmol/L (136-145)
--- NOTE | 2021-06-20 19:00 | NUR ---
ASSUMED CARE RECEIVED REPORT FROM LEORA MORE. PT RESTING, IN NAD. NO ACUTE NEEDS ASSESSED AT THIS TIME. CALL LIGHT, POSSESSIONS IN REACH.
--- NOTE | 2021-06-20 19:36 | NUR ---
SHIFT SUMMARY PT TO DIALYIS THIS MORNING AND TOLERATED WELL. MEDICATED FOR PAIN ONCE TO BACK. SITTING ON SIDE OF BED SEVERAL TIMES TODAY. DRESSINGS INTACT TO BUTTOCK WOUNDS.
[2021-06-21 06:18] LABS: Hematocrit 28.6 % (33.0-51.0); Hemoglobin 8.9 g/dL (11.5-16.0)
[2021-06-21 06:35] LABS: Albumin, Blood 1.6 g/dL (3.4-5.0); Anion Gap 6 mmol/L (6-16); Blood Urea Nitrogen 42 mg/dL (8-24); Bun/Creatinine Ratio 11.2 (12.0-20.0); CO2, Blood 31 mmol/L (21-32); Calcium, Blood 8.7 mg/dL (8.5-10.1); Chloride, Blood 100 mmol/L (98-108); Creatinine, Blood 3.74 mg/dL (0.40-1.00); Glomerular Filtration Rate 14 (60-); Glucose, Blood 113 mg/dL (70-99); Magnesium, Blood 1.9 mg/dL (1.6-2.4); Phosphorus, Blood 5.6 mg/dL (2.5-4.9); Potassium, Blood 4.4 mmol/L (3.5-5.5); Sodium, Blood 137 mmol/L (136-145)
--- NOTE | 2021-06-21 06:47 | NUR ---
SHIFT SUMMARY PT RESTING, IN NAD. NO ACUTE CONCERNS TO REPORT OVERNIGHT, APPEARED TO SLEEP WELL. VS REVIEWED,WNL; O2 SATS STABLE ON 4L/NC; PT DENIES SOB. PT CHANGED DRSG TO OLD PEG TUBE SITE WITH OVERSIGHT, DEMONSTRATED UNDERSTANDING. NO ACUTE NEEDS ASSESSED AT THIS TIME. CALL LIGHT, POSSESSIONS IN REACH, BED IN LOW AND LOCKED POSITION. WILL REPORT OFF TO ONCOMING RN.
--- NOTE | 2021-06-21 17:20 | NUR ---
SHIFT SUMMARY PT SITTING UP ON SIDE OF BED MOST OF DAY. VERY AWAKE AND ALERT TODAY. BUTTOCK WOUND DRESSING CHANGED WITH SKIN APPEARING HEALED. NO DRESSING APPLIED BUT BARRIER CREAM APPLIED. L GLUTEAL FOLD DRESSING CHANGED WITH CONTINUED IMPROVEMENT OF SITE. HAS SIGNIFICANT SWELLING TO LOWER EXTREMITIES THAT CONTINUES BUT DECLINES TO ELEVATE FEET AND LEGS WHILE LAYING DOWN.
--- NOTE | 2021-06-21 19:10 | NUR ---
ASSUMED CARE RECEIVED REPORT FROM LEORA MORE. PT RESTING, IN NAD. NO ACUTE NEEDS ASSESSED AT THIS TIME. CALL LIGHT, POSSESSIONS IN REACH, BED IN LOW AND LOCKED POSITION WITH ALARMS ON.
[2021-06-22 06:03] LABS: Hematocrit 30.4 % (33.0-51.0); Hemoglobin 9.3 g/dL (11.5-16.0)
[2021-06-22 06:20] LABS: Albumin, Blood 1.7 g/dL (3.4-5.0); Anion Gap 7 mmol/L (6-16); Blood Urea Nitrogen 54 mg/dL (8-24); Bun/Creatinine Ratio 11.2 (12.0-20.0); CO2, Blood 29 mmol/L (21-32); Calcium, Blood 8.7 mg/dL (8.5-10.1); Chloride, Blood 99 mmol/L (98-108); Creatinine, Blood 4.81 mg/dL (0.40-1.00); Glomerular Filtration Rate 11 (60-); Glucose, Blood 129 mg/dL (70-99); Magnesium, Blood 2.1 mg/dL (1.6-2.4); Phosphorus, Blood 6.5 mg/dL (2.5-4.9); Potassium, Blood 5.1 mmol/L (3.5-5.5); Sodium, Blood 135 mmol/L (136-145)
--- NOTE | 2021-06-22 06:53 | NUR ---
SHIFT SUMMARY PT RESTING IN RECLINER, IN NAD. PT SLEPT OFF AND ON T/O NIGHT IN RECLINER, D/T DYPSNEA WHEN LYING FLAT IN BED. VS REVIEWED,WNL; O2 SATS STABLE ON 4L/NC. NO OTHER ACUTE CONCERNS TO REPORT OVERNIGHT. AMBULATED TO BATHROOM WITH FWW AND GAITBELT WELL. PAIN MANAGEDWITH MEDS PER EMAR, WITH GOOD EFFECT. NO ACUTE NEEDS ASSESSED AT THIS TIME. CALL LIGHT, POSSESSIONS IN REACH, CHAIR ALARM ON. WILL REPORT OFF TO ONCOMING RN.
--- NOTE | 2021-06-22 15:13 | NUR ---
Met pt. and her therapists on a walk ,stopped them and offered prayers and blessings for the pt.
--- NOTE | 2021-06-23 04:43 | NUR ---
SHIFT SUMMARY- PT. A&OX4, PLEASANT AND COOPERATIVE WITH CARE. ABLE TO MAKE NEEDS KNOWN. C/O PAIN TO BACK LAST NIGHT. MEDICATED PER EMAR WITH GOOD RELIEF. AMBULATED TO BATHROOM W/WALKER AND 1PA, TOLREATING WELL. VSS. SLEPT T/O THE NIGHT, NO APPARENT DISTRESS NOTED. CALL LIGHT WITHIN REACH AND SIDE RAILS UPX2. WILL CONT TO MONITOR.
[2021-06-23 05:36] LABS: Hematocrit 28.8 % (33.0-51.0); Hemoglobin 8.8 g/dL (11.5-16.0)
[2021-06-23 05:56] LABS: Albumin, Blood 1.7 g/dL (3.4-5.0); Anion Gap 5 mmol/L (6-16); Blood Urea Nitrogen 44 mg/dL (8-24); Bun/Creatinine Ratio 10.7 (12.0-20.0); CO2, Blood 32 mmol/L (21-32); Calcium, Blood 8.4 mg/dL (8.5-10.1); Chloride, Blood 101 mmol/L (98-108); Glomerular Filtration Rate 13 (60-); Glucose, Blood 125 mg/dL (70-99); Magnesium, Blood 1.8 mg/dL (1.6-2.4); Phosphorus, Blood 5.3 mg/dL (2.5-4.9); Potassium, Blood 4.3 mmol/L (3.5-5.5); Sodium, Blood 138 mmol/L (136-145)
[2021-06-24 05:08] LABS: Anion Gap 7 mmol/L (6-16); Blood Urea Nitrogen 57 mg/dL (8-24); Bun/Creatinine Ratio 11.7 (12.0-20.0); CO2, Blood 30 mmol/L (21-32); Chloride, Blood 101 mmol/L (98-108); Creatinine, Blood 4.88 mg/dL (0.40-1.00); Glomerular Filtration Rate 11 (60-); Glucose, Blood 109 mg/dL (70-99); Magnesium, Blood 1.9 mg/dL (1.6-2.4); Phosphorus, Blood 6.4 mg/dL (2.5-4.9); Sodium, Blood 138 mmol/L (136-145)
--- NOTE | 2021-06-24 06:08 | NUR ---
SHIFT SUMMARY- NO ACUTE CHANGES TO CONDITION. PT. IN RECLINER CHAIR T/O THE NIGHT, SLEPT ON/OFF. NO APPARENT DISTRESS NOTED. MEDICATED FOR C/O BACK AND GENERALIZED PAIN WITH GOOD EFFECT. DENIED ANY OTHER NEEDS DURING THE NIGHT, VSS. CALL LIGHT WITHIN REACH, WILL CONT TO MONITOR.
--- NOTE | 2021-06-24 12:48 | NUR ---
Patient is alert and oriented, needs to dangle about 10 minutes before standing. She wants to use a gait belt. She was in the bathroom. I stepped out to do another task. Patient got up and to the bed by herself. I asked patient to call appropriately. The action was contrary.
--- NOTE | 2021-06-24 19:05 | NUR ---
PATIENT IS ALERT AND ORIENTED X 4. SHE REPORTED BACK PAIN X 2. MEDICATED PER ORDERS. SHE HAD DIAYSIS THIS. SHE HAD AN UNEVENTFUL DAY. BROTHER TO VISIT AND BROUGHT HER DINNER (ELY).
[2021-06-25 04:46] LABS: Hematocrit 29.5 % (33.0-51.0); Hemoglobin 9.3 g/dL (11.5-16.0)
[2021-06-25 05:09] LABS: Albumin, Blood 1.7 g/dL (3.4-5.0); Anion Gap 8 mmol/L (6-16); Blood Urea Nitrogen 41 mg/dL (8-24); Bun/Creatinine Ratio 9.7 (12.0-20.0); CO2, Blood 29 mmol/L (21-32); Calcium, Blood 8.6 mg/dL (8.5-10.1); Chloride, Blood 102 mmol/L (98-108); Creatinine, Blood 4.24 mg/dL (0.40-1.00); Glomerular Filtration Rate 12 (60-); Glucose, Blood 155 mg/dL (70-99); Magnesium, Blood 1.8 mg/dL (1.6-2.4); Phosphorus, Blood 5.2 mg/dL (2.5-4.9); Potassium, Blood 4.1 mmol/L (3.5-5.5); Sodium, Blood 139 mmol/L (136-145)
--- NOTE | 2021-06-25 06:05 | NUR ---
SHIFT SUMMARY- PT. SITTING UP IN RECLINER T/O THE NIGHT. SLEPT ON/FF, NO APPARENT DISTRESS NOTED. HAD C/O GENERALIZED AND BACK PAIN. MEDICATED PER EMAR WITH GOOD EFFECT. PT. ON 2LNC, SATS MAINTAINED, VSS. DENIED ANY OTHER NEEDS DURING THE NIGHT. CALL LIGHT WITHIN REACH, WILL CONT TO MONITOR.
--- NOTE | 2021-06-25 15:32 | NUR ---
Pt. is in bed resting and is doing fine prayed for pt.
--- NOTE | 2021-06-25 15:32 | NUR ---
Pt. is in bed resting and uis doing fine
--- NOTE | 2021-06-25 17:36 | NUR ---
SHIFT SUMMARY PT UP IN THE CHAIR ALL OF THE SHIFT. WORKED WITH PT & OT TODAY. MEDICATED FOR PAIN TWICE THIS SHIFT. PEG TUBE REMOVEAL SITE DRESSING CHANGED AND CLEANED. YELLOWISH DISCHARGE ON OLD BANDAGE. PT MOTHER IN ROOM VISITING. MOM ATTEMPTED TO CUT PTS BIG TOE NAIL AND CUT PTS TOE SLIGHTLY. CUT IS VERY SMALL AND BANDAGE WAS PLACED TO STOP BLEEDING. NO OTHER ACUTE CHANGES IN ASSESSMENT AT THIS TIME. VS REVIEWED. PT AWAITING PLACEMENT. CALL LIGHT IN REACH. DENIES OTHER NEEDS AT THIS TIME.
[2021-06-26 05:27] LABS: Hemoglobin 9.4 g/dL (11.5-16.0)
[2021-06-26 06:03] LABS: Albumin, Blood 1.8 g/dL (3.4-5.0); Anion Gap 7 mmol/L (6-16); Blood Urea Nitrogen 56 mg/dL (8-24); Bun/Creatinine Ratio 10.9 (12.0-20.0); CO2, Blood 28 mmol/L (21-32); Calcium, Blood 8.5 mg/dL (8.5-10.1); Chloride, Blood 102 mmol/L (98-108); Creatinine, Blood 5.15 mg/dL (0.40-1.00); Glomerular Filtration Rate 10 (60-); Glucose, Blood 127 mg/dL (70-99); Magnesium, Blood 1.8 mg/dL (1.6-2.4); Phosphorus, Blood 6.3 mg/dL (2.5-4.9); Potassium, Blood 4.7 mmol/L (3.5-5.5); Sodium, Blood 137 mmol/L (136-145)
--- NOTE | 2021-06-26 06:40 | NUR ---
SHIFT SUMMARY NO ACUTE CHANGES THIS SHIFT. AOX4. VSS. REPORTS PAIN IN BACK & LLE, MEDICATED c ROBAXIN 1X & 10MG ROXICODONE 1X, PT ABLE TO REST COMFORTABLY. PT SLEPT IN RECLINER STATES ABLE TO BREATH BETTER WHILE IN RECLINER. SPO2 >90% ON 2L. AWAITING SAFE DC PLAN. CALL LIGHT IN REACH & ABLE TO MAKE NEEDS KNOWN.
--- NOTE | 2021-06-26 16:10 | NUR ---
SHIFT SUMMARY PT RECIEVED DIALYSIS TODAY. UP IN CHAIR FOR MEALS. PT MEDICATED FOR PAIN TWICE SO FAR THIS SHIFT. WORKED WITH OT TODAY. CURRENTLY TALKING WITH A VISITOR IN ROOM. REID WRAPS ORDERED TO HELP WITH BLE SWELLING. DR. FREIRE NOTIFIED OF CONSIPATION REPORTED BY THE PT AND THRUSH. NYSTATIN AND BOWEL CARE ORDERED. NO OTHER ACUTE CHANGES IN ASSESSMENT AT THIS TIME. VS REVIEWED. CALL LIGHT IN REACH.
[2021-06-27 04:19] LABS: Hematocrit 29.2 % (33.0-51.0); Hemoglobin 9.1 g/dL (11.5-16.0)
[2021-06-27 04:35] LABS: Albumin, Blood 1.7 g/dL (3.4-5.0); Anion Gap 6 mmol/L (6-16); Blood Urea Nitrogen 40 mg/dL (8-24); Bun/Creatinine Ratio 9.5 (12.0-20.0); CO2, Blood 30 mmol/L (21-32); Calcium, Blood 8.4 mg/dL (8.5-10.1); Chloride, Blood 102 mmol/L (98-108); Creatinine, Blood 4.21 mg/dL (0.40-1.00); Glomerular Filtration Rate 12 (60-); Glucose, Blood 94 mg/dL (70-99); Magnesium, Blood 1.8 mg/dL (1.6-2.4); Phosphorus, Blood 4.2 mg/dL (2.5-4.9); Potassium, Blood 4.4 mmol/L (3.5-5.5); Sodium, Blood 138 mmol/L (136-145)
--- NOTE | 2021-06-27 05:08 | NUR ---
EDGE INKER UPPERS SUMMARY PATEINT HAD A CALM SHIFT. SHE GOT HER MED FOR PAIN SEE NOV. SHE DID NOT HAVE ANY COMPLAIN AFTERWARS.
--- NOTE | 2021-06-27 17:20 | NUR ---
SHIFT SUMMARY NO ACUTE CHANGES, A&O, CALM AND COOPERATIVE. ON RA AND SATING ABOVE 90%. BLE +4 EDEMA, REID WRAPPED. REPORTS PAIN DURING SHIFT, MEDICATED PER EMAR. TREATMENT EFFECTIVE. BOWEL CARE STARTED THIS SHIFT. PT UP IN CHAIR AND WALKED IN HALLS. PG DRESSING CHANGED. PREVIOUS PEG TUBE SITE DRESSING CHANGED. PT IS CURRENTLY UP IN CHAIR WITH CALL LIGHT WITHIN REACH.
--- NOTE | 2021-06-28 05:41 | NUR ---
DIRECTOR OF STATE SUMMARY PATIENT HAD A CALM SHIFT. SHE WAS GIVEN HER PAIN MED NEEDED, SEE EMAR. NIL FRESH COMPLAINT.
[2021-06-28 06:18] LABS: Hematocrit 31.3 % (33.0-51.0); Hemoglobin 9.7 g/dL (11.5-16.0)
[2021-06-28 06:33] LABS: Magnesium, Blood 1.9 mg/dL (1.6-2.4)
[2021-06-28 06:55] LABS: Albumin, Blood 1.9 g/dL (3.4-5.0); Anion Gap 6 mmol/L (6-16); Blood Urea Nitrogen 57 mg/dL (8-24); Bun/Creatinine Ratio 10.7 (12.0-20.0); CO2, Blood 30 mmol/L (21-32); Calcium, Blood 8.7 mg/dL (8.5-10.1); Chloride, Blood 100 mmol/L (98-108); Creatinine, Blood 5.33 mg/dL (0.40-1.00); Glomerular Filtration Rate 9 (60-); Glucose, Blood 122 mg/dL (70-99); Phosphorus, Blood 5.2 mg/dL (2.5-4.9); Potassium, Blood 6.1 mmol/L (3.5-5.5); Sodium, Blood 136 mmol/L (136-145)
--- NOTE | 2021-06-28 17:18 | NUR ---
Shift Summary A/Ox3, pleasant and cooperative with care. Had hemo-dialysis today, patient has been tired post HD. Up to bathroom x 1p assist c gait and FWW. Medicated for pain per EMAR with good effect, new fentanyl patch placed to L shoulder. Appetite is good. Offered recliner for all meals, patient refused. Dressing to abdomen changed, scant opaque drainage noted, nonodorous. REID wrap applied to bilateral lower extremities, legs elevated. Calls appropriately for needs. WCTM.
[2021-06-29 06:03] LABS: Hematocrit 30.4 % (33.0-51.0); Hemoglobin 9.7 g/dL (11.5-16.0)
[2021-06-29 06:24] LABS: Albumin, Blood 1.8 g/dL (3.4-5.0); Anion Gap 5 mmol/L (6-16); Blood Urea Nitrogen 46 mg/dL (8-24); Bun/Creatinine Ratio 10.3 (12.0-20.0); CO2, Blood 32 mmol/L (21-32); Calcium, Blood 8.7 mg/dL (8.5-10.1); Chloride, Blood 100 mmol/L (98-108); Creatinine, Blood 4.45 mg/dL (0.40-1.00); Glomerular Filtration Rate 12 (60-); Glucose, Blood 100 mg/dL (70-99); Magnesium, Blood 2.2 mg/dL (1.6-2.4); Phosphorus, Blood 4.5 mg/dL (2.5-4.9); Potassium, Blood 5.1 mmol/L (3.5-5.5); Sodium, Blood 137 mmol/L (136-145)
--- NOTE | 2021-06-29 06:43 | NUR ---
MARINE HABITAT RESOURCE SPECIALIST SUMMARY PATIENT HAD A DANIAL SHFT. DID NOT LODGE FRESH COMPLAINT. SHE HAD PAIN MED AT THE BEGINNING OF THE SHIFT. HER VS WERE STABLE.
--- NOTE | 2021-06-29 09:53 | NUR ---
ST PATRICK/MARLENI RECEIVED V.O. FROM DR. KURTZ FOR SPEECH THERAPY TO EVAL AND TREAT POOR QUALITY VOICE. PATIENT HAS LOW, RASPY, WHISPERY VOICE.
--- NOTE | 2021-06-29 17:06 | NUR ---
Shift Summary A/Ox3, dressings to L buttocks and abdomen changed this shift. Moderate SS drainage to L buttock, scant opaque drainage to abdomen. Up to bathroom and ambulating in hallway with gait and 1p assist/FWW. Medicate for pain per EMAR with good effect. No acute changes, WCTM.
[2021-06-30 04:57] LABS: Hematocrit 30.7 % (33.0-51.0); Hemoglobin 9.6 g/dL (11.5-16.0); Mean Corpuscular HGB Conc 31.3 g/dL (31.5-36.5); Mean Corpuscular Volume 99 fL (80-100); Mean Platelet Volume 8.6 fL (9.1-12.4); Platelet Count 317 K/mm3 (150-400); RDW Coefficient Variation 17.4 % (11.7-14.2); RDW Standard Deviation 63.3 fL (35.1-46.3); White Blood Cell Count 18.49 K/mm3 (4.00-11.30)
[2021-06-30 06:16] LABS: Albumin, Blood 1.8 g/dL (3.4-5.0); Anion Gap 6 mmol/L (6-16); Blood Urea Nitrogen 60 mg/dL (8-24); CO2, Blood 30 mmol/L (21-32); Calcium, Blood 8.6 mg/dL (8.5-10.1); Chloride, Blood 99 mmol/L (98-108); Creatinine, Blood 5.47 mg/dL (0.40-1.00); Glomerular Filtration Rate 9 (60-); Glucose, Blood 100 mg/dL (70-99); Magnesium, Blood 2.2 mg/dL (1.6-2.4); Phosphorus, Blood 5.2 mg/dL (2.5-4.9); Potassium, Blood 5.7 mmol/L (3.5-5.5); Sodium, Blood 135 mmol/L (136-145)
[2021-07-01 05:02] LABS: Hematocrit 30.7 % (33.0-51.0); Hemoglobin 9.6 g/dL (11.5-16.0)
[2021-07-01 05:56] LABS: Albumin, Blood 1.8 g/dL (3.4-5.0); Anion Gap 6 mmol/L (6-16); Blood Urea Nitrogen 49 mg/dL (8-24); Bun/Creatinine Ratio 10.9 (12.0-20.0); CO2, Blood 30 mmol/L (21-32); Calcium, Blood 8.7 mg/dL (8.5-10.1); Chloride, Blood 99 mmol/L (98-108); Creatinine, Blood 4.49 mg/dL (0.40-1.00); Glomerular Filtration Rate 12 (60-); Glucose, Blood 106 mg/dL (70-99); Magnesium, Blood 2.2 mg/dL (1.6-2.4); Phosphorus, Blood 4.9 mg/dL (2.5-4.9); Potassium, Blood 5.2 mmol/L (3.5-5.5); Sodium, Blood 135 mmol/L (136-145)
--- NOTE | 2021-07-02 03:33 | NUR ---
RECEIVED PT OOB IN CHAIR. RESP UNLABORED. MEDICATED X1 PRN FOR PAIN WITH GOOD EFFECT. CALL LIGHT WITHIN REACH. TOLERATING PO INTAKE WELL. AMBULATED TO THE BATHROOM WITH WALKER AND 1 ASSIST. CALL LIGHT WITHIN REACH. WILL CONTINUE TO MONITOR.
[2021-07-02 05:04] LABS: Hematocrit 30.8 % (33.0-51.0); Hemoglobin 9.7 g/dL (11.5-16.0)
[2021-07-02 05:36] LABS: Anion Gap 8 mmol/L (6-16); Blood Urea Nitrogen 43 mg/dL (8-24); Bun/Creatinine Ratio 10.7 (12.0-20.0); CO2, Blood 29 mmol/L (21-32); Calcium, Blood 8.8 mg/dL (8.5-10.1); Chloride, Blood 97 mmol/L (98-108); Creatinine, Blood 4.01 mg/dL (0.40-1.00); Glomerular Filtration Rate 13 (60-); Glucose, Blood 113 mg/dL (70-99); Magnesium, Blood 2.4 mg/dL (1.6-2.4); Phosphorus, Blood 5.3 mg/dL (2.5-4.9); Potassium, Blood 4.3 mmol/L (3.5-5.5); Sodium, Blood 134 mmol/L (136-145)
--- NOTE | 2021-07-02 14:27 | NUR ---
Pt. is much better and in dialysis prayed for her.
--- NOTE | 2021-07-02 18:37 | NUR ---
SHIFT SUMMARY PATIENT IS ALERT AND ORIENTED, COOPERATIVE WITH CARE THIS SHIFT. PATIENT DOWN TO DIALYSIS THIS AM. PATIENT MEDICATED FOR PAIN 2X THIS SHIFT. DRESSING FOR PEG TUBE REMOVAL REPLACED THIS AFTERNOON. PATIENT UP WITH SBA THIS SHIFT. PATIENT WORKED WITH PHYSICAL THERAPY THIS AFTERNOON. PATIENT CURRENTLY SITTING UP IN BED WATCHING TELEVISION.
--- NOTE | 2021-07-03 05:06 | NUR ---
PT SLETP WITHOUT DISTRESS. VSS. MEDS GIVEN. MEDICATED FOR PAIN ONCE WITH GOOD EFFECT. TOLERATION PO INTAKE. NO COMPLAINT VOICED. NO CHANGE IN STATUS NOTED.
[2021-07-03 05:22] LABS: Hematocrit 30.1 % (33.0-51.0); Hemoglobin 9.4 g/dL (11.5-16.0)
[2021-07-03 05:47] LABS: Albumin, Blood 2.2 g/dL (3.4-5.0); Anion Gap 10 mmol/L (6-16); Blood Urea Nitrogen 40 mg/dL (8-24); Bun/Creatinine Ratio 9.8 (12.0-20.0); CO2, Blood 28 mmol/L (21-32); Calcium, Blood 8.8 mg/dL (8.5-10.1); Chloride, Blood 99 mmol/L (98-108); Glomerular Filtration Rate 13 (60-); Glucose, Blood 127 mg/dL (70-99); Magnesium, Blood 2.3 mg/dL (1.6-2.4); Phosphorus, Blood 4.7 mg/dL (2.5-4.9); Potassium, Blood 4.5 mmol/L (3.5-5.5); Sodium, Blood 137 mmol/L (136-145)
--- NOTE | 2021-07-03 14:14 | NUR ---
Met pt. in bed resting offered prayers for the pt.
--- NOTE | 2021-07-03 17:51 | NUR ---
SHIFT SUMMARY PATIENT ALERT AND ORIENTED THROUGHOUT THIS SHIFT. PATIENT REMAINS A SBA TO THE BATHROOM. PATIENT DOWN TO DIALYSIS THIS AM. PATIENT BACK TO THE ROOM, MEDICATED FOR PAIN 1X THIS AFTERNOON. PATIENT WORKED WITH PT/OT THIS SHIFT. PATIENT CURRENTLY SITTING UP IN BED EATING DINNER.
[2021-07-04 05:18] LABS: Hematocrit 31.9 % (33.0-51.0)
[2021-07-04 05:36] LABS: Albumin, Blood 2.3 g/dL (3.4-5.0); Anion Gap 9 mmol/L (6-16); Blood Urea Nitrogen 57 mg/dL (8-24); Bun/Creatinine Ratio 11.1 (12.0-20.0); CO2, Blood 28 mmol/L (21-32); Calcium, Blood 9.1 mg/dL (8.5-10.1); Chloride, Blood 97 mmol/L (98-108); Creatinine, Blood 5.15 mg/dL (0.40-1.00); Glomerular Filtration Rate 10 (60-); Glucose, Blood 131 mg/dL (70-99); Magnesium, Blood 2.2 mg/dL (1.6-2.4); Phosphorus, Blood 5.7 mg/dL (2.5-4.9); Potassium, Blood 5.1 mmol/L (3.5-5.5); Sodium, Blood 134 mmol/L (136-145)
--- NOTE | 2021-07-04 05:42 | NUR ---
PT HAS BEEN IN BED AAO. NO CHANGE IN STATUS. VSS. PAIN CONTROLLED WITH ROXICODONE. HAD ONE BM THIS SHIFT. ASSISTED WITH NEEDS. WILL CONTINUE TO MONITOR.
--- NOTE | 2021-07-04 08:55 | NUR ---
TO ORDER ENT CONSULT
--- NOTE | 2021-07-04 18:02 | NUR ---
ALERT. ORIENTED. ONE PERSON STANDBY TO BATHROOM. MEDICATED FOR PAIN WITH GOOD RESULTS. WAS TO TALK TO ENT TO REEVAL SO SPEECH CAN WORK WITH HER GETTING HER TO TALK BETTER. DRESSING TO ABD CHANGED WHERE PEG TUBE WAS. WCTM
--- NOTE | 2021-07-05 04:06 | NUR ---
SHIFT SUMMARY ADMITTED FOR RESPIRATORY FAILURE. FOUND TO HAVE COVID+/LLL PNEUMONIA, UTI & SEPTIC SHOCK. FULL CODE. 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 PLAN IS TO DECIDE ON APPROPRIATE FACILITY FOR DC (PLACEMENT). PERMACATH IN RT CHEST WALL. POWERGLIDE IN MARGARETTE. 1 LITER FLUID RESTRICTION. DIALYSIS PT. OBSERVE SAFETY PARAMETERS FOR BP MEDS. SHE IS OLIGURIC. TRACH AND PEG TUBE NO LONGER IN USE. APPETITE IS GOOD. PHYSICAL, OCCUPATIONAL & SPEECH THERAPIES ASSISTING W/THIS PT.
[2021-07-05 09:56] LABS: Hematocrit 31.5 % (33.0-51.0)
[2021-07-05 10:08] LABS: Albumin, Blood 2.3 g/dL (3.4-5.0); Anion Gap 9 mmol/L (6-16); Blood Urea Nitrogen 60 mg/dL (8-24); Bun/Creatinine Ratio 11.7 (12.0-20.0); CO2, Blood 29 mmol/L (21-32); Chloride, Blood 94 mmol/L (98-108); Creatinine, Blood 5.15 mg/dL (0.40-1.00); Glomerular Filtration Rate 10 (60-); Glucose, Blood 123 mg/dL (70-99); Potassium, Blood 4.9 mmol/L (3.5-5.5); Sodium, Blood 132 mmol/L (136-145)
--- NOTE | 2021-07-05 16:19 | NUR ---
SHIFT SUMMARY PATIENT MEDICATED FOR PAIN X1. PATIENT MEDICATED FOR NAUSEA X1. PATIENT DENIES SHORTNESS OF BREATH. PATIENT IS A SBA TO THE BATHROOM. DIALYSIS THIS MORNING. PT AND OT WORKED WITH PATIENT AFTER LUNCH. PATIENT ABLE TO AMBULATE IN HALLWAY. PATIENT EATING AND DRINKING WELL. PATIENT DOES REPORT INCREASED DIFFICULTY WITH SWALLOWING. DR. KURTZ NOTIFIED, SHE WILL CALL ENT DOCTOR. PATIENT IS PLEASANT AND COOPERATIVE WITH CARE.
[2021-07-06 05:05] LABS: Hematocrit 29.6 % (33.0-51.0); Hemoglobin 9.5 g/dL (11.5-16.0)
[2021-07-06 05:38] LABS: Albumin, Blood 2.2 g/dL (3.4-5.0); Anion Gap 10 mmol/L (6-16); Blood Urea Nitrogen 54 mg/dL (8-24); Bun/Creatinine Ratio 10.6 (12.0-20.0); CO2, Blood 28 mmol/L (21-32); Calcium, Blood 8.9 mg/dL (8.5-10.1); Chloride, Blood 93 mmol/L (98-108); Creatinine, Blood 5.11 mg/dL (0.40-1.00); Glomerular Filtration Rate 10 (60-); Glucose, Blood 104 mg/dL (70-99); Magnesium, Blood 2.1 mg/dL (1.6-2.4); Phosphorus, Blood 6.1 mg/dL (2.5-4.9); Potassium, Blood 4.7 mmol/L (3.5-5.5); Sodium, Blood 131 mmol/L (136-145)
--- NOTE | 2021-07-06 06:46 | NUR ---
PATIENT IS ASLEEP LYING IN BED, RR EVEN AND UNLABORED. NO ACUTE CHANGES OVERNIGHT. BED IN LOW POSITION AND CALL LIGHT WITHIN REACH.
--- NOTE | 2021-07-06 16:02 | NUR ---
SHIFT SUMMARY PATIENT MEDICATED FOR PAIN X1 AND NAUSEA X1. PATIENT DENIES SHORTNESS OF BREATH, BUT HAS VISIBLE LABORED BREATHING. PATIENT HAD DAILYSIS THIS MORNING. PATIENT REPORTS BEING EXTREMELY TIRED TODAY, MORE THAN USUAL. PATIENT DECLINED PT AND OT THIS AFTERNOON BECAUSE SHE WAS SO SLEEPY. PATIENT HAS SLEPT MOST OF SHIFT SINCE GETTING BACK FROM DIALYSIS. PATIENT IS EATING AND DRINKING WELL. CONSULT ORDERED FOR ENT TO RE-EVAL. NO ONE IS PRACTICING DERMATOLOGIST UNTIL MONDAY 07/09. PATIENT IS PLEASANT AND COOPERATIVE WITH CARE.
[2021-07-07 05:18] LABS: Hematocrit 30.5 % (33.0-51.0); Hemoglobin 9.7 g/dL (11.5-16.0)
[2021-07-07 05:44] LABS: Albumin, Blood 2.3 g/dL (3.4-5.0); Anion Gap 8 mmol/L (6-16); Blood Urea Nitrogen 55 mg/dL (8-24); Bun/Creatinine Ratio 11.5 (12.0-20.0); CO2, Blood 28 mmol/L (21-32); Calcium, Blood 9.1 mg/dL (8.5-10.1); Chloride, Blood 93 mmol/L (98-108); Creatinine, Blood 4.79 mg/dL (0.40-1.00); Glomerular Filtration Rate 11 (60-); Glucose, Blood 116 mg/dL (70-99); Phosphorus, Blood 6.4 mg/dL (2.5-4.9); Potassium, Blood 5.2 mmol/L (3.5-5.5); Sodium, Blood 129 mmol/L (136-145)
--- NOTE | 2021-07-07 06:46 | NUR ---
PT A&OX3. STAND BY ASSIST. PERMACATH ON RIGHT CHEST. HAS DIALYSIS DAILY. PT HAS AN ENT CONSULT FOR DIFFICULTY SWALLOWING. ADLS PROVIDED,SAFETY MEASURES IN PLACE. WILL CONTINUE TO MONITOR.
--- NOTE | 2021-07-07 14:13 | NUR ---
good tolerance of dialysis today Will continue to provide activity and variety to her routine as needed.
--- NOTE | 2021-07-07 18:17 | NUR ---
SHIFT SUMMARY PT OUT TO DIALYSIS THIS MORNING. UP TO BATHROOM 2-3 TIMES TODAY. MEDICATED FOR BACK PAIN WITH HELP. DRESSING CHANGED TO ABDOMEN AND BUTTOCKS/GLUTEAL FOLD. UP IN CHAIR FOR BREAKFAST AND THIS AFTERNOON.
[2021-07-08 05:05] LABS: BASOPHILS ABSOLUTE AUTO 0.01 K/mm3 (0.00-0.23); BASOPHILS PERCENT AUTO 0 % (0-2); EOSINOPHILS ABSOLUTE AUTO 0.03 K/mm3 (0.00-0.68); EOSINOPHILS PERCENT AUTO 0 % (0-6); Hematocrit 28.9 % (33.0-51.0); Hemoglobin 9.3 g/dL (11.5-16.0); IMMATURE GRAN ABSOLUTE AUTO 0.06 K/mm3 (0.00-0.10); IMMATURE GRAN PERCENT AUTO 0 % (0-1); LYMPHOCYTES ABSOLUTE AUTO 1.95 K/mm3 (0.84-5.20); LYMPHOCYTES PERCENT AUTO 13 % (21-46); MONOCYTES ABSOLUTE AUTO 1.19 K/mm3 (0.16-1.47); MONOCYTES PERCENT AUTO 8 % (4-13); Mean Corpuscular HGB Conc 32.2 g/dL (31.5-36.5); Mean Corpuscular Volume 96 fL (80-100); Mean Platelet Volume 8.8 fL (9.1-12.4); NEUTROPHILS ABSOLUTE AUTO 12.09 K/mm3 (1.96-9.15); NEUTROPHILS PERCENT AUTO 79 % (41-73); Platelet Count 225 K/mm3 (150-400); RDW Coefficient Variation 16.2 % (11.7-14.2); RDW Standard Deviation 57.5 fL (35.1-46.3); White Blood Cell Count 15.33 K/mm3 (4.00-11.30)
[2021-07-08 05:45] LABS: Albumin, Blood 2.8 g/dL (3.4-5.0); Albumin/Globulin Ratio 0.6 (0.8-1.8); Bilirubin, Direct 0.6 mg/dL (0.0-0.3); Bilirubin, Indirect 0.4 mg/dL (0.1-0.7); Calcium, Blood 9.5 mg/dL (8.5-10.1); Creatinine, Blood 4.42 mg/dL (0.40-1.00); Globulin, Blood 4.5 g/dL (2.2-4.0); Magnesium, Blood 2.1 mg/dL (1.6-2.4); Phosphorus, Blood 6.1 mg/dL (2.5-4.9); Potassium, Blood 4.7 mmol/L (3.5-5.5); Total Protein, Blood 7.3 g/dL (6.4-8.2)
--- NOTE | 2021-07-08 06:30 | NUR ---
SHIFT SUMMARY PT AA&OX3. ABLE TO MAKE NEEDS KNOWN. NO ACUTE CHANGES ON THIS SHIFT. PT C/O PAIN TO BACK, PRN PAIN MED ADMINISTERED WITH GOOD EFFECTS. ADLS PROVIDED, SAFETY MEASURES IN PLACE. WILL CONTINUE TO MONITOR.
--- NOTE | 2021-07-08 18:30 | NUR ---
SHIFT SUMMARY PT OUT TO DIALYSIS TODAY. RETURNED, ATE LUNCH AND THEN NAPPED FOR SEVERAL HOURS. PICTURES TO COCCYX AND L GLUTEAL FOLD UPDATED AND DRESSINGS REPLACED. DRESSING INTACT TO L ABDOMENAL WALL. UP TO BATHROOM USING FWW WITH 1 PERSON SBA. APPEARS VERY STEADY ON FEET. MEDICATED FOR PAIN 2 TIMES. POWER GLIDE TO BE REMOVED TODAY FOR EXPIRATION. FATHER IN TO VISIT THIS AFTERNOON AND BROUGHT FOOD FOR HER TO EAT. CONTINUES WITH WHISPERY VOICE.
--- NOTE | 2021-07-09 04:34 | NUR ---
SHIFT SUMMARY PT AA&OX3. ABLE TO MAKE NEEDS KNOWN. C/O PAIN IN BACK. PRN MEDS ADMINISTERED WITH GOOD EFFECTS. ADLS PROVIDED, SAFETY MEASURES IN PLACE. WILL CONTINUE TO MONITOR.
[2021-07-09 05:30] LABS: BASOPHILS ABSOLUTE AUTO 0.01 K/mm3 (0.00-0.23); BASOPHILS PERCENT AUTO 0 % (0-2); EOSINOPHILS PERCENT AUTO 0 % (0-6); Hemoglobin 9.2 g/dL (11.5-16.0); IMMATURE GRAN ABSOLUTE AUTO 0.06 K/mm3 (0.00-0.10); IMMATURE GRAN PERCENT AUTO 0 % (0-1); LYMPHOCYTES ABSOLUTE AUTO 1.49 K/mm3 (0.84-5.20); LYMPHOCYTES PERCENT AUTO 10 % (21-46); MONOCYTES ABSOLUTE AUTO 1.05 K/mm3 (0.16-1.47); MONOCYTES PERCENT AUTO 7 % (4-13); Mean Corpuscular HGB 31.1 pg (26.0-34.0); Mean Corpuscular HGB Conc 31.7 g/dL (31.5-36.5); Mean Corpuscular Volume 98 fL (80-100); Mean Platelet Volume 8.7 fL (9.1-12.4); NEUTROPHILS PERCENT AUTO 83 % (41-73); Platelet Count 248 K/mm3 (150-400); RDW Coefficient Variation 16.4 % (11.7-14.2); RDW Standard Deviation 58.5 fL (35.1-46.3); Red Blood Cell Count 2.96 M/mm3 (3.80-5.20); White Blood Cell Count 14.91 K/mm3 (4.00-11.30)
[2021-07-09 06:12] LABS: Albumin, Blood 2.8 g/dL (3.4-5.0); Anion Gap 10 mmol/L (6-16); Blood Urea Nitrogen 57 mg/dL (8-24); Bun/Creatinine Ratio 12.8 (12.0-20.0); CO2, Blood 25 mmol/L (21-32); Calcium, Blood 9.5 mg/dL (8.5-10.1); Chloride, Blood 97 mmol/L (98-108); Creatinine, Blood 4.47 mg/dL (0.40-1.00); Glomerular Filtration Rate 12 (60-); Glucose, Blood 120 mg/dL (70-99); Magnesium, Blood 2.2 mg/dL (1.6-2.4); Phosphorus, Blood 5.6 mg/dL (2.5-4.9); Potassium, Blood 5.3 mmol/L (3.5-5.5); Sodium, Blood 132 mmol/L (136-145)
--- NOTE | 2021-07-09 15:01 | NUR ---
pt. is resting in bed , door was closed, did not want to wake her up.
--- NOTE | 2021-07-09 18:48 | NUR ---
PATIENT IS ALERT AND ORIENTED AND COOPERATIVE WITH CARE. SHE HAD DIALYSIS TODAY. SHE HAS BEEN SITTING UP IN THE CHAIR SINCE SHE GOT BACK FROM DIALYSIS. C/O PAIN, MEDICATED PER EMAR. SHE WORKED WITH PT AND OT TODAY. WILL CONTINUE TO MONITOR
--- NOTE | 2021-07-10 04:45 | NUR ---
SHIFT SUMMARY PT IS AA&OX3.ABLE TO MAKE NEEDS KNOWN. C/O BACK PAIN. MEDICATED PER EMAR WITH GOOD EFFECTS. ADLS PROVIDED. SAFETY MEASURES IN PLACE. WILL CONTINUE TO MONITOR.
[2021-07-10 05:42] LABS: BASOPHILS ABSOLUTE AUTO 0.01 K/mm3 (0.00-0.23); BASOPHILS PERCENT AUTO 0 % (0-2); EOSINOPHILS ABSOLUTE AUTO 0.03 K/mm3 (0.00-0.68); EOSINOPHILS PERCENT AUTO 0 % (0-6); Hematocrit 29.3 % (33.0-51.0); IMMATURE GRAN ABSOLUTE AUTO 0.05 K/mm3 (0.00-0.10); IMMATURE GRAN PERCENT AUTO 0 % (0-1); LYMPHOCYTES ABSOLUTE AUTO 1.58 K/mm3 (0.84-5.20); LYMPHOCYTES PERCENT AUTO 11 % (21-46); MONOCYTES ABSOLUTE AUTO 1.08 K/mm3 (0.16-1.47); MONOCYTES PERCENT AUTO 8 % (4-13); Mean Corpuscular HGB 30.4 pg (26.0-34.0); Mean Corpuscular HGB Conc 30.7 g/dL (31.5-36.5); Mean Corpuscular Volume 99 fL (80-100); Mean Platelet Volume 8.8 fL (9.1-12.4); NEUTROPHILS ABSOLUTE AUTO 11.68 K/mm3 (1.96-9.15); NEUTROPHILS PERCENT AUTO 81 % (41-73); Platelet Count 271 K/mm3 (150-400); RDW Coefficient Variation 16.7 % (11.7-14.2); RDW Standard Deviation 60.3 fL (35.1-46.3); Red Blood Cell Count 2.96 M/mm3 (3.80-5.20); White Blood Cell Count 14.43 K/mm3 (4.00-11.30)
[2021-07-10 05:59] LABS: Magnesium, Blood 1.8 mg/dL (1.6-2.4)
[2021-07-10 06:00] LABS: Albumin, Blood 2.7 g/dL (3.4-5.0); Anion Gap 11 mmol/L (6-16); Blood Urea Nitrogen 52 mg/dL (8-24); Bun/Creatinine Ratio 11.7 (12.0-20.0); CO2, Blood 26 mmol/L (21-32); Calcium, Blood 9.4 mg/dL (8.5-10.1); Chloride, Blood 96 mmol/L (98-108); Creatinine, Blood 4.46 mg/dL (0.40-1.00); Glomerular Filtration Rate 12 (60-); Glucose, Blood 138 mg/dL (70-99); Phosphorus, Blood 5.9 mg/dL (2.5-4.9); Potassium, Blood 4.6 mmol/L (3.5-5.5); Sodium, Blood 133 mmol/L (136-145)
--- NOTE | 2021-07-10 14:17 | NUR ---
Pt. is in bed sleeping ,pastoral care visit is taken care of.
--- NOTE | 2021-07-10 17:05 | NUR ---
PATIENT IS ALERT AND ORIENTED AND COOPERATIVE WITH CARE. NO DIALYSIS TODAY. PHYSICAL THERAPY HAS MADE THE PATIENT INDEPENDENT IN HER ROOM. SHE AMBULATED TO THE BATHROOM WITH HER FWW THIS MORNING ON HER OWN. C/O BACK PAIN, MEDICATED PER EMAR. WILL CONTINUE TO MONITOR
--- NOTE | 2021-07-11 05:25 | NUR ---
SHIFT SUMMARY ADMITTED FOR SEPTIC SHOCK/COVID+, NOW RESOLVED. FULL CODE. ISO FOR ESBL IN URINE/SPUTUM. OUTPT DIALYSIS NEEDS TO BE SET UP BEFORE SHE CAN DC HOME OR TO A FACILITY. PHYSICAL & OCCUPATIONAL THERAPIES ASSISTING. [address] BEVERLY IS CONSULT. PERMACATH IN RT CHEST WALL. SHE IS INDEP W/FWW - BRP. MONITORING PROCALCITONIN LABS. ATTEMPTING TO GET UA, BUT SHE IS OLIGURIC. WILL CONSULT ENT - DUE TO HOARSENESS & DYSPHAGIA FROM DC'D TRACH.
[2021-07-11 06:05] LABS: BASOPHILS ABSOLUTE AUTO 0.01 K/mm3 (0.00-0.23); BASOPHILS PERCENT AUTO 0 % (0-2); EOSINOPHILS ABSOLUTE AUTO 0.01 K/mm3 (0.00-0.68); EOSINOPHILS PERCENT AUTO 0 % (0-6); Hematocrit 27.6 % (33.0-51.0); Hemoglobin 8.7 g/dL (11.5-16.0); IMMATURE GRAN ABSOLUTE AUTO 0.05 K/mm3 (0.00-0.10); IMMATURE GRAN PERCENT AUTO 0 % (0-1); LYMPHOCYTES ABSOLUTE AUTO 1.26 K/mm3 (0.84-5.20); LYMPHOCYTES PERCENT AUTO 11 % (21-46); MONOCYTES ABSOLUTE AUTO 0.77 K/mm3 (0.16-1.47); MONOCYTES PERCENT AUTO 7 % (4-13); Mean Corpuscular HGB 31.2 pg (26.0-34.0); Mean Corpuscular HGB Conc 31.5 g/dL (31.5-36.5); Mean Corpuscular Volume 99 fL (80-100); Mean Platelet Volume 8.8 fL (9.1-12.4); NEUTROPHILS PERCENT AUTO 82 % (41-73); Platelet Count 279 K/mm3 (150-400); RDW Coefficient Variation 16.5 % (11.7-14.2); RDW Standard Deviation 58.6 fL (35.1-46.3); Red Blood Cell Count 2.79 M/mm3 (3.80-5.20)
[2021-07-11 06:36] LABS: Albumin, Blood 2.6 g/dL (3.4-5.0); Anion Gap 11 mmol/L (6-16); Blood Urea Nitrogen 83 mg/dL (8-24); Bun/Creatinine Ratio 14.4 (12.0-20.0); CO2, Blood 25 mmol/L (21-32); Calcium, Blood 9.3 mg/dL (8.5-10.1); Chloride, Blood 95 mmol/L (98-108); Creatinine, Blood 5.78 mg/dL (0.40-1.00); Glomerular Filtration Rate 9 (60-); Glucose, Blood 135 mg/dL (70-99); Potassium, Blood 6.1 mmol/L (3.5-5.5); Sodium, Blood 131 mmol/L (136-145)
[2021-07-11 14:49] LABS: Bun/Creatinine Ratio 12.6 (12.0-20.0); Calcium, Blood 9.4 mg/dL (8.5-10.1); Creatinine, Blood 3.74 mg/dL (0.40-1.00); Potassium, Blood 4.3 mmol/L (3.5-5.5)
--- NOTE | 2021-07-11 16:06 | NUR ---
SHIFT SUMMARY PATIENT IS ALERT AND ORIENTED X4. PATIENT HAD A CRITICAL HIGH OF 6.[address] WAS NOTIFIED AND CALLED DIALYSIS. PATIENT HAD DIALYSIS TODAY. PATIENTS POTASSIUM WAS 4.1 IN LATEST LAB. PATIENT HAS HAD NO OTHER ACUTE EVENTS THIS SHIFT. BED IN LOWEST AND LOCKED POSITION. CALL LIGHT IN REACH. WILL MONITOR UNTIL END OF SHIFT.
[2021-07-12 05:03] LABS: BASOPHILS ABSOLUTE AUTO 0.02 K/mm3 (0.00-0.23); BASOPHILS PERCENT AUTO 0 % (0-2); EOSINOPHILS ABSOLUTE AUTO 0.16 K/mm3 (0.00-0.68); EOSINOPHILS PERCENT AUTO 1 % (0-6); Hematocrit 28.8 % (33.0-51.0); IMMATURE GRAN ABSOLUTE AUTO 0.07 K/mm3 (0.00-0.10); IMMATURE GRAN PERCENT AUTO 1 % (0-1); LYMPHOCYTES ABSOLUTE AUTO 2.81 K/mm3 (0.84-5.20); LYMPHOCYTES PERCENT AUTO 20 % (21-46); MONOCYTES ABSOLUTE AUTO 1.57 K/mm3 (0.16-1.47); MONOCYTES PERCENT AUTO 11 % (4-13); Mean Corpuscular HGB 30.8 pg (26.0-34.0); Mean Corpuscular HGB Conc 31.3 g/dL (31.5-36.5); Mean Corpuscular Volume 99 fL (80-100); Mean Platelet Volume 8.7 fL (9.1-12.4); NEUTROPHILS ABSOLUTE AUTO 9.46 K/mm3 (1.96-9.15); NEUTROPHILS PERCENT AUTO 67 % (41-73); Platelet Count 331 K/mm3 (150-400); RDW Standard Deviation 60.4 fL (35.1-46.3); Red Blood Cell Count 2.92 M/mm3 (3.80-5.20); White Blood Cell Count 14.09 K/mm3 (4.00-11.30)
[2021-07-12 05:33] LABS: Albumin, Blood 2.6 g/dL (3.4-5.0); Albumin/Globulin Ratio 0.6 (0.8-1.8); Bilirubin, Direct 0.5 mg/dL (0.0-0.3); Bilirubin, Indirect 0.4 mg/dL (0.1-0.7); Bilirubin, Total 0.9 mg/dL (0.1-1.0); Bun/Creatinine Ratio 13.8 (12.0-20.0); Calcium, Blood 9.4 mg/dL (8.5-10.1); Creatinine, Blood 5.01 mg/dL (0.40-1.00); Globulin, Blood 4.6 g/dL (2.2-4.0); Magnesium, Blood 2.1 mg/dL (1.6-2.4); Phosphorus, Blood 6.1 mg/dL (2.5-4.9); Potassium, Blood 4.9 mmol/L (3.5-5.5); Total Protein, Blood 7.2 g/dL (6.4-8.2)
--- NOTE | 2021-07-12 06:28 | NUR ---
SHIFT SUMMARY PT IS AA&OX4. ABLE TO MAKE NEEDS KNOWN. C/O PAIN TO LOWER BACK. PRN PAIN MED ADMINISTERED WITH GOOD EFFECTS. ADLS PROVIDED. SAFETY MEASURES IN PLACE. WILL CONTINUE TO MONITOR.
--- NOTE | 2021-07-12 18:47 | NUR ---
PT DOING WELL TO DAY. DID DIALYSIS TODAY. PT ABMBULATED SELF TO BATHROOM WITH WALKER. NO NEW CONCERNS NOTED. BED IN LOW POSITIN, CALL LITE IN REACH, JILLIAN APPROP
--- NOTE | 2021-07-13 06:44 | NUR ---
SHIFT SUMMARY PT IS AA&OX4. ABLE TO MAKE NEEDS KNOWN AND COOPERATIVE WITH CARE.NO ACUTE CHANGES ON THIS SHIFT. PT HAD A DAILY WEIGHT CHECK. PT. C/O PAIN TO THE BACK. PRN MEDS ADMINISTERED WITH GOOD EFFECTS. WILL CONTINUE TO MONITOR.
[2021-07-13 07:29] LABS: Hemoglobin 7.8 g/dL (11.5-16.0)
[2021-07-13 07:44] LABS: Albumin, Blood 2.5 g/dL (3.4-5.0); Anion Gap 9 mmol/L (6-16); Blood Urea Nitrogen 71 mg/dL (8-24); Bun/Creatinine Ratio 14.1 (12.0-20.0); CO2, Blood 27 mmol/L (21-32); Calcium, Blood 9.1 mg/dL (8.5-10.1); Chloride, Blood 96 mmol/L (98-108); Creatinine, Blood 5.05 mg/dL (0.40-1.00); Glomerular Filtration Rate 10 (60-); Glucose, Blood 106 mg/dL (70-99); Phosphorus, Blood 5.9 mg/dL (2.5-4.9); Potassium, Blood 5.1 mmol/L (3.5-5.5); Sodium, Blood 132 mmol/L (136-145)
--- NOTE | 2021-07-13 09:00 | NUR ---
PT PLEASANT VERY QUIET. SPEAKS SOMEWHAT HOARSE. WAS ICU PRIOR. HAS TRACH REMOVED SOME TIME AGO. CDI. WOUNDS ON COCCYX , RT GLUT FOLD, AND HAS PERMACATH RUCW. PT PT NOW IS INDEPENDANT IN ROOM. MOBILITY WITH FWW. A/O X3. DENIES PAIN AT THIS TIME. H/R REG, NO MURMER NOTED. LUNGS CLEAR, RESP EASY, UNLABORED. ON RA. BT X4 LAST BM YEST PER PT. VOIDS BATHROOM, INDEPENDANT IN ROOM./ BED IN LOW POSITIOIN, CALL LITE IN REACH, CALLS APPROP
--- NOTE | 2021-07-13 18:25 | NUR ---
PT HAD DIALYSIS TODAY. BP LOW DURING SHORTLY AFTER, HAD REQUESTED PAIN MED, BUT I WAITED BP TOO LOW. WHEN BP UP, MED WAS ADMIN. PT DOING WELL AT THIS TIME. AMBULATING SELF TO BATHROOM. BED IN LOW POSITION, CALL LITE IN REACH, CALLS APPROP
--- NOTE | 2021-07-14 04:31 | NUR ---
SHIFT SUMMARY PT IS AA&OX4.ABLE TO MAKE NEEDS KNOWN.PT C/O PAIN TO WHOLE BODY. PRN PAIN MED ADMINISTERED PER EMAR WITH GOOD EFFECTS.ADLS PROVIDED, SAFETY MEASURES IN PLACE. WILL CONTINUE TO MONITOR.
[2021-07-14 09:09] LABS: BASOPHILS ABSOLUTE AUTO 0.02 K/mm3 (0.00-0.23); BASOPHILS PERCENT AUTO 0 % (0-2); EOSINOPHILS ABSOLUTE AUTO 0.29 K/mm3 (0.00-0.68); EOSINOPHILS PERCENT AUTO 2 % (0-6); Hematocrit 24.8 % (33.0-51.0); Hemoglobin 7.6 g/dL (11.5-16.0); IMMATURE GRAN ABSOLUTE AUTO 0.07 K/mm3 (0.00-0.10); IMMATURE GRAN PERCENT AUTO 1 % (0-1); LYMPHOCYTES ABSOLUTE AUTO 3.44 K/mm3 (0.84-5.20); LYMPHOCYTES PERCENT AUTO 26 % (21-46); MONOCYTES ABSOLUTE AUTO 1.23 K/mm3 (0.16-1.47); MONOCYTES PERCENT AUTO 9 % (4-13); Mean Corpuscular HGB 30.6 pg (26.0-34.0); Mean Corpuscular HGB Conc 30.6 g/dL (31.5-36.5); Mean Corpuscular Volume 100 fL (80-100); Mean Platelet Volume 8.2 fL (9.1-12.4); NEUTROPHILS ABSOLUTE AUTO 8.27 K/mm3 (1.96-9.15); NEUTROPHILS PERCENT AUTO 62 % (41-73); Platelet Count 314 K/mm3 (150-400); RDW Coefficient Variation 17.2 % (11.7-14.2); RDW Standard Deviation 62.1 fL (35.1-46.3); Red Blood Cell Count 2.48 M/mm3 (3.80-5.20); White Blood Cell Count 13.32 K/mm3 (4.00-11.30)
[2021-07-14 09:26] LABS: Albumin, Blood 2.2 g/dL (3.4-5.0); Anion Gap 14 mmol/L (6-16); Blood Urea Nitrogen 57 mg/dL (8-24); Bun/Creatinine Ratio 12.7 (12.0-20.0); CO2, Blood 27 mmol/L (21-32); Calcium, Blood 8.6 mg/dL (8.5-10.1); Chloride, Blood 95 mmol/L (98-108); Glomerular Filtration Rate 12 (60-); Glucose, Blood 144 mg/dL (70-99); Magnesium, Blood 1.7 mg/dL (1.6-2.4); Potassium, Blood 4.6 mmol/L (3.5-5.5); Sodium, Blood 136 mmol/L (136-145)
--- NOTE | 2021-07-14 19:21 | NUR ---
PT IS ALERT AND ORIENTED X 4. SHE C/O OF GENERALIZED PAIN X 2 AND ANXIETY X 1 TODAY. RELIEF PROVIDED PER PRESCRIBED MEDS. SHE IS NOT IN ACUTE DISTRESS. UNEVENTFUL SHIFT.
--- NOTE | 2021-07-15 05:17 | NUR ---
SHIFT SUMMARY PT AA&OX3. ABLE TO MAKE NEEDS KNOWN.NO ACUTE CHANGES ON THIS SHIFT. PT C/O PAIN. MEDICATED PER EMAR WITH GOOD EFFECTS. ADLS PROVIDED. SAFETY MEASURES IN PLACE. WILL CONTINUE TO MONITOR.
[2021-07-15 09:39] LABS: BASOPHILS ABSOLUTE AUTO 0.03 K/mm3 (0.00-0.23); BASOPHILS PERCENT AUTO 0 % (0-2); EOSINOPHILS ABSOLUTE AUTO 0.25 K/mm3 (0.00-0.68); EOSINOPHILS PERCENT AUTO 2 % (0-6); Hematocrit 23.4 % (33.0-51.0); Hemoglobin 7.3 g/dL (11.5-16.0); IMMATURE GRAN ABSOLUTE AUTO 0.05 K/mm3 (0.00-0.10); IMMATURE GRAN PERCENT AUTO 0 % (0-1); LYMPHOCYTES ABSOLUTE AUTO 3.11 K/mm3 (0.84-5.20); LYMPHOCYTES PERCENT AUTO 22 % (21-46); MONOCYTES ABSOLUTE AUTO 1.51 K/mm3 (0.16-1.47); MONOCYTES PERCENT AUTO 11 % (4-13); Mean Corpuscular HGB 30.9 pg (26.0-34.0); Mean Corpuscular HGB Conc 31.2 g/dL (31.5-36.5); Mean Corpuscular Volume 99 fL (80-100); Mean Platelet Volume 8.4 fL (9.1-12.4); NEUTROPHILS ABSOLUTE AUTO 8.99 K/mm3 (1.96-9.15); NEUTROPHILS PERCENT AUTO 65 % (41-73); Platelet Count 331 K/mm3 (150-400); RDW Coefficient Variation 17.1 % (11.7-14.2); RDW Standard Deviation 61.1 fL (35.1-46.3); Red Blood Cell Count 2.36 M/mm3 (3.80-5.20); White Blood Cell Count 13.94 K/mm3 (4.00-11.30)
[2021-07-15 10:00] LABS: Albumin, Blood 2.2 g/dL (3.4-5.0); Anion Gap 12 mmol/L (6-16); Blood Urea Nitrogen 77 mg/dL (8-24); Bun/Creatinine Ratio 12.3 (12.0-20.0); CO2, Blood 25 mmol/L (21-32); Calcium, Blood 8.6 mg/dL (8.5-10.1); Chloride, Blood 95 mmol/L (98-108); Creatinine, Blood 6.27 mg/dL (0.40-1.00); Glomerular Filtration Rate 8 (60-); Glucose, Blood 139 mg/dL (70-99); Magnesium, Blood 1.8 mg/dL (1.6-2.4); Phosphorus, Blood 6.5 mg/dL (2.5-4.9); Potassium, Blood 5.3 mmol/L (3.5-5.5); Sodium, Blood 132 mmol/L (136-145)
--- NOTE | 2021-07-15 19:09 | NUR ---
PT IS ALERT AND ORIENTED X 4. SHE WENT TO DIALYSIS TODAY. C/O GENERALIZED PAIN X 2 TODAY. SHE HAS EXORCIATION TO COCCYX AND LEFT BUTTOCK. DRSG CHANGED. UNEVENTFUL DAY.
--- NOTE | 2021-07-16 06:42 | NUR ---
SHIFT SUMMARY PT IS AA&OX3. ABLE TO MAKE NEEDS KNOWN AND COOPERATIVE WITH CARE. PT IS PRESENTLY ON 3L O2 , STATED SHE COULD NOT BREATHE. O2 SATURATION 100%. PT C/O PAIN TO WHOLE BODY. PRN PAIN AND ANXIETY MEDS ADMINISTERED WITH GOOD EFFECTS. PT SLEPT MOST OF THE SHIFT. ADLS PROVIDED. SAFETY MEASURES IN PLACE. WILL CONTINUE TO MONITOR.
[2021-07-16 08:52] LABS: BASOPHILS ABSOLUTE AUTO 0.03 K/mm3 (0.00-0.23); BASOPHILS PERCENT AUTO 0 % (0-2); EOSINOPHILS ABSOLUTE AUTO 0.23 K/mm3 (0.00-0.68); EOSINOPHILS PERCENT AUTO 2 % (0-6); Hematocrit 23.8 % (33.0-51.0); Hemoglobin 7.4 g/dL (11.5-16.0); IMMATURE GRAN ABSOLUTE AUTO 0.05 K/mm3 (0.00-0.10); IMMATURE GRAN PERCENT AUTO 0 % (0-1); LYMPHOCYTES PERCENT AUTO 23 % (21-46); MONOCYTES ABSOLUTE AUTO 1.62 K/mm3 (0.16-1.47); MONOCYTES PERCENT AUTO 12 % (4-13); Mean Corpuscular HGB 30.8 pg (26.0-34.0); Mean Corpuscular HGB Conc 31.1 g/dL (31.5-36.5); Mean Corpuscular Volume 99 fL (80-100); Mean Platelet Volume 8.1 fL (9.1-12.4); NEUTROPHILS ABSOLUTE AUTO 8.55 K/mm3 (1.96-9.15); NEUTROPHILS PERCENT AUTO 63 % (41-73); Platelet Count 334 K/mm3 (150-400); RDW Coefficient Variation 17.1 % (11.7-14.2); RDW Standard Deviation 61.8 fL (35.1-46.3); White Blood Cell Count 13.68 K/mm3 (4.00-11.30)
[2021-07-16 09:06] LABS: Albumin, Blood 2.1 g/dL (3.4-5.0); Albumin/Globulin Ratio 0.4 (0.8-1.8); Bilirubin, Direct 0.7 mg/dL (0.0-0.3); Bilirubin, Indirect 0.4 mg/dL (0.1-0.7); Bilirubin, Total 1.1 mg/dL (0.1-1.0); Bun/Creatinine Ratio 10.5 (12.0-20.0); C-REACTIVE PROTEIN, EXT RANGE 11.2 mg/dL (0.000-0.300); Calcium, Blood 8.5 mg/dL (8.5-10.1); Creatinine, Blood 4.87 mg/dL (0.40-1.00); Globulin, Blood 4.7 g/dL (2.2-4.0); Potassium, Blood 4.9 mmol/L (3.5-5.5); Total Protein, Blood 6.8 g/dL (6.4-8.2)
--- NOTE | 2021-07-16 14:49 | NUR ---
Pt. is doing fine , in bed relaxed and resting offered prayers for her
--- NOTE | 2021-07-16 16:42 | NUR ---
SHIFT SUMMARY PT IS AOX4. PT MEDICATED FOR PAIN X1 THIS SHIFT. PT C/O SOB WITH EXERTION AND WEARS 2 L VIA NC FOR COMFORT WITH SATS AT 99%. PT DENIES N/V AND VSS. PT DID NOT HAVE DIALYSIS TODAY AND SLEPT FOR MAJORITY OF SHIFT. APPETITE AND INTAKE IS GOOD. NO EVENTS THIS SHIFT. PT AMBULATES TO BATHROOM WITH SBA. DROPLET/CONTACT ISOLATION MAINTAINED T/O SHIFT. PT IS IN BED, CALL LIGHT IN REACH, LOW POSITION.
--- NOTE | 2021-07-17 03:46 | NUR ---
SHIFT SUMMARY A&O X 4. NO ACUTE CHANGES. PT RESTING THROUGHOUT THE SHIFT. ON 2L OF O2 FOR COMFORT. VSS CALL LIGHT WITHIN REACH. WILL CONTINUE TO MONITOR. HELD EVENING METOPROLOL FOR A BP OF 96/48.
[2021-07-17 09:48] LABS: Hematocrit 22.8 % (33.0-51.0); Hemoglobin 6.9 g/dL (11.5-16.0)
[2021-07-17 10:20] LABS: Albumin, Blood 1.9 g/dL (3.4-5.0); Anion Gap 11 mmol/L (6-16); Blood Urea Nitrogen 71 mg/dL (8-24); CO2, Blood 25 mmol/L (21-32); Calcium, Blood 8.4 mg/dL (8.5-10.1); Chloride, Blood 92 mmol/L (98-108); Creatinine, Blood 6.48 mg/dL (0.40-1.00); Glomerular Filtration Rate 8 (60-); Glucose, Blood 125 mg/dL (70-99); Magnesium, Blood 1.9 mg/dL (1.6-2.4); Phosphorus, Blood 6.9 mg/dL (2.5-4.9); Potassium, Blood 5.4 mmol/L (3.5-5.5); Sodium, Blood 128 mmol/L (136-145)
--- NOTE | 2021-07-17 15:05 | NUR ---
Pt in bed and her nurses in ghe room attending to her needs , prayed for pt.
--- NOTE | 2021-07-18 03:26 | NUR ---
VSS. A&O X 4. CALL LIGHT WITHIN REACH. PT UP TO BATHROOM WITH ASSISTANCE AND WALKER. ON 2L O2 NC. PAIN MEDS REQUESTED TWICE AND MEDICATED FOR PAIN PER EMAR. DIALYSIS YESTERDAY. NO REAL CHANGES.
--- NOTE | 2021-07-18 14:30 | NUR ---
TO CT SCAN FOR P.E. R/O
--- NOTE | 2021-07-18 17:11 | NUR ---
ALERT. ORIENTED. CAME IN TO SEE PATIENT. PATIENT HAD CT FOR P.E. HAVING DIALYSIS TODAY. SPEAKS IN WHISPER. MEDICATED FOR PAIN ALL OVER WITH GOOD RESULTS. WCTM
--- NOTE | 2021-07-19 06:10 | NUR ---
[facility] DOWNTIME - HARD COPY OF SHIFT SUMMARY IN FRONT OF CHART
[2021-07-19 08:02] LABS: Hematocrit 24.2 % (33.0-51.0); Hemoglobin 7.5 g/dL (11.5-16.0)
[2021-07-19 08:44] LABS: Albumin, Blood 2.3 g/dL (3.4-5.0); Anion Gap 6 mmol/L (6-16); Blood Urea Nitrogen 32 mg/dL (8-24); Bun/Creatinine Ratio 7.3 (12.0-20.0); CO2, Blood 30 mmol/L (21-32); Calcium, Blood 8.4 mg/dL (8.5-10.1); Chloride, Blood 93 mmol/L (98-108); Creatinine, Blood 4.39 mg/dL (0.40-1.00); Glomerular Filtration Rate 12 (60-); Glucose, Blood 109 mg/dL (70-99); Magnesium, Blood 1.9 mg/dL (1.6-2.4); Phosphorus, Blood 5.8 mg/dL (2.5-4.9); Potassium, Blood 4.5 mmol/L (3.5-5.5); Sodium, Blood 129 mmol/L (136-145)
--- NOTE | 2021-07-19 17:57 | NUR ---
ALERT. ORIENTED. MEDICATED FOR PAIN T/O SHIFT. SLEEPING MOST OF DAY.NO DIALYSIS TODAY. ON 4 LPM OXYGEN. AWAITING PLACEMENT. TM
--- NOTE | 2021-07-20 03:41 | NUR ---
PT SLEPT WELL THROUGH THE NIGHT. MEDICATED FOR PAIN WITH GOOD RELIEF. AFFECT REMAINS FLAT. ASSISTED WITH NEEDS. CALL LIGHT WITHIN REACH. SAFETY AND COMFORT MEASURES MAINTAINED. O2 4L NC IN PLACE FOR COMFORT. NO RESP DISTRESS.
--- NOTE | 2021-07-20 08:48 | NUR ---
PT RECIEVED IN BED, AAOX3, NO ACUTE DISTRESS NOTED, MEDS GIVEN ORDERED, REFUSED MIRALAX, C/O NAUSEA, WILL MEDICATE ORDERED.CALL LIGHT IN PLACE.
--- NOTE | 2021-07-20 09:11 | NUR ---
PT MEDICATED FOR NAUSEA, ABD WOUND DRESSING CHANGED,MOD AMOUNT OF SEROSANG DRANIAGE NOTED, NO FOUL ODOR, TRANSPORTED BY STAFF VIA W/C TO DIALYSIS.
[2021-07-20 09:52] LABS: Hematocrit 24.3 % (33.0-51.0); Hemoglobin 7.6 g/dL (11.5-16.0)
[2021-07-20 10:13] LABS: Albumin, Blood 2.1 g/dL (3.4-5.0); Anion Gap 11 mmol/L (6-16); Blood Urea Nitrogen 49 mg/dL (8-24); Bun/Creatinine Ratio 7.9 (12.0-20.0); CO2, Blood 26 mmol/L (21-32); Calcium, Blood 8.4 mg/dL (8.5-10.1); Chloride, Blood 90 mmol/L (98-108); Creatinine, Blood 6.18 mg/dL (0.40-1.00); Glomerular Filtration Rate 8 (60-); Glucose, Blood 111 mg/dL (70-99); Magnesium, Blood 1.9 mg/dL (1.6-2.4); Phosphorus, Blood 7.2 mg/dL (2.5-4.9); Potassium, Blood 5.2 mmol/L (3.5-5.5); Sodium, Blood 127 mmol/L (136-145)
--- NOTE | 2021-07-20 18:57 | NUR ---
PT HAD DIALYSIS TODAY, VITALS WNL,MEDICATED FOR PAIN AND NAUSEA NEEDED,NO ACUTE DISTRESS NOTED,CALL LIGHT WITHIN REACH.
--- NOTE | 2021-07-21 03:54 | NUR ---
PT RESTING IN BED. MEDICATED FOR GEN PAIN WITH GOOD EFFECT. O2 4L NC IN PLACE. RESP UNLABORED. ASSISTED WITH NEEDS. WILL CONTINUE TO MONITOR. NO CHANGE IN STATUS NOTED.
[2021-07-21 07:13] LABS: Hematocrit 23.7 % (33.0-51.0); Hemoglobin 7.2 g/dL (11.5-16.0)
[2021-07-21 07:31] LABS: Anion Gap 8 mmol/L (6-16); Blood Urea Nitrogen 38 mg/dL (8-24); Bun/Creatinine Ratio 7.7 (12.0-20.0); CO2, Blood 30 mmol/L (21-32); Calcium, Blood 8.3 mg/dL (8.5-10.1); Chloride, Blood 96 mmol/L (98-108); Creatinine, Blood 4.95 mg/dL (0.40-1.00); Glomerular Filtration Rate 10 (60-); Glucose, Blood 107 mg/dL (70-99); Phosphorus, Blood 6.1 mg/dL (2.5-4.9); Potassium, Blood 4.5 mmol/L (3.5-5.5); Sodium, Blood 134 mmol/L (136-145)
--- NOTE | 2021-07-21 18:47 | NUR ---
PT REMAINED STABLE,NO ACUTE DISTRESS NOTED,MEDICATED FOR PAIN AND NAUSEA NEEDED.ASSISTED WITH ADLS NEEDED.CALL LIGHT WITHIN REACH.
--- NOTE | 2021-07-22 02:48 | NUR ---
SHIFT SUMMARY PT IN PAIN AND MEDICATED PER EMAR. PT ABLE TO SWALLOW PAIN PILLS WITH WATER. OTHER PILLS TAKEN WITH APPLESAUCE. NO ACUTE CHANGES. CALL LIGHT WITHIN REACH AND USED APPROPRIATELY. HELD METROPROLOL LAST EVENING DUE TO BLOOD PRESSURE READING OF 91/44. PT REQUESTS DOOR TO BE SHUT AND LIGHT TURNED OFF. APPEARS TO BE RESTING.
[2021-07-22 04:49] LABS: Hematocrit 26.1 % (33.0-51.0); Hemoglobin 7.8 g/dL (11.5-16.0)
[2021-07-22 05:07] LABS: Anion Gap 8 mmol/L (6-16); Blood Urea Nitrogen 48 mg/dL (8-24); Bun/Creatinine Ratio 7.7 (12.0-20.0); CO2, Blood 29 mmol/L (21-32); Calcium, Blood 8.3 mg/dL (8.5-10.1); Chloride, Blood 93 mmol/L (98-108); Creatinine, Blood 6.23 mg/dL (0.40-1.00); Glomerular Filtration Rate 8 (60-); Glucose, Blood 104 mg/dL (70-99); Phosphorus, Blood 6.7 mg/dL (2.5-4.9); Potassium, Blood 5.5 mmol/L (3.5-5.5); Sodium, Blood 130 mmol/L (136-145)
--- NOTE | 2021-07-22 18:17 | NUR ---
PT AAOX3, MEDICATED FOR JENNIFER NEEDED, FLUID RESTRICTIONS MAINTAINED, TREATMENT ON SACRAL AND BUTTOCKS AREA CHANGED, SEROSANG DRAINAGE NOTED.HAD DIALYSIS TODAY.CALL LIGHT IN PLACE, VITALS WNL.
--- NOTE | 2021-07-23 03:48 | NUR ---
SHIFT SUMMARY PT HAVING GENERALIZED BODY PAIN. MEDICATED PER EMAR. PT HAD A FEVER EARLIER IN THE EVENING, WILL CONTINUE TO MONITOR. CALL LIGHT WITHIN REACH. FLUID RESTRICITON CONTINUES. A&O X 4.
[2021-07-23 04:54] LABS: Hematocrit 24.8 % (33.0-51.0); Hemoglobin 7.4 g/dL (11.5-16.0)
[2021-07-23 05:27] LABS: Albumin, Blood 2.1 g/dL (3.4-5.0); Anion Gap 9 mmol/L (6-16); Blood Urea Nitrogen 31 mg/dL (8-24); Bun/Creatinine Ratio 6.9 (12.0-20.0); CO2, Blood 28 mmol/L (21-32); Calcium, Blood 8.5 mg/dL (8.5-10.1); Chloride, Blood 97 mmol/L (98-108); Creatinine, Blood 4.51 mg/dL (0.40-1.00); Glomerular Filtration Rate 11 (60-); Glucose, Blood 100 mg/dL (70-99); Phosphorus, Blood 5.1 mg/dL (2.5-4.9); Potassium, Blood 4.6 mmol/L (3.5-5.5); Sodium, Blood 134 mmol/L (136-145)
--- NOTE | 2021-07-23 08:45 | NUR ---
PT OFF THE UNIT FOR DIALYSIS
--- NOTE | 2021-07-23 14:10 | NUR ---
Pt. is in dialysis and doing much better prayed for her.
--- NOTE | 2021-07-23 18:06 | NUR ---
PT AAOX3, NO ACUTE DISTRESS NOTED,MEDICATED FOR PAIN AND NAUSEA NEEDED,HAD DIALYSIS TODAY, VISITED WITH FAMILY AND DINNER BROUGHT TO HER, REFUSED DINNER HERE. SACRAL WOUNDS DRESSING INTACT. PT C/O STOMACH DISCOMFORT, ZOFRAN GIVEN WITH GOOD EFFECT.CALL LIGHT WITHIN REACH WILL CONTINUE TO MONITOR.
--- NOTE | 2021-07-24 03:01 | NUR ---
NO ACUTE CHANGES. PT CONTINUES TO HAVE GENERALIZED ALL OVER BODY PAIN. SHE WAS MEDICATED PER EMAR. PT STS SHE HURT HER KNEE IN PT AND IT IS A BIT SORE TONIGHT. SHE DENIES THE NEED FOR PAIN MEDS OR AN ICE PACK AT THIS TIME. ASSISTED PT WITH THE BED WAGGONER X 1. PT STATED TO DAY SHIFT NURSE THAT SHE HAS NOT BEEN SLEEPING AT NIGHT. CHECKIN THE PT DURING THE NIGHT AND SHE HAS APPEARED TO HAVE HER EYES CLOSED AND BEEN SLEEPING EACH TIME. THE RASH ON THE PTS UPPER BACK IS MORE RED THAN YESTERDAY AND MEDICATED CREAM WAS ADMINISTERED. WILL CONTINUE TO MONITOR. CALL LIGHT WITHIN [facility].
--- NOTE | 2021-07-24 03:06 | NUR ---
SHIFT SUMMARY NO ACUTE CHANGES. PT CONTINUES TO HAVE GENERALIZED ALL OVER BODY PAIN. SHE WAS MEDICATED PER EMAR. METOPROLOL WAS HELD THIS EVENING DUE TO A BP IN THE 90'S/50'S. FLUID RESTRICTION STILL IN PLACE. A&O X4. CALL LIGHT WITHIN REACH. WILL CONTINUE TO MONITOR.
[2021-07-24 04:52] LABS: Hemoglobin 7.9 g/dL (11.5-16.0)
[2021-07-24 05:20] LABS: Anion Gap 8 mmol/L (6-16); Blood Urea Nitrogen 25 mg/dL (8-24); Bun/Creatinine Ratio 6.4 (12.0-20.0); CO2, Blood 28 mmol/L (21-32); Calcium, Blood 8.7 mg/dL (8.5-10.1); Chloride, Blood 97 mmol/L (98-108); Creatinine, Blood 3.93 mg/dL (0.40-1.00); Glomerular Filtration Rate 13 (60-); Glucose, Blood 105 mg/dL (70-99); Magnesium, Blood 1.9 mg/dL (1.6-2.4); Phosphorus, Blood 4.6 mg/dL (2.5-4.9); Potassium, Blood 4.4 mmol/L (3.5-5.5); Sodium, Blood 133 mmol/L (136-145)
--- NOTE | 2021-07-24 14:02 | NUR ---
Pt. in bed resting , pastoral visit taken care of.
--- NOTE | 2021-07-24 19:38 | NUR ---
PT STABLE MOST OF DAY,MEDICATED FOR PAIN AND NAUSEA NEEDED, VITALS WNL, ASSISTED TO BR NEEDED,CALL LIGHT IN PLACE AT ALL TIMES, CONTINUE WITH 02 VIA N/C AT 4L, NO ACUTE DISTRESS NOTED.
--- NOTE | 2021-07-25 03:21 | NUR ---
SHIFT SUMMARY NO ACUTE CHANGES. MEDICATED FOR GENERALIZED ALL OVER BODY PAIN PER EMAR. PT SEEMS TO BE RESTING OVER THE COURSE OF THE SHIFT. CALL LIGHT WITHIN REACH AND WILL CONTINUE TO MONITOR.
[2021-07-25 05:00] LABS: Hemoglobin 7.1 g/dL (11.5-16.0)
[2021-07-25 05:39] LABS: Albumin, Blood 1.8 g/dL (3.4-5.0); Anion Gap 7 mmol/L (6-16); Blood Urea Nitrogen 37 mg/dL (8-24); Bun/Creatinine Ratio 6.8 (12.0-20.0); CO2, Blood 28 mmol/L (21-32); Calcium, Blood 8.3 mg/dL (8.5-10.1); Chloride, Blood 95 mmol/L (98-108); Creatinine, Blood 5.42 mg/dL (0.40-1.00); Glomerular Filtration Rate 9 (60-); Glucose, Blood 105 mg/dL (70-99); Phosphorus, Blood 6.3 mg/dL (2.5-4.9); Potassium, Blood 4.7 mmol/L (3.5-5.5); Sodium, Blood 130 mmol/L (136-145)
--- NOTE | 2021-07-25 13:15 | NUR ---
PT IS OFF THE UNIT FOR DIALYSIS.MEDICATED FOR PAIN PRIOR TO LEAVING.NO DISTRESS NOTED, CONT ON 02 VIA N/C 4L.IV ON RT AC D/C;D AT PT'S REQUEST. STATES ITS NOT BEEN USED.MONITORING CONTINUES.
--- NOTE | 2021-07-25 18:17 | NUR ---
PT RETURNED FROM DIALYSIS THIS AFTERNOON, MO ACUTE DISTRESS NOTED,CALL LIGHT IN PLACE, WILL CONTINUE TO MONITOR.
--- NOTE | 2021-07-26 05:42 | NUR ---
SHIFT SUMMARY PT IS A 31 Y/O FEMALE, ORIGINALLY ADMITTED FOR SEPSIS AND CURRENTLY AWAITING DIALYSIS PLACEMENT. SHE IS A&O X 3, 1PA TO THE [facility] [place]. SHE WAS MEDICATED ONCE FOR GENERALIZED PAIN WITH PRN OXYCODONE. PT DID REPORT ABD PAIN AND A "DRY THROAT". NO C/O NAUSEA OR SOB. PT IS ON 4L O2 VIA NC. VITAL SIGNS STABLE. NO OTHER ACUTE CHANGES IN PT CONDITION NOTED DURING THE NIGHT. WILL CONTINUE TO MONITOR AND TREAT PER EMAR UNTIL HAND OFF TO DAY SHIFT RN.
[2021-07-26 08:42] LABS: Hematocrit 23.7 % (33.0-51.0); Hemoglobin 7.3 g/dL (11.5-16.0)
[2021-07-26 09:10] LABS: Albumin, Blood 1.8 g/dL (3.4-5.0); Anion Gap 8 mmol/L (6-16); Blood Urea Nitrogen 33 mg/dL (8-24); Bun/Creatinine Ratio 6.4 (12.0-20.0); CO2, Blood 29 mmol/L (21-32); Calcium, Blood 8.3 mg/dL (8.5-10.1); Chloride, Blood 96 mmol/L (98-108); Creatinine, Blood 5.18 mg/dL (0.40-1.00); Glomerular Filtration Rate 10 (60-); Glucose, Blood 96 mg/dL (70-99); Phosphorus, Blood 5.1 mg/dL (2.5-4.9); Potassium, Blood 4.4 mmol/L (3.5-5.5); Sodium, Blood 133 mmol/L (136-145)
--- NOTE | 2021-07-26 13:35 | NUR ---
PT AAOX3, MEDICATED FOR NEEDED, SACRAL WOUND DRESSING CHANGED, SLIGHT BLEEDING FROM SITE,NO S/S OF INFECTION NOTED,OFFERED TO CHANGED LINENS BUT PT REFUSED WANTS IT CHANGED TOMORROW.CALL LIGHT WITHIN REACH, WILL CONT TO MONITOR.
--- NOTE | 2021-07-27 04:50 | NUR ---
SHIFT SUMMARY PT IS A 31 Y/O FEMALE, ORIGINALLY ADMITTED FOR SEPSIS AND CURRENTLY AWAITING OUTPATIENT DIALYSIS PLACEMENT. SHE IS A&O X 3, 1PA TO THE [facility] [place]. SHE WAS MEDICATED FOR CHRONIC PAIN WITH PRN OXYCODONE. NO C/O NAUSEA OR SOB. ON 4L VIA NC, SATTING > 90%. VITAL SIGNS OTHERWISE STABLE. NO OTHER ACUTE CHANGES IN PT CONDITION NOTED DURING THE NIGHT. WILL CONTINUE TO MONITOR AND TREAT PER EMAR UNTIL HAND OFF TO DAY SHIFT RN.
[2021-07-27 09:37] LABS: BASOPHILS ABSOLUTE AUTO 0.08 K/mm3 (0.00-0.23); BASOPHILS PERCENT AUTO 1 % (0-2); EOSINOPHILS ABSOLUTE AUTO 0.08 K/mm3 (0.00-0.68); EOSINOPHILS PERCENT AUTO 1 % (0-6); Hematocrit 23.7 % (33.0-51.0); Hemoglobin 7.3 g/dL (11.5-16.0); IMMATURE GRAN ABSOLUTE AUTO 0.06 K/mm3 (0.00-0.10); IMMATURE GRAN PERCENT AUTO 0 % (0-1); LYMPHOCYTES ABSOLUTE AUTO 3.79 K/mm3 (0.84-5.20); LYMPHOCYTES PERCENT AUTO 28 % (21-46); MONOCYTES ABSOLUTE AUTO 1.49 K/mm3 (0.16-1.47); MONOCYTES PERCENT AUTO 11 % (4-13); Mean Corpuscular HGB 29.1 pg (26.0-34.0); Mean Corpuscular HGB Conc 30.8 g/dL (31.5-36.5); Mean Corpuscular Volume 94 fL (80-100); Mean Platelet Volume 8.7 fL (9.1-12.4); NEUTROPHILS ABSOLUTE AUTO 7.89 K/mm3 (1.96-9.15); NEUTROPHILS PERCENT AUTO 59 % (41-73); Platelet Count 287 K/mm3 (150-400); Red Blood Cell Count 2.51 M/mm3 (3.80-5.20); White Blood Cell Count 13.39 K/mm3 (4.00-11.30)
[2021-07-27 10:30] LABS: Albumin, Blood 1.7 g/dL (3.4-5.0); Anion Gap 10 mmol/L (6-16); Blood Urea Nitrogen 45 mg/dL (8-24); Bun/Creatinine Ratio 6.8 (12.0-20.0); CO2, Blood 25 mmol/L (21-32); Calcium, Blood 8.1 mg/dL (8.5-10.1); Chloride, Blood 94 mmol/L (98-108); Creatinine, Blood 6.66 mg/dL (0.40-1.00); Glomerular Filtration Rate 7 (60-); Glucose, Blood 133 mg/dL (70-99); Magnesium, Blood 1.7 mg/dL (1.6-2.4); Phosphorus, Blood 5.7 mg/dL (2.5-4.9); Sodium, Blood 129 mmol/L (136-145)
--- NOTE | 2021-07-27 17:32 | NUR ---
SUMMARY PT SITTING UP IN BED EATING DINNER, PT HAS BEEN PLEASANT AND COOPERATIVE WITH CARE, MED PER EMAR FOR C/O PAIN, PT HAD DIALYSIS TODAY, DIVYA WELL, PT UP WITH 1P ASSIST, VSS, WILL CONT TO MONITOR
[2021-07-28 04:59] LABS: Hematocrit 22.2 % (33.0-51.0); Hemoglobin 6.7 g/dL (11.5-16.0); Mean Corpuscular HGB 28.9 pg (26.0-34.0); Mean Corpuscular HGB Conc 30.2 g/dL (31.5-36.5); Mean Corpuscular Volume 96 fL (80-100); Mean Platelet Volume 8.9 fL (9.1-12.4); Platelet Count 256 K/mm3 (150-400); RDW Coefficient Variation 15.2 % (11.7-14.2); RDW Standard Deviation 52.2 fL (35.1-46.3); Red Blood Cell Count 2.32 M/mm3 (3.80-5.20); White Blood Cell Count 11.34 K/mm3 (4.00-11.30)
[2021-07-28 05:32] LABS: Albumin, Blood 2.2 g/dL (3.4-5.0); Anion Gap 7 mmol/L (6-16); Blood Urea Nitrogen 26 mg/dL (8-24); Bun/Creatinine Ratio 5.6 (12.0-20.0); CO2, Blood 31 mmol/L (21-32); Calcium, Blood 8.1 mg/dL (8.5-10.1); Chloride, Blood 97 mmol/L (98-108); Creatinine, Blood 4.62 mg/dL (0.40-1.00); Glomerular Filtration Rate 11 (60-); Glucose, Blood 119 mg/dL (70-99); Magnesium, Blood 1.7 mg/dL (1.6-2.4); Phosphorus, Blood 4.7 mg/dL (2.5-4.9); Sodium, Blood 135 mmol/L (136-145)
--- NOTE | 2021-07-28 08:00 | NUR ---
Pt laying in bed awake a/ox3, pleasant and cooperative with care, follows commands well, denies pain at this time, states she is sob, checked her sats, 97% on 4 liters, she reports if she lays back some it helps, lungs have audible wheezing, tight, no cough noted or reported, hrr, general edema noted, makes scant urine, bottom is pink, carrillo, is one person to assist to bathroom, ramesh, call light in reach.
--- NOTE | 2021-07-28 18:58 | NUR ---
pt has a flat affect, she sleeps most of the day, wakes easily when spoke to. no acute changes this shift. call light in reach.
--- NOTE | 2021-07-29 04:27 | NUR ---
PT IS AAO. O2 5L NC IN PLACE. NO RESP DISTRESS NOTED. SOB WITH ACTIVITY. 1 UNIT OF PRBC GIVEN AND TOLERATED WELL. AFEBRILE. MEDS GIVEN. MEDICATED FOR PAIN WITH GOOD EFFECT. CALL LIGHT WITHIN REACH. NO ACUTE CHANGE IN STATUS NOTED.
[2021-07-29 05:06] LABS: Hematocrit 25.6 % (33.0-51.0)
[2021-07-29 05:52] LABS: Anion Gap 10 mmol/L (6-16); Blood Urea Nitrogen 32 mg/dL (8-24); Bun/Creatinine Ratio 5.5 (12.0-20.0); CO2, Blood 27 mmol/L (21-32); Chloride, Blood 95 mmol/L (98-108); Creatinine, Blood 5.82 mg/dL (0.40-1.00); Glomerular Filtration Rate 9 (60-); Glucose, Blood 99 mg/dL (70-99); Magnesium, Blood 1.9 mg/dL (1.6-2.4); Phosphorus, Blood 5.8 mg/dL (2.5-4.9); Potassium, Blood 4.7 mmol/L (3.5-5.5); Sodium, Blood 132 mmol/L (136-145)
--- NOTE | 2021-07-29 08:00 | NUR ---
pt laying in bed awake looks brighter than yesterday, but states she feels sob, a/ox3, flat affect, cooperative with care, follows commands well, requesting pain meds, states he chest hurts and general all over pain, lungs have brochial wheezing, clear in upper, dim in bases, resp even and mild laboring, mouth breaths when sleeping, no cough noted, hrr, 2+edema noted to b/l le, ppp+2, cap refill <3sec, vs stable but soft, afebrile, iv to myles, site is clear and patent, btx4, abd flat soft nontender, doesnt void, is on hemodialysis, has permacath to rcw, skin has wound to coccyx, refused mepilex durring the night, is being turned as she will allow, carrillo, general weakness, ramesh, call light in reach, will have dialysis today.
--- NOTE | 2021-07-29 09:30 | NUR ---
left for dialysis via bed with manager care and charge nurse in attendence.
--- NOTE | 2021-07-29 10:54 | NUR ---
pt up to shower with artificial flower maker assist, had a large bm, up to chair with two person assist. linen changed. call light in reach.
--- NOTE | 2021-07-29 12:42 | NUR ---
Review of pt with dialysis staff. stated pt declined the past week physically. Met with pt while she was on dialysis. She was alert and engaged. Face much or swollen. Pt states she has to push her voice out very hard and it is miserable. She is more fatigued. She is not willing to get a trach. She hoped she can recover from this set back. she is ok but tiered of being here. May see if she gets better getting her outside or some different food sources or varieties. Suggest Pulmonolgist see her again. Suggest check her permcath and wound for potential source of infection. Suggest she shower twicea day. And lots of handwashing reminders. Will review with speech tomorrow and ot/pt. Suggest if she is willing a room change with a better view. Also sugest if any further dicussion on level of care family be present for suppoet. Will see if she has been having visitors. If she improves see if we can get some therapy pet visits.
[2021-07-29 14:18] LABS: Vancomycin, Random 7.9 ug/mL
--- NOTE | 2021-07-29 18:15 | NUR ---
pt up to bathroom, dressing change to buttocks. dialysis removed 4 liters, no further changes this shift. call light in reach.
[2021-07-30 04:49] LABS: Hematocrit 26.8 % (33.0-51.0); Hemoglobin 8.1 g/dL (11.5-16.0)
--- NOTE | 2021-07-30 05:14 | NUR ---
PT IN BED. STILL ON O2 4L NC. RESP UNLABORED. SAT ABOVE 90. DENIES CHEST PAIN OR SOB. SOB WITH MOVEMENT BUT NO DISTRESS. ENCOURAGE TO TURN AND REPOSITION. MEDS GIVEN. CALL LIGHT WITHIN REACH. NO CHANGE IN STATUS NOTED.
[2021-07-30 05:30] LABS: Albumin, Blood 1.9 g/dL (3.4-5.0); Anion Gap 7 mmol/L (6-16); Blood Urea Nitrogen 14 mg/dL (8-24); CO2, Blood 32 mmol/L (21-32); Calcium, Blood 7.9 mg/dL (8.5-10.1); Chloride, Blood 94 mmol/L (98-108); Creatinine, Blood 3.51 mg/dL (0.40-1.00); Glomerular Filtration Rate 15 (60-); Glucose, Blood 109 mg/dL (70-99); Magnesium, Blood 1.8 mg/dL (1.6-2.4); Phosphorus, Blood 4.1 mg/dL (2.5-4.9); Potassium, Blood 3.6 mmol/L (3.5-5.5); Sodium, Blood 133 mmol/L (136-145)
--- NOTE | 2021-07-30 13:56 | NUR ---
Pt. is in bed resting. and is doing fine.
--- NOTE | 2021-07-30 18:09 | NUR ---
PT IS A/OX3, PLEASANT AND COOPERATIVE. HAS A DEPRESS/SOMULANT MODE, DECLINED TO GET UP FOR MEALS. WAS NAUSEATED T/O THE DAY THE PT WAS MEDICATED FOR NAUSEA AND PAIN REQUESTED. THE PT WORKED WITH THE PHYSICAL THERAPIST AND STOOD USEING THE FWW. THE PT IS ON 2L/MIN O2 VIA NC AT THIS TIME O2 SATS %. THE PT FATHER CAME IN TO VISIT. CALL LIGHT IN REACH. WILL CONTINUE TO MONITOR AND ASSESS FOR CHANGES
--- NOTE | 2021-07-30 18:28 | NUR ---
PT IS A/OX4, PLEASANT AND COOPERATIVE. THE PT IS A MAX 2 PERSON ASSIST UP. THE PT WORKED WITH THE PHYSICAL THERAPIST AT THE [facility] TODAY. THE PT APPEARS TO BE BREATHING EASILY ON RA AT THIS TIME. THE DENIED ANY PAIN T/O THE DAY. THE PT WAS UP TO THE CHAIR FOR A COUPLE HOURS AT LUNCH TIME. CALL LIGHT IN REACH. WILL CONTINUE TO MONITOR AND ASSESS FOR CHANGES
--- NOTE | 2021-07-31 04:19 | NUR ---
PT IS ON 4L OF OXYGEN SATS AT 100%. SLEPT WELL AFTER NEBULIZER TREATMENT. PAIN MED EFFECTIVE. REPORTS FEELING BETTER. OCCASIONAL DRY COUGH. VSS. NO OTHER COMPLAINTS VOICED. CALL LIGHT WITHIN REACH.
--- NOTE | 2021-07-31 12:56 | NUR ---
Pt. in bed resting prayed and blessed pt.
--- NOTE | 2021-07-31 16:17 | NUR ---
Review of pt with home care specialist, and our concerns of failure to thrive. will continue to monitor and offer support.
--- NOTE | 2021-07-31 17:25 | NUR ---
PT IS A/OX4, PLEASANT AND COOPERATIVE. THE PT IS UP WITH MINIMAL ASSIST, THE PT WAS UP IN THE CHAIR THIS AM FOR BREAKFAST. THE PT HAD DIALYSIS TODAY. THE PT REPORTED FEELING TIRED AFTER DIALYSIS AND DECLINED TO SIT UP IN THE CHAIR FOR BREAKFAST. THE PTS GLUTEAL WOUNDS WERE CHANGED TODAY, PT TOLERATED WELL. THE PT WAS MEDICATED FOR PAIN AND ANXIETY TODAY. THE PT IS ON 3L/MIN O2 AT THIS TIME. PT IS SOB WITH ACTIVITY AND BREATH SOUNDS ARE WHEEEZY AT TIMES. CALL LIGHT IN REACH. WILL CONTINUE TO MONITOR AND ASSESS FOR CHANGES
[2021-08-01 05:16] LABS: Hematocrit 25.7 % (33.0-51.0); Hemoglobin 7.9 g/dL (11.5-16.0)
[2021-08-01 06:05] LABS: Albumin, Blood 1.7 g/dL (3.4-5.0); Anion Gap 11 mmol/L (6-16); Blood Urea Nitrogen 13 mg/dL (8-24); Bun/Creatinine Ratio 3.2 (12.0-20.0); CO2, Blood 29 mmol/L (21-32); Calcium, Blood 8.2 mg/dL (8.5-10.1); Chloride, Blood 95 mmol/L (98-108); Creatinine, Blood 4.09 mg/dL (0.40-1.00); Glomerular Filtration Rate 13 (60-); Glucose, Blood 118 mg/dL (70-99); Magnesium, Blood 1.7 mg/dL (1.6-2.4); Phosphorus, Blood 3.7 mg/dL (2.5-4.9); Potassium, Blood 3.3 mmol/L (3.5-5.5); Sodium, Blood 135 mmol/L (136-145)
--- NOTE | 2021-08-01 06:34 | NUR ---
SUMMARY PT HAD A FALL THIS AM. PT COMPLAINING OF LEFT SHOULDER PAIN. DR WARE CALLED AND INFORMED. CT SCANS ARE ORDERED AND PENDING. PT REPORTS WAS TRYING TO ADJUST BED AND FELL BACKWARDS. NO LOSS OF CONSCIOUSNESS. NO OTHER ISSUES NOTED DURING SHIFT. NO CHANGES IN VS. PT CURRENTLY LAYING IN BED IN NO DISTRESS. CALL LIGHT IN REACH AND BED ALARM ON.
--- NOTE | 2021-08-01 19:18 | NUR ---
SHIFT SUMMARY: NO ACUTE EVENTS. DID NOT GET OOB AT ALL TODAY, DID NOT WANT TO CHANGE POSITION MUCH. C/O 05/25 PAIN "ALL OVER MY BODY"; MEDICATED WITH OXYCODONE EVERY FOUR HOURS WITH SOME RELIEF. NO BM TODAY. APPETITE OK. O2 @ 4 L/MIN NC, NO COUGH. HYPOTENSIVE 90'S/50'S; MIDODRINE GIVEN. NO DIALYSIS TODAY.
[2021-08-02 04:40] LABS: Hematocrit 25.4 % (33.0-51.0); Hemoglobin 7.7 g/dL (11.5-16.0); Mean Corpuscular HGB 29.3 pg (26.0-34.0); Mean Corpuscular HGB Conc 30.3 g/dL (31.5-36.5); Mean Corpuscular Volume 97 fL (80-100); Mean Platelet Volume 8.7 fL (9.1-12.4); Platelet Count 264 K/mm3 (150-400); RDW Coefficient Variation 15.6 % (11.7-14.2); RDW Standard Deviation 54.4 fL (35.1-46.3); Red Blood Cell Count 2.63 M/mm3 (3.80-5.20); White Blood Cell Count 14.58 K/mm3 (4.00-11.30)
[2021-08-02 05:14] LABS: Albumin, Blood 1.8 g/dL (3.4-5.0); Anion Gap 11 mmol/L (6-16); Blood Urea Nitrogen 17 mg/dL (8-24); Bun/Creatinine Ratio 3.2 (12.0-20.0); CO2, Blood 27 mmol/L (21-32); Calcium, Blood 8.2 mg/dL (8.5-10.1); Chloride, Blood 95 mmol/L (98-108); Creatinine, Blood 5.24 mg/dL (0.40-1.00); Glomerular Filtration Rate 10 (60-); Glucose, Blood 102 mg/dL (70-99); Potassium, Blood 3.6 mmol/L (3.5-5.5); Sodium, Blood 133 mmol/L (136-145)
--- NOTE | 2021-08-02 18:39 | NUR ---
SHIFT SUMMARY: NO ACUTE EVENTS. HAD DIALYSIS TODAY, TOLERATED WELL. C/O GENERALIZED 9/10 PAIN, REQUESTED OXYCODONE REGULARLY. ON 4 L/MIN NC, INTERMITTENT SENIOR NET WEB DEVELOPER COUGH, TRACHEAL WHEEZING. HAS 4 STAGE 2 DECUBITUS ON BUTTOCKS, ALL LESS THAN 1 CM IN DIAMETER, AND REDNESS IN AIDAN AREA. DECLINED TO GET OOB TODAY.
[2021-08-03 04:28] LABS: Hematocrit 25.1 % (33.0-51.0); Hemoglobin 7.6 g/dL (11.5-16.0)
[2021-08-03 06:16] LABS: Albumin, Blood 1.5 g/dL (3.4-5.0); Anion Gap 12 mmol/L (6-16); Blood Urea Nitrogen 11 mg/dL (8-24); Bun/Creatinine Ratio 2.9 (12.0-20.0); CO2, Blood 25 mmol/L (21-32); Calcium, Blood 8.1 mg/dL (8.5-10.1); Chloride, Blood 98 mmol/L (98-108); Creatinine, Blood 3.78 mg/dL (0.40-1.00); Glomerular Filtration Rate 14 (60-); Glucose, Blood 139 mg/dL (70-99); Magnesium, Blood 1.4 mg/dL (1.6-2.4); Phosphorus, Blood 2.4 mg/dL (2.5-4.9); Potassium, Blood 3.5 mmol/L (3.5-5.5); Sodium, Blood 135 mmol/L (136-145)
--- NOTE | 2021-08-03 15:57 | NUR ---
IV LOCATED ON MARGARETTE, NO INSERTION ASSESSMENT COMPLETED.
--- NOTE | 2021-08-03 18:00 | NUR ---
SHIFT SUMMARY: PT A/O STANDBY ASSIST PLEASANT AND COOPERATIVE. DEVULCANIZER TENDER FROM [facility] INTERVIEWED PT TODAY. PT HAS HAD NO ACUTE CHANGES TO REPORT. MEPILEX ON BOTTOM CHANGED. EXCORIATION NOTED TO BOTTOM. PEG TUBE SITE DRESSING CHANGED WITH NO S/S OF INFECTION AT SITE.
[2021-08-04 04:44] LABS: Hematocrit 27.1 % (33.0-51.0); Hemoglobin 8.2 g/dL (11.5-16.0)
[2021-08-04 05:42] LABS: Albumin, Blood 1.5 g/dL (3.4-5.0); Anion Gap 10 mmol/L (6-16); Blood Urea Nitrogen 15 mg/dL (8-24); CO2, Blood 27 mmol/L (21-32); Calcium, Blood 8.2 mg/dL (8.5-10.1); Chloride, Blood 96 mmol/L (98-108); Creatinine, Blood 4.99 mg/dL (0.40-1.00); Glomerular Filtration Rate 10 (60-); Glucose, Blood 84 mg/dL (70-99); Magnesium, Blood 1.7 mg/dL (1.6-2.4); Phosphorus, Blood 3.6 mg/dL (2.5-4.9); Sodium, Blood 133 mmol/L (136-145)
--- NOTE | 2021-08-04 06:28 | NUR ---
CALLED HOSPITALIST 2X.UNABLE TO REACH. PT WAS HYPOTENSIVE WANTED TO SEE WHETHER SCHEDULED 9AM MIDODRINE CAN BE GIVEN EARLY.SPOKE WITH CHARGE NURSE ANGELA AND AGREEMENT MADE TO GIVE MED
--- NOTE | 2021-08-04 06:31 | NUR ---
PT HYPOTENSIVE WHEN AM VS WERE TAKEN. SBP WAS <90. PAGED MD 2X WAS UNABLE TO REACH. 5MG MIDODRINE SCHEDULED FOR 9AM WAS GIVEN EARLY. MD WAS NOTIFIED AND ORDER REC FOR 500ML IV FLUID BOLUS. THERE WAS ONE INSTANCE DURING SHIFT WHEN BED ALARM WENT OFF, PT WAS SITTING UP ON THE SIDE OF THE BED. PT WAS DISOREIENTED, REORIENTED AND ASSISTED BACK TO BED. NO OTHER ISSUES NOTED. BED IN LOW POSITION CALL LIGHT IN REACH. PT ON 4LNC. SOB WITH ACTIVITY.
--- NOTE | 2021-08-04 10:04 | NUR ---
IV SITE 20 G ON MARGARETTE ASSESSMENT COMPLETED.
--- NOTE | 2021-08-04 18:21 | NUR ---
SHIFT SUMMARY: PT A/O X 3 STANDBY ASSIST TO CHAIR/BSC. PT HAD LOW BP THIS MORNING WITH SBP'S IN THE 80'S BUT HAS IMPROVED THIS AFTERNOON IN THE 120'S. PT REPORTING INCREASED PAIN TO FEET. OXYCODONE GIVEN FOR HER PAIN. PT HAS HAD NO URINE OUTPUT THESE PAST TWO DAYS CARING FOR HER. UNABLE TO COLLECT URINE SAMPLE. PT HAD VISIT FROM HER BROTHER AT DINNER TIME AND HE BROUGHT HER [employer] FOR DINNER. SHE REFUSED HOSPITAL DINNER.
--- NOTE | 2021-08-05 18:09 | NUR ---
PT AAOX3,IN NO ACUTE DISTRESS, MEDICATED FOR NAUSEA AND TREMORS, PT STYAED IN BED MOST OF DAY,C/O ABDO PAIN AND REQUESTED MUCSLE RELAXANT FOR RELIEF,POOR PO INTAKE, CALL LIGHT IN PLACE AND WILL CONTINUE TO MONITOR.
--- NOTE | 2021-08-05 23:42 | NUR ---
PATIENT COMPLAINING OF UPPER ABD/LOWER BACK PAIN AT A LEVEL OF 8/10. GAVE DOSE OF ROBAXIN FOR SPASMS THAT OCCUR EACH TIME SHE CHANGES POSITION OR TRIES TO SIT UP IN BED. WILL CONTINUE TO MONITOR FOR RESPONSE TO ANTISPASMOTIC.
[2021-08-06 04:47] LABS: Hematocrit 27.9 % (33.0-51.0); Hemoglobin 8.6 g/dL (11.5-16.0)
[2021-08-06 05:09] LABS: Magnesium, Blood 1.6 mg/dL (1.6-2.4)
[2021-08-06 05:10] LABS: Albumin, Blood 1.5 g/dL (3.4-5.0); Anion Gap 10 mmol/L (6-16); Blood Urea Nitrogen 17 mg/dL (8-24); Bun/Creatinine Ratio 3.5 (12.0-20.0); CO2, Blood 28 mmol/L (21-32); Calcium, Blood 7.9 mg/dL (8.5-10.1); Chloride, Blood 98 mmol/L (98-108); Creatinine, Blood 4.87 mg/dL (0.40-1.00); Glomerular Filtration Rate 11 (60-); Glucose, Blood 103 mg/dL (70-99); Phosphorus, Blood 3.3 mg/dL (2.5-4.9); Sodium, Blood 136 mmol/L (136-145)
--- NOTE | 2021-08-06 12:09 | NUR ---
Met pt. in dialysis and sleeping, offered prayers for her and blessed her
--- NOTE | 2021-08-06 18:57 | NUR ---
PT AAOX3, B/P CONTINUE ON THE LOW SIDE, ALL B/P MEDS D/C'D,HAD DIALYSIS TODAY, C/O PAIN , NOTIFIED AND ORDERS TYLENOL 650MG TAB EVERY 6 HOURS PRN PAIN.PT MEDICATED WITH GOOD EFFECT.ASSISTED NEEDED, CALL AT [facility] ,MONITORING CONT.
[2021-08-07 05:30] LABS: Hematocrit 26.6 % (33.0-51.0); Hemoglobin 8.4 g/dL (11.5-16.0)
[2021-08-07 06:38] LABS: Magnesium, Blood 1.6 mg/dL (1.6-2.4)
[2021-08-07 06:39] LABS: Albumin, Blood 1.4 g/dL (3.4-5.0); Anion Gap 11 mmol/L (6-16); Blood Urea Nitrogen 11 mg/dL (8-24); Bun/Creatinine Ratio 2.7 (12.0-20.0); CO2, Blood 28 mmol/L (21-32); Calcium, Blood 7.9 mg/dL (8.5-10.1); Chloride, Blood 99 mmol/L (98-108); Creatinine, Blood 4.01 mg/dL (0.40-1.00); Glomerular Filtration Rate 13 (60-); Glucose, Blood 89 mg/dL (70-99); Phosphorus, Blood 2.1 mg/dL (2.5-4.9); Potassium, Blood 3.1 mmol/L (3.5-5.5); Sodium, Blood 138 mmol/L (136-145)
--- NOTE | 2021-08-07 07:23 | NUR ---
31 year old Female ESRD on hemodialysis continues on 1000 ml fluid restriction byt asking frequently for oral fluids. She was medicated twice with tylenol & robaxin for CO pain with helpful effect. Fall precautions.
--- NOTE | 2021-08-07 12:30 | NUR ---
STRAIGHT CATH PATIENT STRAIGHT CATH'ED BUT NO OUTPUT. PATIENT REPORTS URGENCY AND BURNING WHEN CATHETER INSERTED. UPON REMOVAL, SMALL AMOUNT OF URINE CAME WITH CATHETER, BUT NOT ENOUGH FOR A SAMPLE. URINE WAS CLOUDY WITH SEDIMENT.
--- NOTE | 2021-08-07 12:53 | NUR ---
met ptin bed and her nurse in the room busy with pt. attending to her needs , prayed for pt.
[2021-08-07 14:37] LABS: Influenza A, PCR NEGATIVE (NEGATIVE); Influenza B, PCR NEGATIVE (NEGATIVE); Resp Syncytial Virus, PCR NEGATIVE (NEGATIVE); SARS-Cov-2 (COVID-19) PCR, MMC NEGATIVE (NEGATIVE)
[2021-08-07] MEDS ORDERED: CEPH500 PO (14:49)
[2021-08-07] MEDS ORDERED: LORA10ER PO (14:50)
[2021-08-07] MEDS ORDERED: Methocarbamol500 MG PO (14:50)
[2021-08-07] MEDS ORDERED: PANT20 PO (14:51)
[2021-08-07] MEDS ORDERED: MIRT15 PO (14:51)
[2021-08-07] MEDS ORDERED: ARTIFICIAL TEAR15 M2 BOTHEYES (14:52)
--- NOTE | 2021-08-07 14:52 | NUR ---
Discussed CKD on HD diet recommendations with patient. Recommended low sodium diet and reviewed sources of dietary sodium. Encouraged pt to read nutrition facts labels to determine sodium content of foods. Encouraged pt to consume adequate protein and reviewed good sources. Discussed that K and Phos may need to be limited if labs are high but do not need to be restricted if labs are low/WNL. Reviewed some sources of these nutrients. Encouraged pt to reach out with any further questions. Good compliance expected.
[2021-08-07] MEDS ORDERED: XARELTO10 M5 PO (14:53)
[2021-08-07] MEDS ORDERED: OXYC5 PO (14:55)
--- NOTE | 2021-08-07 17:53 | NUR ---
DISCHARGE PATIENT TRANSPORTED VIA WHEELCHAIR BY [facility] TO [facility]. PACKET SENT WITH FIRE SPRINKLER INSTALLER. BELONGINGS SENT WITH PATIENT. IV REMOVED WITHOUT DIFFICULTY. REPORT CALLED TO [facility]. MEDICATIONS FAXED TO FACILITY. HARD SCRIPT SENT WITH PATIENT.
--- NOTE | 2021-08-07 17:54 | NUR ---
Brief visit before she leave facility will follow up on her progress.
[2021-08-08 07:10] LABS: HBSAG SCREEN Negative (Negative)
== END 2021-08-07 17:48 | DRG 3 ==
LOC: ER 16:17 → ICUE 22:28 → MEDS 22:28 → ICUW 22:28 → ICUE 22:34 → ICUW 03-07 19:07 → ICUE 04-15 19:50 → PCU 04-16 16:15 → MEDS 04-18 12:20
PROVIDERS: Emergency Medicine; Family Medicine; Internal Medicine; Internal Medicine Critical Care Medicine; Internal Medicine Nephrology; Internal Medicine Pulmonary Disease; Otolaryngology; Pharmacist; ADMIT Internal Medicine
PROC: 8E0ZXY6 Isolation (ICD-10-PCS; 2021-03-02)
PROC: 02HV33Z Insertion of Infusion Device into Superior Vena Cava, Percutaneous Approach (ICD-10-PCS; 2021-03-03)
PROC: 3E043XZ Introduction of Vasopressor into Central Vein, Percutaneous Approach (ICD-10-PCS; 2021-03-03)
PROC: 5A1D70Z Performance of Urinary Filtration, Intermittent, Less than 6 Hours Per Day (ICD-10-PCS; 2021-03-06)
PROC: 5A09457 Assistance with Respiratory Ventilation, 24-96 Consecutive Hours, Continuous Positive Airway Pressure (ICD-10-PCS; 2021-03-06)
PROC: 5A1955Z Respiratory Ventilation, Greater than 96 Consecutive Hours (ICD-10-PCS; 2021-03-08)
PROC: 0BH17EZ Insertion of Endotracheal Airway into Trachea, Via Natural or Artificial Opening (ICD-10-PCS; 2021-03-08)
PROC: 0B9D8ZX Drainage of Right Middle Lung Lobe, Via Natural or Artificial Opening Endoscopic, Diagnostic (ICD-10-PCS; 2021-03-08)
PROC: 30233N1 Transfusion of Nonautologous Red Blood Cells into Peripheral Vein, Percutaneous Approach (ICD-10-PCS; 2021-03-09)
PROC: 0B110F4 Bypass Trachea to Cutaneous with Tracheostomy Device, Open Approach (ICD-10-PCS; 2021-03-30)
PROC: 0BH17EZ Insertion of Endotracheal Airway into Trachea, Via Natural or Artificial Opening (ICD-10-PCS; principal; 2021-03-30 07:30)
PROC: 0DH63UZ Insertion of Feeding Device into Stomach, Percutaneous Approach (ICD-10-PCS; 2021-04-10)
PROC: BD12YZZ Fluoroscopy of Stomach using Other Contrast (ICD-10-PCS; 2021-04-10)
PROC: 0BP1XFZ Removal of Tracheostomy Device from Trachea, External Approach (ICD-10-PCS; 2021-05-31)
PROC: 0DP63UZ Removal of Feeding Device from Stomach, Percutaneous Approach (ICD-10-PCS; 2021-06-01)
PROC: 0DH63UZ Insertion of Feeding Device into Stomach, Percutaneous Approach (ICD-10-PCS; 2021-06-01)
PROC: BD12YZZ Fluoroscopy of Stomach using Other Contrast (ICD-10-PCS; 2021-06-01)
DX: A41.89 Other specified sepsis (principal); N18.6 End stage renal disease; J12.82 Pneumonia due to coronavirus disease 2019; U07.1 COVID-19; R65.21 Severe sepsis with septic shock; J18.9 Pneumonia, unspecified organism; J80 Acute respiratory distress syndrome; J15.9 Unspecified bacterial pneumonia; G92.8 Other toxic encephalopathy; Z68.41 Body mass index [BMI] 40.0-44.9, adult; E87.1 Hypo-osmolality and hyponatremia; K94.23 Gastrostomy malfunction; N39.0 Urinary tract infection, site not specified; Z16.12 Extended spectrum beta lactamase (ESBL) resistance; D68.8 Other specified coagulation defects; K86.3 Pseudocyst of pancreas; K76.6 Portal hypertension; J95.03 Malfunction of tracheostomy stoma; F32.1 Major depressive disorder, single episode, moderate; J90 Pleural effusion, not elsewhere classified; K86.0 Alcohol-induced chronic pancreatitis; B37.0 Candidal stomatitis; Z94.4 Liver transplant status; Z86.16 Personal history of COVID-19; A41.51 Sepsis due to Escherichia coli [E. coli]; E86.0 Dehydration; Z78.1 Physical restraint status; E88.09 Other disorders of plasma-protein metabolism, not elsewhere classified; K70.10 Alcoholic hepatitis without ascites; R13.10 Dysphagia, unspecified; G43.909 Migraine, unspecified, not intractable, without status migrainosus; D63.1 Anemia in chronic kidney disease; K70.40 Alcoholic hepatic failure without coma; E83.39 Other disorders of phosphorus metabolism; E87.6 Hypokalemia; L89.152 Pressure ulcer of sacral region, stage 2; K70.31 Alcoholic cirrhosis of liver with ascites; R19.7 Diarrhea, unspecified; E83.42 Hypomagnesemia; F41.9 Anxiety disorder, unspecified; E87.5 Hyperkalemia; R07.89 Other chest pain; F10.20 Alcohol dependence, uncomplicated; L30.4 Erythema intertrigo; E03.9 Hypothyroidism, unspecified; J39.8 Other specified diseases of upper respiratory tract; R47.02 Dysphasia; R00.0 Tachycardia, unspecified; E66.01 Morbid (severe) obesity due to excess calories; R49.0 Dysphonia; F17.210 Nicotine dependence, cigarettes, uncomplicated; Z88.8 Allergy status to other drugs, medicaments and biological substances; Z79.899 Other long term (current) drug therapy; Z86.14 Personal history of Methicillin resistant Staphylococcus aureus infection; Z99.2 Dependence on renal dialysis; W18.30XA Fall on same level, unspecified, initial encounter; Y83.8 Other surgical procedures as the cause of abnormal reaction of the patient, or of later complication, without mention of misadventure at the time of the procedure
CPT/HCPCS: 0097U; 0241U; 31500; 31502; 31720; 36415; 36430; 36556; 36569; 36600; 49440; 49450; 51702; 71045; 71260; 73030; 73070; 74018; 74150; 74160; 74176; 74177; 74230; 76705; 80048; 80053; 80069; 80202; 81001; 82140; 82248; 82550; 82728; 82803; 82947; 83540; 83550; 83605; 83690; 83735; 83880; 84100; 84132; 84145; 84439; 84443; 84481; 84484; 84703; 85014; 85018; 85025; 85027; 85379; 85610; 86140; 86704; 86850; 86900; 86901; 86923; 87015; 87040; 87045; 87046; 87070; 87077; 87086; 87102; 87116; 87186; 87205; 87206; 87340; 87426; 87493; 87899; 88108; 92507; 92526; 92597-GN; 92610; 92611; 93005; 93010; 93306; 93971; 94002; 94003; 94640; 94660; 94667; 94668; 94760; 94762; 96360; 96361; 97110; 97112; 97116; 97129; 97163; 97164; 97165; 97168; 97530; 97535; 99152; 99153; 99285-25; A9270; C1751; C1769; C1894; C9113; C9803; J0295; J0456; J0572; J0610; J0696; J0744; J0881; J1170; J1644; J1650; J1940; J1956; J2001; J2060; J2185; J2250; J2270; J2405; J2543; J2704; J2930; J2997; J3010; J3370; J3475; J3480; J7030; J7040; J7050; J7060; J7131; J7512; P9016; P9041; P9046; Q9967; U0004

== ENCOUNTER → 2021-08-21 | Outpatient (CLI) | payer OTHER ==
[~2021-08-21] MED LIST changes: +ARTIFICIAL TEAR15 M2 BOTHEYES; +ATEN25 PO; +BUPRENORPHIN-N1 EAC5 SL; +BUPRENORPHN-NA1 EAC2 SL; +CEPH500 PO; +GABA100 PO; +HYDPAM50 PO; +LORA.5 PO; +LORA10ER PO; +MIRT15 PO; +Methocarbamol500 MG PO; +OXYC5 PO; +PANT20 PO; +SERT50 PO; +Ventolin/Prove6.7 GM; +XARELTO10 M5 PO
[2021-08-21 17:57] LABS: BASOPHILS ABSOLUTE AUTO 0.14 K/mm3 (0.00-0.23); BASOPHILS PERCENT AUTO 1 % (0-2); EOSINOPHILS ABSOLUTE AUTO 0.21 K/mm3 (0.00-0.68); EOSINOPHILS PERCENT AUTO 1 % (0-6); Hematocrit 25.7 % (33.0-51.0); Hemoglobin 8.1 g/dL (11.5-16.0); IMMATURE GRAN PERCENT AUTO 1 % (0-1); LYMPHOCYTES ABSOLUTE AUTO 2.44 K/mm3 (0.84-5.20); LYMPHOCYTES PERCENT AUTO 16 % (21-46); MONOCYTES ABSOLUTE AUTO 1.72 K/mm3 (0.16-1.47); MONOCYTES PERCENT AUTO 11 % (4-13); Mean Corpuscular HGB 29.1 pg (26.0-34.0); Mean Corpuscular HGB Conc 31.5 g/dL (31.5-36.5); Mean Corpuscular Volume 92 fL (80-100); Mean Platelet Volume 8.7 fL (9.1-12.4); NEUTROPHILS ABSOLUTE AUTO 11.04 K/mm3 (1.96-9.15); NEUTROPHILS PERCENT AUTO 71 % (41-73); Platelet Count 341 K/mm3 (150-400); RDW Coefficient Variation 19.6 % (11.7-14.2); RDW Standard Deviation 65.7 fL (35.1-46.3); Red Blood Cell Count 2.78 M/mm3 (3.80-5.20); White Blood Cell Count 15.65 K/mm3 (4.00-11.30)
[2021-08-21 19:07] LABS: Bun/Creatinine Ratio 3.6 (12.0-20.0); Calcium, Blood 8.4 mg/dL (8.5-10.1); Creatinine, Blood 2.48 mg/dL (0.40-1.00); Potassium, Blood 3.5 mmol/L (3.5-5.5)
== END | disposition home or self-care (01) ==
LOC: EDSTATUS 14:02 → LAB RH 17:35 → LAB UVN 17:35
PROVIDERS: Internal Medicine
DX: D72.829 Elevated white blood cell count, unspecified (principal); A41.9 Sepsis, unspecified organism
CPT/HCPCS: 80048; 85025; 87040

== ENCOUNTER → 2021-08-23 | Outpatient (CLI) | payer OTHER ==
[~2021-08-23] MED LIST changes: -ATEN25 PO; -LORA.5 PO; -Ventolin/Prove6.7 GM
[2021-08-23 18:11] LABS: BASOPHILS ABSOLUTE AUTO 0.16 K/mm3 (0.00-0.23); BASOPHILS PERCENT AUTO 1 % (0-2); EOSINOPHILS ABSOLUTE AUTO 0.26 K/mm3 (0.00-0.68); EOSINOPHILS PERCENT AUTO 2 % (0-6); Hematocrit 25.6 % (33.0-51.0); Hemoglobin 8.1 g/dL (11.5-16.0); IMMATURE GRAN ABSOLUTE AUTO 0.12 K/mm3 (0.00-0.10); IMMATURE GRAN PERCENT AUTO 1 % (0-1); LYMPHOCYTES ABSOLUTE AUTO 3.54 K/mm3 (0.84-5.20); LYMPHOCYTES PERCENT AUTO 20 % (21-46); MONOCYTES ABSOLUTE AUTO 2.47 K/mm3 (0.16-1.47); MONOCYTES PERCENT AUTO 14 % (4-13); Mean Corpuscular HGB 29.2 pg (26.0-34.0); Mean Corpuscular HGB Conc 31.6 g/dL (31.5-36.5); Mean Corpuscular Volume 92 fL (80-100); Mean Platelet Volume 8.8 fL (9.1-12.4); NEUTROPHILS ABSOLUTE AUTO 11.27 K/mm3 (1.96-9.15); NEUTROPHILS PERCENT AUTO 63 % (41-73); Platelet Count 453 K/mm3 (150-400); RDW Coefficient Variation 19.4 % (11.7-14.2); Red Blood Cell Count 2.77 M/mm3 (3.80-5.20); White Blood Cell Count 17.82 K/mm3 (4.00-11.30)
== END | disposition home or self-care (01) ==
LOC: LAB 17:00 → LAB RH 17:00
PROVIDERS: Nurse Practitioner Family
DX: A41.9 Sepsis, unspecified organism (principal)
CPT/HCPCS: 85025

== ENCOUNTER 2021-08-30 12:46 | Emergency (ER) | payer OTHER ==
[~2021-08-30] VITALS: Ht 154.9 cm; Wt 102.1 kg
[2021-08-30 14:01] LABS: BASOPHILS ABSOLUTE AUTO 0.13 K/mm3 (0.00-0.23); BASOPHILS PERCENT AUTO 1 % (0-2); EOSINOPHILS PERCENT AUTO 2 % (0-6); Hemoglobin 7.5 g/dL (11.5-16.0); IMMATURE GRAN ABSOLUTE AUTO 0.21 K/mm3 (0.00-0.10); IMMATURE GRAN PERCENT AUTO 1 % (0-1); LYMPHOCYTES ABSOLUTE AUTO 3.83 K/mm3 (0.84-5.20); LYMPHOCYTES PERCENT AUTO 20 % (21-46); MONOCYTES ABSOLUTE AUTO 2.86 K/mm3 (0.16-1.47); MONOCYTES PERCENT AUTO 15 % (4-13); Mean Corpuscular HGB 29.4 pg (26.0-34.0); Mean Corpuscular HGB Conc 31.3 g/dL (31.5-36.5); Mean Corpuscular Volume 94 fL (80-100); Mean Platelet Volume 8.7 fL (9.1-12.4); NEUTROPHILS ABSOLUTE AUTO 12.18 K/mm3 (1.96-9.15); NEUTROPHILS PERCENT AUTO 62 % (41-73); Platelet Count 417 K/mm3 (150-400); RDW Coefficient Variation 18.5 % (11.7-14.2); RDW Standard Deviation 63.5 fL (35.1-46.3); Red Blood Cell Count 2.55 M/mm3 (3.80-5.20); White Blood Cell Count 19.51 K/mm3 (4.00-11.30)
[2021-08-30 14:25] LABS: Albumin, Blood 1.3 g/dL (3.4-5.0); Albumin/Globulin Ratio 0.3 (0.8-1.8); Bilirubin, Total 1.2 mg/dL (0.1-1.0); Calcium, Blood 8.1 mg/dL (8.5-10.1); Creatinine, Blood 5.16 mg/dL (0.40-1.00); Potassium, Blood 5.1 mmol/L (3.5-5.5); Total Protein, Blood 6.3 g/dL (6.4-8.2)
== END 2021-08-30 15:49 | disposition home or self-care (01) ==
LOC: ER 12:46
PROVIDERS: Emergency Medicine
DX: R10.9 Unspecified abdominal pain (principal); G43.909 Migraine, unspecified, not intractable, without status migrainosus; F17.200 Nicotine dependence, unspecified, uncomplicated
CPT/HCPCS: 36415; 74176; 80053; 83690; 85025; 99284-25